=== PATIENT | female | born 1960 | race Caucasian/White ===

== ENCOUNTER 2021-06-23 18:32 | Inpatient (IN) | payer OTHER, MEDICAID, SELFPAY ==
--- NOTE | 2021-06-23 18:33 | CTR_ITS ---
PROCEDURE INFORMATION: Exam: CT Head Without Contrast Exam date and time: 06/23/2021 6:33 PM Age: 61 years old Clinical indication: Altered mental status/memory loss; Additional info: AMS TECHNIQUE: Imaging protocol: Computed tomography of the head without contrast. Radiation optimization: All CT scans at this facility use at least one of these dose optimization techniques: automated exposure control; mA and/or kV adjustment per patient size (includes targeted exams where dose is matched to clinical indication); or iterative reconstruction. COMPARISON: No relevant prior studies available. RADIATION DOSE METRICS: Total DLP (mGy-cm): 823.68 FINDINGS: Brain: There is volume loss and periventricular low density compatible with chronic small vessel disease changes. There is no acute hemorrhage, edema or mass effect. There are small bifrontal benign hygromas. Cerebral ventricles: No ventriculomegaly. Paranasal sinuses: Visualized sinuses are unremarkable. No fluid levels. Mastoid air cells: Visualized mastoid air cells are well aerated. Bones/joints: Unremarkable. No acute fracture. Soft tissues: Unremarkable. CT/CT head wo con* [id number] IMPRESSION: No acute intracranial abnormality. Radiation Dose CTDIVOL = (mGy): DLP = 823.68 (mGy-cm)
--- NOTE | 2021-06-23 18:33 | ECG_ITS ---
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[id number] Requested By: Oscar Bolanos Order Number: [id number] Reading MD: NIKKI COURTNEY Measurements Intervals [place] Rate: 93 P: 67 [place]: 191 QRS: 97 QRSD: 129 T: -38 QT: 410 QTc: 511 Interpretive Statements SINUS RHYTHM WITH SINUS ARRHYTHMIA BORDERLINE RIGHT AXIS DEVIATION [QRS AXIS > 90] Compared to ECG 06/23/2021 21:59:17 Intraventricular conduction delay no longer present Electronically Signed On 06-23-2021 23:55:44 CDT by NIKKI COURTNEY [id number]
--- NOTE | 2021-06-23 18:34 | XRR_ITS ---
PROCEDURE INFORMATION: Exam: XR Chest Exam date and time: 06/23/2021 6:34 PM Age: 61 years old Clinical indication: Other: [facility] TECHNIQUE: Imaging protocol: XR of the chest. Views: 1 view. COMPARISON: No relevant prior studies available. FINDINGS: Lungs: Unremarkable. No consolidation. Pulmonary vascularity is within normal limits. Scattered calcified pulmonary granulomas are noted. Pleural spaces: Unremarkable. No pleural effusion. No pneumothorax. Heart/Mediastinum: Borderline cardiomegaly. Bones/joints: No acute abnormality. XR/XR chest 1V portable [id number] IMPRESSION: No acute findings. Radiation Dose CTDIVOL = (mGy): DLP = (mGy-cm)
[2021-06-23 18:39] VITALS: BP 105/88; PULSE 99; RESP 28; TEMP 36.8; O2SAT 96; BMI 29.0
--- NOTE | 2021-06-23 18:44 | CTR_ITS ---
PROCEDURE INFORMATION: Exam: CT Abdomen And Pelvis With Contrast Exam date and time: 06/23/2021 6:44 PM Age: 61 years old Clinical indication: Other: [facility]; Additional info: Eval abd pain TECHNIQUE: Imaging protocol: Computed tomography of the abdomen and pelvis with contrast. Sagittal and coronal reformatted images were created and reviewed. Radiation optimization: All CT scans at this facility use at least one of these dose optimization techniques: automated exposure control; mA and/or kV adjustment per patient size (includes targeted exams where dose is matched to clinical indication); or iterative reconstruction. Contrast material: VISI 320; Contrast volume: 95 ml; Contrast route: INTRAVENOUS (IV); COMPARISON: CR (CHEST, ) 06/23/2021 7:10 PM RADIATION DOSE METRICS: Total DLP (mGy-cm): 1786.72 FINDINGS: Limitations: Motion artifact on multiple images that can limit evaluation. Tubes, catheters and devices: There is a left femoral central line with the tip in the left common iliac vein. Lungs: Ground-glass opacification in the periphery of both visualized lungs, findings are better visualized compared with the chest x-ray done earlier on 06/23/2021. Pleural spaces: No pleural effusion. Heart: Visualized portions of the heart are mildly enlarged. Mild atherosclerotic calcification in the visualized coronary arteries. Liver: Diffuse, mildly decreased attenuation in the liver. Findings are consistent with mild fatty infiltration. Gallbladder and bile ducts: Patient has had a previous cholecystectomy. No biliary ductal dilatation. Pancreas: Mild atrophy of the pancreatic parenchyma. No pancreatic ductal dilatation. Spleen: The spleen is unremarkable. Adrenal glands: Indeterminate focus in the right adrenal gland. Hounsfield units show density greater than expected for an adenoma. This measures 1.1 x 1.5 cm (series 2, image 19). The left adrenal gland is unremarkable. Kidneys and ureters: Multiple areas of focal cortical scarring in the right kidney. Subcentimeter hypodense focus in the left kidney that is too small to characterize, however likely represents a small cyst. The right and left ureters are unremarkable. Stomach and bowel: Increased fecal content in the colon. No acute abnormality in the stomach. No acute abnormality in the small bowel. Appendix: Appendix not definitely visualized. No inflammatory changes in the pericecal region however. Intraperitoneal space: No free intraperitoneal air. No ascites. No loculated fluid collections to suggest an abscess. Vasculature: Moderate atherosclerotic changes in the visualized arteries. No evidence for aortic aneurysm or aortic dissection. Incidental note of separate origins of the common hepatic artery, left gastric artery, and splenic artery from the aorta.Vasculature: Hepatic veins, portal veins, splenic vein, and SMV are patent. Lymph nodes: No lymphadenopathy. Urinary bladder: The bladder is decompressed by a Malhotra catheter. Air in the bladder, likely related to Malhotra catheter placement. Reproductive: Patient has had a previous hysterectomy. Calcifications in both right and left ovaries, possibly due to sequela from prior involuting cysts. Bones/joints: Bones are diffusely osteopenic. Degenerative changes in the spine, sacroiliac joints, and hips. Mild spinal canal stenosis at L2-L3 through L5-S1. Multilevel foraminal stenosis of varying severity in the lumbar spine. Soft tissues: No acute abnormality in the extra-abdominal soft tissues. CT/CT abdomen pelvis w con* [id number] IMPRESSION: 1. Ground-glass opacification in the periphery of both visualized lungs, findings are better visualized compared with the chest x-ray done earlier on 06/23/2021. Findings raise suspicion for pneumonia, including COVID-19 pneumonia. Recommend clinical correlation. Recommend followup chest imaging to insure resolution of these findings. 2. Mild fatty infiltration of the liver. 3. Indeterminate focus in the right adrenal gland. Consider 12 month follow-up adrenal CT. (Reference: Diana) 4. There is a left femoral central line with the tip in the left common iliac vein. 5. Incidental/nonacute findings are listed in the report. COMMENTS: 1. Consistent with the [employer] [place] [employer]'s Incidental Findings Committee white paper (J Am Danielito Radiol 2017): Any incidental adrenal lesion less than or equal to 1 cm is likely benign. No follow-up imaging is recommended for these lesions per consensus recommendations based on imaging criteria. Further lab evaluation could be pursued if warranted based on clinical findings. 2. Consistent with the [employer] [place] [employer]'s Incidental Findings Committee white paper (J Am Danielito Radiol 2018): Any incidental renal lesion less than 1 cm or classified as too small to characterize, or any incidental cystic renal lesion characterized as simple-appearing, is likely benign. No follow-up imaging is recommended for these lesions per consensus recommendations based on imaging criteria. REFERENCES: Diana CASTILLO, et al. Management of Incidental Adrenal Masses: A White Paper of the ACR Incidental Findings Committee. J Am Danielito Radiol. 2017;14(8):1413-6458. Radiation Dose CTDIVOL = (mGy): DLP = 1786.72 (mGy-cm)
[2021-06-23 18:49] LABS: Basophils # 0.2 10^3/uL (0.0-0.1); Basophils % 0.6 %; Hematocrit 43.5 % (37.0-47.0); Hemoglobin 13.3 g/dL (11.5-15.3); Lymphocytes # 2.3 10^3/uL (0.8-4.8); Lymphocytes % 8.2 %; Mean Corpuscular HGB Conc 30.6 g/dL (30.0-36.0); Mean Corpuscular Hemoglobin 28.7 pg (28.0-34.0); Mean Corpuscular Volume 93.8 fl (81-99); Mean Platelet Volume 12.5 fL (7.4-10.4); Monocytes # 2.3 10^3/uL (0.2-0.9); Neutrophils # 23.09 10^3/uL (1.8-7.7); Neutrophils % 81.5 %; Nucleated Red Blood Cells % 0 %; Platelet Count 400 10^3/cmm (130-400); Red Blood Count 4.64 10^6/uL (4.1-5.3); Red Cell Distribution Width 13.2 % (12.1-15.1); White Blood Count 28.4 10^3/uL (4.0-10.0)
[2021-06-23 18:56] LABS: Ketone (Acetest) Serum Positive (Negative)
[2021-06-23 19:06] LABS: Troponin(5th) Baseline 30 ng/L (0-10)
[2021-06-23 19:08] LABS: Alanine Aminotransferase 42 U/L (0-33); Albumin Level 4.4 g/dL (3.5-5.2); Alkaline Phosphatase 191 IU/L (35-105); Anion Gap 43.5 (5-19); Aspartate Amino Transferase 30 U/L (0-32); Blood Urea Nitrogen 27 mg/dL (8-23); Chloride 92 mmol/L (98-107); Globulin 2.3 g/dL (1.3-4.6); Glomerular Filtration Rate 30.7 mL/min (90-130); Lipase 119 U/L (13-60); Osmolality Calculated 312 mOsm/kg (285-295); Potassium 5.5 mmol/L (3.5-5.1); Sodium 133 mmol/L (136-145); Total Bilirubin 0.3 mg/dL (0.15-1.2); Total Protein 6.7 g/dL (6.6-8.7)
[2021-06-23 19:10] LABS: Acetaminophen < 5.0 ug/mL (10-30); Salicylate < 0.3 mg/dL (3-10)
[2021-06-23 19:36] LABS: Carbon Dioxide 3 mmol/L (22-29); Glucose 653 mg/dL (65-115)
[2021-06-23] MEDS: lactated ringers 1,000 ML 999 ML IV ×2 (19:44→21:41)
[2021-06-23 19:47] LABS: Add Urine Microscopic? YES; Bilirubin Urine Neg (Negative); Blood Urine 3+ (Negative); Glucose Urine UA 4+ (Normal); Ketones Urine 3+ (Negative); Leukocyte Esterase Urine Negative (Negative); Nitrate Urine Negative (Negative); Protein Urine Trace (Negative); Urine Appearance Clear (CLEAR); Urine Color Yellow (Yellow); Urobilinogen Urine Norm (Negative); pH Urine 5 (5-7)
[2021-06-23 19:51] LABS: RBC Urine 0-4 /hpf (0-2); Squamous Epithelial Cell Urine 0-4 /hpf (0-5); WBC Urine 0-4 /hpf (0-5)
[2021-06-23 19:52] LABS: Add Urine Culture? No; Amorphous Sediment Urine 1+ /hpf; Bacteria Urine TRACE /hpf
[2021-06-23 20:12] LABS: Lactate (Lactic Acid level) 2.6 mmol/L (0.5-2.2)
[2021-06-23] MEDS: vancomycin 1,000 MG in sodium chloride 0.9% 250 ML 250 MG IV (20:22)
[2021-06-23] MEDS: cefepime 1,000 MG in sodium chloride 0.9% (plus) 50 ML 100 MG IV (20:22)
[2021-06-23 20:32] VITALS: BP 101/47; PULSE 91; RESP 24; O2SAT 98
--- NOTE | 2021-06-23 20:33 | ECG_ITS ---
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[id number] Requested By: Oscar Bolanos Order Number: [id number] Reading MD: NIKKI COURTNEY Measurements Intervals [place] Rate: 93 P: 72 CT: 183 QRS: 99 QRSD: 157 T: -41 QT: 418 QTc: 521 Interpretive Statements SINUS RHYTHM WITH SINUS ARRHYTHMIA BORDERLINE RIGHT AXIS DEVIATION [QRS AXIS > 90] INTRAVENTRICULAR CONDUCTION DELAY [130+ ms QRS DURATION] No previous ECG available for comparison Electronically Signed On 06-24-2021 0:01:50 CDT by NIKKI COURTNEY [email or web address] [id number]
[2021-06-23 20:46] LABS: Troponin 5 2HR 26.77 ng/L (0-10)
[2021-06-23 20:48] LABS: Troponin 5 2HR Delta -3.23 ABS# (0-10)
--- NOTE | 2021-06-23 20:52 | W.ED.GENADLT ---
HPI - General Adult General: Chief complaint: Altered Mental Status Stated complaint: UNRESPONSIVE ON SCENE Time Seen by Provider: 06/23/21 18:33 History of Present Illness: HPI narrative: 61-year-old female history of diabetes complicated multiple DKA presented to the emergency room after she was found obtunded with heavy breathing. History is limited given patient is unresponsive. Patient's son tells me that this all started after he found her down earlier today 2 hours ago. Patient son noticed that patient was last normal yesterday night when she was going home with complaints of belly pain. Patient has been compliant with her insulins. Son does not recall any other triggers for her DKA. When EMS comes,, patient had a glucose greater than 500. Onset: earlier today Duration:ongoing Location:home Severity:moderate Review of Systems Narrative: UNABLE TO OBTAIN DUE TO SEVERITY OF DISEASE Physical Exam Narrative: EXAM NARRATIVE: Head: Atraumatic Eyes: PERRL, conjunctiva without injection ENT: Dry membrane moist, +ketones smell in mouth NECK: Supple, ROM intact LUNGS: LCTAB, no crackles/rhonchi, +kussmal breathing CV: Sinus tachycardia ABDOMEN: Soft, no focal TTP. NO guarding rebound, guarding, rigidity. No CVA tenderness to percussion. Neg Patrick/Neg McBurney's point tenderness, no suprabupic tenderness to palpation. EXTREMITY: Normal ROM SKIN: No rash or erythema NEURO: SOMNOLENT GCS of 10 PSYCH:unable to assess Procedures Central Line Placement Left Femoral: Time Out Performed: Yes Patient Placed on Monitor/Pulse Ox: Yes MD Prep: mask, gown and gloves Central Line Prep: Povidone-Iodine 1% Local Anesthetic: lidocaine 1% Amount of anesthesia used (mL): 5 Ultrasound Used for Placement: Yes Central Line Lumen Inserted: triple Post Procedure: sutured in place, good blood return, all ports aspirated, flushed, capped and sterile dressing applied Post Procedure X-Ray: tip of catheter in good position Patient Tolerated Procedure: well Complications: none Course Vital Signs: Vital signs: Vital Signs Temperature 98.2 F 06/23/21 18:39 Pulse Rate 91 06/23/21 21:46 Respiratory Rate 28 H 06/23/21 21:46 Blood Pressure 94/57 06/23/21 21:46 Pulse Oximetry 98 06/23/21 21:46 MDM - General Adult MDM Narrative: Medical decision making narrative: 61-year-old female with history of DKA presenting to the emergency room with altered mental status, kusmal breathing. Patient was noted to be tachycardic, GCS of 10. Dry on exam. Patient had a glucose greater than 500. Work-up today showed patient is in florid DKA with anion gap of 43, bicarb of 3. pH of 6.8. Unclear what the source of the DKA. K was noted to be 5.5. EKG did not show any hyperkalemic changes. Patient received 3 L of lactated ringer. Patient is now on an insulin drip. CT head did not show any signs of any focal brain bleed or other trauma or injury. CT of pelvis showed no focal findings. Labs improving after insulin drip. Given high shock index and risk of decompensation, decisoin was made ot not intubate. S/p vacnomycin and cefepime. Case was discussed with ICU provider Dr. Silva with plans for ICU admission. Disposition: Admission Lab Data: Labs: Lab Results 06/23/21 06/23/21 06/23/21 18:20 18:20 18:20 WBC 28.4 10^3/uL H 10 ^3/uL (4.0-10.0) RBC 4.64 10^6/uL 10^6 /uL (4.1-5.3) Hgb 13.3 g/dL g/dL (11.5-15.3) Hct 43.5 % % (37.0-47.0) MCV 93.8 fl fl (81-99) MCH 28.7 pg pg (28.0-34.0) MCHC 30.6 g/dL g/dL (30.0-36.0) RDW 13.2 % % (12.1-15.1) Plt Count 400 10^3/cmm 10^3 /cmm (130-400) MPV 12.5 fL H fL (7.4-10.4) Neut % (Auto) 81.5 % % Lymph % (Auto) 8.2 % % [place] % (Auto) 8.0 % % Eos % (Auto) 0.0 % % Baso % (Auto) 0.6 % % Neut # (Auto) 23.09 10^3/uL H 1 0^3/uL (1.8-7.7) Lymph # (Auto) 2.3 10^3/uL 10^3/ uL (0.8-4.8) [place] # (Auto) 2.3 10^3/uL H 10^ 3/uL (0.2-0.9) Eos # (Auto) 0.0 10^3/uL 10^3/ uL (0.0-0.8) Baso # (Auto) 0.2 10^3/uL H 10^ 3/uL (0.0-0.1) Nucleated RBC % (a uto) 0 % % Nucleated RBCs # 0.0 /100WBC /100W BC Specimen Type Sample Site ABG pH ABG pCO2 ABG pO2 ABG HCO3 ABG O2 Saturation ABG Base Excess Bo Test VBG pH VBG pCO2 VBG pO2 VBG HCO3 VBG Base Excess VBG Hematocrit A-a O2 Gradient Hematocrit Hgb O2 Saturation Carboxyhemoglobin Methemoglobin Total Hemoglobin Ionized Calcium O2 Delivery Device FiO2 Systems Spec ID Blood Gas Notified Time Sodium 133 mmol/L L mmol /L (136-145) Potassium 5.5 mmol/L H mmol /L (3.5-5.1) Chloride 92 mmol/L L mmol/ L (98-107) Carbon Dioxide 3 mmol/L L* mmol/ L (22-29) Anion Gap 43.5 H (5-19) BUN 27 mg/dL H mg/dL (8-23) Creatinine 1.7 mg/dL H mg/dL (0.5-0.9) GFR Calculation 30.7 mL/min L mL/ min (90-130) Glucose 653 mg/dL H* mg/d L (65-115) POC Glucose Calculated Osmolal ity 312 mOsm/kg H mOs m/kg (285-295) Lactate Calcium 9.0 mg/dL mg/dL (8.5-10.5) Total Bilirubin 0.3 mg/dL mg/dL (0.15-1.2) AST 30 U/L U/L (0-32) ALT 42 U/L H U/L (0-33) Alkaline Phosphata se 191 IU/L H IU/L (35-105) Troponin T Baselin e Troponin T 120 Min [place] Troponin T Total Protein 6.7 g/dL g/dL (6.6-8.7) Albumin 4.4 g/dL g/dL (3.5-5.2) Globulin 2.3 g/dL g/dL (1.3-4.6) Lipase 119 U/L H U/L (13-60) Urine Color Urine Appearance Urine pH Ur Specific Gravit y Urine Protein Urine Glucose (UA) Urine Ketones Urine Blood Urine Nitrate Urine Bilirubin Urine Urobilinogen Ur Leukocyte Marielena ase Urine RBC Urine WBC Ur Squamous Epith Cells Amorphous Sediment Urine Bacteria Salicylates < 0.3 mg/dL L mg/ dL (3-10) Acetaminophen < 5.0 ug/mL L ug/ mL (10-30) Serum Ketones Positive H (Negative) SARS-CoV-2 Ag (Rap id) 06/23/21 06/23/21 06/23/21 18:20 18:46 19:29 WBC RBC Hgb Hct MCV MCH MCHC RDW Plt Count MPV Neut % (Auto) Lymph % (Auto) [place] % (Auto) Eos % (Auto) Baso % (Auto) Neut # (Auto) Lymph # (Auto) [place] # (Auto) Eos # (Auto) Baso # (Auto) Nucleated RBC % (a uto) Nucleated RBCs # Specimen Type Sample Site ABG pH ABG pCO2 ABG pO2 ABG HCO3 ABG O2 Saturation ABG Base Excess Bo Test VBG pH VBG pCO2 VBG pO2 VBG HCO3 VBG Base Excess VBG Hematocrit A-a O2 Gradient Hematocrit Hgb O2 Saturation Carboxyhemoglobin Methemoglobin Total Hemoglobin Ionized Calcium O2 Delivery Device FiO2 Systems Spec ID Blood Gas Notified Time Sodium Potassium Chloride Carbon Dioxide Anion Gap BUN Creatinine GFR Calculation Glucose POC Glucose Calculated Osmolal ity Lactate 2.6 mmol/L H mmol /L (0.5-2.2) Calcium Total Bilirubin AST ALT Alkaline Phosphata se Troponin T Baselin e 30 ng/L H ng/L (0-10) Troponin T 120 Min [place] Troponin T Total Protein Albumin Globulin Lipase Urine Color Yellow (Yellow) Urine Appearance Clear (CLEAR) Urine pH 5 (5-7) Ur Specific Gravit y 1.020 (1.005-1.030) Urine Protein Trace (Negative) Urine Glucose (UA) 4+ H (Normal) Urine Ketones 3+ H (Negative) Urine Blood 3+ H (Negative) Urine Nitrate Negative (Negative) Urine Bilirubin Neg (Negative) Urine Urobilinogen Norm mg/dL mg/dL (Negative) Ur Leukocyte Marielena ase Negative (Negative) Urine RBC 0-4 /hpf H /hpf (0-2) Urine WBC 0-4 /hpf H /hpf (0-5) Ur Squamous Epith Cells 0-4 /hpf H /hpf (0-5) Amorphous Sediment 1+ /hpf /hpf Urine Bacteria Trace /hpf /hpf (NONE) Salicylates Acetaminophen Serum Ketones SARS-CoV-2 Ag (Rap id) 06/23/21 06/23/21 06/23/21 20:17 20:20 20:27 WBC RBC Hgb Hct MCV MCH MCHC RDW Plt Count MPV Neut % (Auto) Lymph % (Auto) [place] % (Auto) Eos % (Auto) Baso % (Auto) Neut # (Auto) Lymph # (Auto) [place] # (Auto) Eos # (Auto) Baso # (Auto) Nucleated RBC % (a uto) Nucleated RBCs # Specimen Type Sample Site ABG pH ABG pCO2 ABG pO2 ABG HCO3 ABG O2 Saturation ABG Base Excess Bo Test VBG pH VBG pCO2 VBG pO2 VBG HCO3 VBG Base Excess VBG Hematocrit A-a O2 Gradient Hematocrit Hgb O2 Saturation Carboxyhemoglobin Methemoglobin Total Hemoglobin Ionized Calcium O2 Delivery Device FiO2 Systems Spec ID Blood Gas Notified Time Sodium Potassium Chloride Carbon Dioxide Anion Gap BUN Creatinine GFR Calculation Glucose POC Glucose 572 mg/dL H* mg/d L (70-110) Calculated Osmolal ity Lactate Calcium Total Bilirubin AST ALT Alkaline Phosphata se Troponin T Baselin e Troponin T 120 Min [place] 26.77 ng/L H ng/L (0-10) Delta Troponin T -3.23 ABS# L ABS# (0-10) Total Protein Albumin Globulin Lipase Urine Color Urine Appearance Urine pH Ur Specific Gravit y Urine Protein Urine Glucose (UA) Urine Ketones Urine Blood Urine Nitrate Urine Bilirubin Urine Urobilinogen Ur Leukocyte Marielena ase Urine RBC Urine WBC Ur Squamous Epith Cells Amorphous Sediment Urine Bacteria Salicylates Acetaminophen Serum Ketones SARS-CoV-2 Ag (Rap id) Negative (Negative) 06/23/21 06/23/21 06/23/21 21:08 21:10 21:54 WBC RBC Hgb Hct MCV MCH MCHC RDW Plt Count MPV Neut % (Auto) Lymph % (Auto) [place] % (Auto) Eos % (Auto) Baso % (Auto) Neut # (Auto) Lymph # (Auto) [place] # (Auto) Eos # (Auto) Baso # (Auto) Nucleated RBC % (a uto) Nucleated RBCs # Specimen Type Venous Sample Site Radial, left ABG pH 6.84 L* (7.35-7.45) ABG pCO2 20.0 mmHg L mmHg (35-45) ABG pO2 40.0 mmHg L mmHg (80.0-100.0) ABG HCO3 3.4 mmol/L L mmol /L (22-26) ABG O2 Saturation 70.5 ABG Base Excess -29.5 mmol/L L mm ol/L (-2.0-2.0) Bo Test Pos VBG pH 6.84 L* (7.32-7.42) VBG pCO2 20.0 mmHg L mmHg (41-51) VBG pO2 40.0 mmHg mmHg (25-40) VBG HCO3 3.4 mmol/L L mmol /L (24-28) VBG Base Excess -29.5 mmol/L L mm ol/L (-3.0-3.0) VBG Hematocrit 38.0 % % (37-47) A-a O2 Gradient 11.1 mmHg H mmHg (5-10) Hematocrit 38.0 % % (37-47) Hgb O2 Saturation 69.4 % L % (95-100) Carboxyhemoglobin 0.9 %THgb %THgb (0.4-20.1) Methemoglobin 0.6 % % (0.4-1.5) Total Hemoglobin 12.4 g/dL g/dL (12-16) Ionized Calcium 1.3 mmol/L mmol/L (1.1-1.4) O2 Delivery Device Room air FiO2 21.0 % % Systems Spec ID glc Blood Gas Notified Time Sodium 131 mmol/L L mmol /L 136.0 mmol/L mmol /L (136-145) (131-143) Potassium 4.6 mmol/L mmol/L 4.7 mmol/L mmol/L (3.5-5.1) (3.5-5.0) Chloride 95 mmol/L L mmol/ L (98-107) Carbon Dioxide 4 mmol/L L* mmol/ L (22-29) Anion Gap 36.6 H (5-19) BUN 26 mg/dL H mg/dL (8-23) Creatinine 1.5 mg/dL H mg/dL (0.5-0.9) GFR Calculation 35.4 mL/min L mL/ min (90-130) Glucose 569 mg/dL H* mg/d L 595.0 mg/dL H mg/ dL (65-115) (70-115) POC Glucose 595 mg/dL H* mg/d L (70-110) Calculated Osmolal ity 303 mOsm/kg H mOs m/kg (285-295) Lactate Calcium 7.6 mg/dL L mg/dL (8.5-10.5) Total Bilirubin AST ALT Alkaline Phosphata se Troponin T Baselin e Troponin T 120 Min [place] Troponin T Total Protein Albumin Globulin Lipase Urine Color Urine Appearance Urine pH Ur Specific Gravit y Urine Protein Urine Glucose (UA) Urine Ketones Urine Blood Urine Nitrate Urine Bilirubin Urine Urobilinogen Ur Leukocyte Marielena ase Urine RBC Urine WBC Ur Squamous Epith Cells Amorphous Sediment Urine Bacteria Salicylates Acetaminophen Serum Ketones SARS-CoV-2 Ag (Rap id) 06/23/21 06/23/21 22:09 22:19 WBC RBC Hgb Hct MCV MCH MCHC RDW Plt Count MPV Neut % (Auto) Lymph % (Auto) [place] % (Auto) Eos % (Auto) Baso % (Auto) Neut # (Auto) Lymph # (Auto) [place] # (Auto) Eos # (Auto) Baso # (Auto) Nucleated RBC % (a uto) Nucleated RBCs # Specimen Type Venous Sample Site Not specified ABG pH ABG pCO2 ABG pO2 ABG HCO3 ABG O2 Saturation ABG Base Excess Bo Test N/a VBG pH 6.84 L* (7.32-7.42) VBG pCO2 11.0 mmHg L* mmHg (41-51) VBG pO2 125.0 mmHg H mmHg (25-40) VBG HCO3 1.8 mmol/L L mmol /L (24-28) VBG Base Excess -30.9 mmol/L L mm ol/L (-3.0-3.0) VBG Hematocrit 40.2 % % (37-47) A-a O2 Gradient Hematocrit Hgb O2 Saturation Carboxyhemoglobin Methemoglobin Total Hemoglobin Ionized Calcium O2 Delivery Device Not Reportable FiO2 Systems Spec ID glc Blood Gas Notified Time 2240 Sodium Potassium Chloride Carbon Dioxide Anion Gap BUN Creatinine GFR Calculation Glucose POC Glucose 576 mg/dL H* mg/d L (70-110) Calculated Osmolal ity Lactate Calcium Total Bilirubin AST ALT Alkaline Phosphata se Troponin T Baselin e Troponin T 120 Min [place] Troponin T Total Protein Albumin Globulin Lipase Urine Color Urine Appearance Urine pH Ur Specific Gravit y Urine Protein Urine Glucose (UA) Urine Ketones Urine Blood Urine Nitrate Urine Bilirubin Urine Urobilinogen Ur Leukocyte Marielena ase Urine RBC Urine WBC Ur Squamous Epith Cells Amorphous Sediment Urine Bacteria Salicylates Acetaminophen Serum Ketones SARS-CoV-2 Ag (Rap id) Imaging Data^: Other Imaging: Radiologist's impression: [facility] [place] [id number] Scan ReportSigned Patient: Donny Beck #: [id number]: 1960cct#:[id number]/Sex: 61 / FADM Date: 06/23/21Loc: ERRoom/Bed:Attending Dr: Ordering Provider/Ordering MD: Oscar Bolanos MD Date of Service: 06/23/21 Procedure(s): CT abdomen pelvis w con* [id number] Accession Number(s): [id number] Report Number: [id number] PROCEDURE INFORMATION: Exam: CT Abdomen And Pelvis With Contrast Exam date and time: 06/23/2021 6:44 PM Age: 61 years old Clinical indication: Other: Hhs; Additional info: Eval abd pain TECHNIQUE: Imaging protocol: Computed tomography of the abdomen and pelvis with contrast. Sagittal and coronal reformatted images were created and reviewed. Radiation optimization: All CT scans at this facility use at least one of these dose optimization techniques: automated exposure control; mA and/or kV adjustment per patient size (includes targeted exams where dose is matched to clinical indication); or iterative reconstruction. Contrast material: VISI 320; Contrast volume: 95 ml; Contrast route: INTRAVENOUS (IV); COMPARISON: CR (CHEST, ) 06/23/2021 7:10 PM RADIATION DOSE METRICS: Total DLP (mGy-cm): 1786.72 FINDINGS: Limitations: Motion artifact on multiple images that can limit evaluation. Tubes, catheters and devices: There is a left femoral central line with the tip in the left common iliac vein. Lungs: Ground-glass opacification in the periphery of both visualized lungs, findings are better visualized compared with the chest x-ray done earlier on 06/23/2021. Pleural spaces: No pleural effusion. Heart: Visualized portions of the heart are mildly enlarged. Mild atherosclerotic calcification in the visualized coronary arteries. Liver: Diffuse, mildly decreased attenuation in the liver. Findings are consistent with mild fatty infiltration. Gallbladder and bile ducts: Patient has had a previous cholecystectomy. No biliary ductal dilatation. Pancreas: Mild atrophy of the pancreatic parenchyma. No pancreatic ductal dilatation. Spleen: The spleen is unremarkable. Adrenal glands: Indeterminate focus in the right adrenal gland. Hounsfield units show density greater than expected for an adenoma. This measures 1.1 x 1.5 cm (series 2, image 19). The left adrenal gland is unremarkable. Kidneys and ureters: Multiple areas of focal cortical scarring in the right kidney. Subcentimeter hypodense focus in the left kidney that is too small to characterize, however likely represents a small cyst. The right and left ureters are unremarkable. Stomach and bowel: Increased fecal content in the colon. No acute abnormality in the stomach. No acute abnormality in the small bowel. Appendix: Appendix not definitely visualized. No inflammatory changes in the pericecal region however. Intraperitoneal space: No free intraperitoneal air. No ascites. No loculated fluid collections to suggest an abscess. Vasculature: Moderate atherosclerotic changes in the visualized arteries. No evidence for aortic aneurysm or aortic dissection. Incidental note of separate origins of the common hepatic artery, left gastric artery, and splenic artery from the aorta.Vasculature: Hepatic veins, portal veins, splenic vein, and SMV are patent. Lymph nodes: No lymphadenopathy. Urinary bladder: The bladder is decompressed by a Malhotra catheter. Air in the bladder, likely related to Malhotra catheter placement. Reproductive: Patient has had a previous hysterectomy. Calcifications in both right and left ovaries, possibly due to sequela from prior involuting cysts. Bones/joints: Bones are diffusely osteopenic. Degenerative changes in the spine, sacroiliac joints, and hips. Mild spinal canal stenosis at L2-L3 through L5-S1. Multilevel foraminal stenosis of varying severity in the lumbar spine. Soft tissues: No acute abnormality in the extra-abdominal soft tissues. CT/CT abdomen pelvis w con* [id number] IMPRESSION: 1. Ground-glass opacification in the periphery of both visualized lungs, findings are better visualized compared with the chest x-ray done earlier on 06/23/2021. Findings raise suspicion for pneumonia, including COVID-19 pneumonia. Recommend clinical correlation. Recommend followup chest imaging to insure resolution of these findings. 2. Mild fatty infiltration of the liver. 3. Indeterminate focus in the right adrenal gland. Consider 12 month follow-up adrenal CT. (Reference: Diana) 4. There is a left femoral central line with the tip in the left common iliac vein. 5. Incidental/nonacute findings are listed in the report. COMMENTS: 1. Consistent with the [employer]'s Incidental Findings Committee white paper (J Am Danielito Radiol 2017): Any incidental adrenal lesion less than or equal to 1 cm is likely benign. No follow-up imaging is recommended for these lesions per consensus recommendations based on imaging criteria. Further lab evaluation could be pursued if warranted based on clinical findings. 2. Consistent with the [employer]'s Incidental Findings Committee white paper (J Am Danielito Radiol 2018): Any incidental renal lesion less than 1 cm or classified as too small to characterize, or any incidental cystic renal lesion characterized as simple-appearing, is likely benign. No follow-up imaging is recommended for these lesions per consensus recommendations based on imaging criteria. REFERENCES: Diana CASTILLO, et al. Management of Incidental Adrenal Masses: A White Paper of the ACR Incidental Findings Committee. J Am Danielito Radiol. 2017;14(8):2044-5480. Radiation Dose CTDIVOL = (mGy): DLP = 1786.72 (mGy-cm) Dictated By:Chio Vaughan MDSigned By:Chio Vaughan MDSigned Date/Time:06/23/21 2146DD/ [address] [address]ZTqu ReportSigned Patient: Donny Beck #: [id number]: 1960cct#:[id number]/Sex: 61 / FADM Date: 06/23/21Loc: ERRoom/Bed:Attending Dr: Ordering Provider/Ordering MD: Oscar Bolanos MD Date of Service: 06/23/21 Procedure(s): XR chest 1V portable [id number] Accession Number(s): [id number] Report Number: [id number] PROCEDURE INFORMATION: Exam: XR Chest Exam date and time: 06/23/2021 6:34 PM Age: 61 years old Clinical indication: Other: Hhs TECHNIQUE: Imaging protocol: XR of the chest. Views: 1 view. COMPARISON: No relevant prior studies available. FINDINGS: Lungs: Unremarkable. No consolidation. Pulmonary vascularity is within normal limits. Scattered calcified pulmonary granulomas are noted. Pleural spaces: Unremarkable. No pleural effusion. No pneumothorax. Heart/Mediastinum: Borderline cardiomegaly. Bones/joints: No acute abnormality. XR/XR chest 1V portable [id number] IMPRESSION: No acute findings. Radiation Dose CTDIVOL = (mGy): DLP = (mGy-cm) Dictated By:Quinn Adamesigned By:Young Adames Date/Time:06/23/212DD/ [address] [id number] Scan ReportSigned Patient: Donny Beck #: [id number]: 1960cct#:[id number]/Sex: 61 / FADM Date: 06/23/21Loc: ERRoom/Bed:Attending Dr: Ordering Provider/Ordering MD: Oscar Bolanos MD Date of Service: 06/23/21 Procedure(s): CT head wo con* [id number] Accession Number(s): [id number] Report Number: [id number] PROCEDURE INFORMATION: Exam: CT Head Without Contrast Exam date and time: 06/23/2021 6:33 PM Age: 61 years old Clinical indication: Altered mental status/memory loss; Additional info: AMS TECHNIQUE: Imaging protocol: Computed tomography of the head without contrast. Radiation optimization: All CT scans at this facility use at least one of these dose optimization techniques: automated exposure control; mA and/or kV adjustment per patient size (includes targeted exams where dose is matched to clinical indication); or iterative reconstruction. COMPARISON: No relevant prior studies available. RADIATION DOSE METRICS: Total DLP (mGy-cm): 823.68 FINDINGS: Brain: There is volume loss and periventricular low density compatible with chronic small vessel disease changes. There is no acute hemorrhage, edema or mass effect. There are small bifrontal benign hygromas. Cerebral ventricles: No ventriculomegaly. Paranasal sinuses: Visualized sinuses are unremarkable. No fluid levels. Mastoid air cells: Visualized mastoid air cells are well aerated. Bones/joints: Unremarkable. No acute fracture. Soft tissues: Unremarkable. CT/CT head wo con* [id number] IMPRESSION: No acute intracranial abnormality. Radiation Dose CTDIVOL = (mGy): DLP = 823.68 (mGy-cm) Dictated By:Quinn Adamesigned By:Quinn Adamesigned Date/Time:06/23/21/ [address] [address]BQ Scan ReportSigned with Addenda Patient: Donny Beck #: [id number]: [id number]#:[id number]/Sex: 61 / FADM Date: 06/23/21Loc: ERRoom/Bed:Attending Dr: Ordering Provider/Ordering MD: Oscar Bolanos MD Date of Service: 06/23/21 Procedure(s): CT abdomen pelvis w con* [id number] Accession Number(s): [id number] Report Number: [id number]/CT abdomen pelvis w con* [id number] Urgent results were discussed with OSCAR Eller on 06/23/2021 at 10:28 PM CDT. Radiation Dose CTDIVOL = (mGy): DLP = 1786.72 (mGy-cm) Addendum Dictated By: Chio Vaughan MDAddendum Signed By: Chio Vaughan MDSigned Date/Time:06/23/219Addendum Cosigned By: PROCEDURE INFORMATION: Exam: CT Abdomen And Pelvis With Contrast Exam date and time: 06/23/2021 6:44 PM Age: 61 years old Clinical indication: Other: Hhs; Additional info: Eval abd pain TECHNIQUE: Imaging protocol: Computed tomography of the abdomen and pelvis with contrast. Sagittal and coronal reformatted images were created and reviewed. Radiation optimization: All CT scans at this facility use at least one of these dose optimization techniques: automated exposure control; mA and/or kV adjustment per patient size (includes targeted exams where dose is matched to clinical indication); or iterative reconstruction. Contrast material: VISI 320; Contrast volume: 95 ml; Contrast route: INTRAVENOUS (IV); COMPARISON: CR (CHEST, ) 06/23/2021 7:10 PM RADIATION DOSE METRICS: Total DLP (mGy-cm): 1786.72 FINDINGS: Limitations: Motion artifact on multiple images that can limit evaluation. Tubes, catheters and devices: There is a left femoral central line with the tip in the left common iliac vein. Lungs: Ground-glass opacification in the periphery of both visualized lungs, findings are better visualized compared with the chest x-ray done earlier on 06/23/2021. Pleural spaces: No pleural effusion. Heart: Visualized portions of the heart are mildly enlarged. Mild atherosclerotic calcification in the visualized coronary arteries. Liver: Diffuse, mildly decreased attenuation in the liver. Findings are consistent with mild fatty infiltration. Gallbladder and bile ducts: Patient has had a previous cholecystectomy. No biliary ductal dilatation. Pancreas: Mild atrophy of the pancreatic parenchyma. No pancreatic ductal dilatation. Spleen: The spleen is unremarkable. Adrenal glands: Indeterminate focus in the right adrenal gland. Hounsfield units show density greater than expected for an adenoma. This measures 1.1 x 1.5 cm (series 2, image 19). The left adrenal gland is unremarkable. Kidneys and ureters: Multiple areas of focal cortical scarring in the right kidney. Subcentimeter hypodense focus in the left kidney that is too small to characterize, however likely represents a small cyst. The right and left ureters are unremarkable. Stomach and bowel: Increased fecal content in the colon. No acute abnormality in the stomach. No acute abnormality in the small bowel. Appendix: Appendix not definitely visualized. No inflammatory changes in the pericecal region however. Intraperitoneal space: No free intraperitoneal air. No ascites. No loculated fluid collections to suggest an abscess. Vasculature: Moderate atherosclerotic changes in the visualized arteries. No evidence for aortic aneurysm or aortic dissection. Incidental note of separate origins of the common hepatic artery, left gastric artery, and splenic artery from the aorta.Vasculature: Hepatic veins, portal veins, splenic vein, and SMV are patent. Lymph nodes: No lymphadenopathy. Urinary bladder: The bladder is decompressed by a Malhotra catheter. Air in the bladder, likely related to Malhotra catheter placement. Reproductive: Patient has had a previous hysterectomy. Calcifications in both right and left ovaries, possibly due to sequela from prior involuting cysts. Bones/joints: Bones are diffusely osteopenic. Degenerative changes in the spine, sacroiliac joints, and hips. Mild spinal canal stenosis at L2-L3 through L5-S1. Multilevel foraminal stenosis of varying severity in the lumbar spine. Soft tissues: No acute abnormality in the extra-abdominal soft tissues. CT/CT abdomen pelvis w con* [id number] IMPRESSION: 1. Ground-glass opacification in the periphery of both visualized lungs, findings are better visualized compared with the chest x-ray done earlier on 06/23/2021. Findings raise suspicion for pneumonia, including COVID-19 pneumonia. Recommend clinical correlation. Recommend followup chest imaging to insure resolution of these findings. 2. Mild fatty infiltration of the liver. 3. Indeterminate focus in the right adrenal gland. Consider 12 month follow-up adrenal CT. (Reference: Diana) 4. There is a left femoral central line with the tip in the left common iliac vein. 5. Incidental/nonacute findings are listed in the report. COMMENTS: 1. Consistent with the [employer]'s Incidental Findings Committee white paper (J Am Danielito Radiol 2017): Any incidental adrenal lesion less than or equal to 1 cm is likely benign. No follow-up imaging is recommended for these lesions per consensus recommendations based on imaging criteria. Further lab evaluation could be pursued if warranted based on clinical findings. 2. Consistent with the [employer]'s Incidental Findings Committee white paper (J Am Danielito Radiol 2018): Any incidental renal lesion less than 1 cm or classified as too small to characterize, or any incidental cystic renal lesion characterized as simple-appearing, is likely benign. No follow-up imaging is recommended for these lesions per consensus recommendations based on imaging criteria. REFERENCES: Diana CASTILLO, et al. Management of Incidental Adrenal Masses: A White Paper of the ACR Incidental Findings Committee. J Am Danielito Radiol. 2017;14(8):8492-0869. Radiation Dose CTDIVOL = (mGy): DLP = 1786.72 (mGy-cm) Dictated By:Chio Vaughan MDSigned By:Chio Vaughan MDSigned Date/Time:06/23/212145DD/ 43 Critical Care Time Critical Care Time: Critical Care Time: Yes Total Critical Care Time: 37 Attestation: Given the high probability of imminent or life threatening deterioration of the patient?s condition without intervention, the patient was immediately assessed by myself and the nurse, and cardiac monitoring initiated. The patient was also placed on oxygen and continuous pulse oximetry initiated. During the course of the patient?s stay, I spent a considerable amount of time at the bedside performing serial re-evaluations of the patient?s hemodynamic and clinical status because of the recognized potential threat to life or limb in this condition. Clinical management of this patient involved high complexity decision making to assess, manipulate, and support vital organ system failure. I then had a chance to review all of the available laboratory and radiographic studies obtained today, and I also reviewed old records available to me at the time. Sequential vital signs were obtained. Critical care time noted below was time spent engaged in work directly related to the individual patient?s care, not including time performing procedures; however it does include time spent at the immediate bedside or elsewhere on the floor or unit. TOTAL CRITICAL CARE TIME ELAPSED: 37 minutes. BODY SYSTEM AT HIGHEST RISK: Hematological Discharge Plan Discharge Patient Disposition: Admitted As Inpatient Clinical Impression: DKA (diabetic ketoacidosis), Altered mental status Condition: Stable Coding Level of Care Code ED Data Management Consultant for Bakari Lafleur
[2021-06-23 21:11] LABS: SARS Covid-2 Antigen Negative (Negative)
[2021-06-23 21:17] LABS: Alveolar-Arterial Oxygen Gradi 11.1 mmHg (5-10); Base Excess ABG -29.5 mmol/L (-2.0-2.0); Base Excess VBG -29.5 mmol/L (-3.0-3.0); Blood Gas Allen Test Pos; Blood Gas Operator Identificat glc; Blood Gas Sample Site Radial, left; Carboxyhemoglobin 0.9 %THgb (0.4-20.1); HCO3 ABG 3.4 mmol/L (22-26); HCO3 VBG 3.4 mmol/L (24-28); HGB O2 Sat 69.4 % (95-100); Ionized Calcium Level - ABG 1.3 mmol/L (1.1-1.4); Methemoglobin 0.6 % (0.4-1.5); Oxygen Device ROOM AIR; Oxygen Saturation ABG 70.5; Potassium Level - ABG 4.7 mmol/L (3.5-5.0); Total Hemoglobin 12.4 g/dL (12-16)
[2021-06-23 21:18] LABS: Blood Gas Sample Type Venous
[2021-06-23 21:19] LABS: ABG PH Result 6.84 (7.35-7.45); pH VBG 6.84 (7.32-7.42)
[2021-06-23 21:37] LABS: Anion Gap 36.6 (5-19); Blood Urea Nitrogen 26 mg/dL (8-23); Calcium 7.6 mg/dL (8.5-10.5); Chloride 95 mmol/L (98-107); Glomerular Filtration Rate 35.4 mL/min (90-130); Osmolality Calculated 303 mOsm/kg (285-295); Potassium 4.6 mmol/L (3.5-5.1); Sodium 131 mmol/L (136-145)
[2021-06-23] MEDS: insulin regular-human 250 UNIT in sodium chloride 0.9% 250 ML 8.1 UNIT IV (21:39)
[2021-06-23 21:40] LABS: Carbon Dioxide 4 mmol/L (22-29); Glucose 569 mg/dL (65-115)
[2021-06-23 21:46] VITALS: BP 94/57; PULSE 91; RESP 28; O2SAT 98
[2021-06-23 21:52] LABS: Glucose Point of Care 572 mg/dL (70-110)
[2021-06-23 21:58] LABS: Glucose Point of Care 595 mg/dL (70-110)
[2021-06-23 22:22] LABS: Glucose Point of Care 576 mg/dL (70-110)
[2021-06-23 22:29] LABS: Base Excess VBG -30.9 mmol/L (-3.0-3.0); Blood Gas Operator Identificat glc; Blood Gas Sample Site Not specified; Blood Gas Sample Type Venous; HCO3 VBG 1.8 mmol/L (24-28); Venous Blood Gas Hematocrit 40.2 % (37-47)
[2021-06-23 22:30] LABS: Blood Gas CCRB Time 2240; pH VBG 6.84 (7.32-7.42)
--- NOTE | 2021-06-23 22:39 | PC.NURSE ---
Pt. family is at bed side. Dr. Bolanos informed , so that he can update the family.
--- NOTE | 2021-06-23 22:50 | PC.NURSE ---
Pt. family at bed side speaking with doctor Luis Miguel.
--- NOTE | 2021-06-23 23:16 | P.HP_ITS ---
Providers/Chief Complaint Admitting Physician: Dhruv Silva Chief Complaint: UNRESPONSIVE ON SCENE History of Present Illness Licha Beck is a 61 year old female with past medical history of type 2 diabetes, previous episodes of DKA who was brought by her son to emergency room due to altered mental status. According to the son the patient was okay last night only complaining of some abdominal discomfort, nausea. She had 2 episodes of vomiting and one episode of loose stool. No fever or chills. She did not have any chest pain, shortness of breath, cough, palpitations. Earlier today the patient was found unresponsive. In the emergency room the patient was found to have severe ketoacidosis. pH 6.8. Blood sugar level is in the 600 range. According to the son the patient had previous admissions for DKA. The patient received 3 boluses of normal saline. Due to elevated white blood cell count she received antibiotics as well. Chest x-ray was clear but CT of the abdomen and pelvis also revealed bilateral infiltrates. Covid testing was negative. Patient is vaccinated Review of Systems General: Reports: ROS unobtainable due to mental status Medications/Allergies Home Medications Medication Instructions Recorded Confirmed Last Taken Type Unable to Assess 06/23/21 06/23/21 Unknown History Allergies Allergy/AdvReac Type Severity Reaction Status Date / Time Unable to Assess Allergy Unverified 06/23/21 19:10 Vitals/I&O/Wt Last Vital Signs Temp 98.2 F 06/23/21 18:39 Pulse 91 06/23/21 21:46 Resp 28 H 06/23/21 21:46 BP 94/57 06/23/21 21:46 Pulse Ox 98 06/23/21 21:46 Weight last 48 hrs Weight 81.647 kg Physical Exam Narrative: EXAM NARRATIVE: The patient is unresponsive. In moderate distress. Restless. Moaning. Skin is warm and dry. Dry mucous membranes Eyes PERRL. No scleral icterus. Neck is supple. No JVD Lungs are clear. Tachypnea is present. No wheezes or crackles Heart S1, S2, regular tachycardia Abdomen soft, nontender, bowel sounds are weak Extremities bilateral trace edema. No cyanosis no calf tenderness bilaterally She moves all her extremities. No facial asymmetry. Data : 06/23/21 18:20 06/23/21 21:08 Other Labs: Laboratory Results WBC 28.4 10^3/uL (4.0-10.0) H 06/23/21 18:20 RBC 4.64 10^6/uL (4.1-5.3) 06/23/21 18:20 Hgb 13.3 g/dL (11.5-15.3) 06/23/21 18:20 Hct 43.5 % (37.0-47.0) 06/23/21 18:20 MCV 93.8 fl (81-99) 06/23/21 18:20 MCH 28.7 pg (28.0-34.0) 06/23/21 18:20 MCHC 30.6 g/dL (30.0-36.0) 06/23/21 18:20 RDW 13.2 % (12.1-15.1) 06/23/21 18:20 Plt Count 400 10^3/cmm (130-400) 06/23/21 18:20 MPV 12.5 fL (7.4-10.4) H 06/23/21 18:20 Neut % (Auto) 81.5 % 06/23/21 18:20 Lymph % (Auto) 8.2 % 06/23/21 18:20 Loving % (Auto) 8.0 % 06/23/21 18:20 Eos % (Auto) 0.0 % 06/23/21 18:20 Baso % (Auto) 0.6 % 06/23/21 18:20 Neut # (Auto) 23.09 10^3/uL (1.8-7.7) H 06/23/21 18:20 Lymph # (Auto) 2.3 10^3/uL (0.8-4.8) 06/23/21 18:20 Loving # (Auto) 2.3 10^3/uL (0.2-0.9) H 06/23/21 18:20 Eos # (Auto) 0.0 10^3/uL (0.0-0.8) 06/23/21 18:20 Baso # (Auto) 0.2 10^3/uL (0.0-0.1) H 06/23/21 18:20 Nucleated RBC % (auto) 0 % 06/23/21 18:20 Nucleated RBCs # 0.0 /100WBC 06/23/21 18:20 Specimen Type Venous 06/23/21 22:09 Sample Site Not specified 06/23/21 22:09 ABG pH 6.84 (7.35-7.45) L* 06/23/21 21:10 ABG pCO2 20.0 mmHg (35-45) L 06/23/21 21:10 ABG pO2 40.0 mmHg (80.0-100.0) L 06/23/21 21:10 ABG HCO3 3.4 mmol/L (22-26) L 06/23/21 21:10 ABG O2 Saturation 70.5 06/23/21 21:10 ABG Base Excess -29.5 mmol/L (-2.0-2.0) L 06/23/21 21:10 Bo Test N/a 06/23/21 22:09 VBG pH 6.84 (7.32-7.42) L* 06/23/21 22:09 VBG pCO2 11.0 mmHg (41-51) L* 06/23/21 22:09 VBG pO2 125.0 mmHg (25-40) H 06/23/21 22:09 VBG HCO3 1.8 mmol/L (24-28) L 06/23/21 22:09 VBG Base Excess -30.9 mmol/L (-3.0-3.0) L 06/23/21 22:09 VBG Hematocrit 40.2 % (37-47) 06/23/21 22:09 A-a O2 Gradient 11.1 mmHg (5-10) H 06/23/21 21:10 Hematocrit 38.0 % (37-47) 06/23/21 21:10 Hgb O2 Saturation 69.4 % (95-100) L 06/23/21 21:10 Carboxyhemoglobin 0.9 %THgb (0.4-20.1) 06/23/21 21:10 Methemoglobin 0.6 % (0.4-1.5) 06/23/21 21:10 Total Hemoglobin 12.4 g/dL (12-16) 06/23/21 21:10 Sodium 136.0 mmol/L (131-143) 06/23/21 21:10 Potassium 4.7 mmol/L (3.5-5.0) 06/23/21 21:10 Glucose 595.0 mg/dL (70-115) H 06/23/21 21:10 Ionized Calcium 1.3 mmol/L (1.1-1.4) 06/23/21 21:10 O2 Delivery Device Not Reportable 06/23/21 22:09 FiO2 21.0 % 06/23/21 21:10 Recycling Operator ID [email or web address] 06/23/21 22:09 Blood Gas Notified Time 2240 06/23/21 22:09 Sodium 131 mmol/L (136-145) L 06/23/21 21:08 Potassium 4.6 mmol/L (3.5-5.1) 06/23/21 21:08 Chloride 95 mmol/L (98-107) L 06/23/21 21:08 Carbon Dioxide 4 mmol/L (22-29) L* 06/23/21 21:08 Anion Gap 36.6 (5-19) H 06/23/21 21:08 BUN 26 mg/dL (8-23) H 06/23/21 21:08 Creatinine 1.5 mg/dL (0.5-0.9) H 06/23/21 21:08 GFR Calculation 35.4 mL/min (90-130) L 06/23/21 21:08 Glucose 569 mg/dL (65-115) H* 06/23/21 21:08 POC Glucose 576 mg/dL (70-110) H* 06/23/21 22:19 Calculated Osmolality 303 mOsm/kg (285-295) H 06/23/21 21:08 Lactate 2.6 mmol/L (0.5-2.2) H 06/23/21 19:29 Calcium 7.6 mg/dL (8.5-10.5) L 06/23/21 21:08 Total Bilirubin 0.3 mg/dL (0.15-1.2) 06/23/21 18:20 AST 30 U/L (0-32) 06/23/21 18:20 ALT 42 U/L (0-33) H 06/23/21 18:20 Alkaline Phosphatase 191 IU/L (35-105) H 06/23/21 18:20 Troponin T Baseline 30 ng/L (0-10) H 06/23/21 18:20 Troponin T 120 Minute 26.77 ng/L (0-10) H 06/23/21 20:20 Delta Troponin T -3.23 ABS# (0-10) L 06/23/21 20:20 Total Protein 6.7 g/dL (6.6-8.7) 06/23/21 18:20 Albumin 4.4 g/dL (3.5-5.2) 06/23/21 18:20 Globulin 2.3 g/dL (1.3-4.6) 06/23/21 18:20 Lipase 119 U/L (13-60) H 06/23/21 18:20 Urine Color Yellow (Yellow) 06/23/21 18:46 Urine Appearance Clear (CLEAR) 06/23/21 18:46 Urine pH 5 (5-7) 06/23/21 18:46 Ur Specific [place] 1.020 (1.005-1.030) 06/23/21 18:46 Urine Protein Trace (Negative) 06/23/21 18:46 Urine Glucose (UA) 4+ (Normal) H 06/23/21 18:46 Urine Ketones 3+ (Negative) H 06/23/21 18:46 Urine Blood 3+ (Negative) H 06/23/21 18:46 Urine Nitrate Negative (Negative) 06/23/21 18:46 Urine Bilirubin Neg (Negative) 06/23/21 18:46 Urine Urobilinogen Norm mg/dL (Negative) 06/23/21 18:46 Ur Leukocyte Esterase Negative (Negative) 06/23/21 18:46 Urine RBC 0-4 /hpf (0-2) H 06/23/21 18:46 Urine WBC 0-4 /hpf (0-5) H 06/23/21 18:46 Ur Squamous Epith Cells 0-4 /hpf (0-5) H 06/23/21 18:46 Amorphous Sediment 1+ /hpf 06/23/21 18:46 Urine Bacteria Trace /hpf (NONE) 06/23/21 18:46 Salicylates < 0.3 mg/dL (3-10) L 06/23/21 18:20 Acetaminophen < 5.0 ug/mL (10-30) L 06/23/21 18:20 Serum Ketones Positive (Negative) H 06/23/21 18:20 SARS-CoV-2 Ag (Rapid) Negative (Negative) 06/23/21 20:[address] 06/23/21 18:33 IMPRESSION: No acute intracranial abnormality. Radiation Dose CTDIVOL = (mGy): DLP = 823.68 (mGy-cm) Chest X-Ray 06/23/21 18:34 IMPRESSION: No acute findings. Radiation Dose CTDIVOL = (mGy): DLP = (mGy-cm) Abdomen/Pelvis CT 06/23/21 18:44 IMPRESSION: 1. Ground-glass opacification in the periphery of both visualized lungs, findings are better visualized compared with the chest x-ray done earlier on 06/23/2021. Findings raise suspicion for pneumonia, including COVID-19 pneumonia. Recommend clinical correlation. Recommend followup chest imaging to insure resolution of these findings. 2. Mild fatty infiltration of the liver. 3. Indeterminate focus in the right adrenal gland. Consider 12 month follow-up adrenal CT. (Reference: Diana) 4. There is a left femoral central line with the tip in the left common iliac vein. 5. Incidental/nonacute findings are listed in the report. COMMENTS: 1. Consistent with the [employer]'s Incidental Findings Committee white paper (J Am Danielito Radiol 2017): Any incidental adrenal lesion less than or equal to 1 cm is likely benign. No follow-up imaging is recommended for these lesions per consensus recommendations based on imaging criteria. Further lab evaluation could be pursued if warranted based on clinical findings. 2. Consistent with the [employer]'s Incidental Findings Committee white paper (J Am Danielito Radiol 2018): Any incidental renal lesion less than 1 cm or classified as too small to characterize, or any incidental cystic renal lesion characterized as simple-appearing, is likely benign. No follow-up imaging is recommended for these lesions per consensus recommendations based on imaging criteria. REFERENCES: Diana CASTILLO, et al. Management of Incidental Adrenal Masses: A White Paper of the ACR Incidental Findings Committee. J Am Danielito Radiol. 2017;14(8):8999-5008. Radiation Dose CTDIVOL = (mGy): DLP = 1786.72 (mGy-cm) ADDENDUM: 06/23/212228 Urgent results were discussed with ADRIENNE Eller on 06/23/2021 at 10:28 PM CDT. Radiation Dose CTDIVOL = (mGy): DLP = 1786.72 (mGy-cm) Micro: Microbiology 06/23/21 19:29 Blood Culture - Preliminary Blood SPECIMEN COLLECTED 06/23/21 19:29 Blood Culture - Preliminary Blood SPECIMEN COLLECTED A&P Assessment and plan (1) Acute metabolic encephalopathy: Status: Acute (2) DKA (diabetic ketoacidosis): Status: Acute (3) Pneumonia: Status: Acute (4) Sepsis: Status: Acute (5) Acute kidney injury: Status: Acute (6) Hyperkalemia: Status: Acute (7) Acute respiratory failure: Status: Acute (8) Abnormal LFTs: Status: Acute Additional A&P Information 61 year old female with past medical history of type 2 diabetes, previous episodes of DKA who was brought by her son to emergency room due to altered mental status. Reported abdominal discomfort, nausea, vomiting and one episode of loose stool. In the emergency room the patient was found to have severe ketoacidosis. pH 6.8. Blood sugar level is in the 600 range. Chest x-ray was clear but CT of the abdomen and pelvis also revealed bilateral infiltrates. Covid testing was negative. Patient is vaccinated. Acute metabolic encephalopathy secondary to severe DKA with associated suspected pneumonia, sepsis, acute kidney injury, acute respiratory failure. The patient is going to ICU. Had a long discussion with the patient's son who is representing her wishes. He also spoke with the rest of his family on the phone. They want her to be limited code. No intubation. However okay to treat her in ICU. Cardiac resuscitation is okay. We will continue aggressive management with IV fluids, IV insulin. We will continue monitoring her renal function, electrolytes. Will adjust fluids accordingly. She will be on BiPAP. We will recheck her labs in the morning. She will also received vancomycin, Zosyn and azithromycin for suspected pneumonia. We will check her CRP and procalcitonin level. We will recheck her CBC in the morning. Will de-escalate antibiotics if additional testing does not confirm pneumonia DVT prophylaxis. Heparin. GI prophylaxis. Famotidine. Limited code The plan of care was discussed with the patient's son. He verbalized understanding and agreement. Answered to his questions the best of my knowledge. He verbalized satisfaction with the conversation. Critical care time 65 minutes Attestations Medical Necessity Statement*: The patient is being admitted in critical condition to ICU. I expect that she will spend more than 2 midnights in the hospital. Coding Level of Care Code Acute Operator Command Support Systems for Chg Fwd Diagnoses Acute metabolic encephalopathy G93.41 DKA (diabetic ketoacidosis) E11.10 Pneumonia J18.9 Sepsis A41.9 Acute kidney injury N17.9 Hyperkalemia E87.5 Acute respiratory failure J96.00 Abnormal LFTs R94.5
[2021-06-23 23:28] LABS: Glucose Point of Care 509 mg/dL (70-110)
[2021-06-24] VITALS (55 sets, daily range): BP systolic 82–128; BP diastolic 46–81; PULSE 87–120; RESP 18–43; TEMP 35.7–37.6; O2SAT 86–96
[2021-06-24] MEDS: insulin regular-human 250 UNIT in sodium chloride 0.9% 250 ML 12.4 UNIT IV
[2021-06-24] MEDS: famotidine 20 mg/2 mL INJ IVP ×2 (00:32→12:49)
--- NOTE | 2021-06-24 00:32 | PC.PHAR ---
Pharmacokinetic dosing service Date: 06/24/21 Time: 29 Objective: Patient: NASREEN MARIE Floor: ICU-1 Age: 61 yo Serum creatinine: 1.5 mg/dL Height: 66.0 Inches Weight (kg): 81.647 Diagnosis: Relevant medical/social history: Cultures and sensitivities: Other labs: Assessment: IBW (kg): 59.30 Dosing wt(kg): 81.647 Estimated Creatinine clearance (ml/min): 37.3 CRCL method: Cockcroft and Gault using ibw(default). Drug selected: Vancomycin Loading dose (mg): 0 Vd (liters): 73.5 (factor used: 0.9 L/kg) Pernell (hr-1): 0.035 Half life (hrs): 19.80 Recommended dose: 1250 mg Interval: 24 hrs Infusion time (hrs): 1.5 Predicted peak (mcg/mL): 29.2 Predicted trough (mcg/mL): 13.29 Total body weight is being used for vancomycin dosing. Renal function is stable [ ] /unstable [ ] Recommendations: Give Vancomycin 1250 mg q 24 hrs with an expected Cpeak of 29.2 mcg/ml and an expected Ctrough of 13.29 mcg/ml Renal dosing of other antibiotics (review renal dosing of other medications and list guidelines here): Thank you for the consult, will continue to follow. Signature: Pau Preston [facility]
[2021-06-24] MEDS: heparin 5,000 unit/mL INJ 1 mL 5000 UNIT SUBCUT ×3 (00:33→17:16)
[2021-06-24] MEDS: azithromycin 500 MG in sodium chloride 0.9% 250 ML 250 MG IV (00:33)
--- NOTE | 2021-06-24 00:33 | ECG_ITS ---
[facility] Test Date: 2021-06-24 Pat Name: Licha Beck Department: Room: [facility] Gender: Female Endodontic Assistant: : [id number] Requested By: Oscar Bolanos Order Number: [id number] Frank MD: Esau Randall M.D. Measurements Intervals Perry Rate: 97 P: 68 DE: 171 QRS: 102 QRSD: 178 T: -53 QT: 411 QTc: 522 Interpretive Statements SINUS RHYTHM WITH OCCASIONAL VENTRICULAR PREMATURE COMPLEXES RIGHT AXIS DEVIATION [QRS AXIS > 100] INTRAVENTRICULAR CONDUCTION DELAY [130+ ms QRS DURATION] Compared to ECG 06/23/2021 22:16:41 Ventricular premature complex(es) now present Intraventricular conduction delay now present Sinus arrhythmia no longer present Electronically Signed On 06-25-2021 22:00:40 PARTS IDENTIFIER by Esau Randall M.D. [id number]
[2021-06-24 01:16] LABS: Glucose Point of Care 418 mg/dL (70-110)
[2021-06-24 01:16] LABS: Glucose Point of Care 473 mg/dL (70-110)
[2021-06-24] MEDS: lactated ringers 1,000 ML 250 ML IV (01:50)
[2021-06-24] MEDS: piperacillin-tazobactam 3.375 GM in sodium chloride 0.9% (plus) 50 ML IV ×3 (01:53→17:15)
[2021-06-24 02:09] LABS: Troponin 5 6HR 38.88 ng/L (0-10); Troponin 5 6HR Delta 8.88 ng/L (0-12)
[2021-06-24 02:10] LABS: Albumin Level 3.4 g/dL (3.5-5.2); Blood Urea Nitrogen 26 mg/dL (8-23); Calcium 8.2 mg/dL (8.5-10.5); Chloride 101 mmol/L (98-107); Glomerular Filtration Rate 38.4 mL/min (90-130); Glucose 397 mg/dL (65-115); Osmolality Calculated 301 mOsm/kg (285-295); Phosphorus 3.6 mg/dL (2.5-4.5); Sodium 135 mmol/L (136-145)
[2021-06-24 02:14] LABS: Glucose Point of Care 400 mg/dL (70-110)
[2021-06-24 02:15] LABS: Anion Gap 33.6 (5-19); Carbon Dioxide 4 mmol/L (22-29); Potassium 3.6 mmol/L (3.5-5.1)
[2021-06-24 02:15] LABS: Alveolar-Arterial Oxygen Gradi 8.6 mmHg (5-10); Blood Gas Sample Site Brachial, right; Blood Gas Sample Type Arterial; Carboxyhemoglobin 0.8 %THgb (0.4-20.1); HCO3 ABG 3.2 mmol/L (22-26); HGB O2 Sat 89.9 % (95-100); Ionized Calcium Level - ABG 1.4 mmol/L (1.1-1.4); Methemoglobin 0.6 % (0.4-1.5); Oxygen Device ROOM AIR; Oxygen Saturation ABG 91.2; PO2 ABG 63.6 mmHg (80.0-100.0); Potassium Level - ABG 3.1 mmol/L (3.5-5.0); Total Hemoglobin 12.4 g/dL (12-16)
[2021-06-24 02:17] LABS: ABG PCO2 15.6 mmHg (35-45); ABG PH Result 6.92 (7.35-7.45)
[2021-06-24] MEDS: sodium chlor 0.9% + KCl 40 mEq 40 MEQ/1,000 ML BAG 250 MEQ IV (03:12)
[2021-06-24 03:40] LABS: Lipase 94 U/L (13-60); Magnesium 2.3 mg/dL (1.7-2.3); NT Pro B Type Natriuretic Pept 1385 pg/mL (0-125)
[2021-06-24 04:30] LABS: Arterial Blood Gas Hematocrit 37.7 % (37-47); Base Excess ABG -24.5 mmol/L (-2.0-2.0); Blood Gas Sample Site Brachial, right; Blood Gas Sample Type Arterial; HCO3 ABG 4.4 mmol/L (22-26); Oxygen Device ROOM AIR; PO2 ABG 71.3 mmHg (80.0-100.0)
[2021-06-24 04:32] LABS: ABG PCO2 16.7 mmHg (35-45); ABG PH Result 7.03 (7.35-7.45)
[2021-06-24 05:18] LABS: Glucose Point of Care 350 mg/dL (70-110)
[2021-06-24 05:19] LABS: Glucose Point of Care 270 mg/dL (70-110)
[2021-06-24] MEDS: LORazepam 2 mg/mL INJ 1 mL 1 MG IVP (05:22)
[2021-06-24 05:29] LABS: Basophils # 0.1 10^3/uL (0.0-0.1); Basophils % 0.4 %; Eosinophils % 0.1 %; Hemoglobin 11.4 g/dL (11.5-15.3); Lymphocytes # 2.9 10^3/uL (0.8-4.8); Lymphocytes % 11.5 %; Mean Corpuscular HGB Conc 31.7 g/dL (30.0-36.0); Mean Corpuscular Hemoglobin 28.9 pg (28.0-34.0); Mean Corpuscular Volume 91.1 fl (81-99); Mean Platelet Volume 11.8 fL (7.4-10.4); Monocytes # 0.8 10^3/uL (0.2-0.9); Neutrophils # 20.55 10^3/uL (1.8-7.7); Neutrophils % 80.1 %; Nucleated Red Blood Cells % 0.1 %; Platelet Count 250 10^3/cmm (130-400); Red Blood Count 3.95 10^6/uL (4.1-5.3); Red Cell Distribution Width 13.1 % (12.1-15.1); White Blood Count 25.6 10^3/uL (4.0-10.0)
--- NOTE | 2021-06-24 06:00 | XRR_ITS ---
PROCEDURE INFORMATION: Exam: XR Chest Exam date and time: 06/24/2021 6:00 AM Age: 61 years old Clinical indication: Condition or disease; Lung condition and disease; Pneumonia; Additional info: Pna TECHNIQUE: Imaging protocol: XR of the chest. Views: 1 view. COMPARISON: CR (CHEST, ) 06/23/2021 7:10 PM FINDINGS: Lungs: There are new diffuse bilateral pulmonary infiltrates consistent with pneumonia. Pleural spaces: Unremarkable. No pleural effusion. No pneumothorax. Heart/Mediastinum: Unremarkable. No cardiomegaly. Bones/joints: Unremarkable. XR/XR chest 1V portable [id number] IMPRESSION: New diffuse bilateral pulmonary infiltrates consistent with pneumonia. Radiation Dose CTDIVOL = (mGy): DLP = (mGy-cm)
[2021-06-24 06:05] LABS: Procalcitonin 1.66 ng/mL (0-0.5)
[2021-06-24 06:11] LABS: Glucose Point of Care 386 mg/dL (70-110)
[2021-06-24 06:19] LABS: Alanine Aminotransferase 28 U/L (0-33); Albumin Level 2.9 g/dL (3.5-5.2); Alkaline Phosphatase 129 IU/L (35-105); Anion Gap 29.4 (5-19); Aspartate Amino Transferase 32 U/L (0-32); Blood Urea Nitrogen 25 mg/dL (8-23); C Reactive Protein 21.5 mg/L (0.0-4.9); Calcium 7.9 mg/dL (8.5-10.5); Chloride 108 mmol/L (98-107); Globulin 1.9 g/dL (1.3-4.6); Glomerular Filtration Rate 35.4 mL/min (90-130); Glucose 301 mg/dL (65-115); Osmolality Calculated 304 mOsm/kg (285-295); Phosphorus 1.8 mg/dL (2.5-4.5); Potassium 3.4 mmol/L (3.5-5.1); Sodium 139 mmol/L (136-145); Total Bilirubin 0.2 mg/dL (0.15-1.2); Total Protein 4.8 g/dL (6.6-8.7)
[2021-06-24 06:20] LABS: Glucose Point of Care 274 mg/dL (70-110)
[2021-06-24 06:23] LABS: Carbon Dioxide 5 mmol/L (22-29)
--- NOTE | 2021-06-24 06:55 | PC.NURSE ---
Shift Note Frequent safety and comfort rounds continue. Pt very restless and pulling at lines. Orders and nursing care completed as indicated. Patient monitored for response to intervention and treatment. Education provided includes patient safety. Patient and/needs reinforcement.
[2021-06-24 07:13] LABS: Glucose Point of Care 198 mg/dL (70-110)
--- NOTE | 2021-06-24 07:13 | PC.NURSE ---
Pt had low Bicarb. Notified Dr. Silva but told will not replace at this time.
--- NOTE | 2021-06-24 07:40 | PC.NURSE ---
Pt is kicking both legs, one on one sitter unable to control her. Pt has a femoral line in left leg, several attempts in contacting Hospitalist were made with no luck. She was put in 4 point restraints until it can be addressed.
--- NOTE | 2021-06-24 07:46 | PC.NURSE ---
Dr. Mcnamara notified that pt was in 4 point restraints. New order for Ativan and electrolyte replacement.
[2021-06-24] MEDS: potassium chloride premix 100 ML 50 MEQ IV (08:40)
[2021-06-24] MEDS: LORazepam 2 mg/mL INJ 1 mL IVP ×4 (08:40→21:39)
[2021-06-24] MEDS: sodium bicarbonate 8.4% 1 mEq/mL 50mL Syr 25 MEQ IVP (08:40)
[2021-06-24 08:46] LABS: Albumin Level 3.1 g/dL (3.5-5.2); Blood Urea Nitrogen 27 mg/dL (8-23); Calcium 8.3 mg/dL (8.5-10.5); Carbon Dioxide 10 mmol/L (22-29); Chloride 112 mmol/L (98-107); Glomerular Filtration Rate 38.4 mL/min (90-130); Glucose 166 mg/dL (65-115); Sodium 140 mmol/L (136-145)
[2021-06-24 08:56] LABS: Glucose Point of Care 187 mg/dL (70-110)
[2021-06-24 08:59] LABS: Anion Gap 21.4 (5-19); Phosphorus 0.7 mg/dL (2.5-4.5); Potassium 3.4 mmol/L (3.5-5.1)
[2021-06-24] MEDS: dextrose 5%-ns 0.45% + KCl 40 1,000 ML 75 MEQ IV ×2 (09:55→21:39)
[2021-06-24 11:13] LABS: Glucose Point of Care 344 mg/dL (70-110)
[2021-06-24 11:13] LABS: Glucose Point of Care 140 mg/dL (70-110)
[2021-06-24 12:28] LABS: Albumin Level 3.1 g/dL (3.5-5.2); Anion Gap 14.4 (5-19); Blood Urea Nitrogen 26 mg/dL (8-23); Calcium 8.3 mg/dL (8.5-10.5); Carbon Dioxide 17 mmol/L (22-29); Chloride 117 mmol/L (98-107); Glomerular Filtration Rate 35.4 mL/min (90-130); Glucose 88 mg/dL (65-115); Potassium 3.4 mmol/L (3.5-5.1); Sodium 145 mmol/L (136-145)
[2021-06-24 12:31] LABS: Phosphorus 0.4 mg/dL (2.5-4.5)
[2021-06-24 12:35] LABS: Glucose Point of Care 143 mg/dL (70-110)
[2021-06-24 15:20] LABS: Glucose Point of Care 73 mg/dL (70-110)
--- NOTE | 2021-06-24 17:01 | PM.PN ---
Subjective Subjective: Interval history: Patient was seen and examined this morning, continues to be altered, her other vitals and labs have been reviewed. Medications: Reviewed: Yes Vitals/I&O/Wt Last Vital Signs Temp 99.1 F 06/24/21 15:00 Pulse 108 H 06/24/21 15:00 Resp 43 H 06/24/21 15:00 BP 123/59 06/24/21 15:00 Pulse Ox 93 06/24/21 15:00 06/24/21 06/24/21 06/24/21 06:59 14:59 22:59 Intake Total 419.435 / 2035.785 19.3 / 19.3 155 / 174.3 Output Total 550 / 550 Balance -130.565 / 1485.785 19.3 / 19.3 155 / 174.3 Weight last 48 hrs Weight 87.997 kg Weight 81.647 kg Physical Exam Narrative: EXAM NARRATIVE: Patient is currently not responding appropriately HENMT: COMMON NORMALS: normocephalic and atraumatic HEAD & SCALP: normocephalic and atraumatic Resp: COMMON NORMALS: clear to auscultation bilaterally AUSCULTATION: clear to auscultation bilaterally Cardio: COMMON NORMALS: regular rate, regular rhythm, S1 normal heart sound present, S2 normal heart sound present, No gallops present (Cardio), No murmurs present (Cardio), No rub (Cardio) and Peripheral pulses 2+ throughout RATE: regular rate RHYTHM: regular rhythm HEART SOUNDS: S1 normal heart sound present and S2 normal heart sound present PERIPHERAL PULSES: Peripheral pulses 2+ throughout GI: COMMON NORMALS: Normal to inspection, nondistended, normoactive bowel sounds present, Soft to palpation and non-tender AUSCULTATION: Yes normoactive bowel sounds PALPATION: Yes Soft to palpation RECTAL EXAM: deferred Extremity: COMMON NORMALS: no clubbing, cyanosis or edema and no pedal edema Urinary Catheter Management^: Malhotra: Cath Placed During This Visit: yes Reason for Continuing Indwelling Catheter: Accurate Measurement of Urinary Output in Critically Ill Patients Urinary Catheter Date of Insertion: 06/24/21 Data : 06/24/21 03:48 06/24/21 12:05 Micro: Microbiology 06/23/21 19:29 Blood Culture - Preliminary Blood SPECIMEN COLLECTED 06/23/21 19:29 Blood Culture - Preliminary Blood SPECIMEN COLLECTED A&P Assessment and plan (1) Acute metabolic encephalopathy: Acute metabolic encephalopathy multifactorial ( DKA, sepsis, pneumonia, acute kidney, electrolyte imbalance): CT head without contrast: No acute intracranial pathology X-ray chest: Bilateral pulmonary infiltrates Blood culture: Sputum culture: Lactic acid:2.6 Procalcitonin:1.66 MRSA PCR: Rapid COVID Antigen :Negative Urine Legionella antigen: Bacterial antigen panel: Monitor x-ray chest: Continue Vanco and Zosyn for now. Status: Acute (2) DKA (diabetic ketoacidosis): Currently anion gap is closed, since the patient's still not eating and drinking, and continues to be altered. Insulin drip has been continued, with D5 half NS. Once the patient is ready to eat and drink we will switch her to basal bolus insulin, with appropriate overlap. Status: Acute (3) Pneumonia: Status: Acute (4) Sepsis: Status: Acute (5) Acute kidney injury: GLADYS on CKD stage III: Likely prerenal GLADYS Continue to monitor BMp Urine electrolytes Intake output charting Avoid nephrotoxic Status: Acute (6) Hyperkalemia: Resolved Status: Acute (7) Acute respiratory failure: Status: Acute (8) Abnormal LFTs: Status: Acute (9) Hypophosphatasia: K-Phos IV replacement done Monitor serum phosphorus. Status: Acute Additional A&P Information 61 year old female with past medical history of type 2 diabetes, previous episodes of DKA who was brought by her son to emergency room due to altered mental status. Reported abdominal discomfort, nausea, vomiting and one episode of loose stool. In the emergency room the patient was found to have severe ketoacidosis. pH 6.8. Blood sugar level is in the 600 range. Chest x-ray was clear but CT of the abdomen and pelvis also revealed bilateral infiltrates. Covid testing was negative. Patient is vaccinated. Acute metabolic encephalopathy secondary to severe DKA with associated suspected pneumonia, sepsis, acute kidney injury, acute respiratory failure. The patient is going to ICU. Had a long discussion with the patient's son who is representing her wishes. He also spoke with the rest of his family on the phone. They want her to be limited code. No intubation. However okay to treat her in ICU. Cardiac resuscitation is okay. We will continue aggressive management with IV fluids, IV insulin. We will continue monitoring her renal function, electrolytes. Will adjust fluids accordingly. She will be on BiPAP. We will recheck her labs in the morning. She will also received vancomycin, Zosyn and azithromycin for suspected pneumonia. We will check her CRP and procalcitonin level. We will recheck her CBC in the morning. Will de-escalate antibiotics if additional testing does not confirm pneumonia DVT prophylaxis. Heparin. GI prophylaxis. Famotidine. Limited code The plan of care was discussed with the patient's son. He verbalized understanding and agreement. Answered to his questions the best of my knowledge. He verbalized satisfaction with the conversation. Critical care time 65 minutes Attestations Medical Necessity Statement*: Patient needs to be in hospital for management of acute encephalopathy. 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
[2021-06-24 17:26] LABS: Glucose Point of Care 137 mg/dL (70-110)
[2021-06-24] MEDS: insulin regular-human 250 UNIT in sodium chloride 0.9% 250 ML IV (17:34)
[2021-06-24] MEDS: potassium chloride premix 100 ML 25 MEQ IV (17:34)
[2021-06-24 18:20] LABS: Glucose Point of Care 152 mg/dL (70-110)
[2021-06-24 18:28] LABS: Glucose Point of Care 102 mg/dL (70-110)
[2021-06-24] MEDS: vancomycin 1,250 MG/250 ML PIGGYBACK 250 MG IV (20:36)
--- NOTE | 2021-06-24 20:40 | NUR.SHIFT ---
Beginning of Shift Shift report from CHELY Lucia. Pt agitated and making incomprehensible sounds. Left wrist and LLE restrained in soft restraints. Pt attempting to maneuver left leg in unsafe position in relation to Left femoral CVL and sal[place] catheter. Assessment complete. IV medications infusing as ordered. Nurse at bedside to monitor.
--- NOTE | 2021-06-24 20:50 | PC.NURSE ---
reassessment 4 point restraints remain in place. skin C/D/I. ROM allowed and restraints secured as ordered.
[2021-06-24 21:05] LABS: Glucose Point of Care 143 mg/dL (70-110)
[2021-06-24 21:05] LABS: Glucose Point of Care 134 mg/dL (70-110)
[2021-06-24 21:05] LABS: Glucose Point of Care 132 mg/dL (70-110)
[2021-06-24 22:19] LABS: Glucose Point of Care 184 mg/dL (70-110)
--- NOTE | 2021-06-24 22:51 | PC.NURSE ---
reassessment Reassessment complete. NO acute changes noted. Restraints released for ROM and reapplied-- skin C/D/I without injury.
[2021-06-24 23:20] LABS: Glucose Point of Care 148 mg/dL (70-110)
[2021-06-25] VITALS (51 sets, daily range): BP systolic 87–154; BP diastolic 53–101; PULSE 86–140; RESP 20–50; TEMP 37.1–37.7; O2SAT 90–97
[2021-06-25] MEDS: heparin 5,000 unit/mL INJ 1 mL 5000 UNIT SUBCUT ×3 (00:03→17:53)
[2021-06-25 00:06] LABS: Glucose Point of Care 140 mg/dL (70-110)
--- NOTE | 2021-06-25 00:32 | PC.NURSE ---
Reassessment. Pt remains altered-- but no acute changes noted. NO s/s of distress. Dr. Silva at bedside to assess patient-- no new orders. 4 point restraints removed for skin assessment and ROM-- repositioned and replaced per protocol. nurse remains at bedside for monitoring.
[2021-06-25] MEDS: famotidine 20 mg/2 mL INJ IVP ×2 (00:52→11:48)
[2021-06-25] MEDS: piperacillin-tazobactam 3.375 GM in sodium chloride 0.9% (plus) 50 ML IV ×3 (01:15→17:53)
[2021-06-25] MEDS: LORazepam 2 mg/mL INJ 1 mL IVP ×5 (01:39→22:11)
[2021-06-25 02:00] LABS: Glucose Point of Care 140 mg/dL (70-110)
[2021-06-25 02:00] LABS: Glucose Point of Care 146 mg/dL (70-110)
--- NOTE | 2021-06-25 02:57 | PC.NURSE ---
Reassessment AM labs collected-- blood and urine samples delivered to analyst microbiology lab. 4 point restraints released for ROM and replaced per protocol. Skin C/D/I-- no s/s of injury noted. pt remains lethargic-- but vital signs and BG stable. NO acute changes this shift.
[2021-06-25 03:04] LABS: Glucose Point of Care 130 mg/dL (70-110)
[2021-06-25 03:30] LABS: ABG PCO2 24.6 mmHg (35-45); ABG PH Result 7.36 (7.35-7.45); Alveolar-Arterial Oxygen Gradi 5.7 mmHg (5-10); Arterial Blood Gas Hematocrit 34.5 % (37-47); Base Excess ABG -10.2 mmol/L (-2.0-2.0); Blood Gas Allen Test Pos; Blood Gas LPM 2.5 %; Blood Gas Sample Site Radial, right; Blood Gas Sample Type Arterial; Carboxyhemoglobin 0.8 %THgb (0.4-20.1); HCO3 ABG 13.7 mmol/L (22-26); HGB O2 Sat 95.2 % (95-100); Ionized Calcium Level - ABG 1.3 mmol/L (1.1-1.4); Oxygen Device NC; PO2 ABG 74.8 mmHg (80.0-100.0); Total Hemoglobin 11.3 g/dL (12-16)
[2021-06-25 03:40] LABS: Basophils % 0.2 %; Hematocrit 29.6 % (37.0-47.0); Hemoglobin 10.5 g/dL (11.5-15.3); Lymphocytes # 0.7 10^3/uL (0.8-4.8); Lymphocytes % 5.1 %; Mean Corpuscular HGB Conc 35.5 g/dL (30.0-36.0); Mean Corpuscular Hemoglobin 29.4 pg (28.0-34.0); Mean Corpuscular Volume 82.9 fl (81-99); Mean Platelet Volume 11.9 fL (7.4-10.4); Monocytes # 0.7 10^3/uL (0.2-0.9); Monocytes % 5.2 %; Neutrophils # 10.94 10^3/uL (1.8-7.7); Neutrophils % 84.8 %; Nucleated Red Blood Cells % 0 %; Platelet Count 152 10^3/cmm (130-400); Red Blood Count 3.57 10^6/uL (4.1-5.3); Red Cell Distribution Width 13.6 % (12.1-15.1); White Blood Count 12.9 10^3/uL (4.0-10.0)
[2021-06-25 04:11] LABS: Glucose Point of Care 145 mg/dL (70-110)
[2021-06-25 04:13] LABS: Alanine Aminotransferase 29 U/L (0-33); Albumin Level 2.7 g/dL (3.5-5.2); Alkaline Phosphatase 168 IU/L (35-105); Anion Gap 12.2 (5-19); Aspartate Amino Transferase 59 U/L (0-32); Blood Urea Nitrogen 26 mg/dL (8-23); Carbon Dioxide 15 mmol/L (22-29); Chloride 126 mmol/L (98-107); Globulin 2.1 g/dL (1.3-4.6); Glomerular Filtration Rate 35.4 mL/min (90-130); Glucose 141 mg/dL (65-115); Osmolality Calculated 315 mOsm/kg (285-295); Potassium 4.2 mmol/L (3.5-5.1); Sodium 149 mmol/L (136-145); Total Bilirubin 0.2 mg/dL (0.15-1.2); Total Protein 4.8 g/dL (6.6-8.7)
[2021-06-25 04:52] LABS: Phosphorus 0.8 mg/dL (2.5-4.5)
[2021-06-25 05:13] LABS: Glucose Point of Care 167 mg/dL (70-110)
[2021-06-25] MEDS: dextrose 5%-sod chloride 0.45% 1,000 ML 125 ML IV (05:50)
[2021-06-25 05:57] LABS: Glucose Point of Care 180 mg/dL (70-110)
--- NOTE | 2021-06-25 06:11 | PC.NURSE ---
NOTIFIED Notified Dr. Silva of critical phos level. Reviewed current and previous labs. Order for repeat serial labs (renal panel, cmp and mag), change continuous fluid to D5 1/2NS at 125, give potassium phosphate 30 mmol over 6 hours. Orders placed. continuous IVF changed and potassium phosphate infusing.s
[2021-06-25 06:16] LABS: Alanine Aminotransferase 32 U/L (0-33); Albumin Level 2.7 g/dL (3.5-5.2); Alkaline Phosphatase 102 IU/L (35-105); Anion Gap 13.1 (5-19); Aspartate Amino Transferase 67 U/L (0-32); Blood Urea Nitrogen 24 mg/dL (8-23); Calcium 7.9 mg/dL (8.5-10.5); Carbon Dioxide 15 mmol/L (22-29); Chloride 125 mmol/L (98-107); Globulin 2.1 g/dL (1.3-4.6); Glomerular Filtration Rate 38.4 mL/min (90-130); Glucose 169 mg/dL (65-115); Magnesium 1.9 mg/dL (1.7-2.3); Osmolality Calculated 316 mOsm/kg (285-295); Potassium 4.1 mmol/L (3.5-5.1); Sodium 149 mmol/L (136-145); Total Bilirubin 0.2 mg/dL (0.15-1.2); Total Protein 4.8 g/dL (6.6-8.7)
[2021-06-25 06:52] LABS: Glucose Point of Care 191 mg/dL (70-110)
[2021-06-25 08:04] LABS: Glucose Point of Care 200 mg/dL (70-110)
--- NOTE | 2021-06-25 08:41 | PC.NURSE ---
BEGINNING SHIFT NOTE Pt AAOX0. Pt is restless and unable to answer questions asked. Pt has [address] Restraints taken off 1 at a time. ROM exercises performed and restraints placed back on pt. Bedrails up x3. 1:1 sitter at bedside. Oral care provided.
[2021-06-25] MEDS: insulin glargine 100 units/1 mL 20 UNIT SUBCUT (09:36)
[2021-06-25] MEDS: FUROsemide 10 mg/mL SDV 2mL 20 MG IVP (09:36)
[2021-06-25] MEDS: sodium chloride 0.9% 500 ML 999 ML IV (09:37)
[2021-06-25 09:49] LABS: Glucose Point of Care 218 mg/dL (70-110)
[2021-06-25 11:38] LABS: Glucose Point of Care 301 mg/dL (70-110)
[2021-06-25] MEDS: insulin lispro 100 unit/1 mL SUBCUT ×3 (11:48→20:35)
[2021-06-25 11:58] LABS: Alanine Aminotransferase 39 U/L (0-33); Albumin Level 2.8 g/dL (3.5-5.2); Alkaline Phosphatase 112 IU/L (35-105); Anion Gap 17.3 (5-19); Aspartate Amino Transferase 78 U/L (0-32); Blood Urea Nitrogen 22 mg/dL (8-23); Calcium 7.8 mg/dL (8.5-10.5); Carbon Dioxide 12 mmol/L (22-29); Chloride 125 mmol/L (98-107); Globulin 2.1 g/dL (1.3-4.6); Glomerular Filtration Rate 35.4 mL/min (90-130); Glucose 269 mg/dL (65-115); Magnesium 1.9 mg/dL (1.7-2.3); Osmolality Calculated 323 mOsm/kg (285-295); Phosphorus 2.9 mg/dL (2.5-4.5); Potassium 4.3 mmol/L (3.5-5.1); Sodium 150 mmol/L (136-145); Total Bilirubin 0.2 mg/dL (0.15-1.2); Total Protein 4.9 g/dL (6.6-8.7)
[2021-06-25 12:20] LABS: Glucose Point of Care 280 mg/dL (70-110)
--- NOTE | 2021-06-25 15:03 | XRR_ITS ---
PROCEDURE INFORMATION: Exam: XR Chest Exam date and time: 06/25/2021 3:03 PM Age: 61 years old Clinical indication: Shortness of breath; Additional info: Pna TECHNIQUE: Imaging protocol: XR of the chest. Views: 1 view. Total images: 1 COMPARISON: 1. CR (CHEST, ) 06/24/2021 5:28 AM 2. CR (CHEST, ) 06/23/2021 7:10:[address] abdomen pelvis w con* [id number] 06/23/2021 8:51:47 PM FINDINGS: Lungs: No appreciable significant interval change in the bilateral patches of ground-glass interstitial lung disease of active interstitial pneumonitis since last evaluation of 06/24/2021 at 5:32 a.m. Pleural spaces: No pleural effusion. No pneumothorax. Heart/Mediastinum: Cardiac structures and configuration stable with arteriosclerosis. Bones/joints: Previous cervical fusion. XR/XR chest 1V portable [id number] IMPRESSION: No significant overall change cardiopulmonary status. Radiation Dose CTDIVOL = (mGy): DLP = (mGy-cm)
[2021-06-25] MEDS: dextrose 5% 1,000 ML 100 ML IV (15:26)
--- NOTE | 2021-06-25 16:03 | PM.PN ---
Subjective Subjective: Interval history: Patient was seen and examined this morning, continues to be altered, continue to be agitated.Worsening xray chest. Medications: Reviewed: Yes Vitals/I&O/Wt Last Vital Signs Temp 98.7 F 06/25/21 10:00 Pulse 109 H 06/25/21 14:30 Resp 27 H 06/25/21 14:30 BP 91/55 06/25/21 14:30 Pulse Ox 96 06/25/21 14:30 06/25/21 06/25/21 06/25/21 06:59 14:59 22:59 Intake Total 59.912 / 59.912 Output Total 2300 / 2300 Balance -2240.088 / -2240.088 Weight last 48 hrs Weight 69.853 kg Weight 87.997 kg Weight 81.647 kg Physical Exam Narrative: EXAM NARRATIVE: Patient is currently not responding appropriately, continue to be encephalopathic HENMT: COMMON NORMALS: normocephalic and atraumatic HEAD & SCALP: normocephalic and atraumatic Resp: COMMON NORMALS: clear to auscultation bilaterally AUSCULTATION: clear to auscultation bilaterally Cardio: COMMON NORMALS: regular rate, regular rhythm, S1 normal heart sound present, S2 normal heart sound present, No gallops present (Cardio), No murmurs present (Cardio), No rub (Cardio) and Peripheral pulses 2+ throughout RATE: regular rate RHYTHM: regular rhythm HEART SOUNDS: S1 normal heart sound present and S2 normal heart sound present PERIPHERAL PULSES: Peripheral pulses 2+ throughout GI: COMMON NORMALS: Normal to inspection, nondistended, normoactive bowel sounds present, Soft to palpation and non-tender AUSCULTATION: Yes normoactive bowel sounds PALPATION: Yes Soft to palpation RECTAL EXAM: deferred Extremity: COMMON NORMALS: no clubbing, cyanosis or edema and no pedal edema Urinary Catheter Management^: Malhotra: Cath Placed During This Visit: yes Reason for Continuing Indwelling Catheter: Accurate Measurement of Urinary Output in Critically Ill Patients Urinary Catheter Date of Insertion: 06/24/21 Data : 06/25/21 02:36 06/25/21 11:28 Micro: Microbiology 06/25/21 02:36 Legionella Urinary Antigen - Final Urine Catheterized 06/25/21 02:36 Bacterial Antigens - Final Urine,Voided 06/25/21 03:30 MRSA Culture - Final Nose 06/23/21 19:29 Blood Culture - Preliminary Blood NEGATIVE TO DATE 06/23/21 19:29 Blood Culture - Preliminary Blood NEGATIVE TO DATE A&P Assessment and plan (1) Acute metabolic encephalopathy: Acute metabolic encephalopathy multifactorial ( DKA, sepsis, pneumonia, acute kidney, electrolyte imbalance) : CT head without contrast: No acute intracranial pathology X-ray chest: Bilateral pulmonary infiltrates Blood culture:NTD Sputum culture: Lactic acid:2.6 Procalcitonin:1.66 MRSA PCR: Neggative Rapid COVID Antigen :Negative Rapid COVID PCR Is :Pending Urine Legionella antigen:Negative Bacterial antigen panel:Negative CRP:21 Monitor x-ray chest: Continue Vanco and Zosyn, levofloxacin for now. D5 water @100 cc/hr Monitor FSG Q4Hrs Status: Acute (2) Pneumonia: Status: Acute (3) Hypernatremia: Status: Acute (4) DKA (diabetic ketoacidosis): Currently anion gap is closed, since the patient's still not eating and drinking, and continues to be altered. Insulin drip has been continued, with D5 half NS. Once the patient is ready to eat and drink we will switch her to basal bolus insulin, with appropriate overlap. Status: Acute (5) Sepsis: Status: Acute (6) Acute kidney injury: GLADYS on CKD stage III: Likely prerenal GLADYS Continue to monitor BMp Urine electrolytes Intake output charting Avoid nephrotoxic Status: Acute (7) Hyperkalemia: Resolved Status: Acute (8) Acute respiratory failure: Status: Acute (9) Abnormal LFTs: Status: Acute (10) Hypophosphatasia: K-Phos IV replacement done Monitor serum phosphorus. Status: Acute Additional A&P Information 61 year old female with past medical history of type 2 diabetes, previous episodes of DKA who was brought by her son to emergency room due to altered mental status. Reported abdominal discomfort, nausea, vomiting and one episode of loose stool. In the emergency room the patient was found to have severe ketoacidosis. pH 6.8. Blood sugar level is in the 600 range. Chest x-ray was clear but CT of the abdomen and pelvis also revealed bilateral infiltrates. Covid testing was negative. Patient is vaccinated. Acute metabolic encephalopathy secondary to severe DKA with associated suspected pneumonia, sepsis, acute kidney injury, acute respiratory failure. The patient is going to ICU. Had a long discussion with the patient's son who is representing her wishes. He also spoke with the rest of his family on the phone. They want her to be limited code. No intubation. However okay to treat her in ICU. Cardiac resuscitation is okay. We will continue aggressive management with IV fluids, IV insulin. We will continue monitoring her renal function, electrolytes. Will adjust fluids accordingly. She will be on BiPAP. We will recheck her labs in the morning. She will also received vancomycin, Zosyn and azithromycin for suspected pneumonia. We will check her CRP and procalcitonin level. We will recheck her CBC in the morning. Will de-escalate antibiotics if additional testing does not confirm pneumonia DVT prophylaxis. Heparin. GI prophylaxis. Famotidine. Limited code The plan of care was discussed with the patient's son. He verbalized understanding and agreement. Answered to his questions the best of my knowledge. He verbalized satisfaction with the conversation. Critical care time 65 minutes Attestations Medical Necessity Statement*: Patient needs to be in the hospital for management of above defined problems. Time Spent in Patient Care: The high probability of a clinically significant, sudden or life threatening deterioration of the patient's [] system(s) required my full and direct attention, intervention and personal management. The critical care time is as shown. 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
[2021-06-25 17:27] LABS: Glucose Point of Care 283 mg/dL (70-110)
[2021-06-25] MEDS: sodium bicarbonate 8.4% 1 mEq/mL 50mL Syr 25 MEQ IVP (17:53)
[2021-06-25] MEDS: lidocaine 1% 5 ML in potassium chloride premix 100 ML 50 ML IV (17:54)
[2021-06-25] MEDS: levofloxacin-dextrose 5 % 750 MG/150 ML PREMIX 100 MG IV (17:54)
[2021-06-25 18:08] LABS: Influenza A by IFA Negative (Negative); Influenza B by IFA Negative (Negative)
--- NOTE | 2021-06-25 18:53 | PC.NURSE ---
Pt remained in 4 point restraint throughout shift. restraints taken off multiple times and passive ROM completed. Pt is still unable to respond or answer to any questions. left pt with sitter at bedside. KARY Jordan.
[2021-06-25 19:06] LABS: Alanine Aminotransferase 42 U/L (0-33); Albumin Level 2.6 g/dL (3.5-5.2); Alkaline Phosphatase 108 IU/L (35-105); Anion Gap 16.8 (5-19); Aspartate Amino Transferase 84 U/L (0-32); Blood Urea Nitrogen 21 mg/dL (8-23); Calcium 7.7 mg/dL (8.5-10.5); Carbon Dioxide 14 mmol/L (22-29); Chloride 121 mmol/L (98-107); Globulin 2.3 g/dL (1.3-4.6); Glomerular Filtration Rate 35.4 mL/min (90-130); Glucose 293 mg/dL (65-115); Magnesium 1.9 mg/dL (1.7-2.3); Osmolality Calculated 320 mOsm/kg (285-295); Phosphorus 2.3 mg/dL (2.5-4.5); Potassium 3.8 mmol/L (3.5-5.1); Sodium 148 mmol/L (136-145); Total Bilirubin 0.2 mg/dL (0.15-1.2); Total Protein 4.9 g/dL (6.6-8.7)
[2021-06-25 19:07] LABS: Vancomycin Trough 14.8 ug/mL (10-15)
[2021-06-25 19:33] LABS: Glucose Point of Care 280 mg/dL (70-110)
[2021-06-25] MEDS: vancomycin 1,250 MG/250 ML PIGGYBACK 250 MG IV (19:42)
--- NOTE | 2021-06-25 20:17 | PC.NURSE ---
NURSING NOTE: Pt's heart rate consistently in the 130's-Resp in the 30's 40's. Placed call to Dr. Silva at this time and received orders for ABG's STAT. Martín RT notified of this order at this time.
[2021-06-25 20:34] LABS: ABG PCO2 28.7 mmHg (35-45); ABG PH Result 7.36 (7.35-7.45); Alveolar-Arterial Oxygen Gradi 7.8 mmHg (5-10); Arterial Blood Gas Hematocrit 35.8 % (37-47); Base Excess ABG -7.8 mmol/L (-2.0-2.0); Blood Gas Allen Test Pos; Blood Gas LPM 2.5 %; Blood Gas Sample Site Radial, right; Blood Gas Sample Type Arterial; Carboxyhemoglobin 0.9 %THgb (0.4-20.1); HCO3 ABG 16.3 mmol/L (22-26); HGB O2 Sat 90.7 % (95-100); Ionized Calcium Level - ABG 1.2 mmol/L (1.1-1.4); Methemoglobin 0.3 % (0.4-1.5); Oxygen Device NC; Oxygen Saturation ABG 91.8; Potassium Level - ABG 3.7 mmol/L (3.5-5.0); Total Hemoglobin 11.7 g/dL (12-16)
[2021-06-25] MEDS: insulin glargine 100 units/1 mL 30 UNIT SUBCUT (20:35)
[2021-06-25] MEDS: acetaminophen 650 mg Supp PR (22:11)
--- NOTE | 2021-06-25 23:13 | PC.NURSE ---
Nursing Note: Starting at around 2029 this evening; pt's heart rate sustaining in the 130's to 140's with resp in the 30's to 40's. Notified Dr. Silva. Received orders for Bipap and stat ABG's. ABG's obtained and pt placed on bipap. Ativan given at 2210 for anxiety and air hunger. At approximately 2200, pt's temp 101.[address] Silva and received orders for blood cultures stat and tylenol 650mg suppository At 2320, pt's heart rate still in 130's with resp of 30. Notified Dr. Silva and received orders for Renal panel and Mag level stat. Currently waiting for results of lab. All vs and assessments as charted, will continue to monitor.
[2021-06-26] VITALS (49 sets, daily range): BP systolic 90–154; BP diastolic 56–117; PULSE 74–133; RESP 25–59; TEMP 37.4–38.4; O2SAT 87–100; BMI 24.8
[2021-06-26] LABS: Albumin Level 3.1 g/dL (3.5-5.2); Blood Urea Nitrogen 20 mg/dL (8-23); Calcium 7.9 mg/dL (8.5-10.5); Carbon Dioxide 18 mmol/L (22-29); Chloride 123 mmol/L (98-107); Glomerular Filtration Rate 32.9 mL/min (90-130); Glucose 190 mg/dL (65-115); Magnesium 1.8 mg/dL (1.7-2.3); Phosphorus 2.3 mg/dL (2.5-4.5); Sodium 152 mmol/L (136-145)
[2021-06-26] MEDS: famotidine 20 mg/2 mL INJ IVP ×2 (01:04→11:39)
[2021-06-26] MEDS: heparin 5,000 unit/mL INJ 1 mL 5000 UNIT SUBCUT ×3 (01:04→16:23)
[2021-06-26] MEDS: piperacillin-tazobactam 3.375 GM in sodium chloride 0.9% (plus) 50 ML IV ×2 (03:01→09:13)
[2021-06-26] MEDS: dextrose 5% 1,000 ML 100 ML IV ×2 (03:02→16:24)
[2021-06-26 05:03] LABS: Urine Random Sodium 69 mmol/L
[2021-06-26 05:19] LABS: Basophils % 0.3 %; Eosinophils # 0.1 10^3/uL (0.0-0.8); Eosinophils % 0.9 %; Hematocrit 33.8 % (37.0-47.0); Hemoglobin 11.2 g/dL (11.5-15.3); Lymphocytes # 0.7 10^3/uL (0.8-4.8); Lymphocytes % 5.9 %; Mean Corpuscular HGB Conc 33.1 g/dL (30.0-36.0); Mean Corpuscular Hemoglobin 28.8 pg (28.0-34.0); Mean Corpuscular Volume 86.9 fl (81-99); Mean Platelet Volume 12.2 fL (7.4-10.4); Monocytes # 0.5 10^3/uL (0.2-0.9); Neutrophils % 87.3 %; Nucleated Red Blood Cells % 0 %; Platelet Count 135 10^3/cmm (130-400); Red Blood Count 3.89 10^6/uL (4.1-5.3); Red Cell Distribution Width 15.2 % (12.1-15.1); White Blood Count 12.2 10^3/uL (4.0-10.0)
--- NOTE | 2021-06-26 05:46 | PC.NURSE ---
Nurse Note: Pt's code status changed to Full Code per Dr. Silva and is to be revisited on dayshift with family today per Dr. Silva. 02 on @ 6L per NC. 02 sats = 100% at present. R = 26-30 bpm. Pt remains restless and moving legs constantly in bed. restraints bilaterally on upper and lower extremities. All vs and assessments as charted. Will continue to monitor.
--- NOTE | 2021-06-26 06:25 | XRR_ITS ---
PROCEDURE INFORMATION: Exam: XR Chest Exam date and time: 06/26/2021 6:25 AM Age: 61 years old Clinical indication: Condition or disease; Lung condition and disease; Pneumonia; Additional info: Pna TECHNIQUE: Imaging protocol: XR of the chest. Views: 1 view. COMPARISON: CR (CHEST, ) 06/25/2021 3:47 PM FINDINGS: Lungs: Interval decrease in the patchy airspace opacities in the lower right lung, but slight worsening of the patchy airspace disease in the right upper lung. Interval slight increase in the patchy airspace disease in the lateral left mid lung; no definite change elsewhere in the left lung. Pleural spaces: No interval large pneumothorax or pleural effusion on this supine image. Heart/Mediastinum: Stable cardiomegaly. Vasculature: Continued aortic elongation. Bones/joints: No obvious change in the bones. Prior cervical fusion again evident. Intraperitoneal space: Surgical clips in the right upper abdomen. XR/XR chest 1V portable [id number] IMPRESSION: Slight changes in the patchy airspace disease in the lungs detailed above. No significant change elsewhere. Radiation Dose CTDIVOL = (mGy): DLP = (mGy-cm)
[2021-06-26 06:35] LABS: Alanine Aminotransferase 52 U/L (0-33); Albumin Level 2.8 g/dL (3.5-5.2); Alkaline Phosphatase 116 IU/L (35-105); Anion Gap 12.8 (5-19); Aspartate Amino Transferase 109 U/L (0-32); Blood Urea Nitrogen 19 mg/dL (8-23); Calcium 7.8 mg/dL (8.5-10.5); Carbon Dioxide 18 mmol/L (22-29); Chloride 123 mmol/L (98-107); Globulin 2.4 g/dL (1.3-4.6); Glomerular Filtration Rate 38.4 mL/min (90-130); Glucose 217 mg/dL (65-115); NT Pro B Type Natriuretic Pept 3194 pg/mL (0-125); Osmolality Calculated 319 mOsm/kg (285-295); Phosphorus 2.3 mg/dL (2.5-4.5); Potassium 3.8 mmol/L (3.5-5.1); Sodium 150 mmol/L (136-145); Total Bilirubin 0.3 mg/dL (0.15-1.2); Total Protein 5.2 g/dL (6.6-8.7)
[2021-06-26 06:36] LABS: Creatinine Clr Calc Pharmacy 42.8516
[2021-06-26 08:36] LABS: Glucose Point of Care 259 mg/dL (70-110)
--- NOTE | 2021-06-26 08:41 | XRR_ITS ---
PROCEDURE INFORMATION: Exam: XR Chest Exam date and time: 06/26/2021 8:41 AM Age: 61 years old Clinical indication: Device placement; Ng tube; Additional info: Ng placement TECHNIQUE: Imaging protocol: XR of the chest. Views: 1 view. COMPARISON: CR (CHEST, ) 06/26/2021 5:07 AM FINDINGS: Tubes, catheters and devices: Feeding tube is in satisfactory position. Lungs: Persistent bilateral airspace opacities. No large pleural effusion or pneumothorax. Pleural spaces: See Lungs finding. Heart/Mediastinum: Stable cardiomediastinal silhouette. Bones/joints: Cervical spine fusion hardware noted. Degenerative changes of the spine seen. No acute osseous injury identified. XR/XR chest 1V portable [id number] IMPRESSION: Persistent bilateral airspace opacities. Radiation Dose CTDIVOL = (mGy): DLP = (mGy-cm)
--- NOTE | 2021-06-26 09:00 | PC.NURSE ---
This morning patient was still in four point restrains. All restrains were removed frequently and ROM was performed. Patient did not respond to painful stilmuli and was moving legs, arms and shaking head back and forth.
[2021-06-26] MEDS: sodium bicarbonate 8.4% 1 mEq/mL 50mL Syr 25 MEQ IVP (09:11)
[2021-06-26] MEDS: FUROsemide 10 mg/mL SDV 2mL 20 MG IVP ×3 (09:11→18:40)
[2021-06-26] MEDS: lidocaine 1% 5 ML in potassium chloride premix 100 ML 25 ML IV ×3 (09:12→22:34)
[2021-06-26] MEDS: insulin lispro 100 unit/1 mL SUBCUT ×3 (09:13→22:34)
--- NOTE | 2021-06-26 09:43 | PC.CHAP ---
Pastoral Care Encounter/Spiritual Assessment Type of Contact [] Declined hazardous materials handler visit [] Patient/Family/Request visit [] Outpatient visit [] Follow-up visit [] Physician referral [] Code/Alert [x] Routine visit [] Staff referral [] Actively dying [] Patient sleeping [] Family support [] [] Out of room [] Palliative care [] [] Receiving care in room [] Pre-surgical visit [] Trauma [] Long length of stay [x] ICU visit [x] Other: sitter Relational/Emotional Strength [] Patient feels connected with others/family/visitors/staff [] Distress [] Loneliness/isolation [] Abandonment Spirituality of Patient [] Person of E[place] [] Attends Adventism of their [place] [] Believes in Prayer [] Reads Bible or Religion materials [] There are Spiritual issues to be addressed Dinner Cook Interventions [x] Prayer [] Active listening [] Non-anxious presence [] Spiritual/emotional support [] Crisis/trauma care [] Spiritual counseling [] Bereavement support [] Provided bereavement packet [] Provided Bible/devotional materials [] Provided toy/stuffed animal, coloring book to patient or family member [] Provided Communion [] Anointing/Wolverine [] Salvation [x] Completed spiritual assessment [] Other: Impact on Illness or Injury [] Angry [] Fearful [] Anxious [] Often cries [] Exhaustion [] Unable to work [] Unable to attend church [] Unable to walk/stand [] Unable to read [] Unable to drive [] Unable to eat/drink [] Unable to sleep [] Unable to be with family [] Patient intubated [] Other: Summary Time spent with patient
[2021-06-26 11:38] LABS: Glucose Point of Care 182 mg/dL (70-110)
--- NOTE | 2021-06-26 12:00 | PC.NURSE ---
NG tube was placed this shift per orders. During this time patient was very agitated and was attempting to kick legs. Respirations were 30's-40's and oxygen levels were in the 80's. Frothy sputum was noted around the patients mouth. Notified of events.
--- NOTE | 2021-06-26 12:51 | P.PN_ITS ---
Subjective Subjective: Interval history: Patient was seen and examined this morning, continues to be altered. Noted T-max:100.1, supplemental oxygen requirement has gone up to 6 L. AM x-ray chest: Persistent bilateral infiltrates. Robust urine output with Lasix. Medications: Reviewed: Yes Vitals/I&O/Wt Last Vital Signs Temp 100.1 F H 06/26/21 07:30 Pulse 88 06/26/21 12:00 Resp 31 H 06/26/21 12:00 BP 95/71 06/26/21 12:00 Pulse Ox 92 06/26/21 12:00 06/25/21 06/26/21 06/26/21 22:59 06:59 14:59 Intake Total 2848.65 / 2908.562 1000 / 3908.562 350 / 350 Output Total 1750 / 4050 850 / 4900 800 / 800 Balance 1098.65 / -1141.438 150 / -991.438 -450 / -450 Weight last 48 hrs Weight 69.853 kg Weight 69.853 kg Physical Exam Narrative: EXAM NARRATIVE: Patient is currently not responding appropriately, continue to be encephalopathic HENMT: COMMON NORMALS: normocephalic and atraumatic HEAD & SCALP: normocephalic and atraumatic Resp: COMMON NORMALS: clear to auscultation bilaterally AUSCULTATION: clear to auscultation bilaterally Cardio: COMMON NORMALS: regular rate, regular rhythm, S1 normal heart sound present, S2 normal heart sound present, No gallops present (Cardio), No murmurs present (Cardio), No rub (Cardio) and Peripheral pulses 2+ throughout RATE: regular rate RHYTHM: regular rhythm HEART SOUNDS: S1 normal heart sound present and S2 normal heart sound present PERIPHERAL PULSES: Peripheral pulses 2+ throughout GI: COMMON NORMALS: Normal to inspection, nondistended, normoactive bowel sounds present, Soft to palpation and non-tender AUSCULTATION: Yes normoactive bowel sounds PALPATION: Yes Soft to palpation RECTAL EXAM: deferred Extremity: COMMON NORMALS: no clubbing, cyanosis or edema and no pedal edema Urinary Catheter Management^: Malhotra: Cath Placed During This Visit: yes Reason for Continuing Indwelling Catheter: Accurate Measurement of Urinary Output in Critically Ill Patients Urinary Catheter Date of Insertion: 06/24/21 Data : 06/26/21 04:00 06/26/21 04:00 Micro: Microbiology 06/24/21 18:46 Urine Culture - Preliminary Urine Catheterized 06/25/21 22:12 Blood Culture - Preliminary Blood SPECIMEN COLLECTED 06/25/21 22:08 Blood Culture - Preliminary Blood SPECIMEN COLLECTED 06/25/21 02:36 Legionella Urinary Antigen - Final Urine Catheterized 06/25/21 02:36 Bacterial Antigens - Final Urine,Voided 06/25/21 03:30 MRSA Culture - Final Nose A&P Assessment and plan (1) Acute metabolic encephalopathy: Acute metabolic encephalopathy multifactorial ( DKA, sepsis, pneumonia, acute kidney, electrolyte imbalance) : CT head without contrast: No acute intracranial pathology X-ray chest: Bilateral pulmonary infiltrates 2D echo: Blood culture:NTD Sputum culture: Lactic acid:2.6 Procalcitonin:1.66 MRSA PCR: Negative Rapid COVID Antigen :Negative Rapid COVID PCR Is :Pending Urine Legionella antigen:Negative Bacterial antigen panel:Negative CRP:21 Monitor x-ray chest: Continue Vanco and Zosyn, levofloxacin for now. D5 water @50 cc/hr Free water flushes through NG tube 500 cc every 6 hours. Monitor FSG Q4Hrs Status: Acute (2) Pneumonia: Status: Acute (3) Hypernatremia: Free water deficit calculated ( 1.1LS ) Status: Acute (4) DKA (diabetic ketoacidosis): Initially on insulin drip: Anion gap is closed: Currently on Lantus and sliding scale insulin. NG-tube is in place. We will start the patient on Glucerna feeding. Continue to monitor fingerstick glucose Status: Acute (5) Sepsis: Status: Acute (6) Acute kidney injury: GLADYS on CKD stage III: Likely prerenal GLADYS Continue to monitor BMp Urine electrolytes Intake output charting Avoid nephrotoxic Status: Acute (7) Hyperkalemia: Resolved Status: Acute (8) Acute respiratory failure: Acute respiratory failure secondary to pneumonia Status: Acute (9) Abnormal LFTs: Ultrasound abdomen: Hepatitis panel Status: Acute (10) Hypophosphatasia: K-Phos IV replacement done. Currently serum phosphorus is normal. Continue to monitor serum phosphorus. Status: Acute Additional A&P Information 61 year old female with past medical history of type 2 diabetes, previous episodes of DKA who was brought by her son to emergency room due to altered mental status. Reported abdominal discomfort, nausea, vomiting and one episode of loose stool. In the emergency room the patient was found to have severe ketoacidosis. pH 6.8. Blood sugar level is in the 600 range. Chest x-ray was clear but CT of the abdomen and pelvis also revealed bilateral infiltrates. Covid testing was negative. Patient is vaccinated. Acute metabolic encephalopathy secondary to severe DKA with associated suspected pneumonia, sepsis, acute kidney injury, acute respiratory failure. The patient is going to ICU. Had a long discussion with the patient's son who is representing her wishes. He also spoke with the rest of his family on the phone. They want her to be limited code. No intubation. However okay to treat her in ICU. Cardiac resuscitation is okay. We will continue aggressive management with IV fluids, IV insulin. We will continue monitoring her renal function, electrolytes. Will adjust fluids accordingly. She will be on BiPAP. We will recheck her labs in the morning. She will also received vancomycin, Zosyn and azithromycin for suspected pneumonia. We will check her CRP and procalcitonin level. We will recheck her CBC in the morning. Will de-escalate antibiotics if additional testing does not confirm pneumonia DVT prophylaxis. Heparin. GI prophylaxis. Famotidine. Limited code The plan of care was discussed with the patient's son. He verbalized understanding and agreement. Answered to his questions the best of my knowledge. He verbalized satisfaction with the conversation. Critical care time 65 minutes Attestations Medical Necessity Statement*: Patient needs to be in hospital for management of acute encephalopathy Critical Care Time: The high probability of a clinically significant, sudden or life threatening deterioration of the patient's [] system(s) required my full and direct attention, intervention and personal management. The critical care time is as shown. 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
[2021-06-26 13:36] LABS: Coronavirus Test Green County Not Detected
[2021-06-26] MEDS: LORazepam 2 mg/mL INJ 1 mL IVP (16:23)
--- NOTE | 2021-06-26 16:25 | USCV_ITS ---
Licha Beck Age: 61 Gender: F : 1960 Exam Date: 06/26/2021 13:21 Ordering Phys: Victorino Mcnamara MD Technologist: Exam Location: [facility] [place] Indication: Congestive heart failure BP: 99 / 67 HR: 127 Rhythm: Sinus Technical Quality: Technically difficult study MEASUREMENTS (Male / Female) Normal Values 2D ECHO LVOT Diameter 2.0 cm LV Ejection Fraction MOD 2C 47.9 % LV Ejection Fraction 2C AL 47.3 % LA Diameter 3.2 cm LA Width 4.0 cm LA Height 3.8 cm RA Width 4.2 cm RA Height 3.6 cm Aorta at Sinotubular Diameter 2.5 cm DOPPLER AV Peak Velocity 135.0 cm/s LVOT Peak Velocity 90.0 cm/s AV Area Cont Eq vti 2.4 cm squared AV Area Cont Eq pk 2.1 cm squared MV Area PHT 5.0 cm squared Mitral E to A Ratio 2.5 MV E' Velocity 55.0 cm/s Mitral E to MV E' Ratio 6.9 Mitral E to LV E' Lateral Ratio 6.8 Mitral E to LV E' Septal Ratio 7.1 TR Peak Velocity 105.0 cm/s TR Peak Gradient 4.4 mmHg FINDINGS Left Ventricle Normal left ventricular cavity size. Mildly decreased left ventricular systolic function. Left ventricular ejection fraction is estimated at 40-45 % (this may be overestimated due to tachycardia). Probably global hypokinesis with abnormal septal motion consistent with conduction abnormality. Right Ventricle Right ventricle not well visualized. Right Atrium Right atrium not well visualized. Left Atrium Left atrium not well visualized. Probably normal left atrial size. Mitral Valve Mildly thickened mitral valve. No mitral valve stenosis. Trace mitral valve regurgitation. Aortic Valve Aortic valve not well visualized. No aortic valve stenosis. Tricuspid Valve Tricuspid valve not well visualized. Pulmonic Valve Pulmonic valve not well visualized. Pericardium No pericardial effusion. Aorta Aorta not well visualized. CONCLUSIONS 1. This is a technically very difficult study. 2. Normal left ventricular cavity size. Mildly decreased left ventricular systolic function. Left ventricular ejection fraction is estimated at 40-45 % (this may be overestimated due to tachycardia). Probably global hypokinesis with abnormal septal motion consistent with conduction abnormality. 3. Repeat study with echo contrast is recommended once patient's heart rate is better controlled. Rhonda Marie MD (Electronically Signed) Final Date: 27 June 2021 10:00 S
--- NOTE | 2021-06-26 16:44 | PC.NURSE ---
[employer] of [employer], Vinny Busch was contacted regarding patient and he stated he did not want to be the patients power of [employer] anymore. This information was verified by Martin Mcgrath RN
[2021-06-26 17:39] LABS: Glucose Point of Care 137 mg/dL (70-110)
[2021-06-26] MEDS: acetaminophen 650 mg Supp PR (17:42)
[2021-06-26] MEDS: meropenem 2,000 MG in sodium chloride 0.9% (100 ml) 100 ML 200 MG IV (17:43)
[2021-06-26 17:46] LABS: Alanine Aminotransferase 67 U/L (0-33); Albumin Level 2.9 g/dL (3.5-5.2); Alkaline Phosphatase 138 IU/L (35-105); Anion Gap 15.1 (5-19); Aspartate Amino Transferase 125 U/L (0-32); Blood Urea Nitrogen 20 mg/dL (8-23); Calcium 8.4 mg/dL (8.5-10.5); Carbon Dioxide 21 mmol/L (22-29); Chloride 116 mmol/L (98-107); Globulin 2.8 g/dL (1.3-4.6); Glomerular Filtration Rate 35.4 mL/min (90-130); Glucose 144 mg/dL (65-115); Osmolality Calculated 313 mOsm/kg (285-295); Potassium 3.1 mmol/L (3.5-5.1); Sodium 149 mmol/L (136-145); Total Bilirubin 0.5 mg/dL (0.15-1.2); Total Protein 5.7 g/dL (6.6-8.7)
[2021-06-26 21:57] LABS: Glucose Point of Care 182 mg/dL (70-110)
[2021-06-26] MEDS: insulin glargine 100 units/1 mL 30 UNIT SUBCUT (22:35)
[2021-06-26] MEDS: vancomycin 1,250 MG/250 ML PIGGYBACK 250 MG IV (22:35)
[2021-06-27] VITALS (50 sets, daily range): BP systolic 62–139; BP diastolic 43–99; PULSE 69–136; RESP 14–42; TEMP 37.1–37.8; O2SAT 83–100; BMI 22.8
[2021-06-27] MEDS: heparin 5,000 unit/mL INJ 1 mL 5000 UNIT SUBCUT ×3 (03:14→16:32)
[2021-06-27] MEDS: famotidine 20 mg/2 mL INJ IVP ×3 (03:15→23:29)
[2021-06-27 03:45] LABS: Basophils % 0.2 %; Eosinophils # 0.3 10^3/uL (0.0-0.8); Eosinophils % 2.3 %; Hemoglobin 10.6 g/dL (11.5-15.3); Lymphocytes # 1.2 10^3/uL (0.8-4.8); Lymphocytes % 8.9 %; Mean Corpuscular HGB Conc 34.2 g/dL (30.0-36.0); Mean Corpuscular Volume 84.7 fl (81-99); Mean Platelet Volume 11.8 fL (7.4-10.4); Monocytes # 0.4 10^3/uL (0.2-0.9); Monocytes % 3.3 %; Neutrophils # 11.18 10^3/uL (1.8-7.7); Neutrophils % 84.8 %; Nucleated Red Blood Cells % 0 %; Platelet Count 116 10^3/cmm (130-400); Red Blood Count 3.66 10^6/uL (4.1-5.3); Red Cell Distribution Width 14.8 % (12.1-15.1); White Blood Count 13.2 10^3/uL (4.0-10.0)
[2021-06-27 04:04] LABS: Alanine Aminotransferase 59 U/L (0-33); Albumin Level 3.5 g/dL (3.5-5.2); Alkaline Phosphatase 128 IU/L (35-105); Anion Gap 16.2 (5-19); Aspartate Amino Transferase 135 U/L (0-32); Blood Urea Nitrogen 18 mg/dL (8-23); Calcium 8.3 mg/dL (8.5-10.5); Carbon Dioxide 21 mmol/L (22-29); Chloride 110 mmol/L (98-107); Globulin 2.3 g/dL (1.3-4.6); Glomerular Filtration Rate 50.7 mL/min (90-130); Glucose 109 mg/dL (65-115); Osmolality Calculated 300 mOsm/kg (285-295); Potassium 3.2 mmol/L (3.5-5.1); Sodium 144 mmol/L (136-145); Total Bilirubin 0.6 mg/dL (0.15-1.2); Total Protein 5.8 g/dL (6.6-8.7)
[2021-06-27 04:28] LABS: Hepatitis B Surface Antigen Non-Reactive (Nonreactive); Hepatitis C Virus Antibody Non-Reactive (Nonreactive)
[2021-06-27] MEDS: meropenem 2,000 MG in sodium chloride 0.9% (100 ml) 100 ML 200 MG IV ×2 (06:00→17:20)
--- NOTE | 2021-06-27 06:00 | XRR_ITS ---
PROCEDURE INFORMATION: Exam: XR Chest Exam date and time: 06/27/2021 6:00 AM Age: 61 years old Clinical indication: Condition or disease; Other: Bilat infiltrates; Patient HX: Bilat pulmonary infiltrates; Additional info: Pna TECHNIQUE: Imaging protocol: XR of the chest. Views: 1 view. COMPARISON: CR XR chest 1V portable [id number] 06/26/2021 8:46 AM FINDINGS: Tubes, catheters and devices: Feeding tube is in satisfactory position. Lungs: Persistent bilateral airspace opacities. No large pleural effusion or pneumothorax. Pleural spaces: See Lungs finding. Heart/Mediastinum: Stable cardiomediastinal silhouette. Bones/joints: Cervical spine fusion hardware noted. No acute osseous injury identified. XR/XR chest 1V portable [id number] IMPRESSION: Persistent bilateral airspace opacities. Radiation Dose CTDIVOL = (mGy): DLP = (mGy-cm)
--- NOTE | 2021-06-27 06:21 | PC.NURSE ---
Shift Note Frequent safety and comfort rounds continue. Orders and/or nursing care completed as indicated. Patient monitored for response to intervention and treatment(s). Education provided includes medication and need for NG tube. Patient needs further reinforcement teaching. Patient remains on 6LNC, noted to be restless, and is unresponsive to verbal/painful stimuli. D5W is infusing in left femoral central line at 50 mls/hr. No wounds or skin issues noted at this time. Malhotra catheter drained 1700 mls of pale yellow urine all evening. 500 ml water flushes were administered by NG tube Q4 hrs per Dr. Mcnamara orders, total intake by NG tube overnight was 1500 mls. Will continue to monitor.
[2021-06-27 08:24] LABS: Glucose Point of Care 120 mg/dL (70-110)
[2021-06-27] MEDS: FUROsemide 10 mg/mL SDV 4mL 40 MG IVP (08:25)
[2021-06-27] MEDS: lidocaine 1% 5 ML in potassium chloride premix 100 ML 25 ML IV (08:26)
--- NOTE | 2021-06-27 10:27 | P.PN_ITS ---
Subjective Subjective: Interval history: Patient was seen and examined this morning, continues to be altered. Continue to have low grade temperature spike.Noted T max: 100.1. Serum creatinine is improved, good urine output with Lasix. Medications: Reviewed: Yes Vitals/I&O/Wt Last Vital Signs Temp 99.9 F H 06/27/21 04:00 Pulse 80 06/27/21 10:00 Resp 28 H 06/27/21 10:00 BP 109/78 06/27/21 10:00 Pulse Ox 99 06/27/21 10:00 06/26/21 06/27/21 06/27/21 22:59 06:59 14:59 Intake Total 1712.5 / 3112.5 1855 / 4967.5 Output Total 1000 / 3600 1700 / 5300 Balance 712.5 / -487.5 155 / -332.5 Weight last 48 hrs Weight 64.127 kg Weight 69.853 kg Physical Exam Narrative: EXAM NARRATIVE: Patient is currently not responding appropriately, continue to be encephalopathic HENMT: COMMON NORMALS: normocephalic and atraumatic HEAD & SCALP: normocephalic and atraumatic Resp: COMMON NORMALS: clear to auscultation bilaterally AUSCULTATION: clear to auscultation bilaterally Cardio: COMMON NORMALS: regular rate, regular rhythm, S1 normal heart sound pr esent, S2 normal heart sound present, No gallops present (Cardio), No murmurs present (Cardio), No rub (Cardio) and Peripheral pulses 2+ throughout RATE: regular rate RHYTHM: regular rhythm HEART SOUNDS: S1 normal heart sound present and S2 normal heart sound present PERIPHERAL PULSES: Peripheral pulses 2+ throughout GI: COMMON NORMALS: Normal to inspection, nondistended, normoactive bowel sounds present, Soft to palpation and non-tender AUSCULTATION: Yes normoactive bowel sounds PALPATION: Yes Soft to palpation RECTAL EXAM: deferred Extremity: COMMON NORMALS: no clubbing, cyanosis or edema and no pedal edema Urinary Catheter Management^: Malhotra: Cath Placed During This Visit: yes Reason for Continuing Indwelling Catheter: Accurate Measurement of Urinary Output in Critically Ill Patients Urinary Catheter Date of Insertion: 06/24/21 Data : 06/27/21 03:20 06/27/21 03:20 Micro: Microbiology 06/24/21 18:46 Urine Culture - Final Urine Catheterized 06/25/21 22:12 Blood Culture - Preliminary Blood NEGATIVE TO DATE 06/25/21 22:08 Blood Culture - Preliminary Blood NEGATIVE TO DATE A&P Assessment and plan (1) Acute metabolic encephalopathy: Acute metabolic encephalopathy multifactorial ( DKA, sepsis, pneumonia, acute kidney, electrolyte imbalance) : Cannot rule out underlying meningoencephalitis CT head without contrast: No acute intracranial pathology X-ray chest: Bilateral pulmonary infiltrates 2D echo: Normal LV cavity size, moderately decreased LV systolic function, with LVEF 40-45%, no gross valvular abnormality. Blood culture:NTD Sputum culture: Lactic acid:2.6 Procalcitonin:1.66 MRSA PCR: Negative Rapid COVID Antigen :Negative Rapid COVID PCR Is : Negative Influenza a and B- negative Urine Legionella antigen:Negative Bacterial antigen panel:Negative Respiratory viral panel: CRP:21 Monitor x-ray chest: Continue Vanco, meropenem, acyclovir, levofloxacin for now. Zosyn was discontinued On Prcedex for agitation Initially on D5 water Free water flushes through NG tube Status: Acute (2) Pneumonia: Status: Acute (3) Hypernatremia: Resolved. Free water deficit was calculated D5 water, D5 half NS, free water flushes through NG tube were used as needed. Continue to monitor BMP. Status: Acute (4) DKA (diabetic ketoacidosis): Initially on insulin drip: Anion gap is closed: Currently on Lantus and sliding scale insulin. NG-tube is in place. We will start the patient on Glucerna feeding. Continue to monitor fingerstick glucose Status: Acute (5) Heart failure: Decompensated HFrEF : Lasix 40 mg IV daily I/O Charting Mg>2, k>4 Status: Acute (6) Sepsis: Status: Acute (7) Acute kidney injury: GLADYS on CKD stage III: Continue to monitor BMp Urine electrolytes Intake output charting Avoid nephrotoxic Status: Acute (8) Hyperkalemia: Resolved Status: Acute (9) Acute respiratory failure: Acute respiratory failure secondary to pneumonia Status: Acute (10) Abnormal LFTs: Ultrasound abdomen:Prior cholecystectomy.Normal common bile duct. Hepatitis panel: Negative Likely secondary to congestive hepatopathy Status: Acute (11) Hypophosphatasia: K-Phos IV replacement done. Currently serum phosphorus is normal. Continue to monitor serum phosphorus. Status: Acute Additional A&P Information H/O BPD : Will start on home medications ( Seroquel as well as Bupropion ) Lumbar puncture was attempted had today had to be aborted because of difficult spinal anatomy and difficulty with positioning. 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
[2021-06-27 12:09] LABS: Glucose Point of Care 130 mg/dL (70-110)
[2021-06-27] MEDS: haloperidol inj 5 mg/mL INJ 1 mL IVP (12:27)
[2021-06-27 14:57] LABS: Osmolality Urine 527 mOsm/kg (50-1200)
--- NOTE | 2021-06-27 15:13 | PC.NURSE ---
Attempted lumbar puncture was done at bedside. Patient tolerated well.
[2021-06-27] MEDS: levofloxacin-dextrose 5 % 750 MG/150 ML PREMIX 100 MG IV (15:20)
[2021-06-27] MEDS: acyclovir 500 MG in sodium chloride 0.9% (plus) 100 ML 110 MG IV ×2 (16:31→23:29)
[2021-06-27 17:13] LABS: Glucose Point of Care 226 mg/dL (70-110)
[2021-06-27] MEDS: FUROsemide 10 mg/mL SDV 2mL 20 MG IVP (17:20)
[2021-06-27] MEDS: insulin lispro 100 unit/1 mL SUBCUT (17:21)
[2021-06-27 17:23] LABS: Anion Gap 17.6 (5-19); Blood Urea Nitrogen 19 mg/dL (8-23); Calcium 8.4 mg/dL (8.5-10.5); Carbon Dioxide 22 mmol/L (22-29); Chloride 106 mmol/L (98-107); Glomerular Filtration Rate 56.6 mL/min (90-130); Glucose 201 mg/dL (65-115); Osmolality Calculated 302 mOsm/kg (285-295); Potassium 3.6 mmol/L (3.5-5.1); Sodium 142 mmol/L (136-145)
[2021-06-27] MEDS: haloperidol inj 5 mg/mL INJ 1 mL 2.5 MG IVP (17:48)
[2021-06-27] MEDS: LORazepam 2 mg/mL INJ 1 mL IVP ×2 (17:51→18:35)
--- NOTE | 2021-06-27 18:15 | US_ITS ---
WS: [id number] RIGHT UPPER QUADRANT ULTRASOUND HISTORY: TRANSAMINITIS COMPARISON: None available. Liver: 15.0 cm in length. Normal size liver. No bile duct dilatation or mass. Gallbladder: Prior cholecystectomy. CBD: 0.5 cm Pancreas: Incompletely visualized. Right kidney: 7.8 cm in length. Mild atrophy and cortical thinning. No hydronephrosis or mass identif ied. Aorta and IVC: Normal size IVC. Mild atherosclerosis aorta. No ascites. US/US abdomen limited [id number] IMPRESSION: 1. Prior cholecystectomy. 2. Normal liver. 3. Normal common bile duct.
--- NOTE | 2021-06-27 19:00 | PC.NURSE ---
Patient was becoming very agitated in room. PRN orders were entered and given per orders. Son in room at this time. Respirations continue to be in the low 30's.
[2021-06-27] MEDS: dexmedetomidine 400 MCG in sodium chloride 0.9% (100 ml) 100 ML IV (19:14)
[2021-06-27 20:01] LABS: Glucose Point of Care 125 mg/dL (70-110)
[2021-06-27] MEDS: insulin glargine 100 units/1 mL 20 UNIT SUBCUT (20:04)
[2021-06-27] MEDS: quetiapine 100 mg Tablet 200 MG PO (20:04)
[2021-06-27] MEDS: vancomycin 1,250 MG/250 ML PIGGYBACK 250 MG IV (20:04)
[2021-06-27] MEDS: sodium chloride 0.9% 500 ML IV (21:43)
[2021-06-28] VITALS (49 sets, daily range): BP systolic 80–128; BP diastolic 46–86; PULSE 50–128; RESP 10–25; TEMP 35.8–37.2; O2SAT 87–100
[2021-06-28] MEDS: heparin 5,000 unit/mL INJ 1 mL 5000 UNIT SUBCUT ×3 (01:39→16:43)
[2021-06-28] MEDS: sodium chlor 0.9% + KCl 20 mEq 20 MEQ/1,000 ML BAG 100 MEQ IV (01:39)
[2021-06-28] MEDS: haloperidol inj 5 mg/mL INJ 1 mL IVP ×2 (02:57→08:24)
[2021-06-28] MEDS: LORazepam 2 mg/mL INJ 1 mL IVP ×3 (03:56→16:43)
[2021-06-28 04:02] LABS: Basophils % 0.3 %; Eosinophils # 0.4 10^3/uL (0.0-0.8); Eosinophils % 4.5 %; Hematocrit 33.4 % (37.0-47.0); Lymphocytes # 1.3 10^3/uL (0.8-4.8); Lymphocytes % 12.9 %; Mean Corpuscular HGB Conc 32.9 g/dL (30.0-36.0); Mean Corpuscular Hemoglobin 28.5 pg (28.0-34.0); Mean Corpuscular Volume 86.5 fl (81-99); Mean Platelet Volume 11.1 fL (7.4-10.4); Monocytes # 0.6 10^3/uL (0.2-0.9); Monocytes % 6.5 %; Neutrophils # 7.25 10^3/uL (1.8-7.7); Neutrophils % 74.1 %; Nucleated Red Blood Cells % 0 %; Platelet Count 141 10^3/cmm (130-400); Red Blood Count 3.86 10^6/uL (4.1-5.3); Red Cell Distribution Width 14.8 % (12.1-15.1); White Blood Count 9.8 10^3/uL (4.0-10.0)
[2021-06-28 04:36] LABS: Alanine Aminotransferase 76 U/L (0-33); Albumin Level 3.1 g/dL (3.5-5.2); Alkaline Phosphatase 149 IU/L (35-105); Anion Gap 15.6 (5-19); Aspartate Amino Transferase 139 U/L (0-32); Blood Urea Nitrogen 23 mg/dL (8-23); Calcium 7.9 mg/dL (8.5-10.5); Carbon Dioxide 22 mmol/L (22-29); Chloride 113 mmol/L (98-107); Globulin 2.5 g/dL (1.3-4.6); Glomerular Filtration Rate 41.8 mL/min (90-130); Glucose 166 mg/dL (65-115); Magnesium 1.7 mg/dL (1.7-2.3); Osmolality Calculated 311 mOsm/kg (285-295); Phosphorus 2.6 mg/dL (2.5-4.5); Potassium 3.6 mmol/L (3.5-5.1); Sodium 147 mmol/L (136-145); Total Bilirubin 0.4 mg/dL (0.15-1.2); Total Protein 5.6 g/dL (6.6-8.7)
[2021-06-28] MEDS: meropenem 2,000 MG in sodium chloride 0.9% (100 ml) 100 ML 200 MG IV ×2 (04:49→17:01)
[2021-06-28] MEDS: acyclovir 500 MG in sodium chloride 0.9% (plus) 100 ML 110 MG IV ×3 (06:30→23:24)
[2021-06-28 07:24] LABS: Glucose Point of Care 132 mg/dL (70-110)
[2021-06-28] MEDS: levothyroxine 112 mcg Tablet PO (08:12)
[2021-06-28] MEDS: dexmedetomidine 400 MCG in sodium chloride 0.9% (100 ml) 100 ML 8.34 MCG IV (08:26)
--- NOTE | 2021-06-28 08:40 | PC.NURSE ---
0700 Report received. Assessment completed as charted. Pt lying in bed, sitter at bedside. Remains restless and thrashing in bed at times. Bilateral wrist restraints in place, removed per protocol, skin intact, placed back on pt. VSS, BP low at times. Levo infusing at 2mcg, precedex at 0.5. Malhotra cath in place. Repositioned per staff PRN. Oral care performed. Will monitor.
--- NOTE | 2021-06-28 08:45 | PC.NURSE ---
0830 Haldol 5mg IVP given d/t increased agitation. Precedex increased to 0.7mcg.
--- NOTE | 2021-06-28 09:34 | PC.NURSE ---
episodes of bradycardia noted, precedex reduced.
--- NOTE | 2021-06-28 09:52 | ECG_ITS ---
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 Measurements Intervals [place] Rate: 62 P: 49 KS: 144 QRS: 109 QRSD: 142 T: 101 QT: 492 QTc: 503 Interpretive Statements SINUS RHYTHM WITH FREQUENT SUPRAVENTRICULAR PREMATURE COMPLEXES RIGHT AXIS DEVIATION [QRS AXIS > 100] RIGHT BUNDLE BRANCH BLOCK [120+ ms QRS DURATION, UPRIGHT V1, 40+ ms S IN I/aVL/V4/V5/V6] QT prolongation, corrected QTC of 503 ms -consider electrolyte abnormality, ischemia, drug effect, etc. compared to ECG 06/24/2021 00:42:15 Right bundle-branch block now present Ventricular premature complex(es) no longer present Intraventricular conduction delay no longer present Electronically Signed On 06-28-2021 20:41:36 ERISA ATTORNEY by Teresa Amin M.D. [email or web address]
--- NOTE | 2021-06-28 10:25 | PC.CHAP ---
Pastoral Care Encounter/Spiritual Assessment Type of Contact [] Declined dispensing optician apprentice visit [] Patient/Family/Request visit [] Outpatient visit [] Follow-up visit [] Physician referral [] Code/Alert [x] Routine visit [] Staff referral [] Actively dying [] Patient sleeping [x] Family support [] [] Out of room [] Palliative care [] [] Receiving care in room [] Pre-surgical visit [] Trauma [] Long length of stay [x] ICU visit [] Other: Relational/Emotional Strength [] Patient feels connected with others/family/visitors/staff [] Distress [] Loneliness/isolation [] Abandonment Spirituality of Patient [] Person of [place] [] Attends Pentecostalism of their [place] [] Believes in Prayer [] Reads Bible or Latter Day materials [] There are Spiritual issues to be addressed 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 Interventions [x] Prayer [] Active listening [] Non-anxious presence [] Spiritual/emotional support [] Crisis/trauma care [] Spiritual counseling [] Bereavement support [] Provided bereavement packet [] Provided Bible/devotional materials [] Provided toy/stuffed animal, coloring book to patient or family member [] Provided Communion [] Anointing/[place] [] Salvation [x] Completed spiritual assessment [] Other: Impact on Illness or Injury [] Angry [] Fearful [] Anxious [] Often cries [] Exhaustion [] Unable to work [] Unable to attend adventist [] Unable to walk/stand [] Unable to read [] Unable to drive [] Unable to eat/drink [] Unable to sleep [] Unable to be with family [] Patient intubated [] Other: Summary patient still not coherent.. daughter present.. patient appeared to be more restful today Time spent with patient 10 min
[2021-06-28] MEDS: lidocaine 1% 5 ML in potassium chloride premix 100 ML 50 ML IV (10:44)
[2021-06-28 11:25] LABS: Glucose Point of Care 109 mg/dL (70-110)
[2021-06-28] MEDS: famotidine 20 mg/2 mL INJ IVP (12:41)
[2021-06-28] MEDS: haloperidol inj 5 mg/mL INJ 1 mL 2 MG IM ×3 (13:52→23:44)
--- NOTE | 2021-06-28 13:59 | PC.NURSE ---
Took pt to radiology for fluoro guided LP, pt thrashed around the table and medication was given. Pt CVL cap came undone and was quickly replaced after blood was noted on the sheets. Medication ineffective. Dr. Greer at bedside. Decision made to attempt tomorrow under anesthesia. Pt transported back to ICU, MD aware and MRI cancelled.
--- NOTE | 2021-06-28 15:44 | PC.NURSE ---
1345 Precedex paused per MD order d/t bradycardia. 1545 Precedex restarted d/t increased agitation. Pt throwing legs out of bed and thrashing around bed.
[2021-06-28 16:44] LABS: Glucose Point of Care 120 mg/dL (70-110)
--- NOTE | 2021-06-28 16:51 | PM.PN ---
Subjective Subjective: Interval history: Patient was seen and examined this morning, continues to be altered. Patient was hypotensive last night, for which she had to be given a liter of NS, she was also kept on Levophed. Medications: Reviewed: Yes Vitals/I&O/Wt Last Vital Signs Temp 97.6 F 06/28/21 12:00 Pulse 96 06/28/21 16:00 Resp 17 06/28/21 16:00 BP 115/58 06/28/21 16:00 Pulse Ox 96 06/28/21 16:00 06/28/21 06/28/21 06/28/21 06:59 14:59 22:59 Intake Total 334.31 / 2398.143 1696.093 / 1696.093 415.421 / 2111.514 Output Total 400 / 2750 575 / 575 Balance -65.69 / -132.209 2369.093 / 1696.093 -159.579 / 1536.514 Weight last 48 hrs Weight 65.941 kg Weight 64.127 kg Physical Exam Narrative: EXAM NARRATIVE: Patient is currently not responding appropriately, continue to be encephalopathic HENMT: COMMON NORMALS: normocephalic and atraumatic HEAD & SCALP: normocephalic and atraumatic Resp: COMMON NORMALS: clear to auscultation bilaterally AUSCULTATION: clear to auscultation bilaterally Cardio: COMMON NORMALS: regular rate, regular rhythm, S1 normal heart sound present, S2 normal heart sound present, No gallops present (Cardio), No murmurs present (Cardio), No rub (Cardio) and Peripheral pulses 2+ throughout RATE: regular rate RHYTHM: regular rhythm HEART SOUNDS: S1 normal heart sound present and S2 normal heart sound present PERIPHERAL PULSES: Peripheral pulses 2+ throughout GI: COMMON NORMALS: Normal to inspection, nondistended, normoactive bowel sounds present, Soft to palpation and non-tender AUSCULTATION: Yes normoactive bowel sounds PALPATION: Yes Soft to palpation RECTAL EXAM: deferred Extremity: COMMON NORMALS: no clubbing, cyanosis or edema and no pedal edema Urinary Catheter Management^: Malhotra: Cath Placed During This Visit: yes Reason for Continuing Indwelling Catheter: Accurate Measurement of Urinary Output in Critically Ill Patients Urinary Catheter Date of Insertion: 06/24/21 Data : 06/28/21 03:49 06/28/21 03:49 A&P Assessment and plan (1) Acute metabolic encephalopathy: Acute metabolic encephalopathy multifactorial ( DKA, sepsis, pneumonia, acute kidney, electrolyte imbalance) : Cannot rule out underlying meningoencephalitis, patient also has history of bipolar. CT head without contrast: No acute intracranial pathology X-ray chest: Bilateral pulmonary infiltrates 2D echo: Normal LV cavity size, moderately decreased LV systolic function, with LVEF 40-45%, no gross valvular abnormality. Blood culture:NTD Sputum culture: Lactic acid:2.6 Procalcitonin:1.66 MRSA PCR: Negative Rapid COVID Antigen :Negative Rapid COVID PCR Is : Negative Influenza a and B- negative Urine Legionella antigen:Negative Bacterial antigen panel:Negative Respiratory viral panel: CRP:21 Monitor x-ray chest: Continue Vanco, meropenem, acyclovir, has been on levofloxacin and zosyn . On Prcedex for agitation Initially on D5 water Free water flushes through NG tube Status: Acute (2) Pneumonia: Status: Acute (3) Hypernatremia: Resolved. Free water deficit was calculated D5 water, D5 half NS, free water flushes through NG tube were used as needed. Continue to monitor BMP. Status: Acute (4) DKA (diabetic ketoacidosis): Initially on insulin drip: Anion gap is closed: Currently on Lantus and sliding scale insulin. NG-tube is in place. We will start the patient on Glucerna feeding. Continue to monitor fingerstick glucose Status: Acute (5) Heart failure: Decompensated HFrEF : Lasix 40 mg IV daily I/O Charting Mg>2, k>4 Status: Acute (6) Sepsis: Status: Acute (7) Acute kidney injury: GLADYS on CKD stage III: Continue to monitor BMp Urine electrolytes Intake output charting Avoid nephrotoxic Status: Acute (8) Hyperkalemia: Resolved Status: Acute (9) Acute respiratory failure: Acute respiratory failure secondary to pneumonia Status: Acute (10) Abnormal LFTs: Ultrasound abdomen:Prior cholecystectomy.Normal common bile duct. Hepatitis panel: Negative Likely secondary to congestive hepatopathy Status: Acute (11) Hypophosphatasia: K-Phos IV replacement done. Currently serum phosphorus is normal. Continue to monitor serum phosphorus. Status: Acute Additional A&P Information H/O BPD : Will start on home medications ( Seroquel as well as Bupropion ).Psychiatry has been consulted. Lumbar puncture was attempted had today had to be aborted because of difficult spinal anatomy and difficulty with positioning. Lumbar puncture was again attempted today by radiologist, but it was not as the patient could not lie still, and was thrashing around. Haldol and Ativan could not hold her. Procedure was aborted. The only possibility to do the procedure is under anesthesia help. MRI brain without contrast was also canceled. Attestations Medical Necessity Statement*: Patient needs to be in hospital for management of above defined problems. Coding Level of Care Code Acute Crnp for [facility] Fwd Diagnoses Acute metabolic encephalopathy G93.41 Pneumonia J18.9 Hypernatremia E87.0 DKA (diabetic ketoacidosis) E11.10 Heart failure I50.9 Sepsis A41.9 Acute kidney injury N17.9 Hyperkalemia E87.5 Acute respiratory failure J96.00 Abnormal LFTs R94.5 Hypophosphatasia E83.39
--- NOTE | 2021-06-28 17:32 | PC.NURSE ---
Lorazepam and haldol only temporarily effective. Effects of haldol IM only effective for approximately 10 minutes. will monitor. Attempted to place PIV in LAC, pt pulled away as a flash was obtained. Pressure applied to stop bleeding area cleaned. MD notified. Shift Note Frequent safety and comfort rounds continue. Orders and/or nursing care completed as indicated. Patient monitored for response to intervention and treatment(s). Education provided includes treatment plan, medications and future tests. Daughter at bedside needs velia Will continue to monitor.
[2021-06-28 18:06] LABS: Anion Gap 13.5 (5-19); Blood Urea Nitrogen 19 mg/dL (8-23); Calcium 7.6 mg/dL (8.5-10.5); Carbon Dioxide 20 mmol/L (22-29); Chloride 115 mmol/L (98-107); Glomerular Filtration Rate 73.2 mL/min (90-130); Glucose 115 mg/dL (65-115); Osmolality Calculated 303 mOsm/kg (285-295); Potassium 3.5 mmol/L (3.5-5.1); Sodium 145 mmol/L (136-145)
--- NOTE | 2021-06-28 19:04 | P.NPUCON_ITS ---
Providers/Reason for Consult Consulting Physican/Specialty*: Boby Root MD. Psychiatry. Reason for Consult*: Evaluation for current mental status and or causes. Attending Physician: Victorino Mcnamara MD Psych Consult HPI History of Present Illness Licha Beck is a 61 year old female who presented to the emergency department with altered mental status and was transferred to the ICU for definitive treatment of those issues. A psychiatric consult was requested to determine if there might be any psychiatric explanations for her current status. She was incapable as a historian as she is still somewhat obtunded and not communicative. However her stepdaughter was in the room and provided some helpful information. So she had spoken to her mother recently the last week or 2 and also had seen her in January. At the time there were no issues or any change in her mental status. She did recently go through a break-up with her significant other moved out with him into a place with her biological son. Stepdaughter denied any history of significant addiction. She was not a drinker and rarely have a drink when family went out and other people were drinking. She has no known history of regular benzodiazepine use and/or any benzodiazepine abuse or dependence. She did report not feeling well in the days up to this hospitalization but there was no real clarity as to what not feeling well actually meant. She does report this occasional groaning that she does with something that she would kind of do when she was cognitively well enough and attributed to neck pain. She has had a history of depression and possibly diagnosis of bipolar disorder at some point in her life, but no significant history of hospitalizations or periods where she was dysfunctional as a parent, as a partner or otherwise. She had multiple relationships including the one with her stepdaughters biological father. But that ended many years ago. She was a [id number] mother as far as she knows. She reports that she came from a very large family that she still has 6 or 7 siblings still alive. Meds Current Medications: Current Medications Generic Name Dose Route Start Last Admin Trade Name Freq PRN Reason Stop Dose Admin Acetaminophen 650 mg 06/25/21 21:31 06/26/21 17:42 Acetaminophen 65 0 Mg Supp TX 650 mg Q6H PRN Administration FEVER Famotidine 20 mg 06/24/21 00:30 06/28/21 12:41 Famotidine 20 Mg /2 Ml Inj IVP 20 mg Q12H STEFFANIE Administration Haloperidol Lactat e 2 mg 06/28/21 10:13 06/28/21 23:44 Haloperidol Inj 5 Mg/Ml Inj 1 Ml IM 2 mg Q6H PRN Administration AGITATION Heparin Sodium (Po rcine) 5,000 unit 06/24/21 01:00 06/28/21 16:43 Heparin 5,000 Un it/Ml Inj 1 Ml SUBCUT 5,000 unit Q8H STEFFANIE Administration Vancomycin/PEG/NAD A/Lysine/Water 1,250 mg in 250 m ls @ 250 mls/hr 06/24/21 20:00 06/28/21 21:38 Vancocin IV Infused Q24H STEFFANIE Infusion Meropenem 2,000 mg / Sodium 100 mls @ 200 mls /hr 06/26/21 17:00 06/28/21 17:35 Chloride IV Infused Q12H STEFFANIE Infusion Acyclovir 500 mg/ Sodium 110 mls @ 110 mls /hr 06/27/21 15:30 06/29/21 00:24 Chloride IV Infused Q8H STEFFANIE Infusion Dexmedetomidine HC l 400 mcg/ 104 mls @ 0 mls/h r 06/27/21 17:45 06/28/21 21:05 Sodium Chloride IV 0.7 mcg/kg/hr .Q0M STEFFANIE 11.67 mls/hr Administration Protocol Per Protocol Norepinephrine Bit artrate 4 mg 254 mls @ 0 mls/h r 06/27/21 23:00 06/28/21 12:56 / Dextrose IV 0 mcg/min .Q0M STEFFANIE 0 mls/hr Titration Protocol Per Protocol Insulin Glargine 20 unit 06/27/21 21:00 06/28/21 20:13 Insulin Glargine 100 Units/1 Ml SUBCUT 20 unit BEDTIME STEFFANIE Administration Insulin Human Lisp ro 0 unit 06/27/21 08:00 06/28/21 20:11 Insulin Lispro 1 00 Unit/1 Ml SUBCUT Not Given WM&BEDTIME STEFFANIE Protocol Levothyroxine Sodi um 112 mcg 06/28/21 09:00 06/28/21 08:12 Levothyroxine 11 2 Mcg Tablet PO 112 mcg DAILY STEFFANIE Administration Lorazepam 2 mg 06/28/21 12:32 06/28/21 16:43 Lorazepam 2 Mg/M l Inj 1 Ml IVP 2 mg Q12H PRN Administration ANXIETY Quetiapine Fumarat e 200 mg 06/27/21 21:00 06/28/21 20:13 Quetiapine 100 M g Tablet PO 200 mg BEDTIME STEFFANIE Administration Mental Status Exam MSE Comments: This is a well-nourished well-developed white female looking older than her stated age with a dependence on and unable to keep down on secondary to significant psychomotor agitation writhing around moving her legs over the edge of the way groaning with poor grooming and absent eye contact. Uncooperative with exam and mild distress. Speech was absent. Mood not described. Thought process unable to observe thought content: Unable to observe. She was not arousable. Vitals/I&O/Wt Last Vital Signs Temp 97.6 F 06/28/21 12:00 Pulse 51 L 06/28/21 18:30 Resp 13 06/28/21 18:30 BP 91/56 06/28/21 18:30 Pulse Ox 97 06/28/21 18:30 06/28/21 14:59 Intake Total 1696.093 / 1696.093 Output Total Balance 1696.093 / 1696.093 Weight last 48 hrs Weight 65.941 kg Weight 64.127 kg Physical Exam Urinary Catheter Management^: Malhotra: Cath Placed During This Visit: yes Reason for Continuing Indwelling Catheter: Accurate Measurement of Urinary Output in Critically Ill Patients Urinary Catheter Date of Insertion: 06/24/21 Data NPU Micro: Micro: Microbiology 06/23/21 19:29 Blood Culture - Fi nal Blood NO GROWTH AFTER 5 DAYS 06/23/21 19:29 Blood Culture - Fi nal Blood NO GROWTH AFTER 5 DAYS Microbiology 06/23/21 19:29 Blood Blood Culture - Final NO GROWTH AFTER 5 DAYS 06/23/21 19:29 Blood Blood Culture - Final NO GROWTH AFTER 5 DAYS A&P Assessment and plan (1) Heart failure: Status: Acute (2) Hypernatremia: Status: Acute (3) Hypophosphatasia: Status: Acute (4) Abnormal LFTs: Status: Acute (5) Acute respiratory failure: Status: Acute (6) Hyperkalemia: Status: Acute (7) Acute kidney injury: Status: Acute (8) Sepsis: Status: Acute (9) Pneumonia: Status: Acute (10) Acute metabolic encephalopathy: Status: Acute (11) DKA (diabetic ketoacidosis): Status: Acute (12) Altered mental status: Status: Acute Additional A&P Information This is a 61-year-old white female with a reported history of depression and possible bipolar disorder with recent stable mental status who presents with altered mental status unable to communicate at this point but with stepdaughter at the bedside give some history. 1. Continue current medication. 2. No clear sign of psychiatric indication to this presentation. No suggestion of illicits or prescription drug use, abuse or withdrawal that might lead to this presentation. 3. Clearly agree that LP and MRI would be critical and determining if were missing anything in this presentation. 4. We should consider Ativan 1 to 2 mg as needed IM to help with her agitation. 5. Haldol 5 mg IM if necessary as needed IM for agitation. 6. We will continue to follow. Attestations NPU Medical Necessity Statement*: N/A. Please see primary team note for medical necessity. Coding Level of Care Code Acute R[employer] Custodian for [facility] Diagnoses Heart failure I50.9 Hypernatremia E87.0 Hypophosphatasia E83.39 Abnormal LFTs R94.5 Acute respiratory failure J96.00 Hyperkalemia E87.5 Acute kidney injury N17.9 Sepsis A41.9 Pneumonia J18.9 Acute metabolic encephalopathy G93.41 DKA (diabetic ketoacidosis) E11.10 Altered mental status R41.82
[2021-06-28 20:11] LABS: Glucose Point of Care 92 mg/dL (70-110)
[2021-06-28] MEDS: insulin glargine 100 units/1 mL 20 UNIT SUBCUT (20:13)
[2021-06-28] MEDS: quetiapine 100 mg Tablet 200 MG PO (20:13)
[2021-06-28] MEDS: vancomycin 1,250 MG/250 ML PIGGYBACK 200 MG IV (20:13)
[2021-06-28 20:59] LABS: Vancomycin Trough 18.3 ug/mL (10-15)
[2021-06-28] MEDS: dexmedetomidine 400 MCG in sodium chloride 0.9% (100 ml) 100 ML 11.67 MCG IV (21:05)
[2021-06-29] VITALS (54 sets, daily range): BP systolic 70–142; BP diastolic 45–79; PULSE 48–90; RESP 9–23; TEMP 35.7–36.8; O2SAT 89–100
[2021-06-29] MEDS: famotidine 20 mg/2 mL INJ IVP ×2 (01:05→12:09)
[2021-06-29] MEDS: heparin 5,000 unit/mL INJ 1 mL 5000 UNIT SUBCUT ×2 (01:05→08:03)
[2021-06-29 03:34] LABS: Basophils % 0.2 %; Eosinophils # 0.5 10^3/uL (0.0-0.8); Eosinophils % 7.5 %; Hemoglobin 10.4 g/dL (11.5-15.3); Lymphocytes # 1.1 10^3/uL (0.8-4.8); Lymphocytes % 17.6 %; Mean Corpuscular HGB Conc 32.5 g/dL (30.0-36.0); Mean Corpuscular Hemoglobin 28.7 pg (28.0-34.0); Mean Corpuscular Volume 88.4 fl (81-99); Mean Platelet Volume 11.6 fL (7.4-10.4); Monocytes # 0.6 10^3/uL (0.2-0.9); Monocytes % 8.9 %; Neutrophils % 61.1 %; Nucleated Red Blood Cells % 0 %; Platelet Count 135 10^3/cmm (130-400); Red Blood Count 3.62 10^6/uL (4.1-5.3); Red Cell Distribution Width 14.7 % (12.1-15.1); White Blood Count 6.4 10^3/uL (4.0-10.0)
[2021-06-29 03:52] LABS: Alanine Aminotransferase 86 U/L (0-33); Alkaline Phosphatase 144 IU/L (35-105); Anion Gap 14.9 (5-19); Aspartate Amino Transferase 168 U/L (0-32); Blood Urea Nitrogen 18 mg/dL (8-23); Calcium 8.3 mg/dL (8.5-10.5); Carbon Dioxide 21 mmol/L (22-29); Chloride 114 mmol/L (98-107); Globulin 2.3 g/dL (1.3-4.6); Glomerular Filtration Rate 73.2 mL/min (90-130); Glucose 109 mg/dL (65-115); Osmolality Calculated 304 mOsm/kg (285-295); Potassium 3.9 mmol/L (3.5-5.1); Sodium 146 mmol/L (136-145); Total Bilirubin 0.3 mg/dL (0.15-1.2); Total Protein 5.3 g/dL (6.6-8.7)
[2021-06-29] MEDS: dexmedetomidine 400 MCG in sodium chloride 0.9% (100 ml) 100 ML 11.67 MCG IV ×3 (04:27→15:22)
[2021-06-29] MEDS: meropenem 2,000 MG in sodium chloride 0.9% (100 ml) 100 ML 200 MG IV ×2 (04:56→18:08)
[2021-06-29] MEDS: LORazepam 2 mg/mL INJ 1 mL IVP ×2 (05:03→16:04)
[2021-06-29] MEDS: insulin lispro 100 unit/1 mL SUBCUT ×2 (08:03→21:49)
[2021-06-29] MEDS: levothyroxine 112 mcg Tablet PO (08:04)
[2021-06-29] MEDS: acyclovir 500 MG in sodium chloride 0.9% (100 ml) 100 ML 110 MG IV (08:10)
[2021-06-29 08:13] LABS: Glucose Point of Care 150 mg/dL (70-110)
[2021-06-29] MEDS: dextrose 5% 1,000 ML 30 ML IV (09:10)
--- NOTE | 2021-06-29 10:08 | PC.CHAP ---
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 still unable to respond... sitter Relational/Emotional Strength [] Patient feels connected with others/family/visitors/staff [] Distress [] Loneliness/isolation [] Abandonment Spirituality of Patient [] Person of [place] [] Attends Latter Day of their [place] [] Believes in Prayer [] Reads Bible or Evangelical materials [] There are Spiritual issues to be addressed Ware Carrier Interventions [x] Prayer [] Active listening [] Non-anxious presence [] Spiritual/emotional support [] Crisis/trauma care [] Spiritual counseling [] Bereavement support [] Provided bereavement packet [] Provided Bible/devotional materials [] Provided toy/stuffed animal, coloring book to patient or family member [] Provided Communion [] Anointing/Keller [] Salvation [x] Completed spiritual assessment [] Other: Impact on Illness or Injury [] Angry [] Fearful [] Anxious [] Often cries [] Exhaustion [] Unable to work [] Unable to attend nondenominational [] Unable to walk/stand [] Unable to read [] Unable to drive [] Unable to eat/drink [] Unable to sleep [] Unable to be with family [] Patient intubated [] Other: Summary Time spent with patient
[2021-06-29 12:06] LABS: Glucose Point of Care 116 mg/dL (70-110)
--- NOTE | 2021-06-29 13:20 | P.PN_ITS ---
Subjective Subjective: Interval history: Patient was seen and examined this morning, continues to be altered. Medications: Reviewed: Yes Vitals/I&O/Wt Last Vital Signs Temp 98.2 F 06/29/21 10:00 Pulse 76 06/29/21 12:00 Resp 16 06/29/21 12:00 BP 87/56 06/29/21 12:00 Pulse Ox 97 06/29/21 12:00 06/28/21 06/29/21 06/29/21 22:59 06:59 14:59 Intake Total 817.828 / 2513.921 495.969 / 3009.890 582.208 / 582.208 Output Total 575 / 575 600 / 1175 Balance 242.828 / 1938.921 -104.031 / 1834.890 582.208 / 582.208 Weight last 48 hrs Weight 65.771 kg Weight 65.941 kg Physical Exam Narrative: EXAM NARRATIVE: Patient is currently not responding appropriately, continue to be encephalopathic HENMT: COMMON NORMALS: normocephalic and atraumatic HEAD & SCALP: normocephalic and atraumatic Resp: COMMON NORMALS: clear to auscultation bilaterally AUSCULTATION: clear to auscultation bilaterally Cardio: COMMON NORMALS: regular rate, regular rhythm, S1 normal heart sound present, S2 normal heart sound present, No gallops present (Cardio), No murmurs present (Cardio), No rub (Cardio) and Peripheral pulses 2+ throughout RATE: regular rate RHYTHM: regular rhythm HEART SOUNDS: S1 normal heart sound present and S2 normal heart sound present PERIPHERAL PULSES: Peripheral pulses 2+ throughout GI: COMMON NORMALS: Normal to inspection, nondistended, normoactive bowel sounds present, Soft to palpation and non-tender AUSCULTATION: Yes normoac tive bowel sounds PALPATION: Yes Soft to palpation RECTAL EXAM: deferred Extremity: COMMON NORMALS: no clubbing, cyanosis or edema and no pedal edema Urinary Catheter Management^: Malhotra: Cath Placed During This Visit: yes Reason for Continuing Indwelling Catheter: Accurate Measurement of Urinary Output in Critically Ill Patients Urinary Catheter Date of Insertion: 06/24/21 Data : 06/29/21 03:18 06/29/21 03:18 Micro: Microbiology 06/23/21 19:29 Blood Culture - Final Blood NO GROWTH AFTER 5 DAYS 06/23/21 19:29 Blood Culture - Final Blood NO GROWTH AFTER 5 DAYS A&P Assessment and plan (1) Acute metabolic encephalopathy: Acute metabolic encephalopathy multifactorial ( DKA, sepsis, pneumonia, acute kidney, electrolyte imbalance) : Cannot rule out underlying meningoencephalitis, patient also has history of bipolar. CT head without contrast: No acute intracranial pathology Repeat CT head without contrast: No acute intracranial pathology MRI brain without contrast: X-ray chest: Bilateral pulmonary infiltrates 2D echo: Normal LV cavity size, moderately decreased LV systolic function, with LVEF 40-45%, no gross valvular abnormality. Blood culture:NTD Sputum culture: Lactic acid:2.6 Procalcitonin:1.66 MRSA PCR: Negative Rapid COVID Antigen :Negative Rapid COVID PCR Is : Negative Influenza a and B- negative Urine Legionella antigen:Negative Bacterial antigen panel:Negative Respiratory viral panel: Negative CRP:21 Monitor x-ray chest: Continue Vanco, meropenem, acyclovir, has been on levofloxacin and zosyn . On Prcedex for agitation Initially on D5 water Free water flushes through NG tube Status: Acute (2) Pneumonia: Status: Acute (3) Hypernatremia: Resolved. Free water deficit was calculated D5 water, D5 half NS, free water flushes through NG tube were used as needed. Continue to monitor BMP. Status: Acute (4) DKA (diabetic ketoacidosis): Initially on insulin drip: Anion gap is closed: Currently on Lantus and sliding scale insulin. NG-tube is in place. We will start the patient on Glucerna feeding. Continue to monitor fingerstick glucose Status: Acute (5) Heart failure: Decompensated HFrEF : Lasix 40 mg IV daily I/O Charting Mg>2, k>4 Status: Acute (6) Sepsis: Status: Acute (7) Acute kidney injury: GLADYS on CKD stage III: Likely secondary to cardiorenal syndrome/ATN Continue to monitor BMP Urine electrolytes Intake output charting Avoid nephrotoxic Status: Acute (8) Hyperkalemia: Resolved Status: Acute (9) Acute respiratory failure: Acute respiratory failure secondary to pneumonia Status: Acute (10) Abnormal LFTs: Ultrasound abdomen:Prior cholecystectomy.Normal common bile duct. Hepatitis panel: Negative Likely secondary to congestive hepatopathy Status: Acute (11) Hypophosphatasia: K-Phos IV replacement done. Currently serum phosphorus is normal. Continue to monitor serum phosphorus. Status: Acute Additional A&P Information H/O BPD : Will start on home medications ( Seroquel as well as Bupropion ).Psychiatry has been consulted. Lumbar puncture was attempted had today had to be aborted because of difficult spinal anatomy and difficulty with positioning. Lumbar puncture was again attempted today by radiologist, but it was not as the patient could not lie still, and was thrashing around. Haldol and Ativan could not hold her. Procedure was aborted. The only possibility to do the procedure is under anesthesia help. MRI brain without contrast was also canceled. Attestations Medical Necessity Statement*: Patient needs to be in hospital for management of well-defined problems. Coding Level of Care Code Acute Supervisor Policy Change Clerks for [facility] Fwd Diagnoses Acute metabolic encephalopathy G93.41 Pneumonia J18.9 Hypernatremia E87.0 DKA (diabetic ketoacidosis) E11.10 Heart failure I50.9 Sepsis A41.9 Acute kidney injury N17.9 Hyperkalemia E87.5 Acute respiratory failure J96.00 Abnormal LFTs R94.5 Hypophosphatasia E83.39
--- NOTE | 2021-06-29 14:45 | W.PM.NPUPNS ---
Subjective NPU Subjective: Interval history: Patient presents today nonverbal now with her son in the room and stepdaughter they are in the ICU as well. No new information provided. Continue to lack any signs of any ingestion or intentional ingestion. She is having Ativan and Haldol in an attempt to help her remain calm for her test. Mental Status Exam MSE Comments: This is a well-nourished well-developed white female looking older than her stated age with a depends on appearing calm and without significant psychomotor agitatio, absent eye contact. Uncooperative with exam in no acute distress. Speech was absent. Mood not described. Thought process unable to observe thought content: Unable to observe. She was not arousable. Vitals/I&O/Wt Last Vital Signs Temp 98.2 F 06/29/21 10:00 Pulse 84 06/29/21 14:30 Resp 19 H 06/29/21 14:00 BP 118/66 06/29/21 14:30 Pulse Ox 98 06/29/21 14:30 06/29/21 06/29/21 06/30/21 14:59 22:59 06:59 Intake Total 582.208 / 180.572 9011.658 / 1694.866 597.848 / 2292.714 Output Total 1175 / 1175 1125 / 2300 Balance 582.208 / 582.208 -62.342 / 519.866 -527.152 / -7.286 Weight last 48 hrs Weight 65.771 kg Weight 65.941 kg Physical Exam Urinary Catheter Management^: Malhotra: Cath Placed During This Visit: yes Reason for Continuing Indwelling Catheter: Accurate Measurement of Urinary Output in Critically Ill Patients Urinary Catheter Date of Insertion: 06/24/21 Data NPU : 06/30/21 02:45 06/30/21 02:45 A&P Additional A&P Information (1) Heart failure: (2) Hypernatremia: (3) Hypophosphatasia: (4) Abnormal LFTs: (5) Acute respiratory failure: (6) Hyperkalemia: (7) Acute kidney injury: (8) Sepsis: (9) Pneumonia: (10) Acute metabolic encephalopathy: (11) DKA (diabetic ketoacidosis): (12) Altered mental status: Additional A&P Information This is a 61-year-old white female with a reported history of depression and possible bipolar disorder with recent stable mental status who presents with altered mental status unable to communicate at this point but with stepdaughter at the bedside give some history. 1. Continue current medication. 2. No clear sign of psychiatric indication to this presentation. No suggestion of illicits or prescription drug use, abuse or withdrawal that might lead to this presentation. 3. Clearly agree that LP and MRI would be critical and determining if were missing anything in this presentation. 4. We should consider Ativan 1 to 2 mg as needed IM to help with her agitation. 5. Haldol 5 mg IM if necessary as needed IM for agitation. 6. We will continue to follow. 7. We will get an EKG and monitor for QT prolongation given the medications. Attestations NPU Medical Necessity Statement*: N/A. Please see primary team note for medical necessity. Coding Level of Care Code Acute Supervisory Civil Engineer for Bakari Lafleur
--- NOTE | 2021-06-29 15:55 | CTR_ITS ---
PROCEDURE INFORMATION: Exam: CT Head Without Contrast Exam date and time: 06/29/2021 3:55 PM Age: 61 years old Clinical indication: Altered mental status/memory loss; Additional info: AMS TECHNIQUE: Imaging protocol: Computed tomography of the head without contrast. Radiation optimization: All CT scans at this facility use at least one of these dose optimization techniques: automated exposure control; mA and/or kV adjustment per patient size (includes targeted exams where dose is matched to clinical indication); or iterative reconstruction. COMPARISON: CT head wo con* [id number] 06/23/2021 8:47 PM RADIATION DOSE METRICS: Total DLP (mGy-cm): 2234.52 FINDINGS: Limitations: Motion artifact on exam limits fine detailed evaluation of the brain parenchyma, especially at the base of the skull. Brain: No hemorrhage. Mild diffuse cerebral atrophy. No significant white matter disease. No mass effect. Cerebral ventricles: No ventriculomegaly. Paranasal sinuses: Visualized sinuses are unremarkable. No fluid levels. Mastoid air cells: Visualized mastoid air cells are well aerated. Bones/joints: Unremarkable. No acute fracture. Soft tissues: Unremarkable. CT/CT head wo con* [id number] IMPRESSION: 1. Motion limited exam. No evident acute intracranial abnormality. 2. Mild diffuse cerebral atrophy. Radiation Dose CTDIVOL = (mGy): DLP = 2234.52 (mGy-cm)
[2021-06-29] MEDS: haloperidol inj 5 mg/mL INJ 1 mL 2 MG IM (16:03)
[2021-06-29] MEDS: acyclovir 500 MG in sodium chloride 0.9% (plus) 100 ML 110 MG IV (16:59)
[2021-06-29] MEDS: OLANZapine 10 mg VIAL IM ×2 (17:00→17:29)
[2021-06-29] MEDS: cyclobenzaprine 10 mg Tablet PO (17:00)
[2021-06-29 17:23] LABS: Adenovirus Not Detected (Not Detected); Human Metapneumovirus Not Detected (Not Detected); Human Parainflu Virus 1 Not Detected (Not Detected); Human Parainflu Virus 2 Not Detected (Not Detected); Human Parainflu Virus 3 Not Detected (Not Detected); Human Rsv A Not Detected (Not Detected); Influenza A Not Detected (Not Detected); Influenza B Not Detected (Not Detected); Rhinovirus/Enterovirus Not Detected (Not Detected)
[2021-06-29] MEDS: water for injection-sterile 10 ML (17:23)
--- NOTE | 2021-06-29 17:50 | ECG_ITS ---
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 Measurements Intervals [place] Rate: 61 P: 59 [place]: 154 QRS: 103 QRSD: 157 T: 83 QT: 537 QTc: 544 Interpretive Statements SINUS RHYTHM WITH OCCASIONAL SUPRAVENTRICULAR PREMATURE COMPLEXES RIGHT AXIS DEVIATION [QRS AXIS > 100] RIGHT BUNDLE BRANCH BLOCK [120+ ms QRS DURATION, UPRIGHT V1, 40+ ms S IN I/aVL/V4/V5/V6] Compared to ECG 06/28/2021 10:02:14 Possible ischemia no longer present Electronically Signed On 06-29-2021 22:47:45 CONE MACHINE OPERATOR by Teresa Amin M.D. [email or web address] [email or web address]/store/[id number]
[2021-06-29 18:33] LABS: Glucose Point of Care 133 mg/dL (70-110)
--- NOTE | 2021-06-29 18:54 | PC.NURSE ---
Shift Note Frequent safety and comfort rounds continue. Orders and nursing care completed as indicated. Pt stayed in 2 point restraints most of day to prevent removal of femoral central line. Daughter at bedside most of the day, noted to be active in care. Dr. Mcnamara placed order for CT of head due to AMS and placed order to given the PRN medications, see mar. Linens changed this shift. Dr. Mcnamara changed order to 4 point restraints due to increased risk of removing central line, see documentation worklist. Patient monitored for response to intervention and treatment. Pt scheduled for MRI in am, family notified and consent form signed. Education provided includes new medication zyprexa. Family at bedside, verbalized understanding. Will continue to monitor.
--- NOTE | 2021-06-29 19:45 | ECG_ITS ---
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 Measurements Intervals [place] Rate: 59 P: 145 [place]: 157 QRS: 151 QRSD: 152 T: 145 QT: 570 QTc: 566 Interpretive Statements SINUS BRADYCARDIA WITH FREQUENT SUPRAVENTRICULAR PREMATURE COMPLEXES INTRAVENTRICULAR CONDUCTION DELAY [130+ ms QRS DURATION] PROLONGED QT INTERVAL CRITICAL TEST RESULT Compared to ECG 06/29/2021 17:57:07 Intraventricular conduction delay now present Prolonged QT interval now present Sinus rhythm no longer present Right-axis deviation no longer present Right bundle-branch block no longer present Electronically Signed On 06-29-2021 23:00:38 WIND FARM SUPPORT SPECIALIST by Teresa Amin M.D. [email or web address].Survature/store/OM/[id number]
[2021-06-29] MEDS: vancomycin 1,250 MG/250 ML PIGGYBACK 250 MG IV (20:18)
[2021-06-29] MEDS: dexmedetomidine 400 MCG in sodium chloride 0.9% (100 ml) 100 ML 15.01 MCG IV (21:47)
[2021-06-29] MEDS: quetiapine 100 mg Tablet 200 MG PO (21:48)
[2021-06-29] MEDS: insulin glargine 100 units/1 mL 10 UNIT SUBCUT (21:49)
[2021-06-29 21:55] LABS: Glucose Point of Care 144 mg/dL (70-110)
--- NOTE | 2021-06-29 23:00 | PC.NURSE ---
Hand off report conducted at the bedside. 4 point soft restraints applied to bilateral wrists and bilateral ankles, due to AMS, impulsivity, and grabbing and pulling at lines. Soft ankle restraints applied due to patient safety concerns and limitations in pharmacologic management due to pt's inability to maintain adequate BP due to ativan administration, and inability to administer haloperidol due to prolonged QT interval. Precedex gtt ongoing, with RASS +1, but limited ability to increase dose due to decreased HR with higher titrations. Family at bedside during shift report, updated on pt status, plans for MRI in the morning, and medication regimen, including - infusions and PRN meds for agitation.
--- NOTE | 2021-06-29 23:55 | PM.MISC ---
Miscellaneous Note Note: EUNICE YOUNGBLOOD was called last night around 2354. The patient suddenly developed ventricular fibrillation. Blood pressure 0, pulseless. CPR was initiated immediately. The patient received 1 defibrillation charge after which ventricular fibrillation converted to asystole. Consequently the patient received 2 doses of epinephrine during CPR. The patient was intubated by ER physician Dr. Rodriguez. ROSC was achieved after 5 to 6 minutes of CPR. The patient was hypotensive. Received bolus of normal saline and was started on norepinephrine drip. Follow-up labs revealed hypokalemia. She received consequently 20+20 M EQ's of KCl. Post CPR evaluation revealed reactive symmetric pupils. Couple of hours after CPR she started waking up. We initiated sedation with Precedex. Blood pressure is improving. Going down on norepinephrine dose. The family was updated by the nursing staff.
--- NOTE | 2021-06-29 23:59 | XRR_ITS ---
PROCEDURE INFORMATION: Exam: XR Chest Exam date and time: 06/29/2021 11:59 PM Age: 61 years old Clinical indication: Device placement; Other: Og placement, and ett placement; Additional info: Intubation/og tube. Post code blue TECHNIQUE: Imaging protocol: XR of the chest. Views: 1 view. COMPARISON: CR (CHEST, ) 06/27/2021 5:27 AM FINDINGS: Tubes, catheters and devices: An orogastric tube is placed with its tip in the proximal stomach. The proximal side port is at the gastroesophageal junction. The endotracheal tube tip is 3.6 cm from the arleen. A weighted feeding tube is present with its tip in the proximal stomach. EKG leads overlie the chest. A transcutaneous pacemaker lead overlies the epigastrium. Lungs: There appears to be some improvement in the bilateral interstitial opacities compared with 06/27/2021. Some increased interstitial markings remain present bilaterally but most notably within the left mid and lower hemithorax. Pleural spaces: Unremarkable. No pleural effusion. No pneumothorax. Heart/Mediastinum: Unremarkable. No cardiomegaly. Bones/joints: Unremarkable. XR/XR chest 1V portable [id number] IMPRESSION: 1. New orogastric tube tip in proximal stomach with the proximal side port at the gastroesophageal junction. 2. Endotracheal tube tip 3.6 cm from the arleen. 3. There are increased interstitial markings seen in the hemithoraces bilaterally, most notably within the left mid and lower hemithorax. However, these appear improved compared with 06/27/2021. Radiation Dose CTDIVOL = (mGy): DLP = (mGy-cm)
[2021-06-30] VITALS (66 sets, daily range): BP systolic 68–174; BP diastolic 50–108; PULSE 73–159; RESP 14–16; TEMP 36.5–37.8; O2SAT 91–100; BMI 23.7
--- NOTE | 2021-06-30 00:08 | W.ED.AMS ---
HPI - Altered Mental Status General: Chief Complaint: Altered Mental Status Stated Complaint: UNRESPONSIVE ON SCENE Time Seen by Provider: 06/23/21 18:33 Physical Exam Urinary Catheter Management^: Malhotra: Cath Placed During This Visit: yes Reason for Continuing Indwelling Catheter: Accurate Measurement of Urinary Output in Critically Ill Patients Urinary Catheter Date of Insertion: 06/24/21 Procedures Intubation sedative: Etomidate Mg Given: 20 paralytic: Rocuronium Mg Given: 50 Laryngoscope: All ET Tube Size: 8 ET Tube Uncuffed: Yes Tube Secured Depth (cm): 22 Tube Secured Location: teeth Tube Placement Confirmation: visualized tube passing through cords, equal breath sounds bilaterally, no breath sounds over epigastrium and confirmation by capnometry Patient Tolerated Procedure: well Intubation Complications: none Course Vital Signs: Vital signs: Vital Signs Temperature 97.8 F 06/29/21 21:26 Pulse Rate 59 L 06/29/21 22:00 Respiratory Rate 16 06/29/21 21:26 Blood Pressure 106/64 06/29/21 21:26 Pulse Oximetry 95 06/29/21 21:26 MDM - Altered Mental Status MDM Narrative: Medical decision making narrative: Responded to CODE BLUE in process. On arrival patient was being actively coded she was in V. fib defibrillated and pulses returned. Patient was then intubated by me. I did RSI her with rocuronium and etomidate Dr. Kwok was at the bed care turned over to him after the intubation. Lab Data: Labs: Lab Results 06/23/21 06/23/21 06/23/21 18:20 18:20 18:20 WBC 28.4 10^3/uL H 10 ^3/uL (4.0-10.0) RBC 4.64 10^6/uL 10^6 /uL (4.1-5.3) Hgb 13.3 g/dL g/dL (11.5-15.3) Hct 43.5 % % (37.0-47.0) MCV 93.8 fl fl (81-99) MCH 28.7 pg pg (28.0-34.0) MCHC 30.6 g/dL g/dL (30.0-36.0) RDW 13.2 % % (12.1-15.1) Plt Count 400 10^3/cmm 10^3 /cmm (130-400) MPV 12.5 fL H fL (7.4-10.4) Neut % (Auto) 81.5 % % Lymph % (Auto) 8.2 % % Norman % (Auto) 8.0 % % Eos % (Auto) 0.0 % % Baso % (Auto) 0.6 % % Neut # (Auto) 23.09 10^3/uL H 1 0^3/uL (1.8-7.7) Lymph # (Auto) 2.3 10^3/uL 10^3/ uL (0.8-4.8) Norman # (Auto) 2.3 10^3/uL H 10^ 3/uL (0.2-0.9) Eos # (Auto) 0.0 10^3/uL 10^3/ uL (0.0-0.8) Baso # (Auto) 0.2 10^3/uL H 10^ 3/uL (0.0-0.1) Nucleated RBC % (a uto) 0 % % Nucleated RBCs # 0.0 /100WBC /100W BC Specimen Type Sample Site ABG pH ABG pCO2 ABG pO2 ABG HCO3 ABG O2 Saturation ABG Base Excess Bo Test VBG pH VBG pCO2 VBG pO2 VBG HCO3 VBG Base Excess VBG Hematocrit A-a O2 Gradient Hematocrit Hgb O2 Saturation Carboxyhemoglobin Methemoglobin Total Hemoglobin Ionized Calcium O2 Delivery Device FiO2 Market Asset Protection Manager ID Sodium 133 mmol/L L mmol /L (136-145) Potassium 5.5 mmol/L H mmol /L (3.5-5.1) Chloride 92 mmol/L L mmol/ L (98-107) Carbon Dioxide 3 mmol/L L* mmol/ L (22-29) Anion Gap 43.5 H (5-19) BUN 27 mg/dL H mg/dL (8-23) Creatinine 1.7 mg/dL H mg/dL (0.5-0.9) GFR Calculation 30.7 mL/min L mL/ min (90-130) Glucose 653 mg/dL H* mg/d L (65-115) POC Glucose Calculated Osmolal ity 312 mOsm/kg H mOs m/kg (285-295) Lactate Calcium 9.0 mg/dL mg/dL (8.5-10.5) Total Bilirubin 0.3 mg/dL mg/dL (0.15-1.2) AST 30 U/L U/L (0-32) ALT 42 U/L H U/L (0-33) Alkaline Phosphata se 191 IU/L H IU/L (35-105) Troponin T Baselin e Troponin T 120 Min [place] Delta Troponin T Total Protein 6.7 g/dL g/dL (6.6-8.7) Albumin 4.4 g/dL g/dL (3.5-5.2) Globulin 2.3 g/dL g/dL (1.3-4.6) Lipase 119 U/L H U/L (13-60) Urine Color Urine Appearance Urine pH Ur Specific Gravit y Urine Protein Urine Glucose (UA) Urine Ketones Urine Blood Urine Nitrate Urine Bilirubin Urine Urobilinogen Ur Leukocyte Marielena ase Urine RBC Urine WBC Ur Squamous Epith Cells Amorphous Sediment Urine Bacteria Salicylates < 0.3 mg/dL L mg/ dL (3-10) Acetaminophen < 5.0 ug/mL L ug/ mL (10-30) Serum Ketones Positive H (Negative) SARS-CoV-2 Ag (Rap id) 06/23/21 06/23/21 06/23/21 18:20 18:46 19:29 WBC RBC Hgb Hct MCV MCH MCHC RDW Plt Count MPV Neut % (Auto) Lymph % (Auto) Norman % (Auto) Eos % (Auto) Baso % (Auto) Neut # (Auto) Lymph # (Auto) Norman # (Auto) Eos # (Auto) Baso # (Auto) Nucleated RBC % (a uto) Nucleated RBCs # Specimen Type Sample Site ABG pH ABG pCO2 ABG pO2 ABG HCO3 ABG O2 Saturation ABG Base Excess Bo Test VBG pH VBG pCO2 VBG pO2 VBG HCO3 VBG Base Excess VBG Hematocrit A-a O2 Gradient Hematocrit Hgb O2 Saturation Carboxyhemoglobin Methemoglobin Total Hemoglobin Ionized Calcium O2 Delivery Device FiO2 Market Asset Protection Manager ID Sodium Potassium Chloride Carbon Dioxide Anion Gap BUN Creatinine GFR Calculation Glucose POC Glucose Calculated Osmolal ity Lactate 2.6 mmol/L H mmol /L (0.5-2.2) Calcium Total Bilirubin AST ALT Alkaline Phosphata se Troponin T Baselin e 30 ng/L H ng/L (0-10) Troponin T 120 Min [place] Delta Troponin T Total Protein Albumin Globulin Lipase Urine Color Yellow (Yellow) Urine Appearance Clear (CLEAR) Urine pH 5 (5-7) Ur Specific Gravit y 1.020 (1.005-1.030) Urine Protein Trace (Negative) Urine Glucose (UA) 4+ H (Normal) Urine Ketones 3+ H (Negative) Urine Blood 3+ H (Negative) Urine Nitrate Negative (Negative) Urine Bilirubin Neg (Negative) Urine Urobilinogen Norm mg/dL mg/dL (Negative) Ur Leukocyte Marielena ase Negative (Negative) Urine RBC 0-4 /hpf H /hpf (0-2) Urine WBC 0-4 /hpf H /hpf (0-5) Ur Squamous Epith Cells 0-4 /hpf H /hpf (0-5) Amorphous Sediment 1+ /hpf /hpf Urine Bacteria Trace /hpf /hpf (NONE) Salicylates Acetaminophen Serum Ketones SARS-CoV-2 Ag (Rap id) 06/23/21 06/23/21 06/23/21 20:17 20:20 20:27 WBC RBC Hgb Hct MCV MCH MCHC RDW Plt Count MPV Neut % (Auto) Lymph % (Auto) Norman % (Auto) Eos % (Auto) Baso % (Auto) Neut # (Auto) Lymph # (Auto) Norman # (Auto) Eos # (Auto) Baso # (Auto) Nucleated RBC % (a uto) Nucleated RBCs # Specimen Type Sample Site ABG pH ABG pCO2 ABG pO2 ABG HCO3 ABG O2 Saturation ABG Base Excess Bo Test VBG pH VBG pCO2 VBG pO2 VBG HCO3 VBG Base Excess VBG Hematocrit A-a O2 Gradient Hematocrit Hgb O2 Saturation Carboxyhemoglobin Methemoglobin Total Hemoglobin Ionized Calcium O2 Delivery Device FiO2 Market Asset Protection Manager ID Sodium Potassium Chloride Carbon Dioxide Anion Gap BUN Creatinine GFR Calculation Glucose POC Glucose 572 mg/dL H* mg/d L (70-110) Calculated Osmolal ity Lactate Calcium Total Bilirubin AST ALT Alkaline Phosphata se Troponin T Baselin e Troponin T 120 Min [place] 26.77 ng/L H ng/L (0-10) Delta Troponin T -3.23 ABS# L ABS# (0-10) Total Protein Albumin Globulin Lipase Urine Color Urine Appearance Urine pH Ur Specific Gravit y Urine Protein Urine Glucose (UA) Urine Ketones Urine Blood Urine Nitrate Urine Bilirubin Urine Urobilinogen Ur Leukocyte Marielena ase Urine RBC Urine WBC Ur Squamous Epith Cells Amorphous Sediment Urine Bacteria Salicylates Acetaminophen Serum Ketones SARS-CoV-2 Ag (Rap id) Negative (Negative) 06/23/21 06/23/21 06/23/21 21:08 21:10 21:54 WBC RBC Hgb Hct MCV MCH MCHC RDW Plt Count MPV Neut % (Auto) Lymph % (Auto) Norman % (Auto) Eos % (Auto) Baso % (Auto) Neut # (Auto) Lymph # (Auto) Norman # (Auto) Eos # (Auto) Baso # (Auto) Nucleated RBC % (a uto) Nucleated RBCs # Specimen Type Venous Sample Site Radial, left ABG pH 6.84 L* (7.35-7.45) ABG pCO2 20.0 mmHg L mmHg (35-45) ABG pO2 40.0 mmHg L mmHg (80.0-100.0) ABG HCO3 3.4 mmol/L L mmol /L (22-26) ABG O2 Saturation 70.5 ABG Base Excess -29.5 mmol/L L mm ol/L (-2.0-2.0) Bo Test Pos VBG pH 6.84 L* (7.32-7.42) VBG pCO2 20.0 mmHg L mmHg (41-51) VBG pO2 40.0 mmHg mmHg (25-40) VBG HCO3 3.4 mmol/L L mmol /L (24-28) VBG Base Excess -29.5 mmol/L L mm ol/L (-3.0-3.0) VBG Hematocrit 38.0 % % (37-47) A-a O2 Gradient 11.1 mmHg H mmHg (5-10) Hematocrit 38.0 % % (37-47) Hgb O2 Saturation 69.4 % L % (95-100) Carboxyhemoglobin 0.9 %THgb %THgb (0.4-20.1) Methemoglobin 0.6 % % (0.4-1.5) Total Hemoglobin 12.4 g/dL g/dL (12-16) Ionized Calcium 1.3 mmol/L mmol/L (1.1-1.4) O2 Delivery Device Room air FiO2 21.0 % % Market Asset Protection Manager ID glc Sodium 131 mmol/L L mmol /L 136.0 mmol/L mmol /L (136-145) (131-143) Potassium 4.6 mmol/L mmol/L 4.7 mmol/L mmol/L (3.5-5.1) (3.5-5.0) Chloride 95 mmol/L L mmol/ L (98-107) Carbon Dioxide 4 mmol/L L* mmol/ L (22-29) Anion Gap 36.6 H (5-19) BUN 26 mg/dL H mg/dL (8-23) Creatinine 1.5 mg/dL H mg/dL (0.5-0.9) GFR Calculation 35.4 mL/min L mL/ min (90-130) Glucose 569 mg/dL H* mg/d L 595.0 mg/dL H mg/ dL (65-115) (70-115) POC Glucose 595 mg/dL H* mg/d L (70-110) Calculated Osmolal ity 303 mOsm/kg H mOs m/kg (285-295) Lactate Calcium 7.6 mg/dL L mg/dL (8.5-10.5) Total Bilirubin AST ALT Alkaline Phosphata se Troponin T Baselin e Troponin T 120 Min [place] Delta Troponin T Total Protein Albumin Globulin Lipase Urine Color Urine Appearance Urine pH Ur Specific Gravit y Urine Protein Urine Glucose (UA) Urine Ketones Urine Blood Urine Nitrate Urine Bilirubin Urine Urobilinogen Ur Leukocyte Marielena ase Urine RBC Urine WBC Ur Squamous Epith Cells Amorphous Sediment Urine Bacteria Salicylates Acetaminophen Serum Ketones SARS-CoV-2 Ag (Rap id) Discharge Plan Discharge Patient Disposition: Admitted As Inpatient Admit Provider: Dhruv Silva Clinical Impression: DKA (diabetic ketoacidosis), Altered mental status Condition: Stable Coding Level of Care Code ED Assessment Director for Bakari Lafleur
[2021-06-30 00:16] LABS: Basophils # 0.1 10^3/uL (0.0-0.1); Basophils % 0.5 %; Eosinophils # 0.4 10^3/uL (0.0-0.8); Eosinophils % 3.6 %; Hematocrit 34.6 % (37.0-47.0); Hemoglobin 11.1 g/dL (11.5-15.3); Lymphocytes # 6.7 10^3/uL (0.8-4.8); Lymphocytes % 54.5 %; Mean Corpuscular HGB Conc 32.1 g/dL (30.0-36.0); Mean Corpuscular Volume 90.3 fl (81-99); Mean Platelet Volume 11.4 fL (7.4-10.4); Monocytes % 8.3 %; Neutrophils # 3.39 10^3/uL (1.8-7.7); Neutrophils % 27.7 %; Nucleated Red Blood Cells % 0.2 %; Platelet Count 165 10^3/cmm (130-400); Red Blood Count 3.83 10^6/uL (4.1-5.3); Red Cell Distribution Width 14.7 % (12.1-15.1); White Blood Count 12.2 10^3/uL (4.0-10.0)
[2021-06-30 00:26] LABS: Glucose Point of Care 200 mg/dL (70-110)
[2021-06-30 00:27] LABS: Alanine Aminotransferase 67 U/L (0-33); Albumin Level 2.6 g/dL (3.5-5.2); Alkaline Phosphatase 150 IU/L (35-105); Anion Gap 16.3 (5-19); Aspartate Amino Transferase 101 U/L (0-32); Blood Urea Nitrogen 17 mg/dL (8-23); Calcium 8.3 mg/dL (8.5-10.5); Carbon Dioxide 19 mmol/L (22-29); Chloride 109 mmol/L (98-107); Creatinine Clr Calc Pharmacy 73.0627; Globulin 2.3 g/dL (1.3-4.6); Glomerular Filtration Rate 73.2 mL/min (90-130); Glucose 169 mg/dL (65-115); Magnesium 2.3 mg/dL (1.7-2.3); Osmolality Calculated 297 mOsm/kg (285-295); Potassium 3.3 mmol/L (3.5-5.1); Sodium 141 mmol/L (136-145); Total Bilirubin 0.3 mg/dL (0.15-1.2); Total Protein 4.9 g/dL (6.6-8.7)
--- NOTE | 2021-06-30 00:28 | ECG_ITS ---
[facility] Test Date: 2021-06-30 Pat Name: Licha Beck Department: Room: 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 Measurements Intervals [place] Rate: 105 P: 57 VT: 108 QRS: 114 QRSD: 148 T: 77 QT: 418 QTc: 554 Interpretive Statements SINUS TACHYCARDIA WITH SHORT VT INTERVAL RIGHT BUNDLE BRANCH BLOCK [120+ ms QRS DURATION, UPRIGHT V1, 40+ ms S IN I/aVL/V4/V5/V6] LEFT POSTERIOR FASCICULAR BLOCK [QRS AXIS > 109, INFERIOR Q] Compared to ECG 06/29/2021 20:08:45 Short VT interval now present Right bundle-branch block now present Left posterior fascicular block now present Sinus bradycardia no longer present Intraventricular conduction delay no longer present Prolonged QT interval no longer present Electronically Signed On 06-30-2021 19:47:49 AUTOMOBILE MECHANIC RADIATOR by Esau Randall M.D. [email or web address].[employer]/store/Ov/[id number]
[2021-06-30 00:55] LABS: Slide Review Slide Review Perform
[2021-06-30] MEDS: rocuronium 10 mg/mL INJ 5mL 50 MG IVP (00:58)
[2021-06-30] MEDS: sodium chloride 0.9% 500 ML 999 ML IV ×2 (00:58→03:28)
--- NOTE | 2021-06-30 01:27 | PC.NURSE ---
Approximately 23:30, BP and HR were decreased, 80/44 and 57 respectively. A downward trend that had been ongoing since 16:01 earlier in the day. At that time, this nurse, began to decrease ongoing precedex gtt from 0.8 to 0.5 to 0.3 and then put on hold approximately 23:40. Levophed gtt was turned off approximately 07:30 this morning, and still available in the room, from previous shift, but had not yet been restarted; though, this nurse, was monitoring closely in considering restarting levophed gtt. Approximately 23:47 telemetry monitoring showed what appeared to be polymorphic vtach. This nurse, Kang RN, and Bladimir RN proceeded to the room to assess pt. Carotid check was not clearly palpable and then patient's eyes rolled back, when we called the code blue and started compressions. RT came to assist in the room with BVM rescue breaths between cycles of compressions at a 30:2 rate. See code sheet for documentation of code blue event and interventions administered. After ROSC was achieved, pt was intubated in the room using etomidate and rocuronium, due to inadequate breathing/ventilation. Levophed was restarted at 15 mcg/min per MD's verbal orders, along with a 500 cc bolus of NS due to low BP. MD verbalized restarting precedex titration gtt if pt starts to arouse, and to start fentanyl titration gtt if pt is more alert and demonstrating signs of discomfort/pain. Daughter, Jada, was notified via phone of the events that happened. At 02:02, pt remains tachcardic and levophed gtt at 15 mcg/min.
[2021-06-30 01:43] LABS: ABG PCO2 36.8 mmHg (35-45); ABG PH Result 7.27 (7.35-7.45); Arterial Blood Gas Hematocrit 38.5 % (37-47); Base Excess ABG -9.5 mmol/L (-2.0-2.0); Blood Gas Sample Site Brachial, right; Blood Gas Sample Type Arterial; HCO3 ABG 16.7 mmol/L (22-26); Oxygen Device VENT
[2021-06-30 01:57] LABS: Phosphorus 2.4 mg/dL (2.5-4.5)
--- NOTE | 2021-06-30 02:57 | PC.NURSE ---
Patient waking up, disconnected ET tube from vent, called Dr. Silva who approved t.o. for Fentanyl drip
[2021-06-30 03:01] LABS: Basophils # 0.1 10^3/uL (0.0-0.1); Basophils % 0.5 %; Eosinophils # 0.2 10^3/uL (0.0-0.8); Eosinophils % 1.7 %; Hematocrit 35.4 % (37.0-47.0); Hemoglobin 11.3 g/dL (11.5-15.3); Lymphocytes # 1.1 10^3/uL (0.8-4.8); Lymphocytes % 10.6 %; Mean Corpuscular HGB Conc 31.9 g/dL (30.0-36.0); Mean Corpuscular Hemoglobin 28.5 pg (28.0-34.0); Mean Corpuscular Volume 89.4 fl (81-99); Mean Platelet Volume 11.5 fL (7.4-10.4); Monocytes # 1.2 10^3/uL (0.2-0.9); Monocytes % 12.2 %; Neutrophils # 6.85 10^3/uL (1.8-7.7); Neutrophils % 68.4 %; Nucleated Red Blood Cells % 0 %; Platelet Count 205 10^3/cmm (130-400); Red Blood Count 3.96 10^6/uL (4.1-5.3); Red Cell Distribution Width 14.4 % (12.1-15.1)
[2021-06-30] MEDS: acyclovir 500 MG in sodium chloride 0.9% (plus) 100 ML 110 MG IV ×4 (03:16→23:20)
[2021-06-30 03:26] LABS: Alanine Aminotransferase 74 U/L (0-33); Albumin Level 2.9 g/dL (3.5-5.2); Alkaline Phosphatase 161 IU/L (35-105); Anion Gap 24.2 (5-19); Aspartate Amino Transferase 101 U/L (0-32); Blood Urea Nitrogen 17 mg/dL (8-23); Carbon Dioxide 15 mmol/L (22-29); Chloride 107 mmol/L (98-107); Globulin 2.3 g/dL (1.3-4.6); Glomerular Filtration Rate 56.6 mL/min (90-130); Glucose 246 mg/dL (65-115); Magnesium 1.9 mg/dL (1.7-2.3); Osmolality Calculated 306 mOsm/kg (285-295); Phosphorus 3.2 mg/dL (2.5-4.5); Potassium 3.2 mmol/L (3.5-5.1); Sodium 143 mmol/L (136-145); Total Bilirubin 0.4 mg/dL (0.15-1.2); Total Protein 5.2 g/dL (6.6-8.7)
[2021-06-30] MEDS: potassium chloride premix 100 ML 50 MEQ IV ×2 (03:35→05:35)
[2021-06-30] MEDS: famotidine 20 mg/2 mL INJ IVP ×2 (03:35→12:02)
[2021-06-30] MEDS: D5-NS 0.45% + KCL 20 mEq 20 MEQ/1,000 ML BAG 100 MEQ IV (03:36)
[2021-06-30] MEDS: norepinephrine 8 MG in dextrose 5 % 500 ML 38.1 MG IV ×2 (05:24→06:56)
[2021-06-30] MEDS: meropenem 2,000 MG in sodium chloride 0.9% (100 ml) 100 ML 200 MG IV ×2 (05:38→17:43)
--- NOTE | 2021-06-30 06:08 | PC.NURSE ---
Pt continues to remain hemodyamically stable on levophed (10), fentanyl gtt (150), and precedex gtt (1.0). Pt remains agitated - opening eyes, turning head left and right, and constantly moving around in bed - just as before the code blue earlier this shift. Restraints remain intact. Potassium replacement per protocol due to hypokalemia.
[2021-06-30 07:28] LABS: Glucose Point of Care 252 mg/dL (70-110)
[2021-06-30] MEDS: cyclobenzaprine 10 mg Tablet PO (08:22)
[2021-06-30] MEDS: levothyroxine 112 mcg Tablet PO (08:22)
[2021-06-30] MEDS: duloxetine 30 mg Capsule PO (08:22)
[2021-06-30] MEDS: dexmedetomidine 400 MCG in sodium chloride 0.9% (100 ml) 100 ML 16.67 MCG IV ×2 (08:23→18:53)
[2021-06-30] MEDS: insulin lispro 100 unit/1 mL SUBCUT ×4 (08:47→21:02)
--- NOTE | 2021-06-30 10:03 | FL_ITS ---
WS: [id number] LUMBAR PUNCTURE CLINICAL INFORMATION: altered mental status COMPARISON: None. TECHNIQUE: Informed consent: The procedure and its potential risk and complications were discussed with the [place] ent. Verbal and written consent was obtained. Timeout: A timeout was performed to confirm correct patient, procedure, and site. Patient was prepped and draped in the usual sterile fashion. Lidocaine 1% was used for local anesthes ia. Utilizing fluoroscopic guidance, a 3.5 inch 22-gauge spinal needle was advanced into the subarach noid space at right L4-5 via right oblique sublaminar approach. Free flow of clear CSF was obtained. 8 cc of clear CSF was collected and sent the lab for further analysis. FLUOROSCOPIC TIME: 0.5 minutes. FL/FL guided lumbarpunc dx* [id number] IMPRESSION: Fluoroscopically guided lumbar puncture. No immediate complications
[2021-06-30] MEDS: acetaminophen 650 mg Supp PR (10:27)
[2021-06-30 11:15] LABS: Potassium 3.8 mmol/L (3.5-5.1)
[2021-06-30 11:38] LABS: Glucose Point of Care 232 mg/dL (70-110)
[2021-06-30] MEDS: lidocaine 1% 5 ML in potassium chloride premix 100 ML 25 ML IV (11:48)
--- NOTE | 2021-06-30 12:46 | PC.NURSE ---
0700 Report received, assessment completed. Pt on sedation, fentanyl and precedex, and also on levophed. VSS at this time. Pt still restless whenever stirred. MD ordered LP this AM, sedation to remain on until after procedure. MD orders to turn off sedation after procedure to assess mentation. No other issues noted. Will monitor.
--- NOTE | 2021-06-30 13:50 | P.PN_ITS ---
Subjective Subjective: Interval history: Patient was seen and examined this morning, last night EUNICE YOUNGBLOOD was called: As the patient went into . [facility], she was successfully resuscitated and placed on mechanical ventilation. Patient was examined multiple times during the day, she continues to be extremely hyperactive moving all her extremities, and still altered when off sedation. LP was done today. Tube Feeding has been started , with free water flushes. Currently she is requiring minimum ventilator support. Medications: Reviewed: Yes Vitals/I&O/Wt Last Vital Signs Temp 99.5 F 06/30/21 12:00 Pulse 87 06/30/21 12:00 Resp 14 06/30/21 11:39 BP 111/62 06/30/21 12:00 Pulse Ox 98 06/30/21 12:00 06/29/21 06/30/21 06/30/21 22:59 06:59 14:59 Intake Total 1112.658 / 6709.464 8782.101 / 4298.967 1139.563 / 1139.563 Output Total 1175 / 1175 1125 / 2300 Balance -62.342 / 280.400 4389.101 / 6405.435 4155.563 / 1139.563 Weight last 48 hrs Weight 66.633 kg Weight 65.771 kg Physical Exam Narrative: EXAM NARRATIVE: Patient is currently not responding appropriately, continue to be encephalopathic HENMT: COMMON NORMALS: normocephalic and atraumatic HEAD & SCALP: normocephalic and atraumatic Resp: COMMON NORMALS: clear to auscultation bilaterally AUSCULTATION: clear to auscultation bilaterally Cardio: COMMON NORMALS: regular rate, regular rhythm, S1 normal heart sound present, S2 normal heart sound present, No gallops present (Cardio), No murmurs present (Cardio), No rub (Cardio) and Peripheral pulses 2+ throughout RATE: regular rate RHYTHM: regular rhythm HEART SOUNDS: S1 normal heart sound present and S2 normal heart sound present PERIPHERAL PULSES: Peripheral pulses 2+ throughout GI: COMMON NORMALS: Normal to inspection, nondistended, normoactive bowel sounds present, Soft to palpation and non-tender AUSCULTATION: Yes normoactive bowel sounds PALPATION: Yes Soft to palpation RECTAL EXAM: deferred Extremity: COMMON NORMALS: no clubbing, cyanosis or edema and no pedal edema Urinary Catheter Management^: Malhotra: Cath Placed During This Visit: yes Reason for Continuing Indwelling Catheter: Accurate Measurement of Urinary Output in Critically Ill Patients Urinary Catheter Date of Insertion: 06/24/21 Data : 06/30/21 02:45 06/30/21 10:52 A&P Assessment and plan (1) Acute metabolic encephalopathy: Acute metabolic encephalopathy multifactorial ( DKA, sepsis, pneumonia, acute kidney, electrolyte imbalance) : Cannot rule out underlying meningoencephalitis, patient also has history of bipolar. CT head without contrast: No acute intracranial pathology Repeat CT head without contrast: No acute intracranial pathology MRI brain without contrast: X-ray chest: Bilateral pulmonary infiltrates 2D echo: Normal LV cavity size, moderately decreased LV systolic function, with LVEF 40-45%, no gross valvular abnormality. Blood culture:NTD Sputum culture: Lactic acid:2.6 Procalcitonin:1.66 MRSA PCR: Negative Rapid COVID Antigen :Negative Rapid COVID PCR Is : Negative Influenza a and B- negative Urine Legionella antigen:Negative Bacterial antigen panel:Negative Respiratory viral panel: Negative CRP:21 Follow CSF: Analysis results: Monitor x-ray chest: Continue Vanco, meropenem, acyclovir, has been on levofloxacin and zosyn . On Prcedex for agitation Initially on D5 water Free water flushes through NG tube Status: Acute (2) Pneumonia: Status: Acute (3) Hypernatremia: Resolved. Free water deficit was calculated D5 water, D5 half NS, free water flushes through NG tube were used as needed. Continue to monitor BMP. Status: Acute (4) DKA (diabetic ketoacidosis): Initially on insulin drip: Anion gap is closed: Currently on Lantus and sliding scale insulin. NG-tube is in place. We will start the patient on Glucerna feeding. Continue to monitor fingerstick glucose Status: Acute (5) Heart failure: Decompensated HFrEF : Lasix 40 mg IV daily I/O Charting Mg>2, k>4 Status: Acute (6) Sepsis: Status: Acute (7) Acute kidney injury: GLADYS on CKD stage III: Likely secondary to cardiorenal syndrome/ATN Continue to monitor BMP Urine electrolytes Intake output charting Avoid nephrotoxic Status: Acute (8) Hyperkalemia: Resolved Status: Acute (9) Acute respiratory failure: Acute respiratory failure secondary to pneumonia Status: Acute (10) Abnormal LFTs: Ultrasound abdomen:Prior cholecystectomy.Normal common bile duct. Hepatitis panel: Negative Likely secondary to congestive hepatopathy Status: Acute (11) Hypophosphatasia: K-Phos IV replacement done. Currently serum phosphorus is normal. Continue to monitor serum phosphorus. Status: Acute (12) Cardiac arrest with successful resuscitation: Status: Acute (13) QT prolongation: Status: Acute Additional A&P Information S/p cardiac arrest: Patient last night went into V. fib arrest, likely secondary to QTc prolongation likely secondary to medication side effects, as well as hypokalemia. and was successfully resuscitated during the code code run for 5 to 6 minutes 2 doses of epi as well as 1 shock was delivered. S/p intubation and placement on mechanical ventilation.Patient was started on Levophed. After receiving bolus 1 L normal saline. H/O BPD : Will start on home medications ( Seroquel as well as Bupropion ).Psychiatry has been consulted. Lumbar puncture was attempted had today had to be aborted because of difficult spinal anatomy and difficulty with positioning. Repeat lumbar puncture was again attempted today by radiologist, and was successfully performed. MRI brain without contrast was also canceled. Attestations Medical Necessity Statement*: Patient is still in hospital for management of above defined problems Coding Level of Care Code Acute Retail Solar Advisor for [facility] Fwd Exam Detailed Diagnoses Acute metabolic encephalopathy G93.41 Pneumonia J18.9 Hypernatremia E87.0 DKA (diabetic ketoacidosis) E11.10 Heart failure I50.9 Sepsis A41.9 Acute kidney injury N17.9 Hyperkalemia E87.5 Acute respiratory failure J96.00 Abnormal LFTs R94.5 Hypophosphatasia E83.39 Cardiac arrest with successful resuscitation I46.9 QT prolongation R94.31
--- NOTE | 2021-06-30 14:03 | PC.NURSE ---
Pt to radiology for LP accompanied by RN, student nurses and RT. Tolerated well.
[2021-06-30 14:37] LABS: Mononuclear WBC CSF % 0 % (50-90); Polynuclear Cells ,CSF # 0.001 10^3/uL (0-10); Polynuclear WBC CSF % 100 % (0-10); Red Blood Cell CSF 0 10^3/uL (0-0); White Blood Cell CSF 1 /uL (0-5)
[2021-06-30 15:05] LABS: Glucose CSF 130 mg/dL (40-70); Total Protein CSF 25 mg/dL (15-45)
--- NOTE | 2021-06-30 15:36 | PC.NURSE ---
Pt off sedation at this time per MD order. During oral care pt opened eyes and thrashed arms and legs around. She did not follow any commands or have any purposeful movement. Will monitor
--- NOTE | 2021-06-30 16:36 | PC.NURSE ---
Pt sedation restarted per MD order. Fentanyl at 125 and precedex at 1. Levophed infusing at 5. VSS. Pt thrashing around bed before sedation restarted, pt wiggled herself down in bed and was almost able to reach the ETT despite being restrained. MD aware and orders given.Will continue to monitor.
--- NOTE | 2021-06-30 16:40 | P.NPUPN_ITS ---
Subjective NPU Subjective: Interval history: Patient unarousable and lying peacefully in bed. Mental Status Exam MSE Comments: This is a well-nourished well-developed white female looking older than her stated age with a depends on appearing calm and without significant psychomotor agitation, absent eye contact. Uncooperative with exam in no acute distress. Speech was absent. Mood not described. Thought process unable to observe thought content: Unable to observe. She was not arousable. Vitals/I&O/Wt Last Vital Signs Temp 99 F 07/01/21 00:00 Pulse 77 07/01/21 02:00 Resp 14 07/01/21 02:57 BP 117/66 07/01/21 02:00 Pulse Ox 96 07/01/21 02:57 06/30/21 14:59 Intake Total 1411.274 / 1411.274 Output Total Balance 1411.274 / 1411.274 Weight last 48 hrs Weight 66.633 kg Weight 65.771 kg Physical Exam Urinary Catheter Management^: Malhotra: Cath Placed During This Visit: yes Reason for Continuing Indwelling Catheter: Accurate Measurement of Urinary Output in Critically Ill Patients Urinary Catheter Date of Insertion: 06/24/21 Data NPU : 07/01/21 02:55 07/01/21 02:55 Micro: Microbiology 06/25/21 22:12 Blood Culture - Final Blood NO GROWTH AFTER 5 DAYS 06/25/21 22:08 Blood Culture - Final Blood NO GROWTH AFTER 5 DAYS 06/30/21 13:38 Cryptococcal Antigen - Final Cerebrospinal Fluid 06/30/21 13:38 Gram Stain - Final Cerebrospinal Fluid Microbiology 06/25/21 22:12 Blood Blood Culture - Final NO GROWTH AFTER 5 DAYS 06/25/21 22:08 Blood Blood Culture - Final NO GROWTH AFTER 5 DAYS 06/30/21 13:38 Cerebrospinal Fluid Cryptococcal Antigen - Final 06/30/21 13:38 Cerebrospinal Fluid Gram Stain - Final A&P Additional A&P Information (1) Heart failure: (2) Hypernatremia: (3) Hypophosphatasia: (4) Abnormal LFTs: (5) Acute respiratory failure: (6) Hyperkalemia: (7) Acute kidney injury: (8) Sepsis: (9) Pneumonia: (10) Acute metabolic encephalopathy: (11) DKA (diabetic ketoacidosis): (12) Altered mental status: Additional A&P Information This is a 61-year-old white female with a reported history of depression and possible bipolar disorder with recent stable mental status who presents with altered mental status unable to communicate at this point but with stepdaughter at the bedside give some history. 1. Continue current medication. 2. No clear sign of psychiatric indication to this presentation. No suggestion of illicits or prescription drug use, abuse or withdrawal that might lead to this presentation. 3. We should consider Ativan 1 to 2 mg as needed IM to help with her agitation. 4. Haldol 5 mg IM if necessary as needed IM for agitation. 5. We will continue to follow. Attestations NPU Medical Necessity Statement*: N/A. Please see primary team note for medical necessity. Coding Level of Care Code Acute Wrapper Stripper for Bakari Lafleur
[2021-06-30 17:19] LABS: Appearance CSF CLEAR (CLEAR); Color CSF COLORLESS (COLORLESS)
[2021-06-30 17:55] LABS: Glucose Point of Care 168 mg/dL (70-110)
[2021-06-30] MEDS: quetiapine 100 mg Tablet 200 MG PO (20:17)
[2021-06-30] MEDS: vancomycin 1,250 MG/250 ML PIGGYBACK 250 MG IV (20:17)
[2021-06-30] MEDS: insulin glargine 100 units/1 mL 10 UNIT SUBCUT (21:03)
[2021-06-30 22:34] LABS: Glucose Point of Care 169 mg/dL (70-110)
[2021-06-30] MEDS: norepinephrine 8 MG in dextrose 5 % 500 ML 11.43 MG IV (23:33)
[2021-07-01] VITALS (63 sets, daily range): BP systolic 77–164; BP diastolic 46–77; PULSE 52–78; RESP 14; TEMP 36.6–37.2; O2SAT 85–99
[2021-07-01] MEDS: famotidine 20 mg/2 mL INJ IVP ×2 (01:10→11:19)
[2021-07-01] MEDS: dexmedetomidine 400 MCG in sodium chloride 0.9% (100 ml) 100 ML 16.67 MCG IV ×3 (02:19→15:45)
[2021-07-01 03:47] LABS: Basophils % 0.3 %; Eosinophils # 0.3 10^3/uL (0.0-0.8); Eosinophils % 4.6 %; Hematocrit 27.8 % (37.0-47.0); Hemoglobin 8.9 g/dL (11.5-15.3); Lymphocytes # 1.5 10^3/uL (0.8-4.8); Lymphocytes % 26.2 %; Mean Corpuscular Hemoglobin 28.8 pg (28.0-34.0); Mean Platelet Volume 10.9 fL (7.4-10.4); Monocytes # 0.6 10^3/uL (0.2-0.9); Monocytes % 10.4 %; Neutrophils # 3.23 10^3/uL (1.8-7.7); Neutrophils % 55.3 %; Nucleated Red Blood Cells % 0.3 %; Platelet Count 152 10^3/cmm (130-400); Red Blood Count 3.09 10^6/uL (4.1-5.3); Red Cell Distribution Width 14.9 % (12.1-15.1); White Blood Count 5.9 10^3/uL (4.0-10.0)
[2021-07-01 04:05] LABS: Anion Gap 14.8 (5-19); Blood Urea Nitrogen 11 mg/dL (8-23); Calcium 7.9 mg/dL (8.5-10.5); Carbon Dioxide 20 mmol/L (22-29); Chloride 110 mmol/L (98-107); Glomerular Filtration Rate 85.4 mL/min (90-130); Glucose 132 mg/dL (65-115); Magnesium 1.9 mg/dL (1.7-2.3); Osmolality Calculated 293 mOsm/kg (285-295); Potassium 3.8 mmol/L (3.5-5.1); Sodium 141 mmol/L (136-145)
[2021-07-01 05:17] LABS: ABG PCO2 30.3 mmHg (35-45); ABG PH Result 7.45 (7.35-7.45); Arterial Blood Gas Hematocrit 28.9 % (37-47); Base Excess ABG -2.3 mmol/L (-2.0-2.0); Blood Gas Sample Site Brachial, right; Blood Gas Sample Type Arterial; HCO3 ABG 21.1 mmol/L (22-26); Oxygen Device VENT; PO2 ABG 72.7 mmHg (80.0-100.0)
[2021-07-01] MEDS: meropenem 2,000 MG in sodium chloride 0.9% (100 ml) 100 ML 200 MG IV ×2 (05:58→17:04)
[2021-07-01] MEDS: acyclovir 500 MG in sodium chloride 0.9% (plus) 100 ML 110 MG IV ×3 (06:32→23:20)
[2021-07-01 07:36] LABS: Glucose Point of Care 159 mg/dL (70-110)
[2021-07-01] MEDS: levothyroxine 112 mcg Tablet PO (07:37)
[2021-07-01] MEDS: insulin lispro 100 unit/1 mL SUBCUT ×4 (07:37→20:11)
[2021-07-01] MEDS: FUROsemide 10 mg/mL SDV 2mL 20 MG IVP (08:52)
[2021-07-01] MEDS: lidocaine 1% 5 ML in potassium chloride premix 100 ML 25 ML IV (08:53)
[2021-07-01 11:52] LABS: Glucose Point of Care 149 mg/dL (70-110)
--- NOTE | 2021-07-01 16:40 | P.NPUPN_ITS ---
Subjective NPU Subjective: Interval history: Patient was nonresponsive at evaluation today. She did respond to a squeeze of her left upper arm with her eyes opening and then seeming to respond to the intubation with a gag response a couple times. Eyes were open and she was seeming to explore the room but then returned back to eyes closed not engaged. Her stepdaughter was in the room and did inquire about whether psychosocial factors i.e. stress could lead to a presentation like this. Mental Status Exam MSE Comments: This is a well-nourished well-developed white female looking older than her stated age with a depends on appearing calm and without significant psychomotor agitation, absent eye contact except for briefly.. Uncooperative with exam in no acute distress. Speech was absent. Mood not described. Thought process unable to observe thought content: Unable to observe. She was not arousable. Vitals/I&O/Wt Last Vital Signs Temp 98.6 F 07/01/21 15:57 Pulse 58 L 07/01/21 16:00 Resp 14 07/01/21 13:56 BP 81/48 07/01/21 16:00 Pulse Ox 84 L 07/01/21 16:00 07/01/21 14:59 Intake Total 419 / 419 Output Total 1500 / 1500 Balance -1081 / -1081 Weight last 48 hrs Weight 72.03 kg Weight 74.134 kg Physical Exam Urinary Catheter Management^: Malhotra: Cath Placed During This Visit: yes Reason for Continuing Indwelling Catheter: Accurate Measurement of Urinary Output in Critically Ill Patients Urinary Catheter Date of Insertion: 06/24/21 Data NPU : 07/02/21 03:30 07/02/21 03:30 Micro: Microbiology 06/30/21 03:55 Sputum Culture - Preliminary Sputum - Endotracheal Tube Aspirate Yeast 06/30/21 13:38 Gram Stain - Final Cerebrospinal Fluid CSF Culture - Preliminary Microbiology 06/30/21 03:55 Sputum - Endotracheal Tube Aspirate Sputum Culture - Preliminary Yeast 06/30/21 13:38 Cerebrospinal Fluid Gram Stain - Final 06/30/21 13:38 Cerebrospinal Fluid CSF Culture - Preliminary A&P Additional A&P Information (1) Heart failure: (2) Hypernatremia: (3) Hypophosphatasia: (4) Abnormal LFTs: (5) Acute respiratory failure: (6) Hyperkalemia: (7) Acute kidney injury: (8) Sepsis: (9) Pneumonia: (10) Acute metabolic encephalopathy: (11) DKA (diabetic ketoacidosis): (12) Altered mental status: Additional A&P Information This is a 61-year-old white female with a reported history of depression and possible bipolar disorder with recent stable mental status who presents with altered mental status unable to communicate at this point but with stepdaughter at the bedside give some history. 1. Continue current medication. 2. No clear sign of psychiatric indication to this presentation. No suggestion of illicits or prescription drug use, abuse or withdrawal that might lead to this presentation. 3. We should consider Ativan 1 to 2 mg as needed IM to help with her agitation. 4. Haldol 5 mg IM if necessary as needed IM for agitation. 5. Neurology consult warranted. No way to rule out occult neurologic processes. Likely need EEG. 5. We will continue to follow. Attestations NPU Medical Necessity Statement*: N/A. Please see primary team note for medical necessity. Coding Level of Care Code Acute Waiter/Waitress Tavern for Bakari Lafleur
--- NOTE | 2021-07-01 16:50 | PM.PN ---
Subjective Subjective: Interval history: Patient was seen and examined this morning, continues to be altered, intermittently she opens her eyes, and when off restraint she aggressively moves, her hands and feet. No meaningful recovery to now. Medications: Reviewed: Yes Vitals/I&O/Wt Last Vital Signs Temp 98.6 F 07/01/21 15:57 Pulse 58 L 07/01/21 16:00 Resp 14 07/01/21 16:06 BP 81/48 07/01/21 16:00 Pulse Ox 93 07/01/21 16:06 07/01/21 07/01/21 07/01/21 06:59 14:59 22:59 Intake Total 1529.954 / 3659.091 419 / 419 104 / 523 Output Total 775 / 1975 1500 / 1500 Balance 754.954 / 1684.091 -1081 / -1081 104 / -977 Weight last 48 hrs Weight 74.134 kg Weight 66.633 kg Physical Exam Narrative: EXAM NARRATIVE: Patient is currently not responding appropriately, continue to be encephalopathic HENMT: COMMON NORMALS: normocephalic and atraumatic HEAD & SCALP: normocephalic and atraumatic Resp: COMMON NORMALS: clear to auscultation bilaterally AUSCULTATION: clear to auscultation bilaterally Cardio: COMMON NORMALS: regular rate, regular rhythm, S1 normal heart sound present, S2 normal heart sound present, No gallops present (Cardio), No murmurs present (Cardio), No rub (Cardio) and Peripheral pulses 2+ throughout RATE: regular rate RHYTHM: regular rhythm HEART SOUNDS: S1 normal heart sound present and S2 normal heart sound present PERIPHERAL PULSES: Peripheral pulses 2+ throughout GI: COMMON NORMALS: Normal to inspection, nondistended, normoactive bowel sounds present, Soft to palpation and non-tender AUSCULTATION: Yes normoactive bowel sounds PALPATION: Yes Soft to palpation RECTAL EXAM: deferred Extremity: COMMON NORMALS: no clubbing, cyanosis or edema and no pedal edema Urinary Catheter Management^: Malhotra: Cath Placed During This Visit: yes Reason for Continuing Indwelling Catheter: Accurate Measurement of Urinary Output in Critically Ill Patients Urinary Catheter Date of Insertion: 06/24/21 Data : 07/01/21 02:55 07/01/21 02:55 Micro: Microbiology 06/30/21 03:55 Sputum Culture - Preliminary Sputum - Endotracheal Tube Aspirate Yeast 06/30/21 13:38 Gram Stain - Final Cerebrospinal Fluid CSF Culture - Preliminary 06/25/21 22:12 Blood Culture - Final Blood NO GROWTH AFTER 5 DAYS 06/25/21 22:08 Blood Culture - Final Blood NO GROWTH AFTER 5 DAYS 06/30/21 13:38 Cryptococcal Antigen - Final Cerebrospinal Fluid A&P Assessment and plan (1) Acute metabolic encephalopathy: Acute metabolic encephalopathy multifactorial ( DKA, sepsis, pneumonia, acute kidney, electrolyte imbalance) : Cannot rule out underlying meningoencephalitis, patient also has history of bipolar. CT head without contrast: No acute intracranial pathology Repeat CT head without contrast: No acute intracranial pathology MRI brain without contrast: X-ray chest: Bilateral pulmonary infiltrates 2D echo: Normal LV cavity size, moderately decreased LV systolic function, with LVEF 40-45%, no gross valvular abnormality. Blood culture:NTD Sputum culture: Lactic acid:2.6 Procalcitonin:1.66 Ammonia:Normal MRSA PCR: Negative Rapid COVID Antigen :Negative Rapid COVID PCR Is : Negative Influenza a and B- negative Urine Legionella antigen:Negative Bacterial antigen panel:Negative Respiratory viral panel: Negative CRP:21 Follow CSF: Analysis results: CSF WBC: 1 , CSF total protein:25, CSF glucose:130 Monitor x-ray chest: Continue Vanco, meropenem, acyclovir, has been on levofloxacin and zosyn . On Prcedex for agitation Initially on D5 water Free water flushes through NG tube Status: Acute (2) Pneumonia: Status: Acute (3) Hypernatremia: Resolved. Free water deficit was calculated D5 water, D5 half NS, free water flushes through NG tube were used as needed. Continue to monitor BMP. Status: Acute (4) DKA (diabetic ketoacidosis): Initially on insulin drip: Anion gap is closed: Currently on Lantus and sliding scale insulin. NG-tube is in place. We will start the patient on Glucerna feeding. Continue to monitor fingerstick glucose Status: Acute (5) Heart failure: Decompensated HFrEF : Lasix 40 mg IV daily I/O Charting Mg>2, k>4 Status: Acute (6) Sepsis: Status: Acute (7) Acute kidney injury: GLADYS on CKD stage III: Likely secondary to cardiorenal syndrome/ATN Continue to monitor BMP Urine electrolytes Intake output charting Avoid nephrotoxic Status: Acute (8) Hyperkalemia: Resolved Status: Acute (9) Acute respiratory failure: Acute respiratory failure secondary to pneumonia Status: Acute (10) Abnormal LFTs: Ultrasound abdomen:Prior cholecystectomy.Normal common bile duct. Hepatitis panel: Negative Likely secondary to congestive hepatopathy Status: Acute (11) Hypophosphatasia: K-Phos IV replacement done. Currently serum phosphorus is normal. Continue to monitor serum phosphorus. Status: Acute (12) Cardiac arrest with successful resuscitation: Status: Acute (13) QT prolongation: Status: Acute Additional A&P Information S/p cardiac arrest: Patient last night went into V. fib arrest, likely secondary to QTc prolongation likely secondary to medication side effects, as well as hypokalemia. and was successfully resuscitated during the code code run for 5 to 6 minutes 2 doses of epi as well as 1 shock was delivered. S/p intubation and placement on mechanical ventilation.Patient was started on Levophed. After receiving bolus 1 L normal saline. H/O BPD : Will start on home medications ( Seroquel as well as Bupropion ).Psychiatry has been consulted. Lumbar puncture was attempted had today had to be aborted because of difficult spinal anatomy and difficulty with positioning. Repeat lumbar puncture was again attempted today by radiologist, and was successfully performed. MRI brain without contrast was also canceled. Attestations Medical Necessity Statement*: Patient is to be in hospital for management of encephalopathy. Coding Level of Care Code Acute Ethylene Oxide Panelboard Operator for [facility] Fwd Exam Detailed Diagnoses Acute metabolic encephalopathy G93.41 Pneumonia J18.9 Hypernatremia E87.0 DKA (diabetic ketoacidosis) E11.10 Heart failure I50.9 Sepsis A41.9 Acute kidney injury N17.9 Hyperkalemia E87.5 Acute respiratory failure J96.00 Abnormal LFTs R94.5 Hypophosphatasia E83.39 Cardiac arrest with successful resuscitation I46.9 QT prolongation R94.31
[2021-07-01 17:19] LABS: Glucose Point of Care 152 mg/dL (70-110)
--- NOTE | 2021-07-01 18:29 | PC.NURSE ---
Shift Note Frequent safety and comfort rounds continue. Orders and nursing care completed as indicated. Patient received lasix and potassium replacement this am. See labs and I&Os. Pt still remains on levophed, see mar and VS. Pt opened eyes a few times during the day but would not follow any directions. Step-daughter and son at bedside for most of the day. Oral care attempted multiple time with some success, but most times patient would bit tube and move head around even on account of increasing sedation, physician aware. Patient monitored for response to intervention and treatments. Education provided includes medications, oral care, and position changes, family verbalized understanding. Will continue to monitor.
[2021-07-01 18:43] LABS: Ammonia 11 umol/L (11-51)
[2021-07-01] MEDS: duloxetine 30 mg Capsule PO (19:11)
--- NOTE | 2021-07-01 19:11 | PC.NURSE ---
Dr. Mcnamara contacted this nurse and order to give cymbalta via NG tube. Have contacted pharmacy earlier and instructed not to give via NG tube.
[2021-07-01] MEDS: vancomycin 1,250 MG/250 ML PIGGYBACK 250 MG IV (20:10)
[2021-07-01] MEDS: quetiapine 100 mg Tablet 200 MG PO (20:11)
[2021-07-01] MEDS: insulin glargine 100 units/1 mL 10 UNIT SUBCUT (20:11)
[2021-07-02] VITALS (108 sets, daily range): BP systolic 73–139; BP diastolic 43–74; PULSE 58–88; RESP 14; TEMP 36.5–37.2; O2SAT 84–100
[2021-07-02] MEDS: famotidine 20 mg/2 mL INJ IVP ×3 (00:12→23:49)
[2021-07-02 00:47] LABS: Glucose Point of Care 148 mg/dL (70-110)
[2021-07-02] MEDS: dexmedetomidine 400 MCG in sodium chloride 0.9% (100 ml) 100 ML 6.67 MCG IV (01:02)
[2021-07-02] MEDS: norepinephrine 8 MG in dextrose 5 % 500 ML 15.24 MG IV (01:03)
[2021-07-02 03:41] LABS: Basophils % 0.5 %; Eosinophils # 0.2 10^3/uL (0.0-0.8); Eosinophils % 2.2 %; Hematocrit 29.8 % (37.0-47.0); Hemoglobin 9.6 g/dL (11.5-15.3); Lymphocytes # 1.5 10^3/uL (0.8-4.8); Lymphocytes % 17.1 %; Mean Corpuscular HGB Conc 32.2 g/dL (30.0-36.0); Mean Corpuscular Hemoglobin 29.1 pg (28.0-34.0); Mean Corpuscular Volume 90.3 fl (81-99); Mean Platelet Volume 11.1 fL (7.4-10.4); Monocytes # 0.6 10^3/uL (0.2-0.9); Monocytes % 6.9 %; Neutrophils # 6.11 10^3/uL (1.8-7.7); Neutrophils % 70.3 %; Nucleated Red Blood Cells % 0.2 %; Platelet Count 186 10^3/cmm (130-400); Red Cell Distribution Width 14.8 % (12.1-15.1); White Blood Count 8.7 10^3/uL (4.0-10.0)
[2021-07-02 04:08] LABS: Ammonia 10 umol/L (11-51)
[2021-07-02 04:09] LABS: Alanine Aminotransferase 55 U/L (0-33); Albumin Level 2.5 g/dL (3.5-5.2); Alkaline Phosphatase 199 IU/L (35-105); Anion Gap 17.5 (5-19); Aspartate Amino Transferase 106 U/L (0-32); Blood Urea Nitrogen 9 mg/dL (8-23); Calcium 7.9 mg/dL (8.5-10.5); Carbon Dioxide 20 mmol/L (22-29); Chloride 103 mmol/L (98-107); Globulin 2.3 g/dL (1.3-4.6); Glomerular Filtration Rate 85.4 mL/min (90-130); Glucose 132 mg/dL (65-115); Osmolality Calculated 285 mOsm/kg (285-295); Potassium 3.5 mmol/L (3.5-5.1); Sodium 137 mmol/L (136-145); Total Bilirubin 0.3 mg/dL (0.15-1.2); Total Protein 4.8 g/dL (6.6-8.7)
--- NOTE | 2021-07-02 04:51 | PC.NURSE ---
Tube feed residuals 320mL at 04:00 check, notified Dr. Silva and order given to hold feedings and reassess at next residual check.
[2021-07-02] MEDS: meropenem 2,000 MG in sodium chloride 0.9% (100 ml) 100 ML 200 MG IV ×2 (05:23→17:35)
--- NOTE | 2021-07-02 07:14 | PC.NURSE ---
Attempted oral care this am, unable to complete due to patient constant moving of head when awakened.
[2021-07-02 07:34] LABS: Glucose Point of Care 144 mg/dL (70-110)
[2021-07-02] MEDS: insulin lispro 100 unit/1 mL SUBCUT ×2 (07:40→17:34)
[2021-07-02] MEDS: levothyroxine 112 mcg Tablet PO (07:40)
[2021-07-02] MEDS: duloxetine 30 mg Capsule PO (07:40)
[2021-07-02] MEDS: acyclovir 500 MG in sodium chloride 0.9% (plus) 100 ML 110 MG IV ×3 (08:16→23:52)
[2021-07-02] MEDS: dexmedetomidine 400 MCG in sodium chloride 0.9% (100 ml) 100 ML 8.34 MCG IV (16:16)
--- NOTE | 2021-07-02 16:32 | P.TS_ITS ---
Transfer Summary Providers Date of Admission: 06/23/21 22:00 Date of Discharge: 07/02/21 Attending Provider at Admission: Dhruv Silva Attending Provider at Transfer: Victorino Mcnamara MD Anticipated Date of Transfer: Anticipated date of transfer: 07/02/21 Receiving Facility & Provider: Receiving Provider: [] Receiving facility: [] Diagnoses at Discharge Discharge Diagnosis (1) Acute metabolic encephalopathy: Status: Acute (2) Pneumonia: Status: Acute (3) Hypernatremia: Status: Resolved (4) DKA (diabetic ketoacidosis): Status: Resolved (5) Heart failure: Status: Acute (6) Sepsis: Status: Acute (7) Acute kidney injury: Status: Resolved (8) Hyperkalemia: Status: Resolved (9) Acute respiratory failure: Status: Resolved (10) Abnormal LFTs: Status: Acute (11) Hypophosphatasia: Status: Resolved (12) Cardiac arrest with successful resuscitation: Status: Acute (13) QT prolongation: Status: Acute Reason for Visit Reason for Visit: UNRESPONSIVE ON SCENE 73738 R41.82 Hospital Course Hospital Course 61 year old female with past medical history of type 2 diabetes, previous episodes of DKA who was brought by her son to emergency room due to altered mental status.According to the son the patient was okay the night before admission, She was complaining of, nausea abdominal discomfort, and had 2 episodes of nonb loody vomiting, on admission she denied any chest pain shortness of breath cough palpitation. Further work-up in the ER revealed DKA, and severe metabolic acidosis with pH of 6.8. Patient was being managed for acute metabolic encephalopathy secondary to DKA,pna,sepsis,jalil,hyperkalemia, transaminitis, Hypophosphatasia,decompensated heart failure with reduced ejection fraction.Patient was managed as per DKA protocol, once her anion gap was closed she was switched to basal bolus insulin, she was kept on broad-spectrum antibiotics since admission for sepsis secondary to pneumonia (currently on Vanco, meropenem, acyclovir, has been on levofloxacin and zosyn ), CT head without contrast: No acute intracranial pathology. Repeat CT head without contrast: No acute intracranial pathology. MRI brain without contrast: Could not be done. Serial x-ray chest have shown Bilateral pulmonary infiltrates. 2D echo: Normal LV cavity size, moderately decreased LV systolic function, with LVEF 40-45%, no gross valvular abnormality. Blood culture:NTD Sputum culture:yeast, Lactic acid:2.6 Procalcitonin:1.66 Ammonia:Normal MRSA PCR: Negative, Rapid COVID Antigen :Negative , Rapid COVID PCR Is : Negative , Influenza a and B- negative Urine Legionella antigen:Negative , Bacterial antigen panel:Negative , Respiratory viral panel: Negative CRP:21, CSF: Analysis results: CSF WBC: 1 , CSF total protein:25, CSF glucose:130. CSF cryptococcal antigen negative. US abdomen limited:Prior cholecystectomy.Normal liver.Normal common bile duct. Hospital course was also complicated by the development of brief V. fib arrest, likely secondary to QTc prolongation likely secondary to medication side effects, as well as hypokalemia. and was successfully resuscitated during the code code run for 5 to 6 minutes 2 doses of epi as well as 1 shock was delivered. S/p intubation and placement on mechanical ventilation.Currently requiring minimum of Levophed. Currently requiring minimal ventilator support. 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 Transaminitis was possibly secondary to: Decompensated heart failure and shock liver, currently it is improving: Last AST 106 ALT 55 alk phos 195, serum ammonia normal, total bilirubin normal. Patient continues to be encephalopathic. Patient has been accepted at [facility] medical ICU: Neurology at [facility] is aware of the patient. Currently she is awaiting bed for transfer. Physical Exam Narrative: EXAM NARRATIVE: Patient is currently intubated and sedated. HENMT: COMMON NORMALS: normocephalic and atraumatic HEAD & SCALP: normocephalic and atraumatic Resp: COMMON NORMALS: clear to auscultation bilaterally AUSCULTATION: clear to auscultation bilaterally Cardio: COMMON NORMALS: regular rate, regular rhythm, S1 normal heart sound present, S2 normal heart sound present, No gallops present (Cardio), No murmurs present (Cardio), No rub (Cardio) and Peripheral pulses 2+ throughout RATE: regular rate RHYTHM: regular rhythm HEART SOUNDS: S1 normal heart sound present and S2 normal heart sound present PERIPHERAL PULSES: Peripheral pulses 2+ throughout GI: COMMON NORMALS: Normal to inspection, nondistended, normoactive bowel sounds present, Soft to palpation and non-tender AUSCULTATION: Yes normoactive bowel sounds PALPATION: Yes Soft to palpation RECTAL EXAM: deferred Extremity: COMMON NORMALS: no clubbing, cyanosis or edema and no pedal edema Urinary Catheter Management^: Malhotra: Cath Placed During This Visit: yes Reason for Continuing Indwelling Catheter: Accurate Measurement of Urinary Output in Critically Ill Patients Urinary Catheter Date of Insertion: 06/24/21 TS Data Data Completed and Pending: Completed Studies During Hospitalization Category Date Time Status CT abdomen pelvis w con* 58710 Urge nt Cat Scan 06/23/21 18:[address] head wo con* 7 0450 Routine Cat Scan 06/29/21 15:[address] head wo con* 7 0450 Urgent Cat Scan 06/23/21 18:33 Completed CXRP [XR chest 1V portable 97793] S tat Exams 06/26/21 08:41 Completed CXRP [XR chest 1V portable 96216] S tat Exams 06/29/21 23:59 Completed Fluoro guided lum bar puncture [FL g uided lumbarpunc d x* Exams 06/30/21 10:03 Completed 24725] Routine XR chest 1V victor m ble 69720 Routine Exams 06/24/21 06:00 Completed XR chest 1V victor m ble 59153 Routine Exams 06/25/21 15:03 Completed XR chest 1V victor m ble 14495 Routine Exams 06/26/21 06:25 Completed XR chest 1V victor m ble 29555 Routine Exams 06/27/21 06:00 Completed XR chest 1V victor m ble 17163 Urgent Exams 06/23/21 18:34 Completed CV. echo complete * [id number] Routine Ultrasound 06/26/21 16:25 Completed US abdomen limite d [id number] Routine Ultrasound 06/27/21 18:15 Completed Pending at discharge Category Date Time Status EEG electroenceph alogram Routine Exams 07/02/21 11:02 Ordered CSF Culture & Gra m Stain Routine Lab 06/30/21 13:38 Results Complete Blood Co unt w/Auto AM LABS Lab 07/03/21 04:00 Ordered Complete Blood Co unt w/Auto AM LABS Lab 07/04/21 04:00 Ordered Comprehensive Met abolic Panel AM LA BS Lab 07/03/21 04:00 Ordered Comprehensive Met abolic Panel AM LA BS Lab 07/04/21 04:00 Ordered Herpes Simplex Vi mike DNA Routine Lab 06/30/21 13:38 Received Lymes Disease Ant ibodies CSF Routin e Lab 06/28/21 11:25 Received Sputum Culture Ro utine Lab 06/30/21 03:55 Results [place] Enceph. Virus IFA CSF Rout ine Lab 06/28/21 11:26 Received VDRL on CSF Routi ne Lab 06/30/21 13:38 Received Vancomycin Trough Timed Lab 07/02/21 19:00 Ordered West Nile Virus A B Panel,CSF Routin e Lab 06/28/21 11:26 Received Labs from last 24 hours 07/02/21 07/02/21 07/02/21 07:31 03:30 03:30 WBC RBC Hgb Hct MCV MCH MCHC RDW Plt Count MPV Neut % (Auto) Lymph % (Auto) [place] % (Auto) Eos % (Auto) Baso % (Auto) Neut # (Auto) Lymph # (Auto) [place] # (Auto) Eos # (Auto) Baso # (Auto) Nucleated RBC % (a uto) Nucleated RBCs # Sodium 137 Potassium 3.5 Chloride 103 Carbon Dioxide 20 L Anion Gap 17.5 BUN 9 Creatinine 0.7 GFR Calculation 85.4 L Glucose 132 H POC Glucose 144 H Calculated Osmolal ity 285 Calcium 7.9 L Total Bilirubin 0.3 AST 106 H ALT 55 H Alkaline Phosphata se 199 H Ammonia 10 L Total Protein 4.8 L Albumin 2.5 L Globulin 2.3 07/02/21 07/01/21 07/01/21 03:30 20:01 17:42 WBC 8.7 RBC 3.30 L Hgb 9.6 L Hct 29.8 L MCV 90.3 MCH 29.1 MCHC 32.2 RDW 14.8 Plt Count 186 MPV 11.1 H Neut % (Auto) 70.3 Lymph % (Auto) 17.1 [place] % (Auto) 6.9 Eos % (Auto) 2.2 Baso % (Auto) 0.5 Neut # (Auto) 6.11 Lymph # (Auto) 1.5 [place] # (Auto) 0.6 Eos # (Auto) 0.2 Baso # (Auto) 0.0 Nucleated RBC % (a uto) 0.2 Nucleated RBCs # 0.0 Sodium Potassium Chloride Carbon Dioxide Anion Gap BUN Creatinine GFR Calculation Glucose POC Glucose 148 H Calculated Osmolal ity Calcium Total Bilirubin AST ALT Alkaline Phosphata se Ammonia 11 Total Protein Albumin Globulin 07/01/21 17:11 WBC RBC Hgb Hct MCV MCH MCHC RDW Plt Count MPV Neut % (Auto) Lymph % (Auto) [place] % (Auto) Eos % (Auto) Baso % (Auto) Neut # (Auto) Lymph # (Auto) [place] # (Auto) Eos # (Auto) Baso # (Auto) Nucleated RBC % (a uto) Nucleated RBCs # Sodium Potassium Chloride Carbon Dioxide Anion Gap BUN Creatinine GFR Calculation Glucose POC Glucose 152 H Calculated Osmolal ity Calcium Total Bilirubin AST ALT Alkaline Phosphata se Ammonia Total Protein Albumin Globulin Vitals: Last Vital Signs Temp 97.8 F 07/02/21 07:00 Pulse 70 07/02/21 16:00 Resp 14 07/02/21 15:50 BP 92/54 07/02/21 16:00 Pulse Ox 97 07/02/21 16:00 TS Medications Medications Home Medications aspirin 81 mg PO DAILY 06/24/21 [History Confirmed 06/25/21] bupropion HCl 300 mg PO QAM 06/24/21 [History Confirmed 06/25/21] duloxetine 30 mg PO DAILY 06/24/21 [History Confirmed 06/25/21] empagliflozin [Jardiance] 10 mg PO QAM 06/24/21 [History Confirmed 06/25/21] levothyroxine 112 mcg PO DAILY 06/24/21 [History Confirmed 06/25/21] metformin 1,000 mg PO BID 06/24/21 [History Confirmed 06/25/21] omega-3 fatty acids [Amazonia 3] 1 cap PO DAILY 06/24/21 [History Confirmed 06/25/21] quetiapine 200 mg PO BEDTIME 06/24/21 [History Confirmed 06/25/21] rosuvastatin 40 mg PO BEDTIME 06/24/21 [History Confirmed 06/25/21] trazodone 100 mg PO BEDTIME 06/24/21 [History Confirmed 06/25/21] Super Keto 2 cap PO DAILY 06/25/21 [History Confirmed 06/25/21] duloxetine 60 mg PO DAILY 06/25/21 [History Confirmed 06/25/21] Active Medications Acetaminophen (Acetaminophen 650 Mg Supp) 650 mg CO Q6H PRN PRN Reason: FEVER Last Admin: 06/30/21 10:27 Dose: 650 mg Documented by: Dextrose (Dextrose 50% Syringe 50 Ml) 25 ml IVP ONCE PRN; Protocol PRN Reason: hypoglycemia protocol Dextrose (Dextrose 50% Syringe 50 Ml) 50 ml IVP PRN PRN; Protocol PRN Reason: hypoglycemia protocol Dextrose (Dextrose 50% Syringe 50 Ml) 25 ml IVP ONCE PRN; Protocol PRN Reason: hypoglycemia protocol Dextrose (Dextrose 50% Syringe 50 Ml) 50 ml IVP PRN PRN; Protocol PRN Reason: hypoglycemia protocol Duloxetine HCl (Duloxetine 30 Mg Capsule) 30 mg PO DAILY [facility] Last Admin: 07/02/21 07:40 Dose: 30 mg Documented by: Famotidine (Famotidine 20 Mg/2 Ml Inj) 20 mg IVP Q12H [facility] Last Admin: 07/02/21 11:30 Dose: 20 mg Documented by: Glucagon (Glucagon 1 Mg/Ml Inj 1 Ml) 1 mg IM ONCE PRN; Protocol PRN Reason: Adult Acute Hypoglycemia Prot. Glucagon (Glucagon 1 Mg/Ml Inj 1 Ml) 1 mg IM ONCE PRN; Protocol PRN Reason: Adult Acute Hypoglycemia Prot. Heparin Sodium (Porcine) (Heparin 5,000 Unit/Ml Inj 1 Ml) 5,000 unit SUBCUT Q8H [facility] Last Admin: 06/29/21 08:03 Dose: 5,000 unit Documented by: Vancomycin/PEG/NADA/Lysine/Water (Vancocin) 1,250 mg in 250 mls @ 250 mls/hr IV Q24H [facility] Last Infusion: 07/01/21 21:20 Dose: Infused Documented by: Dextrose (D5w) 500 mls @ 100 mls/hr IV ONCE PRN; Protocol PRN Reason: Adult Acute Hypoglycemia Prot Meropenem 2,000 mg/ Sodium (Chloride) 100 mls @ 200 mls/hr IV Q12H [facility] Last Infusion: 07/02/21 05:56 Dose: Infused Documented by: Dextrose (D5w) 500 mls @ 100 mls/hr IV ONCE PRN; Protocol PRN Reason: Adult Acute Hypoglycemia Prot Acyclovir 500 mg/ Sodium (Chloride) 110 mls @ 110 mls/hr IV Q8H [facility] Last Infusion: 07/02/21 15:45 Dose: Infused Documented by: Dexmedetomidine HCl 400 mcg/ (Sodium Chloride) 104 mls @ 0 mls/hr IV .Q0M [facility]; Protocol Last Admin: 07/02/21 16:16 Dose: 0.5 mcg/kg/hr, 8.34 mls/hr Documented by: Norepinephrine Bitartrate 4 mg (/ Dextrose) 254 mls @ 0 mls/hr IV .Q0M [facility]IE; Protocol Last Titration: 06/30/21 21:00 Dose: Infused Documented by: Norepinephrine Bitartrate 8 mg (/ Dextrose) 508 mls @ 0 mls/hr IV .Q0M [facility]; Protocol Last Titration: 07/02/21 05:00 Dose: 2 mcg/min, 7.62 mls/hr Documented by: Fentanyl 1,000 mcg/ Sodium (Chloride) 100 mls @ 0 mls/hr IV .Q0M [facility]; Protocol Last Admin: 07/02/21 12:11 Dose: 150 mcg/hr, 15 mls/hr Documented by: Midazolam HCl 100 mg/ Sodium (Chloride) 100 mls @ 0 mls/hr IV .Q0M [facility]IE; Protocol Levetiracetam 500 mg/ Sodium (Chloride) 105 mls @ 420 mls/hr IV Q12H [facility] Insulin Glargine (Insulin Glargine 100 Units/1 Ml) 10 unit SUBCUT BEDTIME [facility] Last Admin: 07/01/21 20:11 Dose: 10 unit Documented by: Insulin Human Lispro (Insulin Lispro 100 Unit/1 Ml) 0 unit SUBCUT WM&BEDTIME [facility]; Protocol Last Admin: 07/02/21 11:24 Dose: Not Given Documented by: Lanolin (Lanolin Oint 7 Gm) 1 applic TOPICAL PRN PRN PRN Reason: DRYNESS Levothyroxine Sodium (Levothyroxine 112 Mcg Tablet) 112 mcg PO DAILY [facility] Last Admin: 07/02/21 07:40 Dose: 112 mcg Documented by: Ondansetron HCl (Ondansetron 2 Mg/Ml Sdv 2 Ml) 4 mg IVP Q6H PRN PRN Reason: NAUSEA AND VOMITING Quetiapine Fumarate (Quetiapine 100 Mg Tablet) 200 mg PO BEDTIME [facility] Last Admin: 07/01/21 20:11 Dose: 200 mg Documented by: Discharge Plan Discharge Patient Disposition: Home Condition: Stable Prescriptions: Continued metformin 1,000 mg Tablet 1,000 mg PO BID RF: 0 Amazonia 3 Capsule 1 cap PO DAILY RF: 0 rosuvastatin 40 mg Tablet 40 mg PO BEDTIME RF: 0 quetiapine 200 mg Tablet 200 mg PO BEDTIME RF: 0 trazodone 100 mg Tablet 100 mg PO BEDTIME RF: 0 bupropion HCl 300 mg Tablet Extended Release 24 Hr 300 mg PO QAM RF: 0 duloxetine 30 mg Capsule,Delayed Release(Dr/Ec) 30 mg PO DAILY RF: 0 Jardiance 10 mg Tablet 10 mg PO QAM RF: 0 aspirin 81 mg Tablet 81 mg PO DAILY RF: 0 levothyroxine 112 mcg Tablet 112 mcg PO DAILY RF: 0 duloxetine 60 mg Capsule,Delayed Release(Dr/Ec) 60 mg PO DAILY RF: 0 Super Keto 2 cap PO DAILY RF: 0 Discharge Orders: Discharge Order (Routine); Ordered 07/02/21 Ordered By: Victorino Mcnamara Discharge Diet: Resume prior tube feeds Patient Instructions: Opioid Safety Transfer Attestations Time Spent in Transfer Care*: greater than 30 min Specific Discharge Activities: Specific discharge activities: educating patient, educating and/or supporting family/caregiver, discussing with pcp/other providers, discussing with case management coordinator/social workers/dc planners, do cumenting/other paperwork and evaluating patient/reviewing data Status at Transfer: Cognitive status at transfer: severely impaired cognition , Overall status at transfer: patient is not back to baseline Quality Metrics Clinical Quality Measures: During this hospital stay, did patient experience: None Coding Level of Care Code Acute Currency Exchange Specialist for g Fwd Exam Detailed Diagnoses Acute metabolic encephalopathy G93.41 Pneumonia J18.9 Hypernatremia E87.0 DKA (diabetic ketoacidosis) E11.10 Heart failure I50.9 Sepsis A41.9 Acute kidney injury N17.9 Hyperkalemia E87.5 Acute respiratory failure J96.00 Abnormal LFTs R94.5 Hypophosphatasia E83.39 Cardiac arrest with successful resuscitation I46.9 QT prolongation R94.31
--- NOTE | 2021-07-02 18:07 | PC.NURSE ---
Shift Note Frequent safety and comfort rounds continue. Orders and nursing care completed as indicated. Patient received IV dose of Keppra this am, order placed by Dr. Mcnamara- see mar. Pt still remains on levophed, versed, fentanyl, and precedex. Pt opened eyes a few times during the day,each awakening pt would constantly move head back and forth and throw legs around. Patient would not follow any directions and did not respond when called by name. Step-daughter and son at bedside today. Oral care attempted multiple time with some success, but most times patient would bit tube and move head around even on account of increasing sedation, physician aware. Bite block paced my Gali, RT making oral care a little easier, but patient continues to move head side to side. Plans to transfer patient to [place] in [place], a medical ICU for further care. Dr. Mcnamara notified this nurse that patient was accepted, but are we are waiting for a bed. Step-Daughter called and notified this nurse that she preferred the patient be sent to [facility] in [place] instead of [place]. Dr. Mcnamara notified. Patient monitored for response to intervention and treatments. Education provided includes medications, oral care, position changes, and transport to [place] family verbalized understanding. Will continue to monitor.
[2021-07-02 19:43] LABS: Vancomycin Trough 18.5 ug/mL (10-15)
[2021-07-02] MEDS: insulin glargine 100 units/1 mL 10 UNIT SUBCUT (19:58)
[2021-07-02] MEDS: quetiapine 100 mg Tablet 200 MG PO (19:59)
[2021-07-02] MEDS: vancomycin 1,250 MG/250 ML PIGGYBACK 250 MG IV (20:15)
[2021-07-02] MEDS: enoxaparin 40 mg/0.4 mL Syringe SUBCUT (21:35)
--- NOTE | 2021-07-02 21:43 | PC.NURSE ---
VTE: Called and spoke with Dr. Mcnamara to clarify hold order for heparin SQ, new order given to start lovenox, see new order.
[2021-07-03] VITALS (106 sets, daily range): BP systolic 74–136; BP diastolic 40–86; PULSE 54–119; RESP 14–22; TEMP 36.4–37; O2SAT 88–995
--- NOTE | 2021-07-03 01:49 | PC.NURSE ---
Addendum entered by Josee Love RN 07/03/21 05:08: Approx 04:30 received a call from Abdirizak with [facility], provided patient update, she verbalized understanding of update and stated they still do not have an open bed but will notify us when one comes available. Original Note: 20:48 [facility] in [facility] contact# [phone], called per Dr. Mcnamara request to check on bed status. Notified they do not have any opens beds at this time. Updated Dr. Mcnamara on bed status.
[2021-07-03] MEDS: lanolin oint 7 gm 1 APPLIC TOPICAL (02:37)
--- NOTE | 2021-07-03 04:14 | PC.NURSE ---
Tube feeding: Dr. Silva notified of high residual: 425ml, accu check 151. Orders given to hold tube feedings and reassess in AM.
[2021-07-03] MEDS: meropenem 2,000 MG in sodium chloride 0.9% (100 ml) 100 ML 200 MG IV ×2 (04:59→17:33)
[2021-07-03] MEDS: dexmedetomidine 400 MCG in sodium chloride 0.9% (100 ml) 100 ML 8.34 MCG IV (05:06)
[2021-07-03 05:18] LABS: Basophils # 0.1 10^3/uL (0.0-0.1); Basophils % 0.6 %; Eosinophils # 0.2 10^3/uL (0.0-0.8); Eosinophils % 1.6 %; Hematocrit 30.9 % (37.0-47.0); Hemoglobin 9.8 g/dL (11.5-15.3); Lymphocytes # 1.2 10^3/uL (0.8-4.8); Lymphocytes % 10.9 %; Mean Corpuscular HGB Conc 31.7 g/dL (30.0-36.0); Mean Corpuscular Hemoglobin 28.5 pg (28.0-34.0); Mean Corpuscular Volume 89.8 fl (81-99); Mean Platelet Volume 11.7 fL (7.4-10.4); Monocytes # 0.6 10^3/uL (0.2-0.9); Monocytes % 5.2 %; Neutrophils # 8.54 10^3/uL (1.8-7.7); Neutrophils % 79.9 %; Nucleated Red Blood Cells % 0 %; Platelet Count 246 10^3/cmm (130-400); Red Blood Count 3.44 10^6/uL (4.1-5.3); Red Cell Distribution Width 14.6 % (12.1-15.1); White Blood Count 10.7 10^3/uL (4.0-10.0)
[2021-07-03 05:49] LABS: Alanine Aminotransferase 42 U/L (0-33); Albumin Level 2.5 g/dL (3.5-5.2); Alkaline Phosphatase 193 IU/L (35-105); Anion Gap 18.4 (5-19); Aspartate Amino Transferase 52 U/L (0-32); Blood Urea Nitrogen 8 mg/dL (8-23); Calcium 7.8 mg/dL (8.5-10.5); Carbon Dioxide 20 mmol/L (22-29); Chloride 101 mmol/L (98-107); Creatinine Clr Calc Pharmacy 65.4966; Globulin 2.8 g/dL (1.3-4.6); Glomerular Filtration Rate 63.9 mL/min (90-130); Glucose 140 mg/dL (65-115); Osmolality Calculated 283 mOsm/kg (285-295); Potassium 3.4 mmol/L (3.5-5.1); Sodium 136 mmol/L (136-145); Total Bilirubin 0.2 mg/dL (0.15-1.2); Total Protein 5.3 g/dL (6.6-8.7)
[2021-07-03] MEDS: levothyroxine 112 mcg Tablet PO (08:07)
[2021-07-03] MEDS: duloxetine 30 mg Capsule PO (08:07)
[2021-07-03] MEDS: insulin lispro 100 unit/1 mL SUBCUT ×3 (08:07→17:31)
[2021-07-03] MEDS: FUROsemide 10 mg/mL SDV 2mL 20 MG IVP (08:07)
[2021-07-03] MEDS: lidocaine 1% 5 ML in potassium chloride premix 100 ML 25 ML IV (08:08)
[2021-07-03] MEDS: acyclovir 500 MG in sodium chloride 0.9% (plus) 100 ML 110 MG IV ×2 (08:27→15:48)
--- NOTE | 2021-07-03 08:40 | USCV_ITS ---
Licha Beck Age: 61 Gender: F : 1960 Exam Date: 07/03/2021 11:49 Ordering Phys: Evan Osuna MD Technologist: Silke Gonzalez Exam Location: [facility] [place] Indication: AMS Risk Factors: Previous Vascular Surgery: Right Brachial BP: / Left Brachial BP: / Right Left Velocity (cm/s) Spectral Plaque Velocity (cm/s) Spectral Plaque Syst/Diast Broadening Syst/Diast Broadening 68.40/ 17.60 Prox CCA 63.20 / 19.70 77.20/ 16.50 Mid CCA 53.80 / 13.70 57.30/ 17.60 Hetro Distal CCA 69.20 / 22.20 Hetro 55.20/ 18.40 Prox ICA 59.80 / 19.10 Hetro 52.90/ 18.40 Mid ICA 87.10 / 29.80 55.90/ 16.90 Distal ICA 94.80 / 30.90 118.00 ECA 90.40 0.72 ICA/CCA 1.37 Antegrade Vertebral Antegrade 39.10/ 12.30 cm/s 43.50/ 11.70 cm/s Tri Subclavian Tri 74.30 135.4 0 CONCLUSIONS Right ICA stenosis <50%. Moderate calcified atheromatous plaque right carotid bulb/ICA. Left ICA stenosis <50%. Moderate calcified atheromatous plaque left carotid bulb/ICA. Normal antegrade Doppler flow noted in the right vertebral artery. Normal antegrade Doppler flow noted in the left vertebral artery. Chris Celestin MD (Electronically Signed) Final Date: 03 July 2021 16:38 S
--- NOTE | 2021-07-03 08:40 | USCV_ITS ---
Licha Beck Age: 61 Gender: F : 1960 Exam Date: 07/03/2021 11:27 Ordering Phys: Evan Osuna MD Technologist: Silke Gonzalez [place] [facility] [place]: AMS BP: 98 / 71 HR: 86 Rhythm: Sinus Technical Quality: Fair MEASUREMENTS (Male / Female) Normal Values 2D ECHO LV Diastolic Diameter PLAX 5.7 cm 4.2 - 5.9 / 3.9 - 5.3 cm LV Systolic Diameter PLAX 3.5 cm IVS Diastolic Thickness 1.1 cm 0.6 - 1.0 / 0.6 - 0.9 cm IVS Systolic Thickness 1.6 cm LVPW Diastolic Thickness 0.7 cm 0.6 - 1.0 / 0.6 - 0.9 cm LVPW Systolic Thickness 1.7 cm LVOT Diameter 2.1 cm LV Ejection Fraction 2D Teich 63.6 % LV Ejection Fraction MOD 2C 66.4 % LV Ejection Fraction 2C AL 67.3 % LA Width 2.8 cm LA Height 4.4 cm RA Width 3.7 cm RA Height 3.8 cm Aorta at Sinotubular Diameter 2.1 cm FINDINGS Left Ventricle Normal LV size with diminished ejection fraction of around 50%. Slightly dyskinetic basal septum and hypokinetic inferolateral wall segments. Right Ventricle Possibly of normal size Right Atrium Possibly of normal size Left Atrium Possibly of normal size Mitral Valve No gross abnormalities noted Aortic Valve Thickened aortic valve Tricuspid Valve The leaflets could not be visualized well Pulmonic Valve The leaflets could not be visualized well Pericardium No pericardial effusion. Aorta Normal ascending aorta dimension. CONCLUSIONS Normal LV size with diminished ejection fraction of around 50% Wall motion normalities as mentioned above Thickened aortic valve There is no pericardial effusion. There are no intracardiac masses. Technically difficult study because of the poor ultrasonic window. Compared to the study from 06/26/2021, there is some improvement in the LV ejection fraction. Patient apparently was tachycardic with a heart rate in the 1 20-160 range on 06/26/2021. This could affected the ejection fraction estimation Dr Teresa Amin MD [facility] (Electronically Signed) Final Date: 03 July 2021 21:14 S
--- NOTE | 2021-07-03 09:21 | CT_ITS ---
WS: [id number] CT HEAD TECHNIQUE: Noncontrast CT of the head obtained from the skullbase to the vertex. CLINICAL INFORMATION: ams COMPARISON: June 29, 2021 DLP: 909.[address] scans at [facility] use at least one of these dose optimization techniques: automated e xposure control; mA and/or kV adjustment per patient size (includes targeted exams where dose is matc hed to clinical indication); or iterative reconstruction. FINDINGS: No evidence of intracranial hemorrhage or mass effect. Ventricular system and basal cisterns are yin nt. Mild small vessel changes with mild parenchymal volume loss. No extra-axial fluid collections. No evidence of mass or mass effect. Normal stanford-white differentiation. Mild mucosal thickening paranasal sinuses. Small amount of fluid in the sphenoid sinuses. Mastoid air cells are well aerated. Fluid within the posterior nasopharynx. Partially visualized endotracheal tu be. CT/CT head wo con* [id number] IMPRESSION: 1. No evidence of intracranial hemorrhage or mass effect. 2. Mild small vessel changes. Mild parenchymal volume loss. 3. No acute intracranial findings.
--- NOTE | 2021-07-03 09:21 | CT_ITS ---
WS: [id number] CTA HEAD AND NECK TECHNIQUE: Contrast enhanced CTA of the head and neck with coronal and sagittal reformatted images an d maximum intensity projection (MIP) images. NASCET criteria utilized. CLINICAL INFORMATION: ams COMPARISON: None. DLP: 2316.[address] scans at [facility] use at least one of these dose optimization techniques: automated e xposure control; mA and/or kV adjustment per patient size (includes targeted exams where dose is matc hed to clinical indication); or iterative reconstruction. FINDINGS: Endotracheal tube tip above the arleen. Enteric tube partially visualized. Dependent atelec tasis in the upper lungs. Normal branching thoracic aorta. RIGHT: Right common carotid artery is patent. No significant right ICA stenosis. ICA is patent to the skull base. LEFT: Left common carotid artery is patent. No significant left ICA stenosis. Left ICA is patent to t he skull base. INTRACRANIAL CTA: Both vertebral arteries are patent. Basilar artery is patent. Normal vascularity to the SUPPLIER QUALITY ENGINEER territory bilaterally. Both ICAs are patent at the skull base. Mild to moderate cavernous carotid calcification both caverno us carotid arteries. No flow-limiting stenosis. Absent right A1 segment. Both M1 segments are patent. Normal vascularity to the MCA territories bilaterally. Normal vascularity to the FERNANDA territories. No proximal flow limiting stenosis. Moderate spondylitic changes cervical spine with prior fusion ACDF C4-5. Bony fusion at C4-C6. CT/CT angio headneck* [id number] IMPRESSION: 1. No significant ICA stenosis bilaterally. 2. No flow-limiting intracranial stenosis. 3. Hypoplastic right A1 segment. 4. Both vertebral arteries are patent. Basilar artery is patent. 5. Prior postoperative changes cervical spine as described above.
--- NOTE | 2021-07-03 09:27 | XR_ITS ---
WS: [id number] Exam: XR KUB portable [id number] Date/Time of Exam: 07/03/2021 9:27 AM Reason For Exam: ileus No bowel obstruction or free air noted. No sign of organ enlargement. Signs of prior cholecystectomy. An opaque catheter is noted in the region of the left pelvis. Moderate amount stool in right colon. An enteric tube is noted in the region of the stomach. XR/XR KUB portable [id number] IMPRESSION: 1. No acute abdominal process identified. Additional findings as above.
--- NOTE | 2021-07-03 09:32 | PC.CHAP ---
Pastoral Care Encounter/Spiritual Assessment Type of Contact [] Declined paint trimmer pipe bowls visit [] Patient/Family/Request visit [] Outpatient visit [] Follow-up visit [] Physician referral [] Code/Alert [x] Routine visit [] Staff referral [] Actively dying [x] Patient sleeping [] Family support [] [] Out of room [] Palliative care [] [] Receiving care in room [] Pre-surgical visit [] Trauma [] Long length of stay [x] ICU visit [x] Other: patient resting sounder.. on vent Relational/Emotional Strength [] Patient feels connected with others/family/visitors/staff [] Distress [] Loneliness/isolation [] Abandonment Spirituality of Patient [] Person of Eneida [] Attends Advent of their Eneida [] Believes in Prayer [] Reads Bible or Uatsdin materials [] There are Spiritual issues to be addressed Can Carrier Interventions [x] Prayer [] Active listening [] Non-anxious presence [] Spiritual/emotional support [] Crisis/trauma care [] Spiritual counseling [] Bereavement support [] Provided bereavement packet [] Provided Bible/devotional materials [] Provided toy/stuffed animal, coloring book to patient or family member [] Provided Communion [] Anointing/[place] [] Salvation [x] Completed spiritual assessment [] Other: Impact on Illness or Injury [] Angry [] Fearful [] Anxious [] Often cries [] Exhaustion [] Unable to work [] Unable to attend catholic [] Unable to walk/stand [] Unable to read [] Unable to drive [] Unable to eat/drink [] Unable to sleep [] Unable to be with family [] Patient intubated [] Other: Summary Time spent with patient
[2021-07-03 09:42] LABS: Thyroid Stimulating Hormone 5.33 uIU/mL (0.27-4.20)
[2021-07-03] MEDS: iohexol 350 mg/mL 100 mL Btl IV (10:51)
[2021-07-03 10:58] LABS: C Reactive Protein 47.8 mg/L (0.0-4.9)
[2021-07-03 11:13] LABS: Folate Level 9.1 ng/mL (4.8-37.3); Procalcitonin 0.17 ng/mL (0-0.5); Vitamin B12 963 pg/mL (232-1245)
[2021-07-03 11:24] LABS: Creatine Phosphokinase 987 U/L (26-192)
[2021-07-03 11:59] LABS: Hepatitis A Antibody IgM Non-Reactive (Nonreactive); Hepatitis B Core IgM Non-Reactive (Nonreactive); Hepatitis B Surface Antigen Non-Reactive (Nonreactive); Hepatitis C Virus Antibody Non-Reactive (Nonreactive)
[2021-07-03 12:27] LABS: Urine Color Yellow (Yellow)
[2021-07-03 12:28] LABS: Bilirubin Urine Neg (Negative); Blood Urine 3+ (Negative); Glucose Urine UA 2+ (Normal); Ketones Urine 1+ (Negative); Nitrate Urine Negative (Negative); Protein Urine Neg (Negative); Specific Gravity, Urine 1.005 (1.005-1.030); Urine Appearance SL Hazy (CLEAR); pH Urine 5 (5-7)
[2021-07-03 12:29] LABS: Add Urine Microscopic? YES; Leukocyte Esterase Urine Negative (Negative); RBC Urine 15-25 /hpf (0-2); Squamous Epithelial Cell Urine 0-4 /hpf (0-5); Urobilinogen Urine Norm (Negative)
[2021-07-03 12:30] LABS: Add Urine Culture? Yes
[2021-07-03] MEDS: famotidine 20 mg/2 mL INJ IVP (12:41)
[2021-07-03] MEDS: lactulose oral liq 20 gm/30 mL UDC PO ×2 (13:23→17:34)
[2021-07-03 15:28] LABS: HIV 1 & 2 Antibody Non-Reactive (Non-Reactiv); HIV 1 & 2 Antigen Non-Reactive (Non-Reactiv)
[2021-07-03 17:17] LABS: St. Louis Enceph.Virus IGG CSF <1:1; St. Louis Enceph.Virus IGM CSF <1:1
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
--- NOTE | 2021-07-03 18:30 | ECG_ITS ---
[facility] Test Date: 2021-07-03 Pat Name: Licha Beck Department: Room: 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 Measurements Intervals Tracy Rate: 91 P: 49 AK: 132 QRS: 109 QRSD: 145 T: 5 QT: 408 QTc: 504 Interpretive Statements SINUS RHYTHM RIGHT AXIS DEVIATION [QRS AXIS > 100] RIGHT BUNDLE BRANCH BLOCK [120+ ms QRS DURATION, UPRIGHT V1, 40+ ms S IN I/aVL/V4/V5/V6] Compared to ECG 06/30/2021 00:15:23 Right-axis deviation now present Sinus tachycardia no longer present Short AK interval no longer present Left posterior fascicular block no longer present Electronically Signed On 07-04-2021 12:55:02 AUDIENCE COORDINATOR by Rhonda Marie M.D. [id number]
[2021-07-03] MEDS: fentaNYL 50 mcg/mL INJ 2mL IVP (18:36)
[2021-07-03] MEDS: OLANZapine 10 mg TABLET PO (18:36)
[2021-07-03] MEDS: propofol 1,000 MG/100 ML INJ 4.03 MG IV (18:36)
[2021-07-03] MEDS: midazolam 1 mg/mL INJ 2 mL 2 MG IVP (18:40)
--- NOTE | 2021-07-03 19:16 | PC.NURSE ---
Shift Note Frequent safety and comfort rounds continue. Orders and nursing care completed as indicated. Pt titarted off all sedation today at 1520 for EEG and possible extubation. Pt opened eyes a few times during the day. Pt became really agitated throwing legs out of bed each and throwing head side to side agressively. Pt tried to grab [place] catheter tubing, ventilator tubing, and central lline tubing. Physician notified, and reported to bedside. PRN orders used, see mar. Dr. Osuna order patient to go back on sedation until tomorrow then will attempt to extubate. Patient would not follow any directions and did not respond when called by name, pupils noted to be pinpoint. Son at bedside all day today, noted to be active in Mother's care. Oral care attempted multiple time with some success, but most times patient shake head back and forth. Plans to transfer patient to [place] in [place], a medical ICU for further care, awaiting for a bed. Pt had total of 3700mls out in urine this shift. Patient monitored for response to intervention and treatments. Education provided includes medications, oral care, position changes, EEG, CTA, and transport to [place] family verbalized understanding. Will continue to monitor.
[2021-07-03] MEDS: norepinephrine 8 MG in dextrose 5 % 500 ML 15.24 MG IV (19:50)
[2021-07-03] MEDS: vancomycin 1,250 MG/250 ML PIGGYBACK 250 MG IV (20:00)
[2021-07-03] MEDS: trazodone 50 mg Tablet PO (20:01)
[2021-07-03] MEDS: enoxaparin 40 mg/0.4 mL Syringe SUBCUT (20:01)
[2021-07-03] MEDS: insulin glargine 100 units/1 mL 10 UNIT SUBCUT (20:02)
--- NOTE | 2021-07-03 20:25 | PM.PN ---
Subjective Subjective: Interval history: Patient was examined multiple times throughout the day, early in the morning she was on sedation, fentanyl and Precedex, minimal agitation, remained afebrile overnight, on minimal Levophed, good urine output, Patient was reexamined early in the afternoon, both brothers were met at bedside, her sedation has been weaned off, she is on minimal fentanyl, she is quite agitated, she has spontaneous movement of upper and lower extremities, she moves her head, she cannot remain still, she has good strength in upper and lower extremities, no neck stiffness, she does follow my light with her eyes to some degree, pupils are constricted, but reactive, she does not withdraw from pain, Babinski is downward going, Patient was reexamined early in the evening, she was off all sedation, continues to have erratic movements, spontaneous movements of upper lower extremities, no seizure-like episodes detected, does not follow commands, her sedation is off, she was put on minimal vent support, and there was concern for apnea, I have advised nurses to resume minimal sedation, plan for weaning of sedation early tomorrow, plan for extubation early tomorrow Medications: Reviewed: Yes Vitals/I&O/Wt Last Vital Signs Temp 98.6 F 07/03/21 00:00 Pulse 110 H 07/03/21 14:00 Resp 18 07/03/21 19:58 BP 103/71 07/03/21 11:45 Pulse Ox 98 07/03/21 19:58 07/03/21 07/03/21 07/03/21 06:59 14:59 22:59 Intake Total 1220.737 / 2896.987 749.340 / 749.340 546.896 / 1296.236 Output Total 350 / 1475 2225 / 2225 1500 / 3725 Balance 870.737 / 1421.987 -1475.660 / -1475.660 -953.104 / -2428.764 Weight last 48 hrs Weight 67.086 kg Weight 72.03 kg Physical Exam Const: GENERAL APPEARANCE: not cooperative ORIENTATION/CONSCIOUSNESS: Yes awake and Yes confused; not oriented to person, not oriented to place and not oriented to time Resp: COMMON NORMALS: normal respiratory effort, No retractions, No use of accessory muscles and clear to auscultation bilaterally AUSCULTATION: clear to auscultation bilaterally Cardio: COMMON NORMALS: regular rate, regular rhythm, S1 normal heart sound present and S2 normal heart sound present RATE: regular rate RHYTHM: regular rhythm HEART SOUNDS: S1 normal heart sound present and S2 normal heart sound present GI: COMMON NORMALS: Normal to inspection, nondistended, normoactive bowel sounds present, Soft to palpation and non-tender PALPATION: Yes Soft to palpation Extremity: COMMON NORMALS: no pedal edema Neuro: SENSORIUM/ORIENTATION: No oriented to person, No oriented to place and No oriented to time Urinary Catheter Management^: Malhotra: Cath Placed During This Visit: yes Reason for Continuing Indwelling Catheter: Accurate Measurement of Urinary Output in Critically Ill Patients Urinary Catheter Date of Insertion: 06/24/21 Data : 07/03/21 03:15 07/03/21 03:15 Micro: Microbiology 06/30/21 13:38 Gram Stain - Final Cerebrospinal Fluid CSF Culture - Final 07/03/21 10:00 Blood Culture - Preliminary Blood SPECIMEN COLLECTED 07/03/21 10:03 Blood Culture - Preliminary Blood SPECIMEN COLLECTED A&P Assessment and plan (1) Acute metabolic encephalopathy: Acute metabolic encephalopathy multifactorial -Metabolic -DKA -Possible anoxic brain injury from cardiac arrest -Repeat CT of the head no evidence of intracranial hemorrhage or mass-effect -CTA head of neck -1. No significant ICA stenosis bilaterally. 2. No flow-limiting intracranial stenosis. 3. Hypoplastic right A1 segment. 4. Both vertebral arteries are patent. Basilar artery is patent. 2D echo: Normal LV cavity size, moderately decreased LV systolic function, with LVEF 40-45%, no gross valvular abnormality. Blood culture:NTD Sputum culture: Yeast Cryptococcal antigen unremarkable Ammonia:Normal MRSA PCR: Negative Rapid COVID Antigen :Negative Rapid COVID PCR Is : Negative Influenza a and B- negative Urine Legionella antigen:Negative Bacterial antigen panel:Negative Respiratory viral panel: Negative CSF no growth analysis results: CSF WBC: 1 , CSF total protein:25, CSF glucose:130 TSH within normal limits Pro-Jeferson within normal limits Vitamin B12 within normal limits Folate within normal limits Thiamine pending Plan: -For now discontinue vancomycin, acyclovir, meropenem -Follow CSF viral studies -Thiamine -Discontinue Keppra -Monitor for fevers, monitor cultures -Neurochecks -Neurology consulted -EEG pending -Discontinue Seroquel -Switch to Zyprexa 10 mg nightly -150 mg of Wellbutrin -30 mg of Cymbalta -50 mg of trazodone -Monitor QTc interval closely, 550 ms -Fentanyl for sedation -Precedex for sedation Acute respiratory failure, concerns for pulmonary edema, pneumonia -Currently on minimal ventilator settings -Daily spontaneous breathing trials, denies peas, minimize FiO2 -Her mentation is complicating extubation -For now minimize sedation, plan on possible extubation tomorrow morning -All cultures so far have been unremarkable -Discontinue antibiotics, has been on broad-spectrum antibiotic therapy for over 7 days QT C prolongation, multifactorial from sedating medications, Seroquel Status: Acute (2) Pneumonia: Status: Acute (3) Hypernatremia: Resolved. Free water deficit was calculated D5 water, D5 half NS, free water flushes through NG tube were used as needed. Continue to monitor BMP. Status: Resolved (4) DKA (diabetic ketoacidosis): Initially on insulin drip: Anion gap is closed: Currently on Lantus and sliding scale insulin. NG-tube is in place. Holding tube feedings Continue to monitor fingerstick glucose Status: Resolved (5) Heart failure: Currently compensated Lasix therapy as needed I/O Charting Mg>2, k>4 Status: Acute (6) Sepsis: Status: Acute (7) Acute kidney injury: Resolved GLADYS on CKD stage III: Likely secondary to cardiorenal syndrome/ATN Continue to monitor BMP Urine electrolytes Intake output charting Avoid nephrotoxic Status: Resolved (8) Hyperkalemia: Resolved Status: Resolved (9) Acute respiratory failure: Acute respiratory failure secondary to pneumonia Status: Resolved (10) Abnormal LFTs: Ultrasound abdomen:Prior cholecystectomy.Normal common bile duct. Hepatitis panel: Negative Likely secondary to congestive hepatopathy Status: Acute (11) Hypophosphatasia: K-Phos IV replacement done. Currently serum phosphorus is normal. Continue to monitor serum phosphorus. Status: Resolved (12) Cardiac arrest with successful resuscitation: Status: Acute (13) QT prolongation: Status: Acute Attestations Medical Necessity Statement*: Patient requires hospitalization for acute encephalopathy, acute respiratory failure Coding Level of Care Code Acute Supervisor [employer] for [facility] Diagnoses Acute metabolic encephalopathy G93.41 Pneumonia J18.9 Hypernatremia E87.0 DKA (diabetic ketoacidosis) E11.10 Heart failure I50.9 Sepsis A41.9 Acute kidney injury N17.9 Hyperkalemia E87.5 Acute respiratory failure J96.00 Abnormal LFTs R94.5 Hypophosphatasia E83.39 Cardiac arrest with successful resuscitation I46.9 QT prolongation R94.31
--- NOTE | 2021-07-03 22:30 | ECG_ITS ---
[facility] Test Date: 2021-07-04 Pat Name: Licha Beck Department: Room: [facility] Gender: Female Loan Processor: : 1960 Requested By: Evan Osuna Order Number: [id number] Frank MD: Teresa Amin M.D. Measurements Intervals [place] Rate: 81 P: 50 [place]: 146 QRS: 110 QRSD: 145 T: -11 QT: 416 QTc: 484 Interpretive Statements SINUS RHYTHM RIGHT BUNDLE BRANCH BLOCK [120+ ms QRS DURATION, UPRIGHT V1, 40+ ms S IN I/aVL/V4/V5/V6] LEFT POSTERIOR FASCICULAR BLOCK [QRS AXIS > 109, INFERIOR Q] Compared to ECG 07/03/2021 20:41:45 Left posterior fascicular block now present Right-axis deviation no longer present Electronically Signed On 07-04-2021 22:01:33 FOOD TECHNOLOGY TEACHER by Teresa Amin M.D. [id number]
[2021-07-04] VITALS (83 sets, daily range): BP systolic 85–138; BP diastolic 55–95; PULSE 78–130; RESP 9–29; TEMP 36.8–38.3; O2SAT 91–100
[2021-07-04] MEDS: famotidine 20 mg/2 mL INJ IVP ×2 (00:26→13:38)
[2021-07-04] MEDS: propofol 1,000 MG/100 ML INJ 14.09 MG IV (00:47)
--- NOTE | 2021-07-04 02:30 | ECG_ITS ---
[facility] Test Date: 2021-07-04 Pat Name: Licha Beck Department: Room: [facility] Gender: Female Technologist Infectious Disease: : 1960 Requested By: Evan Osuna Order Number: [id number] Frank MD: Teresa Amin M.D. Measurements Intervals [place] Rate: 80 P: 59 [place]: 151 QRS: 103 QRSD: 144 T: -19 QT: 430 QTc: 498 Interpretive Statements SINUS RHYTHM Right bundle branch block pattern compared to ECG 07/04/2021 00:01:36 Right bundle-branch block is still present left posterior fascicular block no longer present Electronically Signed On 07-04-2021 22:05:06 REGULATOR ASSEMBLER by Teresa Amin M.D. [email or web address]/store/[id number]
--- NOTE | 2021-07-04 03:06 | PC.NURSE ---
Shift Note Frequent safety and comfort rounds continue. Orders and/or nursing care completed as indicated. Patient monitored for response to intervention and treatment(s). Education provided includes medications with side effects, goals of treatment, fall precautions. Patient unable to comprehend but son at bedside verbalized understanding. At shift change, patient intubated with all sedation off, extremely agitated, moving arms, legs and head, without any meaningful movements, difficult to maintain positioning in bed without risk self extubation. Dr. Osuna gave verbal order for propofol and low dose fentanyl gtt with prn IVP sedation. Fentanyl gtt titraed off with only propofol gtt for sedation. Patient still becomes mildly agitated but manageable. Levophed used for hypotension. GTT's titrated per protocol. Low urine output reported to Dr. Winn with orders to cont to monitor. Lines and tubes patient. Will continue to monitor.
--- NOTE | 2021-07-04 03:31 | PC.NURSE ---
Addendum entered by Josee Love, RN 07/04/21 04:03: 04:00 Silver with [facility] called, this nurse provided update. Silver stated they still do not have an available bed. Original Note: 20:30 Irma from [facility] called, update provided, she stated there is still no available beds. Informed Dr. Osuna of call and the accepting MD at [place] is wanting to speak with him in AM.
[2021-07-04 03:57] LABS: ABG PCO2 31.7 mmHg (35-45); ABG PH Result 7.45 (7.35-7.45); Arterial Blood Gas Hematocrit 34.4 % (37-47); Base Excess ABG -1.5 mmol/L (-2.0-2.0); Blood Gas Allen Test Pos; Blood Gas Operator Identificat JB; Blood Gas Sample Site Radial, right; Blood Gas Sample Type Arterial; HCO3 ABG 21.9 mmol/L (22-26); Oxygen Device VENT; PO2 ABG 92.2 mmHg (80.0-100.0)
[2021-07-04 06:01] LABS: Basophils # 0.1 10^3/uL (0.0-0.1); Basophils % 0.5 %; Eosinophils # 0.2 10^3/uL (0.0-0.8); Eosinophils % 2.5 %; Hematocrit 30.6 % (37.0-47.0); Hemoglobin 9.9 g/dL (11.5-15.3); Lymphocytes # 1.2 10^3/uL (0.8-4.8); Lymphocytes % 12.1 %; Mean Corpuscular HGB Conc 32.4 g/dL (30.0-36.0); Mean Corpuscular Hemoglobin 29.1 pg (28.0-34.0); Mean Platelet Volume 11.3 fL (7.4-10.4); Monocytes # 0.6 10^3/uL (0.2-0.9); Monocytes % 6.3 %; Neutrophils # 7.43 10^3/uL (1.8-7.7); Neutrophils % 77.1 %; Nucleated Red Blood Cells % 0 %; Platelet Count 297 10^3/cmm (130-400); Red Cell Distribution Width 14.6 % (12.1-15.1); White Blood Count 9.6 10^3/uL (4.0-10.0)
[2021-07-04 06:27] LABS: Lactate (Lactic Acid level) 0.9 mmol/L (0.5-2.2)
--- NOTE | 2021-07-04 06:30 | ECG_ITS ---
[facility] Test Date: 2021-07-04 Pat Name: Licha Beck Department: Room: [facility] Gender: Female Ruby Software Developer: : 1960 Requested By: Evan Osuna Order Number: [id number] Frank MD: Teresa Amin M.D. Measurements Intervals [place] Rate: 103 P: 60 DC: 139 QRS: 111 QRSD: 149 T: -17 QT: 407 QTc: 534 Interpretive Statements SINUS TACHYCARDIA RIGHT BUNDLE BRANCH BLOCK [120+ ms QRS DURATION, UPRIGHT V1, 40+ ms S IN I/aVL/V4/V5/V6] LEFT POSTERIOR FASCICULAR BLOCK [QRS AXIS > 109, INFERIOR Q] MODERATE T-WAVE ABNORMALITY, CONSIDER LATERAL ISCHEMIA [-0.1+ mV T-WAVE IN I/aVL/V5/V6] Compared to ECG 07/04/2021 03:02:03 Right bundle-branch block now present Left posterior fascicular block now present T-wave abnormality now present Possible ischemia now present Sinus rhythm no longer present Electronically Signed On 07-04-2021 22:10:37 CAMPUS CHAPLAIN by Teresa Amin M.D. [email or web address]/store/[id number]
[2021-07-04 06:34] LABS: Ammonia 15 umol/L (11-51)
[2021-07-04 06:40] LABS: NT Pro B Type Natriuretic Pept 729 pg/mL (0-125); Procalcitonin 0.09 ng/mL (0-0.5)
[2021-07-04 06:44] LABS: INR 1.02 (0.8-1.2)
[2021-07-04 06:57] LABS: Alanine Aminotransferase 40 U/L (0-33); Albumin Level 2.6 g/dL (3.5-5.2); Alkaline Phosphatase 181 IU/L (35-105); Aspartate Amino Transferase 53 U/L (0-32); Blood Urea Nitrogen 8 mg/dL (8-23); C Reactive Protein 49.8 mg/L (0.0-4.9); Calcium 8.2 mg/dL (8.5-10.5); Carbon Dioxide 17 mmol/L (22-29); Chloride 99 mmol/L (98-107); Globulin 2.8 g/dL (1.3-4.6); Glomerular Filtration Rate 63.9 mL/min (90-130); Glucose 157 mg/dL (65-115); Magnesium 1.8 mg/dL (1.7-2.3); Osmolality Calculated 286 mOsm/kg (285-295); Phosphorus 2.3 mg/dL (2.5-4.5); Sodium 137 mmol/L (136-145); Total Bilirubin 0.4 mg/dL (0.15-1.2); Total Protein 5.4 g/dL (6.6-8.7)
--- NOTE | 2021-07-04 07:00 | XRR_ITS ---
PROCEDURE INFORMATION: Exam: XR Chest Exam date and time: 07/04/2021 7:00 AM Age: 61 years old Clinical indication: Dyspnea; Additional info: SOB TECHNIQUE: Imaging protocol: XR of the chest. Views: 1 view. Total images: 1 COMPARISON: CR XR chest 1V portable [id number] 06/30/2021 12:04 AM FINDINGS: Tubes, catheters and devices: Interval removal of feeding tube. An endotracheal tube is present, terminating above the arleen by 5 cm. Enteric tube is seen with the tip in the body of the stomach. Lungs: Left pulmonary opacity is again noted and has shown interval worsening at the left lung base compared with the prior exam. Benign granulomatous disease of the lung is noted. Pleural spaces: Unremarkable. No pleural effusion. No pneumothorax. Heart/Mediastinum: Heart size is stable when compared to the prior exam. Bones/joints: Osseous structures are unchanged from the prior exam. Intraperitoneal space: Surgical clips are present in the right upper quadrant which are suggestive of prior cholecystectomy. XR/XR chest 1V portable [id number] IMPRESSION: 1. Interval removal of feeding tube. 2. An endotracheal tube is present, terminating above the arleen by 5 cm. 3. Enteric tube is seen with the tip in the body of the stomach. 4. Left pulmonary opacity is again noted and has shown interval worsening at the left lung base compared with the prior exam. Radiation Dose CTDIVOL = (mGy): DLP = (mGy-cm)
[2021-07-04 07:03] LABS: Creatine Phosphokinase 886 U/L (26-192)
[2021-07-04 08:19] LABS: Ferritin 120 ng/mL (15-150)
[2021-07-04] MEDS: lidocaine 1% 5 ML in potassium chloride premix 100 ML 50 ML IV (08:28)
[2021-07-04] MEDS: buPROPion XL (24 HR) 150 mg Tablet PO ×2 (08:28→11:21)
[2021-07-04] MEDS: levothyroxine 112 mcg Tablet PO (08:29)
[2021-07-04] MEDS: magnesium sulfate premix 2 GM/50 ML PIGGYBACK IV (08:29)
[2021-07-04] MEDS: duloxetine 30 mg Capsule PO (08:29)
[2021-07-04] MEDS: insulin lispro 100 unit/1 mL SUBCUT ×3 (09:09→21:39)
[2021-07-04] MEDS: FUROsemide 10 mg/mL SDV 2mL 20 MG IVP (09:10)
[2021-07-04] MEDS: dexmedetomidine 400 MCG in sodium chloride 0.9% (100 ml) 100 ML IV (10:01)
--- NOTE | 2021-07-04 10:30 | ECG_ITS ---
[facility] Test Date: 2021-07-04 Pat Name: Licha Beck Department: Room: [facility] Gender: Female Instructor Industrial Design: : 1960 Requested By: Evan Osuna Order Number: [id number] Frank MD: Teresa Amin M.D. Measurements Intervals [place] Rate: 114 P: 66 [place]: 155 QRS: 120 QRSD: 150 T: -23 QT: 383 QTc: 528 Interpretive Statements SINUS TACHYCARDIA WITH OCCASIONAL VENTRICULAR PREMATURE COMPLEXES RIGHT BUNDLE BRANCH BLOCK [120+ ms QRS DURATION, UPRIGHT V1, 40+ ms S IN I/aVL/V4/V5/V6] LEFT POSTERIOR FASCICULAR BLOCK [QRS AXIS > 109, INFERIOR Q] Compared to ECG 07/04/2021 06:16:20 Ventricular premature complex(es) now present T-wave abnormality no longer present Possible ischemia no longer present Electronically Signed On 07-04-2021 22:12:02 PAPETERIE TABLE ASSEMBLER by Teresa Amin M.D. [email or web address].[employer]/store/[id number]
[2021-07-04] MEDS: OLANZapine 10 mg TABLET PO ×2 (11:22→17:30)
--- NOTE | 2021-07-04 13:26 | XR_ITS ---
WS: [id number] Exam: XR chest 1V portable [id number] Date/Time of Exam: 07/04/2021 1:35 PM Reason For Exam: NG tube placement Comparison with the earlier exam performed on the same day at 0506 hours. An enteric tube has been placed and is looped in the fundus of the stomach in satisfactory location. Mild infiltrate and/or atelectasis in the left base. Right lung is clear. Normal cardiomediastinal si lhouette. ET tube has been removed since the previous study. Monitoring leads superimpose the chest. XR/XR chest 1V portable [id number] IMPRESSION: 1. Enteric tube looped in the fundus of the stomach in satisfactory location. 2. Mild infiltrate and/or atelectasis in the left base.
--- NOTE | 2021-07-04 13:34 | PC.RESP ---
extubated pt extubated and placed on 4lpm nc. tolerated well
[2021-07-04] MEDS: lidocaine 1% 5 ML in potassium chloride premix 100 ML 25 ML IV (13:38)
[2021-07-04] MEDS: LORazepam 2 mg/mL INJ 1 mL 1 MG IM (14:07)
--- NOTE | 2021-07-04 14:30 | ECG_ITS ---
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 Measurements Intervals [place] Rate: 111 P: 62 [place]: 146 QRS: 118 QRSD: 151 T: -5 QT: 396 QTc: 540 Interpretive Statements SINUS TACHYCARDIA RIGHT BUNDLE BRANCH BLOCK [120+ ms QRS DURATION, UPRIGHT V1, 40+ ms S IN I/aVL/V4/V5/V6] LEFT POSTERIOR FASCICULAR BLOCK [QRS AXIS > 109, INFERIOR Q] Compared to ECG 07/04/2021 09:54:38 Ventricular premature complex(es) no longer present Electronically Signed On 07-04-2021 22:14:07 PLANT CONTROLS SPECIALIST by Teresa Amin M.D. [id number]
[2021-07-04] MEDS: acetaminophen 650 mg Supp PR (15:03)
--- NOTE | 2021-07-04 16:29 | XRR_ITS ---
PROCEDURE INFORMATION: Exam: XR Chest Exam date and time: 07/04/2021 4:29 PM Age: 61 years old Clinical indication: Device placement; Ng tube; Additional info: Ng tube verification TECHNIQUE: Imaging protocol: XR of the chest. Views: 1 view. COMPARISON: CR XR chest 1V portable [id number] 07/04/2021 1:41 PM FINDINGS: Tubes, catheters and devices: There is an enteric tube with the tip in the fundus of the stomach. Lungs: There is linear scarring in the left lingula. No focal consolidation. No pulmonary edema. Pleural spaces: No pleural effusion. No pneumothorax. Heart/Mediastinum: Stable mild enlargement of the cardiac silhouette. Mediastinal contours are unremarkable. Vasculature: Stable vascular calcifications in the aorta. Bones/joints: Unremarkable for age. Organs: Surgical clips in the right upper quadrant, consistent with a previous cholecystectomy. Findings are stable. XR/XR chest 1V portable [id number] IMPRESSION: 1. No acute cardiopulmonary process. 2. There is an enteric tube with the tip in the fundus of the stomach. 3. Incidental/nonacute findings are listed in the report. Radiation Dose CTDIVOL = (mGy): DLP = (mGy-cm)
--- NOTE | 2021-07-04 18:30 | ECG_ITS ---
[facility] Test Date: 2021-07-04 Pat Name: Licha Beck Department: Room: [facility] Gender: Female Chief Talent Officer: : 1960 Requested By: Evan Osuna Order Number: [id number] Frank MD: Teresa Amin M.D. Measurements Intervals [place] Rate: 105 P: 57 [place]: 155 QRS: 122 QRSD: 161 T: -12 QT: 413 QTc: 547 Interpretive Statements SINUS TACHYCARDIA RIGHT BUNDLE BRANCH BLOCK [120+ ms QRS DURATION, UPRIGHT V1, 40+ ms S IN I/aVL/V4/V5/V6] LEFT POSTERIOR FASCICULAR BLOCK [QRS AXIS > 109, INFERIOR Q] MODERATE T-WAVE ABNORMALITY, CONSIDER LATERAL ISCHEMIA [-0.1+ mV T-WAVE IN I/aVL/V5/V6] Compared to ECG 07/04/2021 13:56:03 T-wave abnormality now present Possible ischemia now present Electronically Signed On 07-05-2021 22:48:33 RN INVASIVE by Teresa Amin M.D. [id number]
--- NOTE | 2021-07-04 19:18 | PM.PN ---
Subjective Subjective: Interval history: Patient was seen this morning, she was off sedation, did not follow commands, but at one point when I called out her name, she was able to look at me, she might of squeezed my fingers when I asked I had asked her to, but she went back to her nonpurposeful movement of upper and lower extremities After discussing the risks and benefits of extubation with son at bedside, agreed with extubation, patient was extubated how to 2 L, tolerated it well After extubation she didn't follow commands, but maintained her airway, her saturation in the high 90s on 2 L, Patient was taken to MRI, which I supervised, in order to perform MRI, unfortunately patient was a unable to remain still, continue to move her head, difficult to perform exam, images were nondiagnostic She was reexamined in the afternoon, she continues to have nonpurposeful movement of upper and lower extremities, does not follow commands, maintaining her O2 sats in the high 90s on 2 L, normotensive, no significant arrhythmia events, her last QTC is 539 ms Vitals/I&O/Wt Last Vital Signs Temp 98.9 F 07/04/21 17:00 Pulse 105 H 07/04/21 17:45 Resp 13 07/04/21 17:45 BP 98/60 07/04/21 17:45 Pulse Ox 96 07/04/21 17:45 07/04/21 07/04/21 07/04/21 06:59 14:59 22:59 Intake Total 373.709 / 1932.121 5.667 / 5.667 31.083 / 36.750 Output Total 50 / 3775 2800 / 2800 Balance 323.709 / -1842.879 -2794.333 / -2794.333 31.083 / -2763.250 Weight last 48 hrs Weight 63.503 kg Weight 67.086 kg Physical Exam Narrative: EXAM NARRATIVE: This spontaneous, movement of upper and lower extremities, moves head side to side, does not follow commands, pupils are reactive to light, does not withdraw from pain Resp: COMMON NORMALS: normal respiratory effort, No retractions, No use of accessory muscles and clear to auscultation bilaterally AUSCULTATION: clear to auscultation bilaterally Cardio: COMMON NORMALS: regular rate, regular rhythm, S1 normal heart sound present and S2 normal heart sound present RATE: regular rate RHYTHM: regular rhythm HEART SOUNDS: S1 normal heart sound present and S2 normal heart sound present GI: COMMON NORMALS: Normal to inspection, nondistended, normoactive bowel sounds present and Soft to palpation PALPATION: Yes Soft to palpation Urinary Catheter Management^: Malhotra: Cath Placed During This Visit: yes Reason for Continuing Indwelling Catheter: Accurate Measurement of Urinary Output in Critically Ill Patients Urinary Catheter Date of Insertion: 06/24/21 Data : 07/04/21 04:42 07/04/21 04:42 Micro: Microbiology 06/30/21 03:55 Sputum Culture - Final Sputum - Endotracheal Tube Aspirate Nicolle albicans 07/03/21 10:00 Blood Culture - Preliminary Blood NEGATIVE TO DATE 07/03/21 10:03 Blood Culture - Preliminary Blood NEGATIVE TO DATE A&P Assessment and plan (1) Acute metabolic encephalopathy: Acute metabolic encephalopathy multifactorial -Metabolic -DKA -Possible anoxic brain injury from cardiac arrest -Repeat CT of the head no evidence of intracranial hemorrhage or mass-effect -CTA head of neck -1. No significant ICA stenosis bilaterally. 2. No flow-limiting intracranial stenosis. 3. Hypoplastic right A1 segment. 4. Both vertebral arteries are patent. Basilar artery is patent. 2D echo: Normal LV cavity size, moderately decreased LV systolic function, with LVEF 40-45%, no gross valvular abnormality. Blood culture:NTD Sputum culture: Yeast Cryptococcal antigen unremarkable Ammonia:Normal MRSA PCR: Negative Rapid COVID Antigen :Negative Rapid COVID PCR Is : Negative Influenza a and B- negative Urine Legionella antigen:Negative Bacterial antigen panel:Negative Respiratory viral panel: Negative CSF no growth analysis results: CSF WBC: 1 , CSF total protein:25, CSF glucose:130 TSH within normal limits Pro-Jeferson within normal limits Vitamin B12 within normal limits Folate within normal limits Thiamine pending EEG difficult study, no acute findings Plan: -Status post vancomycin, acyclovir, meropenem -Follow CSF viral studies -Thiamine -Status post Keppra -Monitor for fevers, monitor cultures -Neurochecks -Neurology consulted -Switch to Zyprexa 10 mg twice daily - stop Wellbutrin -30 mg of Cymbalta -50 mg of trazodone -Monitor QTc interval closely, 550 ms -Does have wrist restraints, would like to discontinue in the next 24 hours if we can get her agitation under control -Discussed with family about possible transfer to tertiary level center for second opinion versus placement at a long-term care facility, they'll have a family meeting tomorrow, reach decision -Discussed about PEG tube feedings, they'll have a family meeting tomorrow, reach decision Acute respiratory failure, concerns for pulmonary edema, pneumonia -Successfully extubated 07/04/2021 -Monitor closely, currently on 2 L, moved to general medical floors -All cultures so far have been unremarkable -Discontinue antibiotics, has been on broad-spectrum antibiotic therapy for over 7 days QT C prolongation, multifactorial from sedating medications, Seroquel -Monitor QTC as she is on Zyprexa -Avoid benzos, avoid antipsychotic, avoid any medication that would prolong her QT Status: Acute (2) Pneumonia: Status: Acute (3) Hypernatremia: Resolved. Free water deficit was calculated D5 water, D5 half NS, free water flushes through NG tube were used as needed. Continue to monitor BMP. Status: Resolved (4) DKA (diabetic ketoacidosis): Initially on insulin drip: Anion gap is closed: Currently on Lantus and sliding scale insulin. NG-tube is in place. Holding tube feedings Continue to monitor fingerstick glucose Status: Resolved (5) Heart failure: Currently compensated Lasix therapy as needed I/O Charting Mg>2, k>4 Status: Acute (6) Sepsis: Status: Acute (7) Acute kidney injury: Resolved GLADYS on CKD stage III: Likely secondary to cardiorenal syndrome/ATN Continue to monitor BMP Urine electrolytes Intake output charting Avoid nephrotoxic Status: Resolved (8) Hyperkalemia: Resolved Status: Resolved (9) Acute respiratory failure: Acute respiratory failure secondary to pneumonia Status: Resolved (10) Abnormal LFTs: Ultrasound abdomen:Prior cholecystectomy.Normal common bile duct. Hepatitis panel: Negative Likely secondary to congestive hepatopathy Status: Acute (11) Hypophosphatasia: K-Phos IV replacement done. Currently serum phosphorus is normal. Continue to monitor serum phosphorus. Status: Resolved (12) Cardiac arrest with successful resuscitation: Status: Acute (13) QT prolongation: Status: Acute (14) Rhabdomyolysis: Status: Acute Attestations Medical Necessity Statement*: Patient requires hospitalization for acute encephalopathy, acute respiratory failure, QTC prolongation Coding Level of Care Code Acute Correction Officer [place] [facility] Diagnoses Acute metabolic encephalopathy G93.41 Pneumonia J18.9 Hypernatremia E87.0 DKA (diabetic ketoacidosis) E11.10 Heart failure I50.9 Sepsis A41.9 Acute kidney injury N17.9 Hyperkalemia E87.5 Acute respiratory failure J96.00 Abnormal LFTs R94.5 Hypophosphatasia E83.39 Cardiac arrest with successful resuscitation I46.9 QT prolongation R94.31 Rhabdomyolysis M62.82
--- NOTE | 2021-07-04 19:22 | PC.NURSE ---
Nurse wasted 30.267 mL of versed with Zeke Tabor RN as witness.
--- NOTE | 2021-07-04 19:23 | PC.NURSE ---
Late note: at 0800, nurse observed salinas catheter to have large amounts of sediment in the line and only 50 mL of urine output was reported overnight. Nurse flushed salinas with 10mL of sterile saline. Patient then voided 1600mL through salinas catheter.
--- NOTE | 2021-07-04 19:25 | PC.NURSE ---
Late note: patient brought to MRI via [facility] [facility] ambulance at 1400. Nurse and Dr cantu accompanied ambulance staff. MRI performed. Transport was uneventful.
--- NOTE | 2021-07-04 19:26 | PC.NURSE ---
SHift summary: All sedation has been discontinued in the morning. Patient was later extubated without incident at 1330. Taken to MRI shortly after extubation, however, patient was unable to remain still and we were unable to get a clear MRI. Restraints currently on the patient as she has an altered mental status and continually attempts to remove NG tube, salinas catheter, and central line. Patient has pulle dout 1 NG tube already today. Patient is A/Ox0. She is very restless, throws herself side to side in bed, and frequently throws legs straight up into the air. Will occasionally squeeze fingers or look towards the source of the voice on command, but it is unclear if this is purposeful. Total urine output is 2800 for day shift. Serial EKG's have been performed to track QT interval. Most recent one shows a QT of 403, down from 413, and another EKG is due at 2200.
--- NOTE | 2021-07-04 19:32 | PC.NURSE ---
NUrse gave report to Genia MO on the med surge floor. Nurse told med surge staff of the need for one additional EKG to follow up on the QT interval and the continued need for a sitter.
--- NOTE | 2021-07-04 19:35 | PC.NURSE ---
Transfer Note Patient transferred to [facility] 262 from ICU 5 via patient bed. Handoff given by Sam Malave RN ICU to [facility] nurse. Patient oriented to environment and equipment. Covering service notified. Orders reviewed and will continue to monitor. Family, Yair Stevenson (son) at [phone] notified of transfer and room number.
--- NOTE | 2021-07-04 20:05 | PC.NURSE ---
PATIENT PULLED OUT NG TUBE. NEW NG TUBE WAS INSERTED INTO LEFT NARE, PLACEMENT VERIFIED BY PORTABLE XRAY. PATIENT TOLERATED PLACEMENT WELL. SITTER WAS PRESENT AND THIS NURSE REITERATED THE IMPORTANCE OF MAKING SURE PATIENT DID NOT PULL ON TUBES AND LINES.
[2021-07-04 20:12] LABS: Erythrocyte Sedimentation Rate 55 mm/hr (0-15)
--- NOTE | 2021-07-04 20:39 | W.PM.NPUPNS ---
Subjective NPU Subjective: Interval history: Patient presents today still nonverbal but seeming a little more reactive to stimuli since she was extubated. Still no clear eye tracking but she is opening her eyes and at 1 point seem to be clearly fixated on this insurance underwriter but easily could have been a random event. We continue to explore the question of what led her to the hospital and what led to her deterioration while here. Mental Status Exam MSE Comments: This is a well-nourished well-developed white female looking older than her stated age with a depends on and a hospital gown appearing more active with mild psychomotor agitation, absent eye contact except for briefly.. Uncooperative with exam in no acute distress. Speech was absent. Mood not described. Thought process unable to observe thought content: Unable to observe. She was not arousable except occasionally with more active/physical stimulus.. Vitals/I&O/Wt Last Vital Signs Temp 98.2 F 07/04/21 20:00 Pulse 106 H 07/04/21 20:00 Resp 18 07/04/21 20:00 BP 117/69 07/04/21 20:00 Pulse Ox 93 07/04/21 20:00 07/04/21 14:59 Intake Total 160.667 / 160.667 Output Total 2800 / 2800 Balance -2639.333 / -2639.333 Weight last 48 hrs Weight 63.503 kg Weight 67.086 kg Physical Exam Urinary Catheter Management^: Malhotra: Cath Placed During This Visit: yes Reason for Continuing Indwelling Catheter: Accurate Measurement of Urinary Output in Critically Ill Patients Urinary Catheter Date of Insertion: 06/24/21 Data NPU : 07/04/21 04:42 07/04/21 04:42 Micro: Microbiology 06/30/21 03:55 Sputum Culture - Final Sputum - Endotracheal Tube Aspirate Nicolle albicans 07/03/21 10:00 Blood Culture - Preliminary Blood NEGATIVE TO DATE 07/03/21 10:03 Blood Culture - Preliminary Blood NEGATIVE TO DATE Microbiology 06/30/21 03:55 Sputum - Endotracheal Tube Aspirate Sputum Culture - Final Nicolle albicans 07/03/21 10:00 Blood Blood Culture - Preliminary NEGATIVE TO DATE 07/03/21 10:03 Blood Blood Culture - Preliminary NEGATIVE TO DATE A&P Additional A&P Information (1) Heart failure: (2) Hypernatremia: (3) Hypophosphatasia: (4) Abnormal LFTs: (5) Acute respiratory failure: (6) Hyperkalemia: (7) Acute kidney injury: (8) Sepsis: (9) Pneumonia: (10) Acute metabolic encephalopathy: (11) DKA (diabetic ketoacidosis): (12) Altered mental status: Additional A&P Information This is a 61-year-old white female with a reported history of depression and possible bipolar disorder with recent stable mental status who presents with altered mental status unable to communicate at this point but with stepdaughter at the bedside give some history. 1. Continue current medication. 2. No clear sign of psychiatric indication to this presentation. No suggestion of illicits or prescription drug use, abuse or withdrawal that might lead to this presentation. 3. Agree with Librium or other long-acting benzodiazepine to help with agitation to avoid QT prolongation. 4. Agree with change to Zyprexa p.o./IM for agitation. 5. Appreciate neurology input. 5. We will continue to follow. Attestations NPU Medical Necessity Statement*: N/A. Please see primary team note for medical necessity. Coding Level of Care Code Acute Clay Preparation Supervisor for Bakari Lafleur
--- NOTE | 2021-07-04 20:58 | XRR_ITS ---
PROCEDURE INFORMATION: Exam: XR Chest Exam date and time: 07/04/2021 8:58 PM Age: 61 years old Clinical indication: Device placement; Patient HX: Check for ng tube placement. Best film obtained. Patient non-compliant and in soft restraints. ; Additional info: Ng tube placement verification TECHNIQUE: Imaging protocol: XR of the chest. Views: 1 view. Other technique: The patient is rotated to the left. COMPARISON: CR XR chest 1V portable [id number] 07/04/2021 4:37 PM FINDINGS: Tubes, catheters and devices: There is an enteric tube with the tip in the proximal body of the stomach. Lungs: Stable linear scarring in the left lingula. No focal consolidation. No pulmonary edema. Pleural spaces: No pleural effusion. No pneumothorax. Heart/Mediastinum: Stable mild enlargement of the cardiac silhouette. Vasculature: Vascular calcifications in the aorta. Bones/joints: Degenerative changes in the spine. Patient has had a prior cervical spine fusion. Organs: Surgical clips in the right upper quadrant, consistent with a previous cholecystectomy. Findings are stable. XR/XR chest 1V portable [id number] IMPRESSION: 1. No acute cardiopulmonary process. 2. There is an enteric tube with the tip in the proximal body of the stomach. 3. Incidental/nonacute findings are listed in the report. Radiation Dose CTDIVOL = (mGy): DLP = (mGy-cm)
[2021-07-04 21:18] LABS: Glucose Point of Care 161 mg/dL (70-110)
[2021-07-04] MEDS: insulin glargine 100 units/1 mL 10 UNIT SUBCUT (21:39)
[2021-07-04] MEDS: trazodone 50 mg Tablet PO (21:39)
[2021-07-04] MEDS: enoxaparin 40 mg/0.4 mL Syringe SUBCUT (21:39)
--- NOTE | 2021-07-04 22:30 | ECG_ITS ---
[facility] Test Date: 2021-07-04 Pat Name: Licha Beck Department: Room: [facility] Gender: Female Supervisor Spinning: : 1960 Requested By: Evan Osuna Order Number: [id number] Frank MD: Teresa Amin M.D. Measurements Intervals [place] Rate: 107 P: 62 NM: 161 QRS: 116 QRSD: 154 T: -16 QT: 403 QTc: 539 Interpretive Statements SINUS TACHYCARDIA RIGHT BUNDLE BRANCH BLOCK [120+ ms QRS DURATION, UPRIGHT V1, 40+ ms S IN I/aVL/V4/V5/V6] LEFT POSTERIOR FASCICULAR BLOCK [QRS AXIS > 109, INFERIOR Q] MODERATE T-WAVE ABNORMALITY, CONSIDER LATERAL ISCHEMIA [-0.1+ mV T-WAVE IN I/aVL/V5/V6] Compared to ECG 07/04/2021 15:44:39 No significant changes Electronically Signed On 07-05-2021 22:48:42 REHAB THERAPY MANAGER by Teresa Amin M.D. [id number]
[2021-07-05] VITALS (7 sets, daily range): BP systolic 100–124; BP diastolic 66–76; PULSE 83–95; RESP 18; TEMP 36.5–37.1; O2SAT 91–96
[2021-07-05] MEDS: famotidine 20 mg/2 mL INJ IVP (00:04)
--- NOTE | 2021-07-05 02:40 | PC.NURSE ---
TRUDI FROM [facility] CALLED AND ASKED FOR AN UPDATE ON PATIENT. THIS NURSE GAVE HIM UPDATED STATUS AND CURRENT VITAL SIGNS. TRUDI STATED PATIENT NO LONGER QUALIFIED FOR AN ICU BED, HOWEVER HE WAS GOING TO GIVE ALL INFORMATION AND UPDATES TO THE DAYSHIFT TEAM AND THEY WOULD BE CALLING BACK FOR ANOTHER UPDATE ON PATIENT. TRUDI ALSO STATED THAT PATIENTS CASE WILL BE REVIEWED BY THE TEAM FOR A BED ON THE MEDICAL FLOOR. NO BED IS AVAILABLE AT THIS TIME.
--- NOTE | 2021-07-05 04:00 | PC.NURSE ---
HOLGER CAME FROM PATIENTS ROOM WHEN DOING VITALS HOLDING CENTRAL LINE CATHETER AND ALERTED THIS NURSE THAT PATIENT WAS HOLDING IT IN HAND AND THE SITTER STATED THAT SHE HAD COVERED PATIENT UP AND SAT BACK DOWN THEN NOTICED PATIENT HOLDING CATHETER IN HAND WAVING IT AROUND. PATIENT WAS IN SOFT ARM RESTRAINTS, THIS NURSE HAD RELEASED THEM AND REPOSITIONED PATIENT AROUND 0320. THIS NURSE TOLD CHARGE NURSE WHO WENT INTO ROOM AND SPOKE WITH SITTER. NG TUBE ALSO HAD TO BE ADVANCED DUE TO PATIENTS CONSTANT MOVEMENT. PATIENT HAS BEEN NONVERBAL UNTIL NOW. WHILE THIS NURSE REPLACED STAT LOCK ON PATIENTS DEE PATIENT SAID LEAVE ME ALONE AND LET ME LOOSE . PATIENT IS STILL UNABLE TO ANSWER ANY OF THE ORIENTATION QUESTIONS.
[2021-07-05] MEDS: OLANZapine 10 mg TABLET PO (06:01)
[2021-07-05 06:25] LABS: Basophils # 0.1 10^3/uL (0.0-0.1); Basophils % 0.6 %; Eosinophils # 0.2 10^3/uL (0.0-0.8); Eosinophils % 1.8 %; Hematocrit 33.4 % (37.0-47.0); Hemoglobin 10.6 g/dL (11.5-15.3); Lymphocytes # 1.1 10^3/uL (0.8-4.8); Lymphocytes % 9.2 %; Mean Corpuscular HGB Conc 31.7 g/dL (30.0-36.0); Mean Corpuscular Hemoglobin 29.3 pg (28.0-34.0); Mean Corpuscular Volume 92.3 fl (81-99); Mean Platelet Volume 11.3 fL (7.4-10.4); Monocytes # 0.8 10^3/uL (0.2-0.9); Monocytes % 6.3 %; Neutrophils # 10.08 10^3/uL (1.8-7.7); Neutrophils % 81.1 %; Nucleated Red Blood Cells % 0 %; Platelet Count 323 10^3/cmm (130-400); Red Blood Count 3.62 10^6/uL (4.1-5.3); Red Cell Distribution Width 14.6 % (12.1-15.1); White Blood Count 12.4 10^3/uL (4.0-10.0)
[2021-07-05 06:55] LABS: Glucose Point of Care 119 mg/dL (70-110)
[2021-07-05 07:01] LABS: NT Pro B Type Natriuretic Pept 1146 pg/mL (0-125); Procalcitonin 0.12 ng/mL (0-0.5)
[2021-07-05 07:13] LABS: Alanine Aminotransferase 42 U/L (0-33); Albumin Level 3.1 g/dL (3.5-5.2); Alkaline Phosphatase 183 IU/L (35-105); Anion Gap 25.8 (5-19); Aspartate Amino Transferase 56 U/L (0-32); Blood Urea Nitrogen 7 mg/dL (8-23); C Reactive Protein 64.9 mg/L (0.0-4.9); Calcium 8.5 mg/dL (8.5-10.5); Carbon Dioxide 19 mmol/L (22-29); Chloride 101 mmol/L (98-107); Glomerular Filtration Rate 63.9 mL/min (90-130); Glucose 91 mg/dL (65-115); Magnesium 2.2 mg/dL (1.7-2.3); Osmolality Calculated 294 mOsm/kg (285-295); Phosphorus 1.6 mg/dL (2.5-4.5); Sodium 143 mmol/L (136-145); Total Bilirubin 0.4 mg/dL (0.15-1.2); Total Protein 6.1 g/dL (6.6-8.7)
[2021-07-05 07:14] LABS: Creatine Phosphokinase 990 U/L (26-192); Potassium 2.8 mmol/L (3.5-5.1)
[2021-07-05 11:28] LABS: Glucose Point of Care 148 mg/dL (70-110)
[2021-07-05] MEDS: ondansetron 2 mg/ML SDV 2 mL 4 MG IVP (11:46)
[2021-07-05] MEDS: insulin lispro 100 unit/1 mL SUBCUT ×3 (11:54→21:18)
[2021-07-05 12:33] LABS: Glucose Point of Care 136 mg/dL (70-110)
[2021-07-05 12:33] LABS: Glucose Point of Care 151 mg/dL (70-110)
[2021-07-05 12:33] LABS: Glucose Point of Care 157 mg/dL (70-110)
[2021-07-05 12:33] LABS: Glucose Point of Care 156 mg/dL (70-110)
[2021-07-05 12:33] LABS: Glucose Point of Care 117 mg/dL (70-110)
[2021-07-05 12:33] LABS: Glucose Point of Care 175 mg/dL (70-110)
[2021-07-05 12:34] LABS: Glucose Point of Care 169 mg/dL (70-110)
[2021-07-05 12:34] LABS: Glucose Point of Care 170 mg/dL (70-110)
[2021-07-05 12:34] LABS: Glucose Point of Care 167 mg/dL (70-110)
[2021-07-05 12:34] LABS: Glucose Point of Care 208 mg/dL (70-110)
[2021-07-05 12:34] LABS: Glucose Point of Care 136 mg/dL (70-110)
[2021-07-05 12:34] LABS: Glucose Point of Care 159 mg/dL (70-110)
--- NOTE | 2021-07-05 13:13 | XR_ITS ---
WS: [id number] Exam: XR chest 1V portable [id number] Date/Time of Exam: 07/05/2021 1:16 PM Reason For Exam: sob Comparison 06/23/2021. Plaque atelectasis in the left base. The lungs are otherwise clear. No pleural effusions. Normal card iomediastinal silhouette. Bony structures are intact. Monitoring leads superimpose the chest. XR/XR chest 1V portable [id number] IMPRESSION: 1. Left basal plaque atelectasis. No acute process noted.
--- NOTE | 2021-07-05 13:13 | P.PN_ITS ---
Subjective Subjective: Interval history: Patient was seen this morning, daughter at bedside, patient's alert to person, not to place, not to time, she follows commands, she is able to recognize her daughter, she is able to recognize a phone ringing, she is still having nonpurposeful movement of upper and lower extremities, since it seems almost like extraparametal symptoms or symptoms chorea, febrile overnight, no cough, she removed her NG tube overnight Vitals/I&O/Wt Last Vital Signs Temp 97.7 F 07/05/21 11:14 Pulse 89 07/05/21 11:14 Resp 18 07/05/21 11:14 BP 109/66 07/05/21 11:14 Pulse Ox 96 07/05/21 11:14 07/04/21 07/05/21 07/05/21 22:59 06:59 14:59 Intake Total 196.083 / 356.750 Output Total 450 / 450 Balance 196.083 / -2443.250 -450 / -450 Weight last 48 hrs Weight 63.503 kg Weight 63.503 kg Physical Exam Const: COMMON NORMALS: no acute distress ORIENTATION/CONSCIOUSNESS: Yes awake and Yes oriented to person; not oriented to place and not oriented to time OTHER: Purposeless movement of upper lower extremities, and head, seems almost like symptoms chorea or extrapyramidal symptoms Resp: COMMON NORMALS: normal respiratory effort, No retractions, No use of accessory muscles and clear to auscultation bilaterally AUSCULTATION: clear to auscultation bilaterally Cardio: COMMON NORMALS: regular rate, regular rhythm, S1 normal heart sound present and S2 normal heart sound present RATE: regular rate RHYTHM: regular rhythm HEART SOUNDS: S1 normal heart sound present and S2 normal heart sound present GI: COMMON NORMALS: Normal to inspection, nondistended, normoactive bowel sounds present, Soft to palpation and non-tender PALPATION: Yes Soft to palpation Extremity: COMMON NORMALS: no pedal edema Neuro: SENSORIUM/ORIENTATION: Yes oriented to person, No oriented to place and No oriented to time Urinary Catheter Management^: Malhotra: Cath Placed During This Visit: yes, but has since been removed by the nurse Reason for Continuing Indwelling Catheter: Accurate Measurement of Urinary Output in Critically Ill Patients Urinary Catheter Date of Insertion: 06/24/21 Date Urinary Catheter Removed: 07/05/21 Time Urinary Catheter Discontinued: 10:58 Data : 11/17/21 05:27 07/05/21 05:27 Micro: Microbiology 06/30/21 03:55 Sputum Culture - Final Sputum - Endotracheal Tube Aspirate Nicolle albicans 07/03/21 10:00 Blood Culture - Preliminary Blood NEGATIVE TO DATE 07/03/21 10:03 Blood Culture - Preliminary Blood NEGATIVE TO DATE A&P Assessment and plan (1) Acute metabolic encephalopathy: Acute metabolic encephalopathy multifactorial -Improving, alert to person, not to place, not to time, follows commands, recognizes daughter, -Continues to have purposeless movement of upper and lower extremities and neck, seems almost like symptoms chorea or extrapyramidal symptoms -Metabolic -DKA -Possible anoxic brain injury from cardiac arrest -Repeat CT of the head no evidence of intracranial hemorrhage or mass-effect -CTA head of neck -1. No significant ICA stenosis bilaterally. 2. No flow-limiting intracranial stenosis. 3. Hypoplastic right A1 segment. 4. Both vertebral arteries are patent. Basilar artery is patent. 2D echo: Normal LV cavity size, moderately decreased LV systolic function, with LVEF 40-45%, no gross valvular abnormality. Blood culture:NTD Sputum culture: Yeast Cryptococcal antigen unremarkable Ammonia:Normal MRSA PCR: Negative Rapid COVID Antigen :Negative Rapid COVID PCR Is : Negative Influenza a and B- negative Urine Legionella antigen:Negative Bacterial antigen panel:Negative Respiratory viral panel: Negative CSF no growth analysis results: CSF WBC: 1 , CSF total protein:25, CSF glucose:130 TSH within normal limits Pro-Jeferson within normal limits Vitamin B12 within normal limits Folate within normal limits Thiamine pending EEG difficult study, no acute findings Plan: -Status post vancomycin, acyclovir, meropenem -Follow CSF viral studies -Thiamine -Status post Keppra -Monitor for fevers, monitor cultures -Neurochecks -Neurology consulted -Switch to Zyprexa 5 mg twice daily - stopped Wellbutrin -30 mg of Cymbalta -50 mg of trazodone -Monitor QTc interval closely, 550 ms -Discussed with family about possible transfer to tertiary level center for sec ond opinion versus placement at a long-term care facility, they'll have a family meeting tomorrow, reach decision -PT OT, speech therapy eval Acute respiratory failure, concerns for pulmonary edema, pneumonia -Successfully extubated 07/04/2021 -Monitor closely, currently on room air, moved to general medical floors -All cultures so far have been unremarkable -Discontinue antibiotics, has been on broad-spectrum antibiotic therapy for over 7 days QT C prolongation, multifactorial from sedating medications, Seroquel -Monitor QTC as she is on Zyprexa -Avoid benzos, avoid antipsychotic, avoid any medication that would prolong her QT Febrile overnight, repeat blood cultures, urine cultures, inflammatory markers, chest x-ray, EKG Status: Acute (2) Pneumonia: Status: Acute (3) Hypernatremia: Resolved. Free water deficit was calculated D5 water, D5 half NS, free water flushes through NG tube were used as needed. Continue to monitor BMP. Status: Resolved (4) DKA (diabetic ketoacidosis): Initially on insulin drip: Anion gap is closed: Currently on Lantus and sliding scale insulin. NG-tube is in place. Holding tube feedings Continue to monitor fingerstick glucose Status: Resolved (5) Heart failure: Currently compensated Lasix therapy as needed I/O Charting Mg>2, k>4 Status: Acute (6) Sepsis: Status: Acute (7) Acute kidney injury: Resolved GLADYS on CKD stage III: Likely secondary to cardiorenal syndrome/ATN Continue to monitor BMP Urine electrolytes Intake output charting Avoid nephrotoxic Status: Resolved (8) Hyperkalemia: Resolved Status: Resolved (9) Acute respiratory failure: Acute respiratory failure secondary to pneumonia Status: Resolved (10) Abnormal LFTs: Ultrasound abdomen:Prior cholecystectomy.Normal common bile duct. Hepatitis panel: Negative Likely secondary to congestive hepatopathy Status: Acute (11) Hypophosphatasia: K-Phos IV replacement done. Currently serum phosphorus is normal. Continue to monitor serum phosphorus. Status: Resolved (12) Cardiac arrest with successful resuscitation: Status: Acute (13) QT prolongation: Status: Acute (14) Rhabdomyolysis: Status: Acute Attestations Medical Necessity Statement*: Patient requires hospitalization for acute metabolic encephalopathy Coding Level of Care Code Acute Vegetable Sorter for [facility] Diagnoses Acute metabolic encephalopathy G93.41 Pneumonia J18.9 Hypernatremia E87.0 DKA (diabetic ketoacidosis) E11.10 Heart failure I50.9 Sepsis A41.9 Acute kidney injury N17.9 Hyperkalemia E87.5 Acute respiratory failure J96.00 Abnormal LFTs R94.5 Hypophosphatasia E83.39 Cardiac arrest with successful resuscitation I46.9 QT prolongation R94.31 Rhabdomyolysis M62.82
--- NOTE | 2021-07-05 13:19 | ECG_ITS ---
[facility] Test Date: 2021-07-05 Pat Name: Licha Beck Department: Room: 262 Gender: Female Electrophonic Engineer: : 1960 Requested By: Evan Osuna Order Number: [id number] Frank MD: Teresa Amin M.D. Measurements Intervals [place] Rate: 93 P: 61 [place]: 144 QRS: 119 QRSD: 153 T: -9 QT: 433 QTc: 539 Interpretive Statements SINUS RHYTHM RIGHT BUNDLE BRANCH BLOCK [120+ ms QRS DURATION, UPRIGHT V1, 40+ ms S IN I/aVL/V4/V5/V6] LEFT POSTERIOR FASCICULAR BLOCK [QRS AXIS > 109, INFERIOR Q] Compared to ECG 07/04/2021 18:41:02 Sinus tachycardia no longer present T-wave abnormality no longer present Possible ischemia no longer present Electronically Signed On 07-05-2021 22:46:28 CITRUS FRUIT PACKER by Teresa Amin M.D. [id number]
[2021-07-05] MEDS: dextrose 5%-sod chloride 0.9% 1,000 ML 50 ML IV (15:29)
--- NOTE | 2021-07-05 16:02 | PC.OT ---
Occupational therapy evaluation attempted. Patient not appropriate at this time due to severe cognitive deficits and emotional instability. Attempt eval following day.
[2021-07-05 17:02] LABS: Glucose Point of Care 147 mg/dL (70-110)
[2021-07-05] MEDS: OLANZapine 10 mg TABLET 5 MG PO (17:33)
[2021-07-05] MEDS: enoxaparin 40 mg/0.4 mL Syringe SUBCUT (21:17)
[2021-07-05 21:18] LABS: Glucose Point of Care 263 mg/dL (70-110)
[2021-07-05] MEDS: insulin glargine 100 units/1 mL 10 UNIT SUBCUT (21:18)
[2021-07-05] MEDS: trazodone 50 mg Tablet PO (21:19)
[2021-07-06] VITALS (8 sets, daily range): BP systolic 101–152; BP diastolic 62–79; PULSE 93–116; RESP 16–24; TEMP 36.1–37.3; O2SAT 90–99
--- NOTE | 2021-07-06 02:14 | PC.NURSE ---
PSA put bone plant supervisor light, nurse responded to the room, Patient was on knees facing bed. PSA had arms wrapped around patient and stated patient was trying to get out of bed and slid out of bed and psa assisted pt to the floor. Charge Nurse Cora notified, Nurse and Charge nurse assisted pt back to bed. No new skin tears or bruises noted. Pt Vitals BP 119/72, pulse 93, O2 94% RA, Oral Temp 98.8, RR 18. PSA stated to nurse that patient did not hit her head or fall to the floor, PSA stated she assisted pt as she slid to the floor on her knees. PT denied any complaints of pain. Nurse and BUNK ASSEMBLER provided linen change, memo care, and brief change to patient. Pt resting in be with PSA at the bedside.
--- NOTE | 2021-07-06 06:00 | ECG_ITS ---
[facility] Test Date: 2021-07-06 Pat Name: Licha Beck Department: Room: 262 Gender: Female Director Of Group Sales: : 1960 Requested By: Evan Osuna Order Number: [id number] Frank MD: Rhonda Marie M.D. Measurements Intervals [place] Rate: 76 P: 29 [place]: 144 QRS: 107 QRSD: 146 T: 42 QT: 440 QTc: 495 Interpretive Statements SINUS RHYTHM WITH OCCASIONAL SUPRAVENTRICULAR PREMATURE COMPLEXES RIGHT AXIS DEVIATION [QRS AXIS > 100] RIGHT BUNDLE BRANCH BLOCK [120+ ms QRS DURATION, UPRIGHT V1, 40+ ms S IN I/aVL/V4/V5/V6] Compared to ECG 07/05/2021 16:56:08 Right-axis deviation now present Left posterior fascicular block no longer present Electronically Signed On 07-07-2021 16:17:53 PAINTER by Rhonda Marie M.D. [id number]
[2021-07-06] MEDS: OLANZapine 10 mg TABLET 5 MG PO ×2 (06:09→18:50)
[2021-07-06 06:22] LABS: Basophils # 0.1 10^3/uL (0.0-0.1); Basophils % 0.7 %; Eosinophils # 0.3 10^3/uL (0.0-0.8); Eosinophils % 3.5 %; Hematocrit 31.9 % (37.0-47.0); Lymphocytes # 1.1 10^3/uL (0.8-4.8); Lymphocytes % 14.1 %; Mean Corpuscular HGB Conc 31.3 g/dL (30.0-36.0); Mean Corpuscular Hemoglobin 29.6 pg (28.0-34.0); Mean Corpuscular Volume 94.4 fl (81-99); Mean Platelet Volume 10.7 fL (7.4-10.4); Monocytes # 0.6 10^3/uL (0.2-0.9); Monocytes % 6.8 %; Neutrophils # 5.96 10^3/uL (1.8-7.7); Nucleated Red Blood Cells % 0 %; Platelet Count 331 10^3/cmm (130-400); Red Blood Count 3.38 10^6/uL (4.1-5.3); Red Cell Distribution Width 15.5 % (12.1-15.1); White Blood Count 8.1 10^3/uL (4.0-10.0)
[2021-07-06 07:03] LABS: NT Pro B Type Natriuretic Pept 724 pg/mL (0-125); Procalcitonin 0.11 ng/mL (0-0.5)
[2021-07-06 07:14] LABS: Alanine Aminotransferase 38 U/L (0-33); Albumin Level 2.6 g/dL (3.5-5.2); Alkaline Phosphatase 181 IU/L (35-105); Anion Gap 19.4 (5-19); Aspartate Amino Transferase 37 U/L (0-32); Blood Urea Nitrogen 6 mg/dL (8-23); C Reactive Protein 48.1 mg/L (0.0-4.9); Calcium 7.9 mg/dL (8.5-10.5); Carbon Dioxide 21 mmol/L (22-29); Chloride 104 mmol/L (98-107); Globulin 3.1 g/dL (1.3-4.6); Glomerular Filtration Rate 73.2 mL/min (90-130); Glucose 237 mg/dL (65-115); Magnesium 2.1 mg/dL (1.7-2.3); Osmolality Calculated 297 mOsm/kg (285-295); Phosphorus 2.7 mg/dL (2.5-4.5); Potassium 3.4 mmol/L (3.5-5.1); Sodium 141 mmol/L (136-145); Total Bilirubin 0.4 mg/dL (0.15-1.2); Total Protein 5.7 g/dL (6.6-8.7)
[2021-07-06 08:04] LABS: Creatine Phosphokinase 377 U/L (26-192)
[2021-07-06] MEDS: duloxetine 30 mg Capsule PO (08:47)
[2021-07-06] MEDS: levothyroxine 112 mcg Tablet PO (08:47)
[2021-07-06] MEDS: insulin lispro 100 unit/1 mL SUBCUT ×4 (08:48→21:01)
--- NOTE | 2021-07-06 13:03 | P.PN_ITS ---
Subjective Subjective: Interval history: Patient was seen this morning, she is alert to person, to place, not to time, she follows all commands, she wants to know why she was here in the hospital, I discussed her hospitalization, and everything that happened, she is much less emotional today, she has no pain complaints, no nausea, no vomiting, she has less of her fidgeting and purposeless movements this morning Yesterday evening, I had a discussion with patient's 2 sons, and daughter at bedside, patient was also alert and awake, discussed options available including transfer to higher level center for secondary neurology opinion and further evaluation versus transfer to long-term care facilities versus care home, after discussing the risks and benefits of all options, they voiced un derstanding, all questions answered, agreed to proceed with long-term care facility Vitals/I&O/Wt Last Vital Signs Temp 98.4 F 07/06/21 08:00 Pulse 97 07/06/21 08:00 Resp 17 07/06/21 08:00 BP 101/66 07/06/21 08:00 Pulse Ox 90 07/06/21 08:00 07/05/21 07/06/21 07/06/21 22:59 06:59 14:59 Intake Total 480 / 689.0909 240 / 929.0909 240 / 240 Balance 480 / 239.0909 240 / 479.0909 240 / 240 Weight last 48 hrs Weight 70.67 kg Weight 63.503 kg Physical Exam Const: COMMON NORMALS: no acute distress ORIENTATION/CONSCIOUSNESS: Yes awake, Yes oriented to person and Yes oriented to place; not oriented to time Resp: COMMON NORMALS: normal respiratory effort, No retractions, No use of accessory muscles and clear to auscultation bilaterally AUSCULTATION: clear to auscultation bilaterally Cardio: COMMON NORMALS: regular rate, regular rhythm, S1 normal heart sound present and S2 normal heart sound present RATE: regular rate RHYTHM: regular rhythm HEART SOUNDS: S1 normal heart sound present and S2 normal heart sound present GI: COMMON NORMALS: Normal to inspection, nondistended, normoactive bowel sounds present, Soft to palpation and non-tender PALPATION: Yes Soft to palpation Extremity: COMMON NORMALS: no pedal edema Neuro: SENSORIUM/ORIENTATION: Yes oriented to person, Yes oriented to place and No oriented to time Urinary Catheter Management^: Malhotra: Cath Placed During This Visit: yes, but has since been removed by the nurse Reason for Continuing Indwelling Catheter: Accurate Measurement of Urinary Output in Critically Ill Patients Urinary Catheter Date of Insertion: 06/24/21 Date Urinary Catheter Removed: 07/05/21 Time Urinary Catheter Discontinued: 10:58 Data : 07/06/21 06:07 07/06/21 06:07 Micro: Microbiology 07/05/21 14:18 Blood Culture - Preliminary Blood SPECIMEN COLLECTED 07/05/21 14:15 Blood Culture - Preliminary Blood SPECIMEN COLLECTED A&P Assessment and plan (1) Acute metabolic encephalopathy: Acute metabolic encephalopathy multifactorial -Improving, alert to person, to place, not to time, follows commands, recognizes daughter, -Less random purposeless movements -Metabolic -DKA -Possible anoxic brain injury from cardiac arrest -Repeat CT of the head no evidence of intracranial hemorrhage or mass-effect -CTA head of neck -1. No significant ICA stenosis bilaterally. 2. No flow-limiting intracranial stenosis. 3. Hypoplastic right A1 segment. 4. Both vertebral arteries are patent. Basilar artery is patent. 2D echo: Normal LV cavity size, moderately decreased LV systolic function, with LVEF 40-45%, no gross valvular abnormality. Blood culture:NTD Sputum culture: Yeast Cryptococcal antigen unremarkable Ammonia:Normal MRSA PCR: Negative Rapid COVID Antigen :Negative Rapid COVID PCR Is : Negative Influenza a and B- negative Urine Legionella antigen:Negative Bacterial antigen panel:Negative Respiratory viral panel: Negative CSF no growth analysis results: CSF WBC: 1 , CSF total protein:25, CSF glucose:130 TSH within normal limits Pro-Jeferson within normal limits Vitamin B12 within normal limits Folate within normal limits Thiamine pending EEG difficult study, no acute findings Plan: -Currently on Primaxin for possible aspiration pneumonia -Follow CSF viral studies -Thiamine -Status post Keppra -Monitor for fevers, monitor cultures -Neurochecks -Neurology consulted -Switch to Zyprexa 5 mg twice daily - stopped Wellbutrin -30 mg of Cymbalta -50 mg of trazodone -Monitor QTc interval closely, 550 ms -Discussed with family about possible transfer to tertiary level center for second opinion versus placement at a long-term care facility, patient's family wants her to go to a long-term care facility -PT OT, speech therapy eval -Dysphagia diet Acute respiratory failure, concerns for pulmonary edema, pneumonia -Successfully extubated 07/04/2021 -Monitor closely, currently on room air, moved to general medical floors -All cultures so far have been unremarkable QT C prolongation, multifactorial from sedating medications, Seroquel -Monitor QTC as she is on Zyprexa -Avoid benzos, avoid antipsychotic, avoid any medication that would prolong her QT Febrile 48 hours ago, repeat blood cultures, urine cultures, inflammatory ma rkers unremarkable, chest ray unremarkable, UA unremarkable, will cover from her maximum possible aspiration Status: Acute (2) Pneumonia: Status: Acute (3) Hypernatremia: Resolved. Free water deficit was calculated D5 water, D5 half NS, free water flushes through NG tube were used as needed. Continue to monitor BMP. Status: Resolved (4) DKA (diabetic ketoacidosis): Initially on insulin drip: Anion gap is closed: Currently on Lantus and sliding scale insulin. NG-tube is in place. Holding tube feedings Continue to monitor fingerstick glucose Status: Resolved (5) Heart failure: Currently compensated Lasix therapy as needed I/O Charting Mg>2, k>4 Status: Acute (6) Sepsis: Status: Acute (7) Acute kidney injury: Resolved GLADYS on CKD stage III: Likely secondary to cardiorenal syndrome/ATN Continue to monitor BMP Urine electrolytes Intake output charting Avoid nephrotoxic Status: Resolved (8) Hyperkalemia: Resolved Status: Resolved (9) Acute respiratory failure: Acute respiratory failure secondary to pneumonia Status: Resolved (10) Abnormal LFTs: Ultrasound abdomen:Prior cholecystectomy.Normal common bile duct. Hepatitis panel: Negative Likely secondary to congestive hepatopathy Status: Acute (11) Hypophosphatasia: K-Phos IV replacement done. Currently serum phosphorus is normal. Continue to monitor serum phosphorus. Status: Resolved (12) Cardiac arrest with successful resuscitation: Status: Acute (13) QT prolongation: Status: Acute (14) Rhabdomyolysis: Status: Acute Attestations Medical Necessity Statement*: Patient requires hospitalization for acute encephalopathy, multifactorial Coding Level of Care Code Acute Grain Oilseed Or Pasture Farm Manager for [facility] Diagnoses Acute metabolic encephalopathy G93.41 Pneumonia J18.9 Hypernatremia E87.0 DKA (diabetic ketoacidosis) E11.10 Heart failure I50.9 Sepsis A41.9 Acute kidney injury N17.9 Hyperkalemia E87.5 Acute respiratory failure J96.00 Abnormal LFTs R94.5 Hypophosphatasia E83.39 Cardiac arrest with successful resuscitation I46.9 QT prolongation R94.31 Rhabdomyolysis M62.82
[2021-07-06] MEDS: potassium chloride ER 20 mEq Tablet 40 MEQ PO (13:04)
[2021-07-06] MEDS: cyanocobalamin 1,000 mcg Tablet 1000 MCG PO (13:05)
[2021-07-06] MEDS: folic acid 1 mg Tablet PO (13:05)
[2021-07-06 13:16] LABS: Glucose Point of Care 313 mg/dL (70-110)
[2021-07-06 13:28] LABS: Lyme Disease AB (IGG),IBL NO BANDS DETECTED; Lyme Disease AB (IGM), IBL NO BANDS DETECTED
[2021-07-06] MEDS: insulin glargine 100 units/1 mL 8 UNIT SUBCUT ×2 (13:30→21:01)
[2021-07-06 18:21] LABS: Glucose Point of Care 327 mg/dL (70-110)
[2021-07-06] MEDS: enoxaparin 40 mg/0.4 mL Syringe SUBCUT (20:47)
[2021-07-06] MEDS: trazodone 50 mg Tablet PO (20:47)
[2021-07-06 21:04] LABS: Glucose Point of Care 374 mg/dL (70-110)
[2021-07-06 22:08] LABS: West Nile Virus AB (IGG) <1.30 index; West Nile Virus AB (IGM) <0.90 index
[2021-07-07] VITALS: BP 117/69; PULSE 88; RESP 16; TEMP 36.8; O2SAT 93
[2021-07-07] MEDS: acetaminophen 650 mg Supp PR (00:10)
[2021-07-07 04:00] VITALS: BP 106/63; PULSE 80; RESP 18; TEMP 36.6; O2SAT 93
[2021-07-07] MEDS: OLANZapine 10 mg TABLET 5 MG PO ×2 (05:20→17:20)
--- NOTE | 2021-07-07 06:00 | ECG_ITS ---
[facility] Test Date: 2021-07-07 Pat Name: Licha Beck Department: Room: 262 Gender: Female Educational Psychology Teacher: : 1960 Requested By: Evan Osuna Order Number: [id number] Frank MD: Rhonda Marie M.D. Measurements Intervals [place] Rate: 75 P: -32 [place]: 119 QRS: 111 QRSD: 153 T: 68 QT: 470 QTc: 527 Interpretive Statements SINUS RHYTHM WITH SHORT HI INTERVAL WITH OCCASIONAL SUPRAVENTRICULAR PREMATURE COMPLEXES INTRAVENTRICULAR CONDUCTION DELAY [130+ ms QRS DURATION] Compared to ECG 07/06/2021 06:00:53 Short HI interval now present Intraventricular conduction delay now present Right-axis deviation no longer present Right bundle-branch block no longer present Electronically Signed On 07-07-2021 16:15:39 MEAT COUNTER CLERK by Rhonda Marie M.D. [id number]
[2021-07-07 06:51] LABS: Glucose Point of Care 175 mg/dL (70-110)
[2021-07-07 06:52] LABS: Basophils # 0.1 10^3/uL (0.0-0.1); Basophils % 1.4 %; Eosinophils # 0.2 10^3/uL (0.0-0.8); Eosinophils % 3.4 %; Hemoglobin 9.8 g/dL (11.5-15.3); Lymphocytes # 1.3 10^3/uL (0.8-4.8); Lymphocytes % 19.5 %; Mean Corpuscular HGB Conc 31.6 g/dL (30.0-36.0); Mean Corpuscular Hemoglobin 29.2 pg (28.0-34.0); Mean Corpuscular Volume 92.3 fl (81-99); Mean Platelet Volume 10.6 fL (7.4-10.4); Monocytes # 0.5 10^3/uL (0.2-0.9); Monocytes % 7.8 %; Neutrophils # 4.41 10^3/uL (1.8-7.7); Neutrophils % 67.1 %; Nucleated Red Blood Cells % 0 %; Platelet Count 352 10^3/cmm (130-400); Red Blood Count 3.36 10^6/uL (4.1-5.3); Red Cell Distribution Width 15.7 % (12.1-15.1); White Blood Count 6.6 10^3/uL (4.0-10.0)
[2021-07-07 07:13] LABS: Alanine Aminotransferase 32 U/L (0-33); Albumin Level 2.9 g/dL (3.5-5.2); Alkaline Phosphatase 163 IU/L (35-105); Aspartate Amino Transferase 30 U/L (0-32); Blood Urea Nitrogen 6 mg/dL (8-23); Calcium 8.4 mg/dL (8.5-10.5); Carbon Dioxide 29 mmol/L (22-29); Chloride 107 mmol/L (98-107); Globulin 2.7 g/dL (1.3-4.6); Glomerular Filtration Rate 73.2 mL/min (90-130); Glucose 162 mg/dL (65-115); Magnesium 2.1 mg/dL (1.7-2.3); Osmolality Calculated 303 mOsm/kg (285-295); Phosphorus 2.3 mg/dL (2.5-4.5); Sodium 146 mmol/L (136-145); Total Bilirubin 0.4 mg/dL (0.15-1.2); Total Protein 5.6 g/dL (6.6-8.7)
[2021-07-07 07:22] VITALS: BP 113/68; PULSE 81; RESP 16; TEMP 36.7; O2SAT 93
--- NOTE | 2021-07-07 08:17 | P.NPUPN_ITS ---
Subjective NPU Subjective: Interval history: She is doing significantly better. She was asleep when I entered the room but woke up and was able to answer questions. She closed her eyes and seemed to be asleep for about 30 seconds but then woke back up. She said that she was ready to go home. She said that she could take care of herself. She said that she could walk. She said that she could feed herself but when breakfast was brought to her she just looked at it and briefly handled the containers but put them back. The nurse said that she had become agitated yesterday when her son left. She thought that he had been killed. She calm down when he returned. She is getting Zyprexa 5 mg twice a day. And that seems to be working well. She does not seem to be overly sedated. Mental Status Exam MSE Comments: This is a well-nourished well-developed white female looking older than her stated age in a hospital gown appearing more active with no psychomotor agitation. Her breakfast tray was brought while I was there. She said that she could feed herself. She looked at the container of apple juice and another container but did not open them. Eye contact was fairly good but somewhat intermittent. She was able to answer most questions. Periodically she would now attend to her environment. Mood was not described. Affect was somewhat pleasant and in no distress. There is no evidence of any delusions or hallucinations. Vitals/I&O/Wt Last Vital Signs Temp 98.1 F 07/07/21 07:22 Pulse 81 07/07/21 07:22 Resp 16 07/07/21 07:22 BP 113/68 07/07/21 07:22 Pulse Ox 93 07/07/21 07:22 07/06/21 07/07/21 07/07/21 22:59 06:59 14:59 Intake Total 1700 / 1940 240 / 2180 Balance 1700 / 1940 240 / 2180 Weight last 48 hrs Weight 64.183 kg Weight 70.67 kg Physical Exam Urinary Catheter Management^: Malhotra: Cath Placed During This Visit: yes, but has since been removed by the nurse Reason for Continuing Indwelling Catheter: Accurate Measurement of Urinary Output in Critically Ill Patients Urinary Catheter Date of Insertion: 06/24/21 Date Urinary Catheter Removed: 07/05/21 Time Urinary Catheter Discontinued: 10:58 Data NPU : 07/07/21 06:22 07/07/21 06:22 Micro: Microbiology 07/05/21 14:18 Blood Culture - Preliminary Blood NEGATIVE TO DATE 07/05/21 14:15 Blood Culture - Preliminary Blood NEGATIVE TO DATE Microbiology 07/05/21 14:18 Blood Blood Culture - Preliminary NEGATIVE TO DATE 07/05/21 14:15 Blood Blood Culture - Preliminary NEGATIVE TO DATE A&P Assessment and plan (1) Heart failure: Status: Acute (2) Hypernatremia: Status: Resolved (3) Hypophosphatasia: Status: Resolved (4) Abnormal LFTs: Status: Acute (5) Acute respiratory failure: Status: Resolved (6) Hyperkalemia: Status: Resolved (7) Acute kidney injury: Status: Resolved (8) Sepsis: Status: Acute (9) Pneumonia: Status: Acute (10) Acute metabolic encephalopathy: Status: Acute (11) DKA (diabetic ketoacidosis): Status: Resolved (12) Altered mental status: Status: Acute Additional A&P Information (1) Heart failure: (2) Hypernatremia: (3) Hypophosphatasia: (4) Abnormal LFTs: (5) Acute respiratory failure: (6) Hyperkalemia: (7) Acute kidney injury: (8) Sepsis: (9) Pneumonia: (10) Acute metabolic encephalopathy: (11) DKA (diabetic ketoacidosis): (12) Altered mental status: Additional A&P Information This is a 61-year-old white female with a reported history of depression and possible bipolar disorder with recent stable mental status who presents with a ltered mental status significantly improved over the last few days. Hopefully improvement will continue. 1. Continue medication as deemed appropriate by hospitalist. 2. No clear sign of psychiatric indication to this presentation. No suggestion of illicits or prescription drug use, abuse or withdrawal that might lead to this presentation. 3. Agree with Zyprexa 5 mg BID for agitation. Attestations NPU Medical Necessity Statement*: Inpatient hospitalization is medically necessary and the clinically appropriate intervention at this time. We will initiate medications and make changes as indicated Coding Level of Care Code Acute Peanut Separator for [facility] Diagnoses Heart failure I50.9 Hypernatremia E87.0 Hypophosphatasia E83.39 Abnormal LFTs R94.5 Acute respiratory failure J96.00 Hyperkalemia E87.5 Acute kidney injury N17.9 Sepsis A41.9 Pneumonia J18.9 Acute metabolic encephalopathy G93.41 DKA (diabetic ketoacidosis) E11.10 Altered mental status R41.82
[2021-07-07] MEDS: amoxicillin-clav 875-125 mg Tablet 1 TAB PO ×2 (09:29→17:18)
[2021-07-07] MEDS: levothyroxine 112 mcg Tablet PO (09:29)
[2021-07-07] MEDS: potassium chloride ER 20 mEq Tablet 40 MEQ PO (09:29)
[2021-07-07] MEDS: folic acid 1 mg Tablet PO (09:30)
[2021-07-07] MEDS: cyanocobalamin 1,000 mcg Tablet 1000 MCG PO (09:30)
[2021-07-07] MEDS: duloxetine 30 mg Capsule PO (09:30)
[2021-07-07] MEDS: phosphorus 250 mg Tablet PO ×2 (09:30→17:19)
[2021-07-07] MEDS: insulin glargine 100 units/1 mL 8 UNIT SUBCUT ×2 (10:04→22:10)
[2021-07-07 10:57] LABS: Glucose Point of Care 332 mg/dL (70-110)
[2021-07-07 11:29] VITALS: BP 98/62; PULSE 74; RESP 14; TEMP 36.8; O2SAT 92
[2021-07-07] MEDS: insulin lispro 100 unit/1 mL SUBCUT ×3 (11:45→22:10)
--- NOTE | 2021-07-07 13:26 | P.PN_ITS ---
Subjective Subjective: Interval history: Yesterday afternoon, patient slid out of bed, no head trauma, did not lose consciousness, but she did hit both knees, this morning, she has no complaints, no fevers, no chills, she is alert to person, not to place, not to time, she is a bit more forgetful than usual. Had a poor appetite overnight, did not have much of her breakfast Vitals/I&O/Wt Last Vital Signs Temp 98.2 F 07/07/21 11:29 Pulse 74 07/07/21 11:29 Resp 14 07/07/21 11:29 BP 98/62 07/07/21 11:29 Pulse Ox 92 07/07/21 11:29 07/06/21 07/07/21 07/07/21 22:59 06:59 14:59 Intake Total 1700 / 1940 240 / 2180 Balance 1700 / 1940 240 / 2180 Weight last 48 hrs Weight 64.183 kg Weight 70.67 kg Physical Exam Const: COMMON NORMALS: no acute distress ORIENTATION/CONSCIOUSNESS: Yes awake and Yes oriented to person; not oriented to place and not oriented to time OTHER: Follows commands, squeezing my fingers, she is able to smile for me Resp: COMMON NORMALS: normal respiratory effort, No retractions, No use of accessory muscles and clear to auscultation bilaterally AUSCULTATION: clear to auscultation bilaterally Cardio: COMMON NORMALS: regular rate, regular rhythm, S1 normal heart sound present and S2 normal heart sound present RATE: regular rate RHYTHM: regular rhythm HEART SOUNDS: S1 normal heart sound present and S2 normal heart sound present GI: COMMON NORMALS: Normal to inspection, nondistended, normoactive bowel sounds present, Soft to palpation and non-tender PALPATION: Yes Soft to palpation Extremity: COMMON NORMALS: capillary refill normal, no clubbing, cyanosis or edema, no calf tenderness and no pedal edema Neuro: SENSORIUM/ORIENTATION: Yes oriented to person, No oriented to place and No oriented to time Urinary Catheter Management^: Malhotra: Cath Placed During This Visit: yes, but has since been removed by the nurse Reason for Continuing Indwelling Catheter: Accurate Measurement of Urinary Output in Critically Ill Patients Urinary Catheter Date of Insertion: 06/24/21 Date Urinary Catheter Removed: 07/05/21 Time Urinary Catheter Discontinued: 10:58 Data : 07/07/21 06:22 07/07/21 06:22 Micro: Microbiology 07/05/21 14:18 Blood Culture - Preliminary Blood NEGATIVE TO DATE 07/05/21 14:15 Blood Culture - Preliminary Blood NEGATIVE TO DATE A&P Assessment and plan (1) Acute metabolic encephalopathy: Acute metabolic encephalopathy multifactorial -Improving, alert to person, to place, not to time, follows commands, recognizes daughter, -Less random purposeless movements -Metabolic -DKA -Possible anoxic brain injury from cardiac arrest -Repeat CT of the head no evidence of intracranial hemorrhage or mass-effect -CTA head of neck -1. No significant ICA stenosis bilaterally. 2. No flow-limiting intracranial stenosis. 3. Hypoplastic right A1 segment. 4. Both vertebral arteries are patent. Basilar artery is patent. 2D echo: Normal LV cavity size, moderately decreased LV systolic function, with LVEF 40-45%, no gross valvular abnormality. Blood culture:NTD Sputum culture: Yeast Cryptococcal antigen unremarkable Ammonia:Normal MRSA PCR: Negative Rapid COVID Antigen :Negative Rapid COVID PCR Is : Negative Influenza a and B- negative Urine Legionella antigen:Negative Bacterial antigen panel:Negative Respiratory viral panel: Negative CSF no growth analysis results: CSF WBC: 1 , CSF total protein:25, CSF glucose:130 TSH within normal limits Pro-Jeferson within normal limits Vitamin B12 within normal limits Folate within normal limits Thiamine pending EEG difficult study, no acute findings Plan: -Switch to p.o. Augmentin -Follow CSF viral studies -Thiamine -Monitor for fevers, monitor cultures -Neurochecks -Switch to Zyprexa 5 mg twice daily - stopped Wellbutrin -30 mg of Cymbalta -50 mg of trazodone -Monitor QTc interval closely, 550 ms -Family would like her to go to a long-term care facility versus select -PT OT, speech therapy eval -Dysphagia diet Acute respiratory failure, concerns for pulmonary edema, pneumonia -Successfully extubated 07/04/2021 -Monitor closely, currently on room air, moved to general medical floors -All cultures so far have been unremarkable QT C prolongation, multifactorial from sedating medications, Seroquel -Monitor QTC as she is on Zyprexa -Avoid benzos, avoid antipsychotic, avoid any medication that would prolong her QT Febrile, remains afebrile repeat blood cultures, urine cultures, inflammatory markers unremarkable, chest ray unremarkable, UA unremarkable, will cover her with Augmentin as above Status: Acute (2) Pneumonia: Status: Acute (3) Hypernatremia: Resolved. Free water deficit was calculated D5 water, D5 half NS, free water flushes through NG tube were used as needed. Continue to monitor BMP. Status: Resolved (4) DKA (diabetic ketoacidosis): Initially on insulin drip: Anion gap is closed: Currently on Lantus and sliding scale insulin. NG-tube is in place. Holding tube feedings Continue to monitor fingerstick glucose Status: Resolved (5) Heart failure: Currently compensated Lasix therapy as needed I/O Charting Mg>2, k>4 Status: Acute (6) Sepsis: Status: Acute (7) Acute kidney injury: Resolved GLADYS on CKD stage III: Likely secondary to cardiorenal syndrome/ATN Continue to monitor BMP Urine electrolytes Intake output charting Avoid nephrotoxic Status: Resolved (8) Hyperkalemia: Resolved Status: Resolved (9) Acute respiratory failure: Acute respiratory failure secondary to pneumonia Status: Resolved (10) Abnormal LFTs: Ultrasound abdomen:Prior cholecystectomy.Normal common bile duct. Hepatitis panel: Negative Likely secondary to congestive hepatopathy Status: Acute (11) Hypophosphatasia: K-Phos IV replacement done. Currently serum phosphorus is normal. Continue to monitor serum phosphorus. Status: Resolved (12) Cardiac arrest with successful resuscitation: Status: Acute (13) QT prolongation: Status: Acute (14) Rhabdomyolysis: Status: Acute Attestations Medical Necessity Statement*: Patient requires hospitalization for acute encephalopathy, deconditioning, protein, malnutrition, hyponatremia Coding Level of Care Code Acute Book Illustrator for [facility] Diagnoses Acute metabolic encephalopathy G93.41 Pneumonia J18.9 Hypernatremia E87.0 DKA (diabetic ketoacidosis) E11.10 Heart failure I50.9 Sepsis A41.9 Acute kidney injury N17.9 Hyperkalemia E87.5 Acute respiratory failure J96.00 Abnormal LFTs R94.5 Hypophosphatasia E83.39 Cardiac arrest with successful resuscitation I46.9 QT prolongation R94.31 Rhabdomyolysis M62.82
[2021-07-07 16:00] VITALS: BP 115/69; PULSE 60; RESP 15; TEMP 37.1; O2SAT 94
[2021-07-07 16:51] LABS: Glucose Point of Care 249 mg/dL (70-110)
[2021-07-07] MEDS: docusate sodium 100 mg Capsule PO (17:18)
[2021-07-07] MEDS: polyethylene glycol 3350 Pkt 17 gm PO (17:20)
[2021-07-07 20:00] VITALS: BP 118/73; PULSE 80; RESP 17; TEMP 37.1; O2SAT 61
[2021-07-07 21:30] LABS: Glucose Point of Care 362 mg/dL (70-110)
[2021-07-07] MEDS: enoxaparin 40 mg/0.4 mL Syringe SUBCUT (22:09)
[2021-07-07] MEDS: trazodone 50 mg Tablet PO (22:10)
[2021-07-08] VITALS (7 sets, daily range): BP systolic 101–119; BP diastolic 64–82; PULSE 77–87; RESP 15–17; TEMP 36.6–37.1; O2SAT 92–98
[2021-07-08] MEDS: OLANZapine 10 mg TABLET 5 MG PO ×2 (05:19→17:35)
--- NOTE | 2021-07-08 06:00 | ECG_ITS ---
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 Measurements Intervals [place] Rate: 80 P: -72 OK: 131 QRS: 106 QRSD: 149 T: 51 QT: 447 QTc: 516 Interpretive Statements JUNCTIONAL RHYTHM WITH OCCASIONAL VENTRICULAR PREMATURE COMPLEXES WITH OCCASIONAL SUPRAVENTRICULAR PREMATURE COMPLEXES Features of right ventricular strain/anterior wall ischemia RIGHT AXIS DEVIATION [QRS AXIS > 100] RIGHT BUNDLE BRANCH BLOCK [120+ ms QRS DURATION, UPRIGHT V1, 40+ ms S IN I/aVL/V4/V5/V6] Compared to ECG 07/07/2021 05:17:23 Junctional rhythm now present Ventricular premature complex(es) now present Right-axis deviation now present Right bundle-branch block now present Sinus rhythm no longer present Short OK interval no longer present Intraventricular conduction delay no longer present Electronically Signed On 07-08-2021 22:14:15 [employer]CH STORE MANAGER by Teresa Amin M.D. [id number]
[2021-07-08 06:41] LABS: Basophils # 0.1 10^3/uL (0.0-0.1); Basophils % 0.9 %; Eosinophils # 0.2 10^3/uL (0.0-0.8); Eosinophils % 3.2 %; Hemoglobin 10.2 g/dL (11.5-15.3); Lymphocytes # 1.2 10^3/uL (0.8-4.8); Lymphocytes % 21.3 %; Mean Corpuscular HGB Conc 30.9 g/dL (30.0-36.0); Mean Corpuscular Hemoglobin 29.1 pg (28.0-34.0); Mean Platelet Volume 10.7 fL (7.4-10.4); Monocytes # 0.5 10^3/uL (0.2-0.9); Neutrophils # 3.43 10^3/uL (1.8-7.7); Neutrophils % 63.7 %; Nucleated Red Blood Cells % 0 %; Platelet Count 344 10^3/cmm (130-400); Red Blood Count 3.51 10^6/uL (4.1-5.3); Red Cell Distribution Width 15.9 % (12.1-15.1); White Blood Count 5.4 10^3/uL (4.0-10.0)
[2021-07-08 06:58] LABS: Glucose Point of Care 136 mg/dL (70-110)
[2021-07-08 07:02] LABS: Alanine Aminotransferase 28 U/L (0-33); Albumin Level 2.9 g/dL (3.5-5.2); Alkaline Phosphatase 173 IU/L (35-105); Anion Gap 15.7 (5-19); Aspartate Amino Transferase 37 U/L (0-32); Blood Urea Nitrogen 6 mg/dL (8-23); Carbon Dioxide 24 mmol/L (22-29); Chloride 102 mmol/L (98-107); Glomerular Filtration Rate 85.4 mL/min (90-130); Glucose 128 mg/dL (65-115); Magnesium 1.9 mg/dL (1.7-2.3); Osmolality Calculated 287 mOsm/kg (285-295); Phosphorus 2.1 mg/dL (2.5-4.5); Sodium 139 mmol/L (136-145); Total Bilirubin 0.5 mg/dL (0.15-1.2); Total Protein 5.9 g/dL (6.6-8.7)
[2021-07-08 07:22] LABS: Potassium 2.7 mmol/L (3.5-5.1)
[2021-07-08] MEDS: duloxetine 30 mg Capsule PO (08:39)
[2021-07-08] MEDS: phosphorus 250 mg Tablet PO ×2 (08:39→17:15)
[2021-07-08] MEDS: levothyroxine 112 mcg Tablet PO (08:39)
[2021-07-08] MEDS: docusate sodium 100 mg Capsule PO ×2 (08:39→17:15)
[2021-07-08] MEDS: cyanocobalamin 1,000 mcg Tablet 1000 MCG PO (08:39)
[2021-07-08] MEDS: folic acid 1 mg Tablet PO (08:39)
[2021-07-08] MEDS: amoxicillin-clav 875-125 mg Tablet 1 TAB PO ×2 (08:39→17:15)
[2021-07-08] MEDS: magnesium sulfate premix 2 GM/50 ML PIGGYBACK IV (09:22)
--- NOTE | 2021-07-08 09:52 | PC.NURSE ---
Dr. Osuna approved the patient's request for no IV access. Patient denied the IV placement the nurse attempted this morning to give medications. Dr will change IV meds to oral.
[2021-07-08 11:04] LABS: Glucose Point of Care 216 mg/dL (70-110)
[2021-07-08] MEDS: insulin glargine 100 units/1 mL 8 UNIT SUBCUT ×2 (11:06→21:14)
[2021-07-08] MEDS: magnesium oxide 400 mg tablet PO ×2 (11:06→17:15)
[2021-07-08] MEDS: insulin lispro 100 unit/1 mL SUBCUT ×3 (13:04→21:15)
--- NOTE | 2021-07-08 16:54 | P.PN_ITS ---
Subjective Subjective: Interval history: This morning patient was seen, she is refusing an IV, I have switched her medications to orals, she tells me that I am keeping her here in the hospital, that I am working with her, to keep her here in the hospital, she tells me that she wants to get out of the hospital, she is alert to person, not to place, not to time, she follows commands, afebrile overnight, she is agreeable to taking oral medications, continues to be weak, requires two- person assistance for ambulation, Vitals/I&O/Wt Last Vital Signs Temp 98.3 F 07/08/21 16:00 Pulse 77 07/08/21 16:00 Resp 15 07/08/21 16:00 BP 119/82 07/08/21 16:00 Pulse Ox 94 07/08/21 16:00 07/08/21 07/08/21 07/08/21 06:59 14:59 22:59 Intake Total 360 / 840 138.333 / 138.333 Output Total 200 / 200 Balance 160 / 640 138.333 / 138.333 Weight last 48 hrs Weight 66.338 kg Weight 64.183 kg Physical Exam Const: COMMON NORMALS: no acute distress ORIENTATION/CONSCIOUSNESS: Yes awake and Yes oriented to person; not oriented to place and not oriented to time Resp: COMMON NORMALS: normal respiratory effort, No retractions, No use of accessory muscles and clear to auscultation bilaterally AUSCULTATION: clear to auscultation bilaterally Cardio: COMMON NORMALS: regular rate, regular rhythm, S1 normal heart sound present and S2 normal heart sound present RATE: regular rate RHYTHM: regular rhythm HEART SOUNDS: S1 normal heart sound present and S2 normal heart sound present GI: COMMON NORMALS: Normal to inspection, nondistended, normoactive bowel niki nds present, Soft to palpation and non-tender PALPATION: Yes Soft to palpation Extremity: COMMON NORMALS: no pedal edema Neuro: SENSORIUM/ORIENTATION: Yes oriented to person, No oriented to place and No oriented to time Urinary Catheter Management^: Malhotra: Cath Placed During This Visit: yes, but has since been removed by the nurse Reason for Continuing Indwelling Catheter: Accurate Measurement of Urinary Output in Critically Ill Patients Urinary Catheter Date of Insertion: 06/24/21 Date Urinary Catheter Removed: 07/05/21 Time Urinary Catheter Discontinued: 10:58 Data : 07/08/21 05:46 07/08/21 05:46 Micro: Microbiology 07/03/21 10:00 Blood Culture - Final Blood NO GROWTH AFTER 5 DAYS 07/03/21 10:03 Blood Culture - Final Blood NO GROWTH AFTER 5 DAYS A&P Assessment and plan (1) Acute metabolic encephalopathy: Acute metabolic encephalopathy multifactorial -Improving, alert to person, to place, not to time, follows commands, recognizes daughter, -No purposeless movements that I could discern today -Metabolic -DKA -Possible anoxic brain injury from cardiac arrest -Repeat CT of the head no evidence of intracranial hemorrhage or mass-effect -CTA head of neck -1. No significant ICA stenosis bilaterally. 2. No flow-limiting intracranial stenosis. 3. Hypoplastic right A1 segment. 4. Both vertebral arteries are patent. Basilar artery is patent. 2D echo: Normal LV cavity size, moderately decreased LV systolic function, with LVEF 40-45%, no gross valvular abnormality. Blood culture:NTD Sputum culture: Yeast Cryptococcal antigen unremarkable Ammonia:Normal MRSA PCR: Negative Rapid COVID Antigen :Negative Rapid COVID PCR Is : Negative Influenza a and B- negative Urine Legionella antigen:Negative Bacterial antigen panel:Negative Respiratory viral panel: Negative CSF no growth analysis results: CSF WBC: 1 , CSF total protein:25, CSF glucose:130 TSH within normal limits Pro-Jeferson within normal limits Vitamin B12 within normal limits Folate within normal limits Thiamine pending EEG difficult study, no acute findings Plan: -On p.o. Augmentin -Follow CSF viral studies -Thiamine -Monitor for fevers, monitor cultures -Neurochecks -Switch to Zyprexa 5 mg twice daily - stopped Wellbutrin -30 mg of Cymbalta -50 mg of trazodone -Monitor QTc interval closely, 550 ms -Family would like her to go to a long-term care facility versus select -PT OT, speech therapy eval -Dysphagia diet Acute respiratory failure, concerns for pulmonary edema, pneumonia -Successfully extubated 07/04/2021 -Monitor closely, currently on room air, moved to general medical floors -All cultures so far have been unremarkable QT C prolongation, multifactorial from sedating medications, Seroquel -Monitor QTC as she is on Zyprexa -Avoid benzos, avoid antipsychotic, avoid any medication that would prolong her QT Febrile, remains afebrile repeat blood cultures, urine cultures, inflammatory markers unremarkable, chest ray unremarkable, UA unremarkable, will cover her with Augmentin as above Status: Acute (2) Pneumonia: Status: Acute (3) Hypernatremia: Resolved. Free water deficit was calculated D5 water, D5 half NS, free water flushes through NG tube were used as needed. Continue to monitor BMP. Status: Resolved (4) DKA (diabetic ketoacidosis): Initially on insulin drip: Anion gap is closed: Currently on Lantus and sliding scale insulin. NG-tube is in place. Holding tube feedings Continue to monitor fingerstick glucose Status: Resolved (5) Heart failure: Currently compensated Lasix therapy as needed I/O Charting Mg>2, k>4 Status: Acute (6) Sepsis: Status: Acute (7) Acute kidney injury: Resolved GLADYS on CKD stage III: Likely secondary to cardiorenal syndrome/ATN Continue to monitor BMP Urine electrolytes Intake output charting Avoid nephrotoxic Status: Resolved (8) Hyperkalemia: Resolved Status: Resolved (9) Acute respiratory failure: Acute respiratory failure secondary to pneumonia Status: Resolved (10) Abnormal LFTs: Ultrasound abdomen:Prior cholecystectomy.Normal common bile duct. Hepatitis panel: Negative Likely secondary to congestive hepatopathy Status: Acute (11) Hypophosphatasia: K-Phos IV replacement done. Currently serum phosphorus is normal. Continue to monitor serum phosphorus. Status: Resolved (12) Cardiac arrest with successful resuscitation: Status: Acute (13) QT prolongation: Status: Acute (14) Rhabdomyolysis: Status: Acute Attestations Medical Necessity Statement*: Patient requires hospitalization for acute encephalopathy, Coding Level of Care Code Acute [employer] Min[employer] Blasting for [facility] Diagnoses Acute metabolic encephalopathy G93.41 Pneumonia J18.9 Hypernatremia E87.0 DKA (diabetic ketoacidosis) E11.10 Heart failure I50.9 Sepsis A41.9 Acute kidney injury N17.9 Hyperkalemia E87.5 Acute respiratory failure J96.00 Abnormal LFTs R94.5 Hypophosphatasia E83.39 Cardiac arrest with successful resuscitation I46.9 QT prolongation R94.31 Rhabdomyolysis M62.82
[2021-07-08 17:14] LABS: Glucose Point of Care 446 mg/dL (70-110)
[2021-07-08 17:14] LABS: Glucose Point of Care 228 mg/dL (70-110)
[2021-07-08] MEDS: potassium chloride ER 20 mEq Tablet 40 MEQ PO (17:15)
[2021-07-08] MEDS: enoxaparin 40 mg/0.4 mL Syringe SUBCUT (20:19)
[2021-07-08] MEDS: trazodone 50 mg Tablet PO (20:20)
[2021-07-08 21:17] LABS: Glucose Point of Care 200 mg/dL (70-110)
[2021-07-09 03:38] VITALS: BP 131/82; PULSE 86; RESP 16; TEMP 36.8; O2SAT 98
--- NOTE | 2021-07-09 05:03 | PC.NURSE ---
SHIFT SUMMARY Has not slept much tonight. Took couple of short naps but then awake. Says she is just wired up tonight Talking about son coming to get her today and is anxious to see her grandchildren. Talks about going to [place] with her son. Is confused to time, place and situation most of the night. Pcc knows she is in the hospital but then makes inappropriate statements. Cooperative and pleasant. Incont urine X1 and rest of the night used BSC. Up with assist of 1.
[2021-07-09] MEDS: OLANZapine 10 mg TABLET 5 MG PO ×2 (05:17→17:42)
[2021-07-09 07:03] LABS: Basophils # 0.1 10^3/uL (0.0-0.1); Basophils % 1.3 %; Eosinophils # 0.1 10^3/uL (0.0-0.8); Hematocrit 33.6 % (37.0-47.0); Hemoglobin 10.5 g/dL (11.5-15.3); Lymphocytes # 1.1 10^3/uL (0.8-4.8); Lymphocytes % 24.5 %; Mean Corpuscular HGB Conc 31.3 g/dL (30.0-36.0); Mean Corpuscular Hemoglobin 29.1 pg (28.0-34.0); Mean Corpuscular Volume 93.1 fl (81-99); Mean Platelet Volume 11.5 fL (7.4-10.4); Monocytes # 0.6 10^3/uL (0.2-0.9); Monocytes % 12.3 %; Nucleated Red Blood Cells % 0 %; Platelet Count 352 10^3/cmm (130-400); Red Blood Count 3.61 10^6/uL (4.1-5.3); White Blood Count 4.7 10^3/uL (4.0-10.0)
[2021-07-09 07:08] LABS: Glucose Point of Care 341 mg/dL (70-110)
[2021-07-09 07:42] LABS: Alanine Aminotransferase 38 U/L (0-33); Albumin Level 3.2 g/dL (3.5-5.2); Alkaline Phosphatase 207 IU/L (35-105); Anion Gap 13.1 (5-19); Aspartate Amino Transferase 87 U/L (0-32); Blood Urea Nitrogen 5 mg/dL (8-23); Calcium 8.1 mg/dL (8.5-10.5); Carbon Dioxide 26 mmol/L (22-29); Chloride 97 mmol/L (98-107); Globulin 3.1 g/dL (1.3-4.6); Glomerular Filtration Rate 85.4 mL/min (90-130); Glucose 216 mg/dL (65-115); Magnesium 2.1 mg/dL (1.7-2.3); Osmolality Calculated 280 mOsm/kg (285-295); Phosphorus 2.3 mg/dL (2.5-4.5); Potassium 3.1 mmol/L (3.5-5.1); Sodium 133 mmol/L (136-145); Total Bilirubin 0.5 mg/dL (0.15-1.2); Total Protein 6.3 g/dL (6.6-8.7)
[2021-07-09 08:00] VITALS: BP 120/72; PULSE 74; RESP 15; TEMP 36.3; O2SAT 96
[2021-07-09] MEDS: potassium chloride ER 20 mEq Tablet 40 MEQ PO ×2 (08:30→17:33)
[2021-07-09] MEDS: amoxicillin-clav 875-125 mg Tablet 1 TAB PO ×2 (08:30→17:19)
[2021-07-09] MEDS: docusate sodium 100 mg Capsule PO ×2 (08:30→17:20)
[2021-07-09] MEDS: cyanocobalamin 1,000 mcg Tablet 1000 MCG PO (08:30)
[2021-07-09] MEDS: levothyroxine 112 mcg Tablet PO (08:30)
[2021-07-09] MEDS: duloxetine 30 mg Capsule PO (08:30)
[2021-07-09] MEDS: phosphorus 250 mg Tablet PO ×2 (08:30→17:17)
[2021-07-09] MEDS: folic acid 1 mg Tablet PO (08:31)
[2021-07-09] MEDS: magnesium oxide 400 mg tablet PO (08:31)
[2021-07-09] MEDS: insulin lispro 100 unit/1 mL SUBCUT ×4 (08:31→20:50)
[2021-07-09] MEDS: insulin glargine 100 units/1 mL 8 UNIT SUBCUT ×2 (10:07→20:51)
[2021-07-09 11:21] LABS: Glucose Point of Care 332 mg/dL (70-110)
[2021-07-09 11:41] VITALS: BP 116/77; PULSE 79; RESP 16; TEMP 36.4; O2SAT 94
[2021-07-09] MEDS: polyethylene glycol 3350 Pkt 17 gm PO (13:16)
--- NOTE | 2021-07-09 15:12 | PM.PN ---
Subjective Subjective: Interval history: Patient was seen this morning, she sitting up in a chair, alert to person, to place, not to time, she ambulated with help by physical therapy, went to the bathroom, she has no pain complaints this morning, she did not go to sleep overnight Vitals/I&O/Wt Last Vital Signs Temp 97.6 F 07/09/21 11:41 Pulse 79 07/09/21 11:41 Resp 16 07/09/21 11:41 BP 116/77 07/09/21 11:41 Pulse Ox 94 07/09/21 11:41 07/09/21 07/09/21 07/09/21 06:59 14:59 22:59 Intake Total 240 / 578.333 720 / 720 Output Total 350 / 550 750 / 750 Balance -110 / 28.333 -30 / -30 Weight last 48 hrs Weight 65.952 kg Weight 66.338 kg Physical Exam Const: COMMON NORMALS: no acute distress ORIENTATION/CONSCIOUSNESS: Yes awake, Yes oriented to person and Yes oriented to place Resp: COMMON NORMALS: normal respiratory effort, No retractions, No use of accessory muscles and clear to auscultation bilaterally AUSCULTATION: clear to auscultation bilaterally Cardio: COMMON NORMALS: regular rate, regular rhythm, S1 normal heart sound present and S2 normal heart sound present RATE: regular rate RHYTHM: regular rhythm HEART SOUNDS: S1 normal heart sound present and S2 normal heart sound present GI: COMMON NORMALS: Normal to inspection, nondistended, normoactive bowel sounds present, Soft to palpation and non-tender PALPATION: Yes Soft to palpation Extremity: COMMON NORMALS: no pedal edema Neuro: SENSORIUM/ORIENTATION: Yes oriented to person and Yes oriented to place Psych: COMMON NORMALS: mental status grossly normal Urinary Catheter Management^: Malhotra: Cath Placed During This Visit: yes, but has since been removed by the nurse Reason for Continuing Indwelling Catheter: Accurate Measurement of Urinary Output in Critically Ill Patients Urinary Catheter Date of Insertion: 06/24/21 Date Urinary Catheter Removed: 07/05/21 Time Urinary Catheter Discontinued: 10:58 Data : 07/09/21 04:57 07/09/21 04:57 Micro: Microbiology 07/03/21 10:00 Blood Culture - Final Blood NO GROWTH AFTER 5 DAYS 07/03/21 10:03 Blood Culture - Final Blood NO GROWTH AFTER 5 DAYS A&P Assessment and plan (1) Acute metabolic encephalopathy: Acute metabolic encephalopathy multifactorial -Improving, alert to person, to place, not to time, follows commands, recognizes daughter, -No purposeless movements that I could discern today -Metabolic -DKA -Possible anoxic brain injury from cardiac arrest -Repeat CT of the head no evidence of intracranial hemorrhage or mass-effect -CTA head of neck -1. No significant ICA stenosis bilaterally. 2. No flow-limiting intracranial stenosis. 3. Hypoplastic right A1 segment. 4. Both vertebral arteries are patent. Basilar artery is patent. 2D echo: Normal LV cavity size, moderately decreased LV systolic function, with LVEF 40-45%, no gross valvular abnormality. Blood culture:NTD Sputum culture: Yeast Cryptococcal antigen unremarkable Ammonia:Normal MRSA PCR: Negative Rapid COVID Antigen :Negative Rapid COVID PCR Is : Negative Influenza a and B- negative Urine Legionella antigen:Negative Bacterial antigen panel:Negative Respiratory viral panel: Negative CSF no growth analysis results: CSF WBC: 1 , CSF total protein:25, CSF glucose:130 TSH within normal limits Pro-Jeferson within normal limits Vitamin B12 within normal limits Folate within normal limits Thiamine pending EEG difficult study, no acute findings Plan: -On p.o. Augmentin -Follow CSF viral studies -Thiamine -Monitor for fevers, monitor cultures -Neurochecks -Switch to Zyprexa 5 mg twice daily - stopped Wellbutrin -30 mg of Cymbalta -50 mg of trazodone -Monitor QTc interval closely, 550 ms -Family would like her to go to a long-term care facility, would recommend assisted, however if she continues to have improvement in her ambulation, she can go home with home health care -PT OT, speech therapy eval -Regular diet t Acute respiratory failure, concerns for pulmonary edema, pneumonia -Successfully extubated 07/04/2021 -Monitor closely, currently on room air, moved to general medical floors -All cultures so far have been unremarkable QT C prolongation, multifactorial from sedating medications, Seroquel -Monitor QTC as she is on Zyprexa -Avoid benzos, avoid antipsychotic, avoid any medication that would prolong her QT Febrile, remains afebrile repeat blood cultures, urine cultures, inflammatory markers unremarkable, chest ray unremarkable, UA unremarkable, will cover her with Augmentin as above Status: Acute (2) Pneumonia: Status: Acute (3) Hypernatremia: Resolved. Free water deficit was calculated D5 water, D5 half NS, free water flushes through NG tube were used as needed. Continue to monitor BMP. Status: Resolved (4) DKA (diabetic ketoacidosis): Initially on insulin drip: Anion gap is closed: Currently on Lantus and sliding scale insulin. NG-tube is in place. Holding tube feedings Continue to monitor fingerstick glucose Status: Resolved (5) Heart failure: Currently compensated Lasix therapy as needed I/O Charting Mg>2, k>4 Status: Acute (6) Sepsis: Status: Acute (7) Acute kidney injury: Resolved GLADYS on CKD stage III: Likely secondary to cardiorenal syndrome/ATN Continue to monitor BMP Urine electrolytes Intake output charting Avoid nephrotoxic Status: Resolved (8) Hyperkalemia: Resolved Status: Resolved (9) Acute respiratory failure: Acute respiratory failure secondary to pneumonia Status: Resolved (10) Abnormal LFTs: Ultrasound abdomen:Prior cholecystectomy.Normal common bile duct. Hepatitis panel: Negative Likely secondary to congestive hepatopathy Status: Acute (11) Hypophosphatasia: K-Phos IV replacement done. Currently serum phosphorus is normal. Continue to monitor serum phosphorus. Status: Resolved (12) Cardiac arrest with successful resuscitation: Status: Acute (13) QT prolongation: Status: Acute (14) Rhabdomyolysis: Status: Acute Attestations Medical Necessity Statement*: Patient requires hospitalization for acute encephalopathy Coding Level of Care Code Acute General Assignment Reporter for [facility] Diagnoses Acute metabolic encephalopathy G93.41 Pneumonia J18.9 Hypernatremia E87.0 DKA (diabetic ketoacidosis) E11.10 Heart failure I50.9 Sepsis A41.9 Acute kidney injury N17.9 Hyperkalemia E87.5 Acute respiratory failure J96.00 Abnormal LFTs R94.5 Hypophosphatasia E83.39 Cardiac arrest with successful resuscitation I46.9 QT prolongation R94.31 Rhabdomyolysis M62.82
[2021-07-09 16:00] VITALS: BP 95/61; PULSE 84; RESP 16; TEMP 36.6; O2SAT 98
[2021-07-09 17:23] LABS: Glucose Point of Care 234 mg/dL (70-110)
[2021-07-09 17:23] LABS: Glucose Point of Care 510 mg/dL (70-110)
[2021-07-09 20:00] VITALS: BP 99/61; PULSE 78; RESP 18; TEMP 36.9; O2SAT 97
[2021-07-09] MEDS: enoxaparin 40 mg/0.4 mL Syringe SUBCUT (20:16)
[2021-07-09] MEDS: trazodone 50 mg Tablet PO (20:16)
[2021-07-09 20:39] LABS: Glucose Point of Care 215 mg/dL (70-110)
--- NOTE | 2021-07-09 21:38 | PC.NURSE ---
pt is refusing to wear telemetry, states she's probably going to leave tomorrow & doesn't need it on. This nurse reminds pt that it has been ordered by her physician so that we can monitor her heart rhythm/rate, pt again states that she doesn't want it on.
[2021-07-09 23:49] VITALS: BP 121/78; PULSE 92; RESP 18; TEMP 36.3; O2SAT 97
[2021-07-10] VITALS (8 sets, daily range): BP systolic 103–138; BP diastolic 71–80; PULSE 82–104; RESP 16–20; TEMP 36.2–36.9; O2SAT 96–100
--- NOTE | 2021-07-10 00:45 | PC.NURSE ---
Pt up in room with [employer] sitting 1:1. pt tripped over shoes & fell to knees to the floor. Pt denies any injuries. Has pants on, refused to let this Nurse look at her knees, states i am just fine . Denies pain. notified.
[2021-07-10] MEDS: acetaminophen 325 mg Tablet 650 MG PO ×2 (02:51→14:04)
[2021-07-10] MEDS: OLANZapine 10 mg TABLET 5 MG PO ×2 (05:25→17:05)
[2021-07-10 06:22] LABS: Glucose Point of Care 291 mg/dL (70-110)
[2021-07-10 06:31] LABS: Basophils # 0.1 10^3/uL (0.0-0.1); Basophils % 1.5 %; Eosinophils # 0.2 10^3/uL (0.0-0.8); Eosinophils % 3.9 %; Hematocrit 33.9 % (37.0-47.0); Hemoglobin 10.6 g/dL (11.5-15.3); Lymphocytes # 1.4 10^3/uL (0.8-4.8); Lymphocytes % 25.6 %; Mean Corpuscular HGB Conc 31.3 g/dL (30.0-36.0); Mean Corpuscular Volume 92.6 fl (81-99); Mean Platelet Volume 11.3 fL (7.4-10.4); Monocytes # 0.7 10^3/uL (0.2-0.9); Monocytes % 12.3 %; Neutrophils # 3.06 10^3/uL (1.8-7.7); Neutrophils % 56.1 %; Nucleated Red Blood Cells % 0 %; Platelet Count 366 10^3/cmm (130-400); Red Blood Count 3.66 10^6/uL (4.1-5.3); Red Cell Distribution Width 16.5 % (12.1-15.1); White Blood Count 5.4 10^3/uL (4.0-10.0)
[2021-07-10 06:33] LABS: Alanine Aminotransferase 46 U/L (0-33); Albumin Level 3.2 g/dL (3.5-5.2); Alkaline Phosphatase 227 IU/L (35-105); Anion Gap 14.9 (5-19); Aspartate Amino Transferase 74 U/L (0-32); Blood Urea Nitrogen 7 mg/dL (8-23); Calcium 8.4 mg/dL (8.5-10.5); Carbon Dioxide 26 mmol/L (22-29); Chloride 100 mmol/L (98-107); Globulin 2.9 g/dL (1.3-4.6); Glomerular Filtration Rate 73.2 mL/min (90-130); Glucose 264 mg/dL (65-115); Magnesium 2.1 mg/dL (1.7-2.3); Osmolality Calculated 291 mOsm/kg (285-295); Phosphorus 3.1 mg/dL (2.5-4.5); Potassium 3.9 mmol/L (3.5-5.1); Sodium 137 mmol/L (136-145); Total Bilirubin 0.3 mg/dL (0.15-1.2); Total Protein 6.1 g/dL (6.6-8.7)
--- NOTE | 2021-07-10 07:01 | PC.NURSE ---
Report received, assessment completed. Pt AAO to self and place, disoriented to time. Reoriented as needed. Pt up in walker in room with this nurse. Walks slightly unsteady. Pt is calm and very pleasant. Denies any needs other than wanting to go home. Will monitor.
[2021-07-10] MEDS: amoxicillin-clav 875-125 mg Tablet 1 TAB PO ×2 (08:30→17:05)
[2021-07-10] MEDS: folic acid 1 mg Tablet PO (08:30)
[2021-07-10] MEDS: insulin lispro 100 unit/1 mL SUBCUT ×4 (08:30→20:53)
[2021-07-10] MEDS: levothyroxine 112 mcg Tablet PO (08:30)
[2021-07-10] MEDS: cyanocobalamin 1,000 mcg Tablet 1000 MCG PO (08:30)
[2021-07-10] MEDS: duloxetine 30 mg Capsule PO (08:30)
[2021-07-10] MEDS: docusate sodium 100 mg Capsule PO ×2 (08:30→17:05)
[2021-07-10] MEDS: phosphorus 250 mg Tablet PO ×2 (08:30→17:05)
[2021-07-10] MEDS: insulin glargine 100 units/1 mL 8 UNIT SUBCUT ×2 (09:07→20:59)
--- NOTE | 2021-07-10 10:27 | PC.NURSE ---
Pt confused and delusional at times. Mostly pleasant but very confused about events before and during hospital stay. Md at bedside speaking with pt and outpatient case manager in earlier.
--- NOTE | 2021-07-10 10:38 | PC.OT ---
OT TREATMENT ATTEMPTED. PATIENT IS SITTING ON BED WITH JEANS AND PINK SWEATSHIRT ON. DECLINES ADLS AT THIS TIME. REPORTS THAT SHE HAS HAD A VERY DIFFICULT LAST FEW WEEKS AND WOULD LIKE TO GO HOME AND TAKE HER SON TO WORK. HER SON IS PRESENT BUT DOES NOT VERBALIZE. PATIENT IS APPEARS AGITATED AND ALMOST TEARFUL STATING THAT SHE WANTS TO GO. IS NOT REDIRECTED TO TASK AT HAND. WILL ATTEMPT TREATMENT AGAIN THIS AFTERNOON.
[2021-07-10 11:34] LABS: Glucose Point of Care 230 mg/dL (70-110)
--- NOTE | 2021-07-10 13:01 | PC.NURSE ---
Pt walked to stretcher with assist x1 for stabilization. Headed to MRI per EMS.
[2021-07-10] MEDS: polyethylene glycol 3350 Pkt 17 gm PO (14:05)
--- NOTE | 2021-07-10 14:09 | PC.NURSE ---
1350 Pt back to room from MRI.
--- NOTE | 2021-07-10 16:08 | MR_ITS ---
WS: [id number] MRI BRAIN WITHOUT CONTRAST HISTORY: ams COMPARISON: None available. TECHNIQUE: Diffusion imaging, multiplanar T1, T2 and FLAIR imaging obtained. Quality of this examination is compromised by motion artifact. No evidence for acute infarct or hemorrhage. Otero-white matter differentiation is normal. There is mild symmetric atrophy. Mild chronic microvascular ischemic disease. Ventricles and extra-axial spaces are normal. No inferior displacement of cerebellar tonsils. The sella turcica and pituitary gland are unremarkabl e. Dural venous sinuses and burns pa[place]ute of [place] demonstrate no abnormality on this unenhanced studies. Paranasal sinuses: Clear. Mastoid air cells: Normal. Calvarium and scalp: Intact. MR/MR head wo con* [id number] IMPRESSION: 1. Quality of this examination is limited by motion artifact. 2. No acute infarct. 3. Mild atrophy with mild chronic microvascular ischemic type changes.
--- NOTE | 2021-07-10 17:07 | PM.PN ---
Subjective Subjective: Interval history: Patient was seen this morning, currently she is alert awake oriented, still has minimal gait imbalance, she is currently doing fine with walker. Denies any acute complaint. wants to go home. MRI brain without contrast was done. Medications: Reviewed: Yes Vitals/I&O/Wt Last Vital Signs Temp 97.7 F 07/10/21 16:00 Pulse 86 07/10/21 16:00 Resp 16 07/10/21 16:00 BP 120/77 07/10/21 16:00 Pulse Ox 99 07/10/21 16:00 07/10/21 07/10/21 07/10/21 06:59 14:59 22:59 Intake Total 120 / 1360 960 / 960 Output Total 200 / 1250 Balance -80 / 110 960 / 960 Weight last 48 hrs Weight 67.614 kg Weight 65.952 kg Physical Exam Const: COMMON NORMALS: patient oriented x3 HENMT: COMMON NORMALS: normocephalic and atraumatic HEAD & SCALP: normocephalic and atraumatic Chest: CHEST: Yes Symmetrical chest wall rise Resp: COMMON NORMALS: clear to auscultation bilaterally EFFORT & INSPECTION: Yes symmetric chest movement AUSCULTATION: clear to auscultation bilaterally Cardio: COMMON NORMALS: regular rate, regular rhythm, S1 normal heart sound present, S2 normal heart sound present, No gallops present (Cardio), No murmurs present (Cardio), No rub (Cardio) and Peripheral pulses 2+ throughout RATE: regular rate RHYTHM: regular rhythm HEART SOUNDS: S1 normal heart sound present and S2 normal heart sound present PERIPHERAL PULSES: Peripheral pulses 2+ throughout GI: COMMON NORMALS: Normal to inspection, nondistended, normoactive bowel sounds present, Soft to palpation, non-tender, No hepatosplenomegaly present and no masses AUSCULTATION: Yes normoactive bowel sounds PALPATION: Yes Soft to palpation and Yes No hepatosplenomegaly present RECTAL EXAM: deferred Extremity: COMMON NORMALS: no clubbing, cyanosis or edema and no pedal edema Neuro: COMMON NORMALS: patient oriented x3 Urinary Catheter Management^: Malhotra: Cath Placed During This Visit: yes, but has since been removed by the nurse Reason for Continuing Indwelling Catheter: Accurate Measurement of Urinary Output in Critically Ill Patients Urinary Catheter Date of Insertion: 06/24/21 Date Urinary Catheter Removed: 07/05/21 Time Urinary Catheter Discontinued: 10:58 Data : 07/10/21 04:43 07/10/21 04:43 Micro: Microbiology 07/05/21 14:15 Blood Culture - Final Blood NO GROWTH AFTER 5 DAYS 07/05/21 14:18 Blood Culture - Final Blood NO GROWTH AFTER 5 DAYS A&P Assessment and plan (1) Acute metabolic encephalopathy: Acute metabolic encephalopathy multifactorial -Improving, alert to person, to place, not to time, follows commands, recognizes daughter, -No purposeless movements that I could discern today -Metabolic -DKA -Possible anoxic brain injury from cardiac arrest -Repeat CT of the head no evidence of intracranial hemorrhage or mass-effect -CTA head of neck -1. No significant ICA stenosis bilaterally. 2. No flow-limiting intracranial stenosis. 3. Hypoplastic right A1 segment. 4. Both vertebral arteries are patent. Basilar artery is patent. 2D echo: Normal LV cavity size, moderately decreased LV systolic function, with LVEF 40-45%, no gross valvular abnormality. Blood culture:NTD Sputum culture: Yeast Cryptococcal antigen unremarkable Ammonia:Normal MRSA PCR: Negative Rapid COVID Antigen :Negative Rapid COVID PCR Is : Negative Influenza a and B- negative Urine Legionella antigen:Negative Bacterial antigen panel:Negative Respiratory viral panel: Negative CSF no growth analysis results: CSF WBC: 1 , CSF total protein:25, CSF glucose:130. CSF Lyme's antibody: Negative, CSF Holley encephalitis negative, CSF West Nile antibody: Negative TSH within normal limits Pro-Jeferson within normal limits Vitamin B12 within normal limits Folate within normal limits Thiamine pending EEG difficult study, no acute findings MRI Brain without contrast:No acute infarct. Mild atrophy with mild chronic microvascular ischemic type changes Plan: -On p.o. Augmentin -Follow CSF viral studies -Thiamine -Monitor for fevers, monitor cultures -Neurochecks -Switch to Zyprexa 5 mg twice daily - stopped Wellbutrin -30 mg of Cymbalta -50 mg of trazodone -Monitor QTc interval closely, 550 ms -Family would like her to go to a long-term care facility, would recommend shelter, however if she continues to have improvement in her ambulation, she can go home with home health care -PT OT, speech therapy eval -Regular diet t Acute respiratory failure, concerns for pulmonary edema, pneumonia -Successfully extubated 07/04/2021 -Monitor closely, currently on room air, moved to general medical floors -All cultures so far have been unremarkable QT C prolongation, multifactorial from sedating medications, Seroquel -Monitor QTC as she is on Zyprexa -Avoid benzos, avoid antipsychotic, avoid any medication that would prolong her QT Febrile, remains afebrile repeat blood cultures, urine cultures, inflammatory markers unremarkable, chest ray unremarkable, UA unremarkable, will cover her with Augmentin as above Status: Acute (2) Pneumonia: Status: Acute (3) Hypernatremia: Resolved. Free water deficit was calculated D5 water, D5 half NS, free water flushes through NG tube were used as needed. Continue to monitor BMP. Status: Resolved (4) DKA (diabetic ketoacidosis): Initially on insulin drip: Anion gap is closed: Currently on Lantus and sliding scale insulin. NG-tube is in place. Holding tube feedings Continue to monitor fingerstick glucose Status: Resolved (5) Heart failure: Currently compensated Lasix therapy as needed I/O Charting Mg>2, k>4 Status: Acute (6) Sepsis: Status: Acute (7) Acute kidney injury: Resolved GLADYS on CKD stage III: Likely secondary to cardiorenal syndrome/ATN Continue to monitor BMP Urine electrolytes Intake output charting Avoid nephrotoxic Status: Resolved (8) Hyperkalemia: Resolved Status: Resolved (9) Acute respiratory failure: Acute respiratory failure secondary to pneumonia Status: Resolved (10) Abnormal LFTs: Ultrasound abdomen:Prior cholecystectomy.Normal common bile duct. Hepatitis panel: Negative Likely secondary to congestive hepatopathy Status: Acute (11) Hypophosphatasia: K-Phos IV replacement done. Currently serum phosphorus is normal. Continue to monitor serum phosphorus. Status: Resolved (12) Cardiac arrest with successful resuscitation: Status: Acute (13) QT prolongation: Status: Acute (14) Rhabdomyolysis: Status: Acute Attestations Medical Necessity Statement*: Patient needs to be in hospital for management of above defined problems, currently awaiting safe placement to shelter. Coding Level of Care Code Acute [place] Hand for [facility] Fwd Exam Detailed Diagnoses Acute metabolic encephalopathy G93.41 Pneumonia J18.9 Hypernatremia E87.0 DKA (diabetic ketoacidosis) E11.10 Heart failure I50.9 Sepsis A41.9 Acute kidney injury N17.9 Hyperkalemia E87.5 Acute respiratory failure J96.00 Abnormal LFTs R94.5 Hypophosphatasia E83.39 Cardiac arrest with successful resuscitation I46.9 QT prolongation R94.31 Rhabdomyolysis M62.82
[2021-07-10 17:14] LABS: Glucose Point of Care 256 mg/dL (70-110)
--- NOTE | 2021-07-10 17:54 | PC.NURSE ---
Shift Note Frequent safety and comfort rounds continue. Orders and/or nursing care completed as indicated. Patient monitored for response to intervention and treatment(s). Education provided includes treatment plan, discharge plan, medications. Pt very forgetful and requires constant reorientation and redirection in order to not get up without assistance and to ambulate safely. VSS. No other issues noted. Will continue to monitor.
[2021-07-10 20:33] LABS: Glucose Point of Care 196 mg/dL (70-110)
[2021-07-10] MEDS: enoxaparin 40 mg/0.4 mL Syringe SUBCUT (20:53)
[2021-07-10] MEDS: trazodone 50 mg Tablet PO (21:32)
--- NOTE | 2021-07-11 07:11 | PC.NURSE ---
Patient became agitated and tried leaving room. 1:1 sitter tried to redirect her and patient became more agitated and tried to hit sitter. Family was called in to try and talk patient into staying here at the hospital. Family does not want patient leaving. After several attempts to try and leave the room the patients son was blocking her so she couldn't leave. After about 30 mins the son gave the patient keys and said fine here and he stepped out of the way. This nurse then stood up in front of patient and asked the family if she could leave because paperwork would need to be started. Daughter in law said no she is not leaving and if she does then I'll call the best second jobs. Patient then turned around and walked back to her bed that was by the window and stated, if I have to stay here then I'll just jump out the window. This nurse told patient that since she made that statement then she would have to be held here for 96 hours since it's an SI. Family understood and was okay with it since they didn't want the patient leaving.
--- NOTE | 2021-07-11 07:45 | PC.NURSE ---
Agitation: Staring around 0300 the patient was dressed and stating that she wanted to leave while pacing the room. Multiple attempts of redirection failed, the patient continued to escalate, security and Director Of Regulatory Affairs called. Patient remained agitated and family was called in to sit with her and see if it would calm her down. Pt continued to express wishes to leave but family says that she did not have a safe place to return to and was worried for her safety. After several hours the patient made SI comments in front of the family and the nurse as well as the patient radiation safety officer. Physician was notified and 96 hour hold was initiated and orders placed to transfer the patient to [facility].
--- NOTE | 2021-07-11 07:49 | PC.OT ---
PATIENT HAS MET ALL GOALS FOR OT. DISCHARGE OT SERVICES WHICH FOCUS ON ADL PERFORMANCE. NEW ORDERS ENTERED FOR [facility] GROUP TREATMENT.
--- NOTE | 2021-07-11 08:12 | PC.PT ---
Patient has achieved all physical therapy goals, and is now discharged from physical therapy no further visits planned at this time; patient transfers and ambulates with walker with standby assistance x200 feet distance plus; she will continue to require standby assistance due to her mentation.
[2021-07-11 09:57] VITALS: BMI 24.0
--- NOTE | 2021-07-11 11:07 | PC.NURSE ---
Admission- Patient arrived at [facility] from [facility]. Reports having a history of Bipolar, depression and diabetes. States recent breakup with boyfriend and loss of housing. Denies SI/HI, states that the comment about jumping out the window was just frustration, no intent to act. Does endorse AVH (always). Tearful during admission but answers questions appropriately, Cooperative and engaged in care.
[2021-07-11 11:53] LABS: Glucose Point of Care 446 mg/dL (70-110)
[2021-07-11] MEDS: cyanocobalamin 1,000 mcg Tablet 1000 MCG PO (12:20)
[2021-07-11] MEDS: insulin lispro 100 unit/1 mL SUBCUT ×3 (12:21→21:00)
[2021-07-11] MEDS: duloxetine 30 mg Capsule PO (12:22)
[2021-07-11] MEDS: docusate sodium 100 mg Capsule PO ×2 (12:22→17:29)
[2021-07-11] MEDS: amoxicillin-clav 875-125 mg Tablet 1 TAB PO ×2 (12:22→17:30)
[2021-07-11] MEDS: thiamine 100 mg Tablet PO (12:23)
[2021-07-11] MEDS: folic acid 1 mg Tablet PO (12:23)
[2021-07-11] MEDS: insulin glargine 100 units/1 mL 8 UNIT SUBCUT (12:24)
[2021-07-11] MEDS: OLANZapine 5 mg ODT PO (12:25)
--- NOTE | 2021-07-11 12:39 | NPU.GN ---
[facility] Group Topic:roup Topic: What are we Thankful For General Mood of Group: Licha did not attend group as she was sleeping .
--- NOTE | 2021-07-11 12:50 | W.PM.NPUH&PS ---
Providers/Chief Complaint Admitting Physician: Dhruv Silva Chief Complaint: UNRESPONSIVE ON SCENE 47175 R41.82 HPI NPU History of Present Illness Licha Beck is a 61 year old female recently admitted to [facility] with the following HPI: History of Present Illness Licha Beck is a 61 year old female with past medical history of type 2 diabetes, previous episodes of DKA who was brought by her son to emergency room due to altered mental status. According to the son the patient was okay last night only complaining of some abdominal discomfort, nausea. She had 2 episodes of vomiting and one episode of loose stool. No fever or chills. She did not have any chest pain, shortness of breath, cough, palpitations. Earlier today the patient was found unresponsive. In the emergency room the patient was found to have severe ketoacidosis. pH 6.8. Blood sugar level is in the 600 range. According to the son the patient had previous admissions for DKA. The patient received 3 boluses of normal saline. Due to elevated white blood cell count she received antibiotics as well. Chest x-ray was clear but CT of the abdomen and pelvis also revealed bilateral infiltrates. Covid testing was negative. Patient is vaccinated. It was felt that she had acute metabolic encephalopathy. She was intubated for several days and unresponsive. She has gradually improved and they were getting close to potentially letting her go home. She has been very depressed and tearful for the last couple of days. She had some suicidal ideation and they transferred her to our unit for definitive treatment. She was found in the day room and we went to her room to talk. She initially said that she was not really depressed. However she was tearful several times during the interview. She said that she was worried today about losing her grandchildren. She has 4 grandchildren that she has not seen in 4 years. Her son is an over the road fuel oil truck driver. Her [id number] and her mother say that she is in untrustworthy grandparent. She does not know why they say that. She says that she is a loser. She had been living with her significant other up until recently when he kicked her out and gave her 3 days to get her things out of there. She has been living in a [facility] on [facility] since then. She does not really know exactly where that is. She says that they have been treating her well there. They are very respectful. She said something about not sleeping well because she did not have her CPAP machine. She said that she must have misplaced it. She has not had it for 7 or 8 years. Maybe she left it at her ex-'s house and it is in his garage. She does not know how to get a hold of him. She has not tried to get another one. She says that she thinks that she sleeps better without it. He said that she is discouraged because she has limited mobility. She has lost mobility in her neck and no longer has good cervical vertebrae. She says that she has lost C1-T7. She denies any recent suicidal ideation. She says that she has been seeing Mere Fung at the [facility] for her medications. She says that she was on Abilify, Cymbalta 90 mg trazodone 100 mg Seroquel 200 mg recently. She thinks that the sleep medications were recently increased because she was not sleeping well. I records show that she is also on Wellbutrin XL 300 mg but does not indicate the Abilify. She agreed to start the Abilify at 5 mg and start the other medications as they are currently prescribed. PAST HISTORY AND SOCIAL HISTORY: As above Meds NPU Home Medications Medication Instructions Recorded Confirmed Last Taken Type Jardiance 10 mg PO QAM 06/24/21 06/25/21 Unknown History aspirin 81 mg PO DAILY 06/24/21 06/25/21 Unknown History bupropion HCl 300 mg PO QAM 06/24/21 06/25/21 Unknown History duloxetine 30 mg PO DAILY 06/24/21 06/25/21 Unknown History levothyroxine 112 mcg PO DAILY 06/24/21 06/25/21 Unknown History metformin 1,000 mg PO BID 06/24/21 06/25/21 06/21/21 08:00 History omega-3 fatty acids 1 cap PO DAILY 06/24/21 06/25/21 Unknown History quetiapine 200 mg PO BEDTIME 06/24/21 06/25/21 Unknown History rosuvastatin 40 mg PO BEDTIME 06/24/21 06/25/21 Unknown History trazodone 100 mg PO BEDTIME 06/24/21 06/25/21 Unknown History Super Keto 2 cap PO DAILY 06/25/21 06/25/21 Unknown History duloxetine 60 mg PO DAILY 06/25/21 06/25/21 Unknown History Allergies Allergy/AdvReac Type Severity Reaction Status Date / Time shellfish derived Allergy ALGY-Hives Verified 07/10/21 10:55 Mental Status Exam MSE Comments: This is a 61-year-old appropriate weight female who appears older than her stated age. She was pleasant and cooperative with the interview. psychomotor activity are mildly decreased. She is a little unsteady on her feet.. Speech is at a regular rate and rhythm, normal volume, good articulation, not pressured. Alert, oriented only to person. She did not know where she was. She knew it was June but thought it was a couple of weeks before . Attention and concentration seem to be reduced. Memory is intact Mood is depressed. Affect is depressed and anxious. Thought process is logical and goal-directed. Thought content: Denies auditory and visual hallucinations. No delusions or paranoia are noted. No current suicidal ideation, and no homicidal ideation. Fund of knowledge is []. Insight and judgment appear to be fair here in the hospital. Impulse control is fair as well. Vitals/I&O/Wt Last Vital Signs Temp 98.4 F 07/10/21 19:43 Pulse 83 07/10/21 19:43 Resp 17 07/10/21 19:43 BP 123/79 07/10/21 19:43 Pulse Ox 100 07/10/21 19:43 07/10/21 07/11/21 07/11/21 22:59 06:59 14:59 Intake Total 680 / 1640 Output Total 350 / 350 Balance 330 / 1290 Weight last 48 hrs Weight 67.585 kg Weight 67.614 kg Physical Exam Urinary Catheter Management^: Malhotra: Cath Placed During This Visit: yes, but has since been removed by the nurse Reason for Continuing Indwelling Catheter: Accurate Measurement of Urinary Output in Critically Ill Patients Urinary Catheter Date of Insertion: 06/24/21 Date Urinary Catheter Removed: 07/05/21 Time Urinary Catheter Discontinued: 10:58 Data NPU : 07/10/21 04:43 07/10/21 04:43 Micro: Microbiology 07/05/21 14:15 Blood Culture - Final Blood NO GROWTH AFTER 5 DAYS 07/05/21 14:18 Blood Culture - Final Blood NO GROWTH AFTER 5 DAYS Microbiology 07/05/21 14:15 Blood Blood Culture - Final NO GROWTH AFTER 5 DAYS 07/05/21 14:18 Blood Blood Culture - Final NO GROWTH AFTER 5 DAYS A&P Additional A&P Information Plan: 1. Continue current medication but add Abilify 5 mg every morning. 2. Continue every 15 minute checks for safety. 3. Encourage individual, group and milieu therapies. 4. Encourage sober living treatment after discharge at the highest level of care to which she is willing to commit. 5. We will monitor for safety for herself in the community prior to discharge. Involuntary Hold Information 96 Hour Hold: 96 Hour Involuntary Admission: Yes 96 Hour Hold Ending Date: 07/18/21 96 Hour Hold Ending Time: 06:48 Attestations NPU Medical Necessity Statement*: Inpatient hospitalization is medically necessary and the clinically appropriate intervention at this time. We will initiate medications and make changes as indicated. She will be in the hospital for over 2 midnights. Likely length of stay 4-6 days Coding Level of Care Code Acute Manager Of Pharmacy for Bakari Lafleur
[2021-07-11 14:00] VITALS: BP 114/73; PULSE 95; RESP 20; TEMP 36.5; O2SAT 98
[2021-07-11] MEDS: ARIPiprazole 10 mg Tablet 5 MG PO (15:07)
[2021-07-11 16:53] LABS: Glucose Point of Care 236 mg/dL (70-110)
[2021-07-11 16:53] LABS: Glucose Point of Care 179 mg/dL (70-110)
[2021-07-11] MEDS: OLANZapine 10 mg TABLET 5 MG PO (17:29)
[2021-07-11] MEDS: metformin 500 mg Tablet 1000 MG PO (17:30)
[2021-07-11 19:18] LABS: Glucose Point of Care 150 mg/dL (70-110)
[2021-07-11] MEDS: atorvastatin 40 mg Tablet 80 MG PO (20:58)
[2021-07-11] MEDS: trazodone 100 mg Tablet PO (20:58)
[2021-07-11] MEDS: trazodone 50 mg Tablet PO (20:59)
[2021-07-11 21:45] VITALS: BP 109/68; PULSE 111; RESP 16; TEMP 36.7; O2SAT 98
[2021-07-12 06:00] VITALS: BP 107/66; PULSE 96; RESP 18; TEMP 36.6; O2SAT 97
[2021-07-12] MEDS: OLANZapine 10 mg TABLET 5 MG PO (06:25)
[2021-07-12] MEDS: buPROPion XL (24 HR) 300 mg Tablet PO (06:25)
[2021-07-12] MEDS: levothyroxine 112 mcg Tablet PO (06:26)
[2021-07-12 07:10] LABS: Glucose Point of Care 309 mg/dL (70-110)
[2021-07-12 07:25] LABS: Basophils # 0.1 10^3/uL (0.0-0.1); Eosinophils # 0.2 10^3/uL (0.0-0.8); Eosinophils % 3.5 %; Hematocrit 33.9 % (37.0-47.0); Hemoglobin 10.6 g/dL (11.5-15.3); Lymphocytes # 1.8 10^3/uL (0.8-4.8); Lymphocytes % 29.5 %; Mean Corpuscular HGB Conc 31.3 g/dL (30.0-36.0); Mean Corpuscular Hemoglobin 29.5 pg (28.0-34.0); Mean Corpuscular Volume 94.4 fl (81-99); Mean Platelet Volume 10.5 fL (7.4-10.4); Monocytes # 0.4 10^3/uL (0.2-0.9); Monocytes % 6.2 %; Neutrophils # 3.53 10^3/uL (1.8-7.7); Neutrophils % 59.3 %; Nucleated Red Blood Cells % 0 %; Platelet Count 338 10^3/cmm (130-400); Red Blood Count 3.59 10^6/uL (4.1-5.3); Red Cell Distribution Width 17.1 % (12.1-15.1)
[2021-07-12 08:03] LABS: Alanine Aminotransferase 30 U/L (0-33); Albumin Level 3.1 g/dL (3.5-5.2); Alkaline Phosphatase 235 IU/L (35-105); Anion Gap 13.8 (5-19); Aspartate Amino Transferase 36 U/L (0-32); Blood Urea Nitrogen 6 mg/dL (8-23); Calcium 8.1 mg/dL (8.5-10.5); Carbon Dioxide 26 mmol/L (22-29); Chloride 100 mmol/L (98-107); Globulin 2.7 g/dL (1.3-4.6); Glomerular Filtration Rate 73.2 mL/min (90-130); Glucose 304 mg/dL (65-115); Magnesium 2.1 mg/dL (1.7-2.3); Osmolality Calculated 291 mOsm/kg (285-295); Phosphorus 3.1 mg/dL (2.5-4.5); Potassium 3.8 mmol/L (3.5-5.1); Sodium 136 mmol/L (136-145); Total Bilirubin 0.3 mg/dL (0.15-1.2); Total Protein 5.8 g/dL (6.6-8.7)
[2021-07-12] MEDS: aspirin 81 mg EC Tablet PO (09:35)
[2021-07-12] MEDS: duloxetine 60 mg Capsule PO (09:35)
[2021-07-12] MEDS: metformin 500 mg Tablet 1000 MG PO ×2 (09:35→17:27)
[2021-07-12] MEDS: cyanocobalamin 1,000 mcg Tablet 1000 MCG PO (09:35)
[2021-07-12] MEDS: duloxetine 30 mg Capsule PO (09:36)
[2021-07-12] MEDS: thiamine 100 mg Tablet PO (09:36)
[2021-07-12] MEDS: docusate sodium 100 mg Capsule PO ×2 (09:36→17:27)
[2021-07-12] MEDS: amoxicillin-clav 875-125 mg Tablet 1 TAB PO ×2 (09:36→17:27)
[2021-07-12] MEDS: ARIPiprazole 10 mg Tablet 5 MG PO (09:36)
[2021-07-12] MEDS: folic acid 1 mg Tablet PO (09:36)
[2021-07-12] MEDS: insulin lispro 100 unit/1 mL SUBCUT ×4 (09:50→21:09)
[2021-07-12 10:15] VITALS: BP 107/66; PULSE 96; RESP 18; TEMP 36.6; O2SAT 97
[2021-07-12 11:25] LABS: Glucose Point of Care 540 mg/dL (70-110)
[2021-07-12 11:34] LABS: Glucose Point of Care 505 mg/dL (70-110)
[2021-07-12] MEDS: insulin glargine 100 units/1 mL 8 UNIT SUBCUT ×2 (11:57→21:49)
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
--- NOTE | 2021-07-12 13:38 | W.PM.NPUPNS ---
Subjective NPU Subjective: Interval history: She was found in bed after lunch. It was a little difficult to arouse her. She said that she is doing better. She said that she is not depressed today. She is happy because her daughter in [place] who has 2 of her grandchildren said that she could come and live with her there. She has also has 2 RCF's that she can contact for a place to stay. She had been living with her son but he does not feel it is best for her to go back there. She was on olanzapine from the intensive care unit. That has been continued but will be discontinued. She used to be 300 pounds in 2003 and has worked hard to lose a lot of weight. She talked about the health consequences of being that big and does not want that. She agreed to increase the Abilify to 10 mg. She is hoping that she will be well enough to go home tomorrow. Mental Status Exam MSE Comments: This is a 61-year-old appropriate weight female who appears older than her stated age. She was pleasant and cooperative with the interview. psychomotor activity are mildly decreased. She is a little unsteady on her feet.. Speech is at a regular rate and rhythm, normal volume, good articulation, not pressured. Alert, oriented X3 today Attention and concentration seem to be normal. Memory is intact Mood is not depressed. Affect is mildly dysphoric. Thought process is logical and goal-directed. Thought content: Denies auditory and visual hallucinations. No delusions or paranoia are noted. No current suicidal ideation, and no homicidal ideation. Fund of knowledge seems to be intact. Insight and judgment appear to be good. Impulse control is good. Cognition: Patient Appearance: Appropriate Level of Consciousness: Awake, Alert and Appropriate Patient Cognition Impaired: Yes Ability to Follow Directions: Good Patient Orientation (long list): Person Comprehension Ability: Understands Concepts Hallucination Type: None Delusion Description: Not Present Thought Process: Appropriate and Confused Affect: Affect Description: Appropriate and Calm Behavior: Patient Behavior: Appropriate and Cooperative Speech Pattern: Appropriate and Clear Vitals/I&O/Wt Last Vital Signs Temp 97.9 F 07/12/21 10:15 Pulse 96 07/12/21 10:15 Resp 18 07/12/21 10:15 BP 107/66 07/12/21 10:15 Pulse Ox 97 07/12/21 10:15 Weight last 48 hrs Weight 67.585 kg Physical Exam Urinary Catheter Management^: Malhotra: Cath Placed During This Visit: yes, but has since been removed by the nurse Reason for Continuing Indwelling Catheter: Accurate Measurement of Urinary Output in Critically Ill Patients Urinary Catheter Date of Insertion: 06/24/21 Date Urinary Catheter Removed: 07/05/21 Time Urinary Catheter Discontinued: 10:58 Data NPU : 07/12/21 07:09 07/12/21 07:09 A&P Assessment and plan (1) Heart failure: Plan: 1. Continue Cymbalta 90 mg every morning, Wellbutrin XL 300 mg every morning, trazodone 100 mg at bedtime and increase Abilify to 10 mg every morning. Discontinue olanzapine.. 2. Continue every 15 minute checks for safety. 3. Encourage individual, group and milieu therapies. 4. Encourage sober living treatment after discharge at the highest level of care to which she is willing to commit. 5. We will monitor for safety for herself in the community prior to discharge. Status: Resolved (2) Hypernatremia: Status: Resolved (3) Hypophosphatasia: Status: Resolved (4) Acute respiratory failure: Status: Resolved (5) Hyperkalemia: Status: Resolved (6) Acute kidney injury: Status: Resolved (7) Sepsis: Status: Resolved (8) Pneumonia: Status: Resolved (9) DKA (diabetic ketoacidosis): Status: Resolved (10) Major depressive disorder, severe: Status: Acute Additional A&P Information Plan: 1. Continue current medication but add Abilify 5 mg every morning. 2. Continue every 15 minute checks for safety. 3. Encourage individual, group and milieu therapies. 4. Encourage sober living treatment after discharge at the highest level of care to which she is willing to commit. 5. We will monitor for safety for herself in the community prior to discharge. Involuntary Hold Information 96 Hour Hold: 96 Hour Involuntary Admission: Yes 96 Hour Hold Ending Date: 07/18/21 96 Hour Hold Ending Time: 06:48 Attestations NPU Medical Necessity Statement*: Inpatient hospitalization is medically necessary and the clinically appropriate intervention at this time. We will initiate medications and make changes as indicated. Coding Level of Care Code Acute Corporate Meeting Planner for Bakari Lafleur Diagnoses Heart failure I50.9 Hypernatremia E87.0 Hypophosphatasia E83.39 Acute respiratory failure J96.00 Hyperkalemia E87.5 Acute kidney injury N17.9 Sepsis A41.9 Pneumonia J18.9 DKA (diabetic ketoacidosis) E11.10 Major depressive disorder, severe F32.2
[2021-07-12 13:58] LABS: Vitamin B1(Thiamin) Plas/Ser 157 nmol/L (8-30)
[2021-07-12 14:00] VITALS: BP 113/76; PULSE 92; RESP 20; TEMP 36.3; O2SAT 99
[2021-07-12] MEDS: polyethylene glycol 3350 Pkt 17 gm PO (14:05)
[2021-07-12 14:18] LABS: Glucose Point of Care 280 mg/dL (70-110)
[2021-07-12 16:47] LABS: Glucose Point of Care 211 mg/dL (70-110)
[2021-07-12] MEDS: trazodone 50 mg Tablet PO (20:43)
[2021-07-12] MEDS: atorvastatin 40 mg Tablet 80 MG PO (20:43)
[2021-07-12] MEDS: trazodone 100 mg Tablet PO (20:43)
[2021-07-12 21:06] VITALS: BP 128/81; PULSE 71; RESP 16; O2SAT 99
[2021-07-12 21:08] LABS: Glucose Point of Care 183 mg/dL (70-110)
[2021-07-13] MEDS: buPROPion XL (24 HR) 300 mg Tablet PO (05:55)
[2021-07-13 06:00] VITALS: RESP 15
[2021-07-13 08:20] LABS: Glucose Point of Care 168 mg/dL (70-110)
[2021-07-13] MEDS: thiamine 100 mg Tablet PO (09:39)
[2021-07-13] MEDS: aspirin 81 mg EC Tablet PO (09:39)
[2021-07-13] MEDS: ARIPiprazole 10 mg Tablet PO (09:39)
[2021-07-13] MEDS: cyanocobalamin 1,000 mcg Tablet 1000 MCG PO (09:39)
[2021-07-13] MEDS: duloxetine 30 mg Capsule PO (09:39)
[2021-07-13] MEDS: docusate sodium 100 mg Capsule PO ×2 (09:39→17:17)
[2021-07-13] MEDS: folic acid 1 mg Tablet PO (09:39)
[2021-07-13] MEDS: metformin 500 mg Tablet 1000 MG PO ×2 (09:39→17:17)
[2021-07-13] MEDS: duloxetine 60 mg Capsule PO (09:40)
[2021-07-13] MEDS: amoxicillin-clav 875-125 mg Tablet 1 TAB PO ×2 (09:40→17:17)
[2021-07-13] MEDS: levothyroxine 112 mcg Tablet PO (09:41)
[2021-07-13] MEDS: insulin lispro 100 unit/1 mL SUBCUT ×3 (09:41→17:16)
--- NOTE | 2021-07-13 10:24 | W.PM.NPUDCS ---
Diagnoses at Discharge Discharge Diagnosis (1) Heart failure: Status: Resolved (2) Hypernatremia: Status: Resolved (3) Hypophosphatasia: Status: Resolved (4) Acute respiratory failure: Status: Resolved (5) Hyperkalemia: Status: Resolved (6) Acute kidney injury: Status: Resolved (7) Sepsis: Status: Resolved (8) Pneumonia: Status: Resolved (9) DKA (diabetic ketoacidosis): Status: Resolved (10) Major depressive disorder, severe: Status: Acute Reason for Visit Reason for Visit: UNRESPONSIVE ON SCENE 17912 R41.82 Brief History: Licha Beck is a 61 year old female recently admitted to [facility] with the following HPI: History of Present Illness Licha Beck is a 61 year old female with past medical history of type 2 diabetes, previous episodes of DKA who was brought by her son to emergency room due to altered mental status. According to the son the patient was okay last night only complaining of some abdominal discomfort, nausea. She had 2 episodes of vomiting and one episode of loose stool. No fever or chills. She did not have any chest pain, shortness of breath, cough, palpitations. Earlier today the patient was found unresponsive. In the emergency room the patient was found to have severe ketoacidosis. pH 6.8. Blood sugar level is in the 600 range. According to the son the patient had previous admissions for DKA. The patient received 3 boluses of normal saline. Due to elevated white blood cell count she received antibiotics as well. Chest x-ray was clear but CT of the abdomen and pelvis also revealed bilateral infiltrates. Covid testing was negative. Patient is vaccinated. It was felt that she had acute metabolic encephalopathy. She was intubated for several days and unresponsive. She has gradually improved and they were getting close to potentially letting her go home. She has been very depressed and tearful for the last couple of days. She had some suicidal ideation and they transferred her to our unit for definitive treatment. She was found in the day room and we went to her room to talk. She initially said that she was not really depressed. However she was tearful several times during the interview. She said that she was worried today about losing her grandchildren. She has 4 grandchildren that she has not seen in 4 years. Her son is an over the road sprinkling truck driver. Her [id number] and her mother say that she is in untrustworthy grandparent. She does not know why they say that. She says that she is a loser. She had been living with her significant other up until recently when he kicked her out and gave her 3 days to get her things out of there. She has been living in a [facility] since then. She does not really know exactly where that is. She says that they have been treating her well there. They are very respectful. She said something about not sleeping well because she did not have her CPAP machine. She said that she must have misplaced it. She has not had it for 7 or 8 years. Maybe she left it at her ex-'s house and it is in his garage. She does not know how to get a hold of him. She has not tried to get another one. She says that she thinks that she sleeps better without it. He said that she is discouraged because she has limited mobility. She has lost mobility in her neck and no longer has good cervical vertebrae. She says that she has lost C1-T7. She denies any recent suicidal ideation. She says that she has been seeing Mere Fung at the [facility] for her medications. She says that she was on Abilify, Cymbalta 90 mg trazodone 100 mg Seroquel 200 mg recently. She thinks that the sleep medications were recently increased because she was not sleeping well. I records show that she is also on Wellbutrin XL 300 mg but does not indicate the Abilify. She agreed to start the Abilify at 5 mg and start the other medications as they are currently prescribed. PAST HISTORY AND SOCIAL HISTORY: As above Hospital Course Hospital Course She slowly acclimated to the individual, group and milieu therapies provided. She was continued on her home medications except Seroquel 200 mg was not given and she was given trazodone 150 mg. Abilify 10 mg was also started. On the first day in our unit she was contacted by her daughter and they agreed that she would come there and live with her and her 2 grandchildren. She was very happy about that. She denied any depression after she found out that news. She tolerated these doses and showed steady improvement during her stay. She was able to contract for safety outside hospital prior to discharge. During the hospitalization, patient had routine laboratory studies which were within normal limits except for few outliers. Additionally there was a general medical evaluation which was also within normal limits and revealed no new acute processes. Discharge Summary: At the time of discharge, lethality was denied. Mood and anxiety were well managed. Patient endorsed a plan to follow-up with the aftercare recommendations of the treatment team. Patient was evaluated and deemed to be absent credible lethality, and had achieved the maximum benefit from an inpatient hospitalization, so was discharged. Involuntary Hold Information 96 Hour Hold: 96 Hour Involuntary Admission: Yes 96 Hour Hold Ending Date: 07/18/21 96 Hour Hold Ending Time: 06:48 Mental Status Exam MSE Comments: This is a 61-year-old appropriate weight female who appears older than her stated age. She was pleasant and cooperative with the interview. psychomotor activity are mildly decreased. Speech is at a regular rate and rhythm, normal volume, good articulation, not pressured. Alert, oriented X3 today Attention and concentration seem to be normal. Memory is intact Mood is good. Affect is euthymic. Thought process is logical and goal-directed. Thought content: Denies auditory and visual hallucinations. No delusions or paranoia are noted. No current suicidal ideation, and no homicidal ideation. Fund of knowledge seems to be intact. Insight and judgment appear to be good. Impulse control is good. Cognition: Patient Appearance: Appropriate Level of Consciousness: Awake, Alert and Appropriate Patient Cognition Impaired: Yes Ability to Follow Directions: Good Patient Orientation (long list): Person Comprehension Ability: Understands Concepts Hallucination Type: None Delusion Description: Not Present Thought Process: Appropriate and Confused Affect: Affect Description: Appropriate and Calm Behavior: Patient Behavior: Appropriate and Cooperative Speech Pattern: Appropriate and Clear Physical Exam Urinary Catheter Management^: Malhotra: Cath Placed During This Visit: yes, but has since been removed by the nurse Reason for Continuing Indwelling Catheter: Accurate Measurement of Urinary Output in Critically Ill Patients Urinary Catheter Date of Insertion: 06/24/21 Date Urinary Catheter Removed: 07/05/21 Time Urinary Catheter Discontinued: 10:58 Discharge Data Data Completed and Pending: Completed Studies During Hospitalization Category Date Time Status CT abdomen pelvis w con* 86565 Urge nt Cat Scan 06/23/21 18:[address] angio headneck * 62120/[id number] Rout ine Cat Scan 07/03/21 09:[address] head wo con* 7 0450 Routine Cat Scan 06/29/21 15:[address] head wo con* 7 0450 Stat Cat Scan 07/03/21 09:[address] head wo con* 7 0450 Urgent Cat Scan 06/23/21 18:33 Completed CXRP [XR chest 1V portable 52327] S tat Exams 06/26/21 08:41 Completed CXRP [XR chest 1V portable 15224] S tat Exams 06/29/21 23:59 Completed Fluoro guided lum bar puncture [FL g uided lumbarpunc d x* Exams 06/30/21 10:03 Completed 11107] Routine XR KUB portable 7 4018 Routine Exams 07/03/21 09:27 Completed XR chest 1V [place] m ble 64556 Routine Exams 06/24/21 06:00 Completed XR chest 1V victor m ble 59537 Routine Exams 06/25/21 15:03 Completed XR chest 1V victor m ble 46383 Routine Exams 06/26/21 06:25 Completed XR chest 1V victor m ble 19338 Routine Exams 06/27/21 06:00 Completed XR chest 1V victor m ble 85203 Routine Exams 07/04/21 07:00 Completed XR chest 1V victor m ble 67801 Routine Exams 07/04/21 13:26 Completed XR chest 1V victor m ble 89699 Routine Exams 07/04/21 16:29 Completed XR chest 1V victor m ble 46980 Routine Exams 07/05/21 13:13 Completed XR chest 1V victor m ble 02126 Stat Exams 07/04/21 20:58 Completed XR chest 1V [place]or m ble 61816 Urgent Exams 06/23/21 18:34 Completed MR head wo con* 7 0551 Routine MRI 07/10/21 16:08 Completed CV carotid duplex BI* [id number] Routine Ultrasound 07/03/21 08:40 Completed CV. echo complete * [id number] Routine Ultrasound 06/26/21 16:25 Completed CV. echo lmt w/w contras [id number] Rout ine Ultrasound 07/03/21 08:40 Completed US abdomen limite d [id number] Routine Ultrasound 06/27/21 18:15 Completed Pending at discharge Category Date Time Status EEG electroenceph alogram Routine Exams 07/02/21 11:02 Ordered EEG electroenceph alogram Routine Exams 07/03/21 13:45 Ordered Herpes Simplex Vi mike DNA Routine Lab 06/30/21 13:38 Received Miscellaneous Joellen t Routine Lab 07/03/21 15:55 Received Urinalysis Routin e Lab 07/05/21 13:13 Uncollected VDRL on CSF Routi ne Lab 06/30/21 13:38 Received Labs from last 24 hours 07/13/21 07/12/21 07/12/21 08:17 20:40 16:43 POC Glucose 168 H 183 H 211 H Vitamin B1 07/12/21 07/12/21 07/12/21 14:03 11:31 11:17 POC Glucose 280 H 505 H* 540 H* Vitamin B1 07/03/21 04:42 POC Glucose Vitamin B1 157 H Vitals: Last Vital Signs Temp 97.4 F L 07/12/21 14:00 Pulse 71 07/12/21 21:06 Resp 15 07/13/21 06:00 BP 128/81 07/12/21 21:06 Pulse Ox 99 07/12/21 21:06 Discharge Plan Discharge Patient Disposition: Home Condition: Stable Prescriptions: New aripiprazole 10 mg Tablet 10 mg PO DAILY 30 Days Qty: 30 RF: 0 Continued metformin 1,000 mg Tablet 1,000 mg PO BID RF: 0 omega-3 fatty acids Capsule 1 cap PO DAILY RF: 0 rosuvastatin 40 mg Tablet 40 mg PO BEDTIME RF: 0 Jardiance 10 mg Tablet 10 mg PO QAM RF: 0 aspirin 81 mg Tablet 81 mg PO DAILY RF: 0 levothyroxine 112 mcg Tablet 112 mcg PO DAILY RF: 0 Super Keto 2 cap PO DAILY RF: 0 trazodone 100 mg Tablet 100 mg PO BEDTIME 30 Days Qty: 30 RF: 1 bupropion HCl 300 mg Tablet Extended Release 24 Hr 300 mg PO QAM 30 Days Qty: 30 RF: 1 duloxetine 30 mg Capsule,Delayed Release(Dr/Ec) 30 mg PO DAILY 30 Days Qty: 30 RF: 1 duloxetine 60 mg Capsule,Delayed Release(Dr/Ec) 60 mg PO DAILY 30 Days Qty: 30 RF: 1 Discontinued quetiapine 200 mg Tablet 200 mg PO BEDTIME RF: 0 Discharge Orders: Discharge Order (Routine); Ordered 07/13/21 Ordered By: Delroy Mensah Discharge Diet: Diabetic Discharge Activity: Resume usual activity Patient Instructions: Heart Failure (GEN), Rhabdomyolysis (GEN), Opioid Safety Discharge Attestations NPU Time Spent in Discharge Care*: greater than 30 min Specific Discharge Activities: Specific discharge activities: educating patient, discussing with catalytic case operator/social workers/dc planners, documenting/other paperwork and evaluating patient/reviewing data Status at Discharge: Cognitive status at discharge: severely impaired cognition, Overall status at discharge: patient is not back to baseline Coding Level of Care Code Acute Chg FW DC note Diagnoses Heart failure I50.9 Hypernatremia E87.0 Hypophosphatasia E83.39 Acute respiratory failure J96.00 Hyperkalemia E87.5 Acute kidney injury N17.9 Sepsis A41.9 Pneumonia J18.9 DKA (diabetic ketoacidosis) E11.10 Major depressive disorder, severe F32.2
[2021-07-13 11:23] LABS: Glucose Point of Care 303 mg/dL (70-110)
[2021-07-13] MEDS: insulin glargine 100 units/1 mL 8 UNIT SUBCUT (12:02)
[2021-07-13] MEDS: polyethylene glycol 3350 Pkt 17 gm PO (13:14)
[2021-07-13 14:00] VITALS: BP 106/70; PULSE 89; RESP 18; TEMP 36.7; O2SAT 100
--- NOTE | 2021-07-13 14:30 | W.PM.NPUPNS ---
Subjective NPU Subjective: Interval history: Her son evidently had no intention of coming today and taking her to [place]. Her daughter is not in [place]. She continues to report that she is not depressed and has not been having any thoughts of wanting to be . Hopefully her thinking will improve. Mental Status Exam MSE Comments: This is a 61-year-old appropriate weight female who appears older than her stated age. She was pleasant and cooperative with the interview. psychomotor activity are mildly decreased. Speech is at a regular rate and rhythm, normal volume, good articulation, not pressured. Alert, oriented X3 today Attention and concentration seem to be normal. Memory is intact Mood is good. Affect is euthymic. Thought process is logical and goal-directed. Thought content: Denies auditory and visual hallucinations. No delusions or paranoia are noted. No current suicidal ideation, and no homicidal ideation. Fund of knowledge seems to be intact. Insight and judgment appear to be good. Impulse control is good. Cognition: Patient Appearance: Appropriate Level of Consciousness: Awake, Alert and Appropriate Patient Cognition Impaired: Yes Ability to Follow Directions: Good Patient Orientation (long list): Person Comprehension Ability: Understands Concepts Hallucination Type: None Delusion Description: Not Present Thought Process: Appropriate and Confused Affect: Affect Description: Appropriate and Calm Behavior: Patient Behavior: Appropriate and Cooperative Speech Pattern: Appropriate and Clear Vitals/I&O/Wt Last Vital Signs Temp 97.9 F 07/14/21 05:35 Pulse 120 H 07/14/21 05:35 Resp 20 H 07/14/21 05:35 BP 78/58 07/14/21 05:35 Pulse Ox 98 07/14/21 05:35 07/13/21 07/14/21 07/14/21 22:59 06:59 14:59 Intake Total 420 / 420 Output Total 450 / 450 Balance -30 / -30 Physical Exam Urinary Catheter Management^: Malhotra: Cath Placed During This Visit: yes, but has since been removed by the nurse Reason for Continuing Indwelling Catheter: Accurate Measurement of Urinary Output in Critically Ill Patients Urinary Catheter Date of Insertion: 06/24/21 Date Urinary Catheter Removed: 07/05/21 Time Urinary Catheter Discontinued: 10:58 Data NPU : 07/12/21 07:09 07/12/21 07:09 A&P Assessment and plan (1) Heart failure: Plan: 1. Continue Cymbalta 90 mg every morning, Wellbutrin XL 300 mg every morning, trazodone 100 mg at bedtime and Abilify to 10 mg every morning. 2. Continue every 15 minute checks for safety. 3. Encourage individual, group and milieu therapies. 4. Encourage sober living treatment after discharge at the highest level of care to which she is willing to commit. 5. We will monitor for safety for herself in the community prior to discharge. Status: Resolved (2) Hypernatremia: Status: Resolved (3) Hypophosphatasia: Status: Resolved (4) Acute respiratory failure: Status: Resolved (5) Hyperkalemia: Status: Resolved (6) Acute kidney injury: Status: Resolved (7) Sepsis: Status: Resolved (8) Pneumonia: Status: Resolved (9) DKA (diabetic ketoacidosis): Status: Resolved (10) Major depressive disorder, severe: Status: Acute Additional A&P Information Plan: 1. Continue current medication but add Abilify 5 mg every morning. 2. Continue every 15 minute checks for safety. 3. Encourage individual, group and milieu therapies. 4. Encourage sober living treatment after discharge at the highest level of care to which she is willing to commit. 5. We will monitor for safety for herself in the community prior to discharge. Involuntary Hold Information 96 Hour Hold: 96 Hour Involuntary Admission: Yes 96 Hour Hold Ending Date: 07/18/21 96 Hour Hold Ending Time: 06:48 Attestations NPU Medical Necessity Statement*: Inpatient hospitalization is medically necessary and the clinically appropriate intervention at this time. We will initiate medications and make changes as indicated. Coding Level of Care Code Acute Vocational Rehabilitation Technician for g Fwd Diagnoses Heart failure I50.9 Hypernatremia E87.0 Hypophosphatasia E83.39 Acute respiratory failure J96.00 Hyperkalemia E87.5 Acute kidney injury N17.9 Sepsis A41.9 Pneumonia J18.9 DKA (diabetic ketoacidosis) E11.10 Major depressive disorder, severe F32.2
--- NOTE | 2021-07-13 15:45 | PC.NURSE ---
Patient's son came for visitation today. Discharge concerns expressed by family. Confirms she does live in a room [facility], with electricity and running water. Son lives on same property approximately 40 feet from Licha. Licha reports that she checks her sugar everyday that she has her monitor and takes her insulin 'when she has it'. Reports she does not have a refrigerator to keep her insulin in, and had not been checking her blood sugars because she has not been able to replace her monitor since she moved to [place] ([address] [place]). She would like to have a monitor that would program to her son's phone to help her keep track of her blood sugar. Discussed RCF facilities with patient and son. Judith stated she did not want to go live with her daughter in [place] because that did not feel like home anymore.
[2021-07-13 16:18] LABS: Glucose Point of Care 192 mg/dL (70-110)
[2021-07-13 19:15] VITALS: BP 93/58; PULSE 95; RESP 18; TEMP 36.6; O2SAT 97
[2021-07-13 19:38] LABS: Glucose Point of Care 89 mg/dL (70-110)
[2021-07-13] MEDS: atorvastatin 40 mg Tablet 80 MG PO (21:31)
[2021-07-13] MEDS: trazodone 100 mg Tablet PO (21:31)
[2021-07-13] MEDS: trazodone 50 mg Tablet PO (21:31)
--- NOTE | 2021-07-13 21:54 | PC.NURSE ---
patient reports she does not want to take her lantus tonight related to her capillary blood glucose level of 89
[2021-07-13 22:13] LABS: Glucose Point of Care 146 mg/dL (70-110)
[2021-07-14] MEDS: buPROPion XL (24 HR) 300 mg Tablet PO (05:26)
[2021-07-14 05:35] VITALS: BP 78/58; PULSE 120; RESP 20; TEMP 36.6; O2SAT 98
[2021-07-14 06:50] LABS: Glucose Point of Care 314 mg/dL (70-110)
--- NOTE | 2021-07-14 08:11 | PC.SOCIAL ---
IMM update Discussed medicare rights with patient. Verbalized understanding. Provided patient with a copy and placed initialed timed dated copy in chart.
[2021-07-14] MEDS: duloxetine 60 mg Capsule PO (08:30)
[2021-07-14] MEDS: folic acid 1 mg Tablet PO (08:30)
[2021-07-14] MEDS: thiamine 100 mg Tablet PO (08:30)
[2021-07-14] MEDS: insulin lispro 100 unit/1 mL SUBCUT ×4 (08:30→21:50)
[2021-07-14] MEDS: levothyroxine 112 mcg Tablet PO (08:30)
[2021-07-14] MEDS: cyanocobalamin 1,000 mcg Tablet 1000 MCG PO (08:30)
[2021-07-14] MEDS: docusate sodium 100 mg Capsule PO ×2 (08:30→17:27)
[2021-07-14] MEDS: amoxicillin-clav 875-125 mg Tablet 1 TAB PO ×2 (08:30→17:27)
[2021-07-14] MEDS: phosphorus 250 mg Tablet PO (08:30)
[2021-07-14] MEDS: ARIPiprazole 10 mg Tablet PO (08:30)
[2021-07-14] MEDS: aspirin 81 mg EC Tablet PO (08:30)
[2021-07-14] MEDS: metformin 500 mg Tablet 1000 MG PO ×2 (08:30→17:27)
[2021-07-14] MEDS: duloxetine 30 mg Capsule PO (08:30)
[2021-07-14 11:38] LABS: Glucose Point of Care 379 mg/dL (70-110)
[2021-07-14] MEDS: insulin glargine 100 units/1 mL 8 UNIT SUBCUT ×2 (12:23→21:50)
[2021-07-14 14:00] VITALS: BP 111/74; PULSE 105; RESP 18; TEMP 36.8; O2SAT 96
[2021-07-14 16:18] LABS: Glucose Point of Care 237 mg/dL (70-110)
[2021-07-14 19:43] LABS: Glucose Point of Care 194 mg/dL (70-110)
[2021-07-14] MEDS: atorvastatin 40 mg Tablet 80 MG PO (20:15)
[2021-07-14] MEDS: trazodone 50 mg Tablet PO ×2 (20:15→23:15)
[2021-07-14] MEDS: trazodone 100 mg Tablet PO (20:15)
[2021-07-14 20:27] VITALS: BP 71/31; PULSE 76; RESP 17; TEMP 36.7; O2SAT 97
[2021-07-14] MEDS: hyDROXYzine 25 mg Capsule 50 MG PO (23:15)
[2021-07-15] MEDS: buPROPion XL (24 HR) 300 mg Tablet PO (05:30)
[2021-07-15 05:59] VITALS: BP 90/57; PULSE 104; RESP 18; TEMP 36.6; O2SAT 98
[2021-07-15 06:37] LABS: Glucose Point of Care 223 mg/dL (70-110)
[2021-07-15] MEDS: amoxicillin-clav 875-125 mg Tablet 1 TAB PO ×2 (09:39→17:50)
[2021-07-15] MEDS: docusate sodium 100 mg Capsule PO ×2 (09:39→17:51)
[2021-07-15] MEDS: ARIPiprazole 10 mg Tablet PO (09:40)
[2021-07-15] MEDS: aspirin 81 mg EC Tablet PO (09:40)
[2021-07-15] MEDS: duloxetine 30 mg Capsule PO (09:40)
[2021-07-15] MEDS: folic acid 1 mg Tablet PO (09:40)
[2021-07-15] MEDS: cyanocobalamin 1,000 mcg Tablet 1000 MCG PO (09:40)
[2021-07-15] MEDS: metformin 500 mg Tablet 1000 MG PO (09:40)
[2021-07-15] MEDS: duloxetine 60 mg Capsule PO (09:40)
[2021-07-15] MEDS: thiamine 100 mg Tablet PO (09:40)
[2021-07-15] MEDS: insulin lispro 100 unit/1 mL SUBCUT ×4 (09:43→22:42)
[2021-07-15] MEDS: insulin glargine 100 units/1 mL 8 UNIT SUBCUT ×2 (09:44→22:15)
--- NOTE | 2021-07-15 11:08 | P.NPUPN_ITS ---
Subjective NPU Subjective: Interval history: She initially said that she was doing very well. She denies any depression or suicidal thoughts. She thought that her son was coming to get her yesterday. She also thinks that he might be coming today. The of a different son says that they had no intention of the son taking her home there. There is reportedly a son in [place] reportedly would let her come there for 2 weeks. She says that her daughter in [place] will be there this weekend. Evidently the family is going to get together and make a decision about where she will go on Saturday. She also has 2 homeless shelters that she is considering. After discussing all that her affect was sad but she still said that she was not depressed. Mental Status Exam MSE Comments: This is a 61-year-old appropriate weight female who appears older than her stated age. She was pleasant and cooperative with the interview. psychomotor activity are mildly decreased. Speech is at a regular rate and rhythm, normal volume, good articulation, not pressured. Alert, oriented only to person and place Attention and concentration seem to be normal. Memory is questionable at times. Mood is good. Affect is euthymic. Thought process is logical and goal-directed. Thought content: Denies auditory and visual hallucinations. No delusions or paranoia are noted. No current suicidal ideation, and no homicidal ideation. Fund of knowledge seems to be intact. Insight and judgment appear to be good. Impulse control is good. Cognition: Patient Appearance: Appropriate Level of Consciousness: Awake, Alert and Appropriate Patient Cognition Impaired: Yes Ability to Follow Directions: Good Patient Orientation (long list): Person Comprehension Ability: Understands Concepts Hallucination Type: None Delusion Description: Not Present Thought Process: Appropriate and Confused Affect: Affect Description: Appropriate and Calm Behavior: Patient Behavior: Appropriate and Cooperative Speech Pattern: Appropriate and Clear Vitals/I&O/Wt Last Vital Signs Temp 97.9 F 07/15/21 05:59 Pulse 104 H 07/15/21 05:59 Resp 18 07/15/21 05:59 BP 90/57 07/15/21 05:59 Pulse Ox 98 07/15/21 05:59 Physical Exam Urinary Catheter Management^: Malhotra: Cath Placed During This Visit: yes, but has since been removed by the nurse Reason for Continuing Indwelling Catheter: Accurate Measurement of Urinary Output in Critically Ill Patients Urinary Catheter Date of Insertion: 06/24/21 Date Urinary Catheter Removed: 07/05/21 Time Urinary Catheter Discontinued: 10:58 Data NPU : 07/12/21 07:09 07/12/21 07:09 A&P Assessment and plan (1) Heart failure: Plan: 1. Continue Cymbalta 90 mg every morning, Wellbutrin XL 300 mg every morning, trazodone 100 mg at bedtime and Abilify to 10 mg every morning. 2. Continue every 15 minute checks for safety. 3. Encourage individual, group and milieu therapies. 4. Encourage sober living treatment after discharge at the highest level of care to which she is willing to commit. 5. We will monitor for safety for herself in the community prior to discharge. Status: Resolved (2) Hypernatremia: Status: Resolved (3) Hypophosphatasia: Status: Resolved (4) Acute respiratory failure: Status: Resolved (5) Hyperkalemia: Status: Resolved (6) Acute kidney injury: Status: Resolved (7) Sepsis: Status: Resolved (8) Pneumonia: Status: Resolved (9) DKA (diabetic ketoacidosis): Status: Resolved (10) Major depressive disorder, severe: Status: Acute Additional A&P Information Plan: 1. Continue current medication but add Abilify 5 mg every morning. 2. Continue every 15 minute checks for safety. 3. Encourage individual, group and milieu therapies. 4. Encourage sober living treatment after discharge at the highest level of care to which she is willing to commit. 5. We will monitor for safety for herself in the community prior to discharge. Involuntary Hold Information 96 Hour Hold: 96 Hour Involuntary Admission: Yes 96 Hour Hold Ending Date: 07/18/21 96 Hour Hold Ending Time: 06:48 Attestations NPU Medical Necessity Statement*: Inpatient hospitalization is medically necessary and the clinically appropriate intervention at this time. We will initiate medications and make changes as indicated. Coding Level of Care Code Acute Chemical Operations And Training for g Fwd Diagnoses Heart failure I50.9 Hypernatremia E87.0 Hypophosphatasia E83.39 Acute respiratory failure J96.00 Hyperkalemia E87.5 Acute kidney injury N17.9 Sepsis A41.9 Pneumonia J18.9 DKA (diabetic ketoacidosis) E11.10 Major depressive disorder, severe F32.2
[2021-07-15 11:37] LABS: Glucose Point of Care 374 mg/dL (70-110)
[2021-07-15] MEDS: phosphorus 250 mg Tablet PO ×2 (12:55→17:50)
[2021-07-15] MEDS: levothyroxine 112 mcg Tablet PO (12:56)
[2021-07-15 14:00] VITALS: BP 140/82; PULSE 86; RESP 18; TEMP 36.6; O2SAT 96
[2021-07-15 16:28] LABS: Glucose Point of Care 233 mg/dL (70-110)
[2021-07-15 19:42] LABS: Glucose Point of Care 251 mg/dL (70-110)
[2021-07-15 19:43] VITALS: BP 97/58; PULSE 96; RESP 15; TEMP 36.7; O2SAT 98
[2021-07-15] MEDS: atorvastatin 40 mg Tablet 80 MG PO (20:44)
[2021-07-15] MEDS: trazodone 100 mg Tablet PO (20:44)
[2021-07-15] MEDS: trazodone 50 mg Tablet PO (20:44)
[2021-07-16] MEDS: buPROPion XL (24 HR) 300 mg Tablet PO (05:48)
[2021-07-16 06:00] VITALS: BP 90/57; PULSE 106; RESP 18; TEMP 36.8; O2SAT 97; BMI 24.0
[2021-07-16 07:08] LABS: Glucose Point of Care 312 mg/dL (70-110)
--- NOTE | 2021-07-16 08:51 | W.PM.NPUPNS ---
Subjective NPU Subjective: Interval history: She says that she is doing well. She denies depression or suicidal thoughts. She was sad that her son did not come pick her up last night. She is still hoping that he or hers [id number] will come and pick her up today. She is not having any side effects from the medications and feels that they are doing well and would like to continue them. Mental Status Exam MSE Comments: This is a 61-year-old appropriate weight female who appears older than her stated age. She was pleasant and cooperative with the interview. psychomotor activity are mildly decreased. Speech is at a regular rate and rhythm, normal volume, good articulation, not pressured. Alert, oriented only to person and place Attention and concentration seem to be normal. Memory is questionable at times. Mood is good. Affect is euthymic. Thought process is logical and goal-directed. Thought content: Denies auditory and visual hallucinations. No delusions or paranoia are noted. No current suicidal ideation, and no homicidal ideation. Fund of knowledge seems to be intact. Insight and judgment appear to be good. Impulse control is good. Cognition: Patient Appearance: Appropriate Level of Consciousness: Awake, Alert and Appropriate Patient Cognition Impaired: Yes Ability to Follow Directions: Good Patient Orientation (long list): Person Comprehension Ability: Understands Concepts Hallucination Type: None Delusion Description: Not Present Thought Process: Appropriate and Confused Affect: Affect Description: Appropriate and Calm Behavior: Patient Behavior: Appropriate Speech Pattern: Appropriate and Clear Vitals/I&O/Wt Last Vital Signs Temp 98.2 F 07/16/21 06:00 Pulse 106 H 07/16/21 06:00 Resp 18 07/16/21 06:00 BP 90/57 07/16/21 06:00 Pulse Ox 97 07/16/21 06:00 Weight last 48 hrs Weight 67.585 kg Physical Exam Urinary Catheter Management^: Malhotra: Cath Placed During This Visit: yes, but has since been removed by the nurse Reason for Continuing Indwelling Catheter: Accurate Measurement of Urinary Output in Critically Ill Patients Urinary Catheter Date of Insertion: 06/24/21 Date Urinary Catheter Removed: 07/05/21 Time Urinary Catheter Discontinued: 10:58 Data NPU : 07/12/21 07:09 07/12/21 07:09 A&P Assessment and plan (1) Heart failure: Plan: 1. Continue Cymbalta 90 mg every morning, Wellbutrin XL 300 mg every morning, trazodone 100 mg at bedtime and Abilify to 10 mg every morning. 2. Continue every 15 minute checks for safety. 3. Encourage individual, group and milieu therapies. 4. Encourage sober living treatment after discharge at the highest level of care to which she is willing to commit. 5. We will monitor for safety for herself in the community prior to discharge. Status: Resolved (2) Hypernatremia: Status: Resolved (3) Hypophosphatasia: Status: Resolved (4) Acute respiratory failure: Status: Resolved (5) Hyperkalemia: Status: Resolved (6) Acute kidney injury: Status: Resolved (7) Sepsis: Status: Resolved (8) Pneumonia: Status: Resolved (9) DKA (diabetic ketoacidosis): Status: Resolved (10) Major depressive disorder, severe: Status: Acute Additional A&P Information Plan: 1. Continue current medication but add Abilify 5 mg every morning. 2. Continue every 15 minute checks for safety. 3. Encourage individual, group and milieu therapies. 4. Encourage sober living treatment after discharge at the highest level of care to which she is willing to commit. 5. We will monitor for safety for herself in the community prior to discharge. Involuntary Hold Information 96 Hour Hold: 96 Hour Involuntary Admission: Yes 96 Hour Hold Ending Date: 07/18/21 96 Hour Hold Ending Time: 06:48 Attestations NPU Medical Necessity Statement*: Inpatient hospitalization is medically necessary and the clinically appropriate intervention at this time. We will initiate medications and make changes as indicated. Coding Level of Care Code Acute Modeling Teacher for [facility] Fwd Diagnoses Heart failure I50.9 Hypernatremia E87.0 Hypophosphatasia E83.39 Acute respiratory failure J96.00 Hyperkalemia E87.5 Acute kidney injury N17.9 Sepsis A41.9 Pneumonia J18.9 DKA (diabetic ketoacidosis) E11.10 Major depressive disorder, severe F32.2
[2021-07-16] MEDS: insulin glargine 100 units/1 mL 8 UNIT SUBCUT ×2 (09:48→21:01)
[2021-07-16] MEDS: insulin lispro 100 unit/1 mL SUBCUT ×4 (09:49→21:10)
[2021-07-16] MEDS: metformin 500 mg Tablet 1000 MG PO ×3 (09:51→17:02)
[2021-07-16] MEDS: folic acid 1 mg Tablet PO (09:52)
[2021-07-16] MEDS: levothyroxine 112 mcg Tablet PO (09:52)
[2021-07-16] MEDS: amoxicillin-clav 875-125 mg Tablet 1 TAB PO ×2 (09:52→17:02)
[2021-07-16] MEDS: thiamine 100 mg Tablet PO (09:52)
[2021-07-16] MEDS: aspirin 81 mg EC Tablet PO (09:52)
[2021-07-16] MEDS: cyanocobalamin 1,000 mcg Tablet 1000 MCG PO (09:52)
[2021-07-16] MEDS: duloxetine 30 mg Capsule PO (09:52)
[2021-07-16] MEDS: phosphorus 250 mg Tablet PO ×2 (09:52→17:02)
[2021-07-16] MEDS: duloxetine 60 mg Capsule PO (09:52)
[2021-07-16] MEDS: ARIPiprazole 10 mg Tablet PO (09:52)
[2021-07-16] MEDS: docusate sodium 100 mg Capsule PO ×2 (09:55→17:02)
[2021-07-16 11:31] LABS: Glucose Point of Care 406 mg/dL (70-110)
--- NOTE | 2021-07-16 13:35 | PC.NUTR ---
Nutrition reassessment: Completing via narrative note due to currently unable to create new reassessment in EMR. IT notified. Medical record reviewed Pertinent meds: Vit B12, Colace, folic acid, lantus, humalog, metformin, K Phos, Vit B1 Labs: poc glucose 233-406 Skin: no breakdown reported Wt: 149 lbs, no changes since last reivew Estimated nutritional needs: 0353-9232 kcal (MSJ X 1.3-1.5), 71-78 g protein (1-1.1 g/kg), 1 ml/kcal fluid Current diet order: Consistent Carb, likes unsweet tea and sandwiches. Breakfast sandwich in AM Appetite: good, 75% average X 9 recorded meals, however 6 meals missing from EMR since last review Feeding ability: independent PES Statement: Altered nutrition-related labs related to DM as evidenced by poc glucose ranging 233-406 over past 24 hrs. Interventions/Recommendations: Consistent Carb diet in place. Recommend low-carb snack options. Monitoring: Diet tolerance, fluid status, lab values. Will follow up in 3-5 days or as needed.
[2021-07-16 14:00] VITALS: BP 97/65; PULSE 88; RESP 18; TEMP 36.2; O2SAT 99
[2021-07-16 15:00] LABS: Glucose Point of Care 242 mg/dL (70-110)
[2021-07-16 16:42] LABS: Glucose Point of Care 358 mg/dL (70-110)
[2021-07-16] MEDS: trazodone 100 mg Tablet PO (21:00)
[2021-07-16] MEDS: trazodone 50 mg Tablet PO (21:01)
[2021-07-16] MEDS: atorvastatin 40 mg Tablet 80 MG PO (21:01)
[2021-07-16 21:11] LABS: Glucose Point of Care 203 mg/dL (70-110)
[2021-07-16 21:38] VITALS: BP 104/61; PULSE 95; RESP 18; TEMP 36.8; O2SAT 99
[2021-07-17] MEDS: buPROPion XL (24 HR) 300 mg Tablet PO (05:54)
[2021-07-17 06:00] VITALS: BP 111/65; PULSE 98; RESP 16; TEMP 36.8; O2SAT 94
[2021-07-17 06:32] LABS: Glucose Point of Care 314 mg/dL (70-110)
[2021-07-17] MEDS: aspirin 81 mg EC Tablet PO (08:52)
[2021-07-17] MEDS: insulin lispro 100 unit/1 mL SUBCUT (08:52)
[2021-07-17] MEDS: thiamine 100 mg Tablet PO (08:52)
[2021-07-17] MEDS: metformin 500 mg Tablet 1000 MG PO (08:52)
[2021-07-17] MEDS: docusate sodium 100 mg Capsule PO (08:52)
[2021-07-17] MEDS: ARIPiprazole 10 mg Tablet PO (08:52)
[2021-07-17] MEDS: duloxetine 30 mg Capsule PO (08:52)
[2021-07-17] MEDS: folic acid 1 mg Tablet PO (08:52)
[2021-07-17] MEDS: cyanocobalamin 1,000 mcg Tablet 1000 MCG PO (08:52)
[2021-07-17] MEDS: duloxetine 60 mg Capsule PO (08:52)
[2021-07-17] MEDS: amoxicillin-clav 875-125 mg Tablet 1 TAB PO (08:52)
[2021-07-17] MEDS: insulin glargine 100 units/1 mL 8 UNIT SUBCUT (09:54)
[2021-07-17 10:28] LABS: Glucose Point of Care 459 mg/dL (70-110)
[2021-07-17 11:13] VITALS: BP 111/65; PULSE 98; RESP 16; TEMP 36.8; O2SAT 94
--- NOTE | 2021-07-17 11:14 | W.PM.NPUPNS ---
Subjective NPU Subjective: Interval history: She says that she is doing well. She denies depression or suicidal thoughts. She was sad that her son did not come pick her up last night as she had hoped. She is still hoping that he or hers [id number] will come and pick her up today. She is not having any side effects from the medications and feels that they are doing well and would like to continue them. Mental Status Exam MSE Comments: This is a 61-year-old appropriate weight female who appears older than her stated age. She was pleasant and cooperative with the interview. psychomotor activity are mildly decreased. Speech is at a regular rate and rhythm, normal volume, good articulation, not pressured. Alert, oriented only to person and place Attention and concentration seem to be normal. Memory is questionable at times. Mood is good. Affect is euthymic. Thought process is logical and goal-directed. Thought content: Denies auditory and visual hallucinations. No delusions or paranoia are noted. No current suicidal ideation, and no homicidal ideation. Fund of knowledge seems to be intact. Insight and judgment appear to be good. Impulse control is good. Cognition: Patient Appearance: Appropriate Level of Consciousness: Awake, Alert and Appropriate Patient Cognition Impaired: Yes Ability to Follow Directions: Good Patient Orientation (long list): Person Comprehension Ability: Understands Concepts Hallucination Type: None Delusion Description: Not Present Thought Process: Appropriate and Confused Affect: Affect Description: Appropriate Behavior: Patient Behavior: Appropriate Speech Pattern: Appropriate Vitals/I&O/Wt Last Vital Signs Temp 98.3 F 07/17/21 06:00 Pulse 98 07/17/21 06:00 Resp 16 07/17/21 06:00 BP 111/65 07/17/21 06:00 Pulse Ox 94 07/17/21 06:00 Weight last 48 hrs Weight 67.585 kg Physical Exam Urinary Catheter Management^: Malhotra: Cath Placed During This Visit: yes, but has since been removed by the nurse Reason for Continuing Indwelling Catheter: Accurate Measurement of Urinary Output in Critically Ill Patients Urinary Catheter Date of Insertion: 06/24/21 Date Urinary Catheter Removed: 07/05/21 Time Urinary Catheter Discontinued: 10:58 Data NPU : 07/12/21 07:09 07/12/21 07:09 A&P Assessment and plan (1) Heart failure: Plan: 1. Continue Cymbalta 90 mg every morning, Wellbutrin XL 300 mg every morning, trazodone 100 mg at bedtime and Abilify to 10 mg every morning. 2. Continue every 15 minute checks for safety. 3. Encourage individual, group and milieu therapies. 4. Encourage sober living treatment after discharge at the highest level of care to which she is willing to commit. 5. We will monitor for safety for herself in the community prior to discharge. Status: Resolved (2) Hypernatremia: Status: Resolved (3) Hypophosphatasia: Status: Resolved (4) Acute respiratory failure: Status: Resolved (5) Hyperkalemia: Status: Resolved (6) Acute kidney injury: Status: Resolved (7) Sepsis: Status: Resolved (8) Pneumonia: Status: Resolved (9) DKA (diabetic ketoacidosis): Status: Resolved (10) Major depressive disorder, severe: Status: Acute Additional A&P Information Plan: 1. Continue current medication but add Abilify 5 mg every morning. 2. Continue every 15 minute checks for safety. 3. Encourage individual, group and milieu therapies. 4. Encourage sober living treatment after discharge at the highest level of care to which she is willing to commit. 5. We will monitor for safety for herself in the community prior to discharge. Involuntary Hold Information 96 Hour Hold: 96 Hour Involuntary Admission: Yes 96 Hour Hold Ending Date: 07/18/21 96 Hour Hold Ending Time: 06:48 Attestations NPU Medical Necessity Statement*: Inpatient hospitalization is medically necessary and the clinically appropriate intervention at this time. We will initiate medications and make changes as indicated. Coding Level of Care Code Acute Lead Web Application Developer for [facility] Fwd Diagnoses Heart failure I50.9 Hypernatremia E87.0 Hypophosphatasia E83.39 Acute respiratory failure J96.00 Hyperkalemia E87.5 Acute kidney injury N17.9 Sepsis A41.9 Pneumonia J18.9 DKA (diabetic ketoacidosis) E11.10 Major depressive disorder, severe F32.2
== END 2021-07-17 11:14 | disposition home or self-care (01) | DRG 870 ==
LOC: ER 22:13 → ICU 22:57 → MEDSURG 07-04 19:22 → NP 07-11 07:33
PROVIDERS: Family Medicine; Admitting Provider Internal Medicine; Emergency Provider Emergency Medicine; Visit Provider Internal Medicine
DX: A41.9 Sepsis, unspecified organism (principal); E11.10 Type 2 diabetes mellitus with ketoacidosis without coma; G93.41 Metabolic encephalopathy; J18.9 Pneumonia, unspecified organism; N17.0 Acute kidney failure with tubular necrosis; J96.00 Acute respiratory failure, unspecified whether with hypoxia or hypercapnia; I50.23 Acute on chronic systolic (congestive) heart failure; I49.01 Ventricular fibrillation; I46.9 Cardiac arrest, cause unspecified; K72.00 Acute and subacute hepatic failure without coma; E46 Unspecified protein-calorie malnutrition; M62.82 Rhabdomyolysis; E87.5 Hyperkalemia; E11.22 Type 2 diabetes mellitus with diabetic chronic kidney disease; N18.30 Chronic kidney disease, stage 3 unspecified; I95.9 Hypotension, unspecified; F31.9 Bipolar disorder, unspecified; Z68.24 Body mass index [BMI] 24.0-24.9, adult; Z79.82 Long term (current) use of aspirin; Z79.84 Long term (current) use of oral hypoglycemic drugs
CPT/HCPCS: 31500; 36415; 36416; 36592; 36600; 51702; 62328; 70450; 70496; 70498; 70551; 71045; 74018; 74177; 76705; 80048; 80051; 80053; 80069; 80074; 80202; 80307; 80500; 81001; 82009; 82140; 82175; 82300; 82330; 82495; 82525; 82550; 82607; 82728; 82746; 82803; 82805; 82945; 82962; 83018; 83605; 83655; 83690; 83735; 83825; 83880; 83885; 83935; 84100; 84132; 84145; 84157; 84255; 84300; 84425; 84443; 84484; 84630; 85025; 85610; 85651; 86140; 86403; 86592; 86617; 86653; 86788; 86789; 86803; 87040; 87070; 87075; 87086; 87106; 87205; 87327; 87340; 87426; 87449; 87530; 87635; 87641; 87804; 87806; 89050; 92507; 92523; 92526; 92610; 93005; 93306; 93880; 93976; 94002; 94003; 94660; 94664; 94799; 96365; 96367; 96372; 97110; 97116; 97150; 97162; 97165; 97167; 97530; 97535; 99291; 99292; A4570; C8924; J0133; J0456; J0692; J0743; J1630; J1644; J1650; J1815 ×2; J1940; J1953; J1956; J2060; J2185; J2250; J2405; J2543; J2704; J3010; J3370; J3411; J3475; J3480; J3490; J7040; J7050; J7799; P9047; Q9967

== ENCOUNTER → 2021-08-02 10:22 | Outpatient (BNVA) | payer OTHER, MEDICAID, SELFPAY | PROVIDERS: Visit Provider Family Medicine | DX: S49.90XA Unspecified injury of shoulder and upper arm, unspecified arm, initial encounter (principal); S42.292A Other displaced fracture of upper end of left humerus, initial encounter for closed fracture; W19.XXXA Unspecified fall, initial encounter | CPT/HCPCS: 73030 ==

== ENCOUNTER → 2021-08-22 08:39 | Outpatient (BNVA) | payer OTHER, MEDICAID, SELFPAY | PROVIDERS: Visit Provider Physician Assistant | DX: S42.202A Unspecified fracture of upper end of left humerus, initial encounter for closed fracture (principal); X58.XXXA Exposure to other specified factors, initial encounter | CPT/HCPCS: 73030; 73080; 73110 ==

== ENCOUNTER 2021-09-01 10:15 | Outpatient (RCR) | payer OTHER, MEDICAID, SELFPAY | END 2021-09-18 23:59 | disposition home or self-care (01) | LOC: SPT 10:15 | PROVIDERS: Referring Provider Physician Assistant; Visit Provider Physician Assistant | DX: S42.202D Unspecified fracture of upper end of left humerus, subsequent encounter for fracture with routine healing (principal); X58.XXXD Exposure to other specified factors, subsequent encounter | CPT/HCPCS: 97110; 97150; 97161; G0283 ==

== ENCOUNTER 2021-09-08 11:29 | Emergency (ER) | payer MEDICARE, MEDICAID, SELFPAY ==
[2021-09-08 12:05] VITALS: BP 153/102; PULSE 74; RESP 18; TEMP 36.3; O2SAT 100; BMI 26.6
[2021-09-08 12:12] VITALS: BP 137/88; PULSE 73; RESP 16; TEMP 36.8; O2SAT 98
--- NOTE | 2021-09-08 12:12 | PC.NURSE ---
REPORT TO CHELY FRENCH
--- NOTE | 2021-09-08 12:20 | ED_ITS ---
HPI - Extremity Injury (Upper) General: Chief Complaint: Extremity Injury, Lower Stated Complaint: left shoulder injury Time Seen by Provider: 09/08/21 12:19 Source: patient Mode of arrival: ambulatory Limitations: no limitations History of Present Illness: HPI narrative: Patient is a 61-year-old female who presents to ED today for evaluation of a left shoulder injury. Patient states she broke her proximal humerus on 08/02. She followed up with orthopedics on 08/22 and was referred to physical therapy for gentle pendulum exercises. Patient states she had just started PT. She states today she was walking on a ramp carrying a load of laundry when she tripped and fell and landed onto her left shoulder and re-injured it. She has no other complaints or injuries today rela varun to her fall. complaint: injury to: left and shoulder Onset (ago): hour(s) Other injuries: none Place: home Relieving factors: immobilization Exacerbating factors: movement of extremity Context: fall Associated symptoms: Reports no associated symptoms; Denies neck pain or weakness in extremities Review of Systems Card: Denies: chest pain Resp: Denies: dyspnea Musc: Reports: extremity pain (L upper arm), joint pain (L shoulder) and limited range of motion; Denies: neck pain, back pain, extremity swelling, joint swelling, joint redness or joint warmth Neuro: Denies: numbness in extremities, weakness in extremities, sensory ch anges, difficulty walking, dizziness or confusion [facility] ED PFSH: Medical History Cardiac arrest with successful resuscitation Female Reproductive History: Date of last menstrual period: 07/11/15 Physical Exam Const: COMMON NORMALS: no acute distress, average body habitus, patient orient ed x3, no limitations, healthy appearing, alert and well nourished GENERAL APPEARANCE: cooperative ORIENTATION/CONSCIOUSNESS: Yes awake, Yes oriented to person, Yes oriented to place and Yes oriented to time HENMT: COMMON NORMALS: normocephalic and atraumatic HEAD & SCALP: normal to inspection, normocephalic and atraumatic Neck/C-Spine: COMMON NORMALS: full ROM CERVICAL SPINE: Yes cervical ROM normal, No pain with cervical ROM and No Cervical spine tenderness Chest: COMMONS NORMALS: normal inspection of the chest and normal palpation of entire chest wall Resp: COMMON NORMALS: normal respiratory effort and clear to auscultation bilaterally AUSCULTATION: clear to auscultation bilaterally Cardio: COMMON NORMALS: regular rate and regular rhythm RATE: regular rate RHYTHM: regular rhythm Back/Pelvis: COMMON NORMALS: thoracic and lumbar spine normal to inspection, no thoracic nor lumbar tenderness and thoraco-lumbar ROM normal Extremity: GENERAL: Yes normal exam except as noted LEFT UPPER EXTREMITY: Yes shoulder joint (TTP proximal to mid humerus) Left shoulder joint: Yes ROM (limited-unknown whether related to acute injury or fx a month ago) and Yes neurovascular exam (normal) Neuro: [place] SCALE: document GCS findings [place] coma scale eye opening: Spontaneous [place] coma scale verbal response: Orientated [place] coma scale motor response: [place] commands [place] coma scale total score: 15 COMMON NORMALS: patient oriented x3, moves all extremities, no focal motor deficits, no sensory deficits noted and gait normal SENSORIUM/ORIENTATION: Yes alert, Yes oriented to person, Yes oriented to place and Yes oriented to time Skin: COMMON NORMALS: no rashes or lesions noted GENERAL SKIN EXAM: no rashes or lesions noted TRAUMA: no lacerations or abrasions Course Vital Signs: Vital signs: Vital Signs Temperature 98.3 F 09/08/21 12:12 Pulse Rate 73 09/08/21 12:12 Respiratory Rate 16 09/08/21 12:12 Blood Pressure 137/88 09/08/21 12:12 Pulse Oximetry 98 09/08/21 12:12 MDM - Extremity Injury (Upper) MDM Narrative: Medical decision making narrative: I don't appreciate any significant changes on her XRs today when compared to previous films. Recommend she follow up with her orthopedic provider at this time. Imaging Data^: XR L shoulder/humerus: Radiologist's impression: [address] [address] XRay Report Signed Patient: Licha Beck Unit #: [id number] : 1960 Age/Sex: 61 / F ADM Date: 09/08/21 Loc: ER Room/Bed: Attending Dr: Ordering Provider/Ordering MD: Sinai Bruno Date of Service: 09/08/21 Procedure(s): XR shoulder LT min 2V* [id number] Accession Number(s): [id number] Report Number: [id number] WS: [email or web address] Exam: XR shoulder LT min 2V* [id number] Date/Time of Exam: 09/08/2021 12:20 PM Reason For Exam: recent fracture; fall/new injury Comparison 08/22/2021. There is an impacted comminuted fracture of the surgical neck and head of the humerus with some posterior rotation of the humeral head. No positional change noted. Callus formation noted indicating healing. No dislocation is noted. Normal soft tissues. XR/XR shoulder LT min 2V* [id number] IMPRESSION: 1. Healing comminuted fracture of the neck and head of the humerus without positional change. Dictated By: Brennan Dickye DO Signed By: Brennan Dickey DO Signed Date/Time: 09/08/21 1248 DD/ 1243 Discharge Plan Discharge Patient Disposition: Home Clinical Impression: Injury of left shoulder Qualifiers: Encounter type: initial encounter Qualified Code(s): S49.92XA - Unspecified injury of left shoulder and upper arm, initial encounter Condition: Stable Prescriptions: No Action hydrocodone-acetaminophen 5-325 mg tablet 1 tab PO Q6H PRN (Reason: pain) 10 Days Qty: 30 RF: 0 metformin 1,000 mg Tablet 1,000 mg PO BID RF: 0 omega-3 fatty acids Capsule 1 cap PO DAILY RF: 0 rosuvastatin 40 mg Tablet 40 mg PO BEDTIME RF: 0 Jardiance 10 mg Tablet 10 mg PO QAM RF: 0 aspirin 81 mg Tablet 81 mg PO DAILY RF: 0 levothyroxine 112 mcg Tablet 112 mcg PO DAILY RF: 0 Super Keto 2 cap PO DAILY RF: 0 trazodone 100 mg Tablet 100 mg PO BEDTIME 30 Days Qty: 30 RF: 1 bupropion HCl 300 mg Tablet Extended Release 24 Hr 300 mg PO QAM 30 Days Qty: 30 RF: 1 duloxetine 30 mg Capsule,Delayed Release(Dr/Ec) 30 mg PO DAILY 30 Days Qty: 30 RF: 1 duloxetine 60 mg Capsule,Delayed Release(Dr/Ec) 60 mg PO DAILY 30 Days Qty: 30 RF: 1 Discharge Orders: Discharge ED (Routine); Ordered 09/08/21 Ordered By: Sinai Bruno Coding Level of Care Code ED [place] [facility] Fwd Exam Comprehensive
--- NOTE | 2021-09-08 12:20 | XR_ITS ---
WS: [email or web address] Exam: XR shoulder LT min 2V* [id number] Date/Time of Exam: 09/08/2021 12:20 PM Reason For Exam: recent fracture; fall/new injury Comparison 08/22/2021. There is an impacted comminuted fracture of the surgical neck and head of the humerus with some poste rior rotation of the humeral head. No positional change noted. Callus formation noted indicating heal ing. No dislocation is noted. Normal soft tissues. XR/XR shoulder LT min 2V* [id number] IMPRESSION: 1. Healing comminuted fracture of the neck and head of the humerus without posi tional change.
--- NOTE | 2021-09-08 12:26 | XR_ITS ---
WS: [email or web address] Exam: [place] [id number] Date/Time of Exam: 09/08/2021 12:26 PM Reason For Exam: fall/injury Again noted is an impacted displaced comminuted fracture of the surgical neck and head of the humerus . Remaining aspects of the humeral shaft are intact. Normal soft tissues. XR/[place] [id number] IMPRESSION: 1. Impacted comminuted displaced fracture of the surgical neck and head of the humerus as previously described. The remaining humerus is intact.
--- NOTE | 2021-09-08 12:40 | PC.NURSE ---
x-ray at bedside at this time.
== END 2021-09-08 13:28 | disposition home or self-care (01) ==
PROVIDERS: Emergency Provider Physician Assistant
DX: S49.92XA Unspecified injury of left shoulder and upper arm, initial encounter (principal); W10.2XXA Fall (on)(from) incline, initial encounter; Y93.E2 Activity, laundry; S42.212D Unspecified displaced fracture of surgical neck of left humerus, subsequent encounter for fracture with routine healing; X58.XXXD Exposure to other specified factors, subsequent encounter; Z86.74 Personal history of sudden cardiac arrest; Z79.891 Long term (current) use of opiate analgesic; Z79.84 Long term (current) use of oral hypoglycemic drugs; Z79.82 Long term (current) use of aspirin
CPT/HCPCS: 73030; 73060; 99282

== ENCOUNTER 2021-09-19 06:00 | Outpatient (RCR) | payer MEDICARE, MEDICAID, SELFPAY | END 2021-10-16 23:59 | disposition home or self-care (01) | LOC: SPT 06:00 | PROVIDERS: Referring Provider Physician Assistant; Visit Provider Physician Assistant | DX: S42.202D Unspecified fracture of upper end of left humerus, subsequent encounter for fracture with routine healing (principal); X58.XXXD Exposure to other specified factors, subsequent encounter | CPT/HCPCS: 73060; 97110; G0283 ==

== ENCOUNTER 2021-10-17 06:00 | Outpatient (RCR) | payer MEDICARE, MEDICAID, SELFPAY | END 2021-11-16 23:59 | disposition home or self-care (01) | LOC: SPT 06:00 | PROVIDERS: Referring Provider Physician Assistant; Visit Provider Physician Assistant | DX: S42.202D Unspecified fracture of upper end of left humerus, subsequent encounter for fracture with routine healing (principal); X58.XXXD Exposure to other specified factors, subsequent encounter | CPT/HCPCS: 97110 ==

== ENCOUNTER 2021-11-02 09:51 | Outpatient (CLI) | payer MEDICARE, MEDICAID, SELFPAY ==
--- NOTE | 2021-11-02 10:03 | XR_ITS ---
WS: [email or web address] XR shoulder LT min 2V* [id number] REASON FOR EXAM: L shoulder pain, deformity FINDINGS: Healing multi part fracture of the surgical neck of the left humerus. Fracture fragments are unchange d in position and alignment compared to 09/07/2021. Additional callus formation since the previous examination. XR/XR shoulder LT min 2V* [id number] IMPRESSION: Healing left humeral fracture as above.
== END 2021-11-02 09:52 | disposition home or self-care (01) ==
PROVIDERS: Visit Provider Physician Assistant
DX: S42.212A Unspecified displaced fracture of surgical neck of left humerus, initial encounter for closed fracture (principal); X58.XXXA Exposure to other specified factors, initial encounter
CPT/HCPCS: 73030

== ENCOUNTER → 2021-11-28 13:34 | Outpatient (BNVA) | payer MEDICARE, MEDICAID, SELFPAY | PROVIDERS: Referring Provider Family Medicine Adult Medicine; Visit Provider Internal Medicine | DX: E13.10 Other specified diabetes mellitus with ketoacidosis without coma (principal); E13.40 Other specified diabetes mellitus with diabetic neuropathy, unspecified; E78.2 Mixed hyperlipidemia; E03.9 Hypothyroidism, unspecified; D64.9 Anemia, unspecified; F17.200 Nicotine dependence, unspecified, uncomplicated; Z79.84 Long term (current) use of oral hypoglycemic drugs; Z79.4 Long term (current) use of insulin | CPT/HCPCS: 99204 ==

== ENCOUNTER 2021-12-21 12:59 | Outpatient (CLI) | payer MEDICARE, MEDICAID, SELFPAY ==
--- NOTE | 2021-12-21 13:10 | XR_ITS ---
WS: [email or web address] SCREENING DEXA SCAN [place] CLINICAL INFORMATION: POST MENOPAUSAL COMPARISON: None. FINDINGS: The L1-L4 bone mineral density measures 1.243 g/cm2. This corresponds to a T score score of 0.5 and Z score of 1.6. Left femoral neck bone mineral density measures 0.765 g/cm2. This corresponds to a T score of -1.9 an d Z score of -1.1. Right femoral neck bone mineral density measures 0.804 g/cm2. This corresponds to a T score -1.6of an d Z score of -0.8. Mean femoral neck bone mineral density measures 0.784 g/cm2. This corresponds to a T score of -1.8 an d Z score of -0.9. XR/XR DEXA axial skeleton* [id number] IMPRESSION: Normal bone mineralization lumbar spine. Osteopenia in the femoral necks. Patient's FRAX calculated 10 year probability for major osteoporotic fracture i s 23.5 % and osteoporotic hip fracture is 8.4%.
== END 2021-12-21 13:00 | disposition home or self-care (01) ==
LOC: RAD 13:01
PROVIDERS: Visit Provider Physician Assistant
DX: Z13.820 Encounter for screening for osteoporosis (principal); Z78.0 Asymptomatic menopausal state; M85.852 Other specified disorders of bone density and structure, left thigh; M85.851 Other specified disorders of bone density and structure, right thigh
CPT/HCPCS: 77080

== ENCOUNTER → 2021-12-27 11:09 | Outpatient (BNVA) | payer MEDICARE, MEDICAID, SELFPAY | PROVIDERS: Visit Provider Internal Medicine Cardiovascular Disease | DX: R94.31 Abnormal electrocardiogram [ECG] [EKG] (principal); F17.210 Nicotine dependence, cigarettes, uncomplicated; E78.2 Mixed hyperlipidemia; E11.9 Type 2 diabetes mellitus without complications; E03.9 Hypothyroidism, unspecified; F32.2 Major depressive disorder, single episode, severe without psychotic features; Z79.4 Long term (current) use of insulin | CPT/HCPCS: 99203; 99204 ==

== ENCOUNTER 2022-03-12 14:50 | Outpatient (CLI) | payer MEDICARE, MEDICAID, SELFPAY ==
--- NOTE | 2022-03-12 15:00 | MM_ITS ---
WS: [email or web address] BILATERAL 3D TOMOSYNTHESIS DIGITAL SCREENING MAMMOGRAPHY WITH CAD CLINICAL INFORMATION: Z12.39 - Encounter for other screening for malignant neop... HISTORY: Screening mammogram. No current complaints. COMPARISON: February 02, 2020 TECHNIQUE: Bilateral CC and MLO views. FINDINGS: Scattered fibroglandular densities bilaterally. No suspicious focal mass, asymmetry, calcifications, or architectural distortion. No evidence of malignancy. MM/[place] [id number] IMPRESSION: BI-RADS: 1-Negative FOLLOW UP: 1 Year Follow-up Recommend return to annual screening mammography.
== END 2022-03-12 14:51 | disposition home or self-care (01) ==
LOC: RAD 14:52
PROVIDERS: Visit Provider Obstetrics & Gynecology
DX: Z12.31 Encounter for screening mammogram for malignant neoplasm of breast (principal)
CPT/HCPCS: 77063; 77067

== ENCOUNTER 2022-03-15 10:24 | Emergency (ER) | payer MEDICARE, MEDICAID, SELFPAY ==
[2022-03-15 10:40] VITALS: BP 87/58; PULSE 93; RESP 16; TEMP 37.3; O2SAT 94; BMI 27.4
--- NOTE | 2022-03-15 10:55 | XR_ITS ---
WS: [email or web address] Exam: XR chest 1V portable [id number] Date/Time of Exam: 03/15/2022 10:55 AM Reason For Exam: dyspnea/cough Comparison 07/05/2021. The lungs are fully expanded and clear. Normal cardiomediastinal silhouette. No pleural effusions. [place] structures are intact. Old fracture deformity of the proximal left humerus. XR/XR chest 1V portable [id number] IMPRESSION: 1. No acute cardiopulmonary finding.
--- NOTE | 2022-03-15 10:59 | PC.NURSE ---
NOTIFIED DR. CARLSON OF BGL 75. VERBAL ORDER TO PROVIDE PT WITH FOOD.
[2022-03-15 11:11] LABS: Glucose Point of Care 75 mg/dL (70-110)
[2022-03-15 11:24] VITALS: O2SAT 98
[2022-03-15] MEDS: sodium chloride 0.9% 500 ML 999 ML IV (11:27)
[2022-03-15 11:29] VITALS: O2SAT 97
--- NOTE | 2022-03-15 11:58 | W.ED.COVID ---
HPI - COVID General: Chief Complaint: COVID symptoms Stated Complaint: Covid Positive Time Seen by Provider: 03/15/22 10:55 Triage information: Has fever, cough or shortness of breath. Exposure to COVID + person last 14 days History of Present Illness: 61-year-old female presents emergency room complaining of cough congestion decreased appetite and dizziness. She tested positive for COVID 2 days ago she had onset of symptoms 3 days ago. She has been started on Paxil of it. She presents today because she was short of breath and had monitored her oxygen sats at home and felt they were low MD complaint: known COVID positive Prior covid testing: yes, results known Prior testing date: 03/12/22 COVID 19 common symptoms: positive fever(s), chills, cough, non-productive cough, dyspnea and fatigue; negative throat pain, nasal congestion, nausea, vomiting or diarrhea COVID 19 other sytmptoms: negative chest pain or requiring oxygen Onset (ago): day(s) (3) Severity: mild Pertinent comorbid conditions: diabetes and hypertension Treatment prior to arrival: none COVID Results: SARS-CoV-2 Antigen (Rapid) Negative (Negative) 06/23/21 20:27 Nasal/Oral Coronavirus 2019 PCR Not detected 06/25/21 16:15 Review of Systems Const: Reports: fever(s), chills, fatigue and malaise ENMT: Denies: throat pain, ear or mastoid pain, nasal discharge or nasal congestion Card: Denies: chest pain, edema, dyspnea on exertion or orthopnea Resp: Reports: dyspnea and non-productive cough GI: Denies: abdominal pain, nausea, vomiting, hematemesis, coffee ground emesis, diarrhea, constipation, bloating, hematochezia or melena : Denies: flank pain, difficulty voiding, dysuria, urinary frequency or urinary urgency Skin/Breast: Denies: rash or pruritus PFSH ED PFSH: Medical History Anemia Bipolar affect, depressed Cardiac arrest with successful resuscitation Diabetes type 2, controlled History of myocardial infarction Hyperlipidemia associated with type 2 diabetes mellitus Hypothyroid Surgical History History of back surgery S/P carpal tunnel release S/P cervical disc replacement S/P coronary angiogram S/P hysterectomy S/P trigger finger release Social History Smoking and tobacco status: current every day smoker cigarettes Packs smoked per day: 0.5 Years cigarettes smoked: 42 Female Reproductive History: Date of last menstrual period: 07/11/15 Physical Exam Const: GENERAL APPEARANCE: cooperative and comfortable ORIENTATION/CONSCIOUSNESS: Yes awake, Yes oriented to person, Yes oriented to place and Yes oriented to time HENMT: COMMON NORMALS: normocephalic, atraumatic and hearing grossly normal bilaterally HEAD & SCALP: normocephalic and atraumatic Resp: COMMON NORMALS: normal respiratory effort, No retractions and No use of accessory muscles AUSCULTATION: wheezes Cardio: COMMON NORMALS: regular rate, regular rhythm and No murmurs present (Cardio) RATE: regular rate RHYTHM: regular rhythm GI: COMMON NORMALS: Soft to palpation and No hepatosplenomegaly present AUSCULTATION: Yes normoactive bowel sounds PALPATION: Yes Soft to palpation, No Tenderness to palpation present (GI), No Guarding due to palpation present (GI) and Yes No hepatosplenomegaly present Extremity: COMMON NORMALS: normal to inspection, capillary refill normal, no clubbing, cyanosis or edema, no calf tenderness and no pedal edema Neuro: SENSORIUM/ORIENTATION: Yes oriented to person, Yes oriented to place and Yes oriented to time Skin: COMMON NORMALS: no rashes or lesions noted GENERAL SKIN EXAM: no rashes or lesions noted Course Vital Signs: Vital signs: Vital Signs Temperature 99.2 F 03/15/22 10:40 Pulse Rate 93 03/15/22 10:40 Respiratory Rate 16 03/15/22 10:40 Blood Pressure 87/58 03/15/22 10:40 Pulse Oximetry 97 03/15/22 11:29 Oxygen Delivery Me thod 03/15/22 11:24 MDM - COVID Medical Decision Making Patient known COVID-positive she is already on pack Slo-Bid she passed her home oxygen test does not require oxygen. She can be discharged home monitor O2 sats reviewed how to monitor appropriately. Finished course of Pack Slo-Bid and follow-up with primary care return if has significant decrease in oxygen sat below 90% sustained. Medical Records I reviewed the patient's medical records. Lab Data I reviewed the patient's lab results. Radiology Impressions Chest X-Ray 03/15/22 10:55 IMPRESSION: 1. No acute cardiopulmonary finding. Laboratory Results POC Glucose 75 mg/dL (70-110) 03/15/22 10:56 SARS-CoV-2 Antigen (Rapid) Negative (Negative) 06/23/21 20:27 Nasal/Oral Coronavirus 2019 PCR Not detected 06/25/21 16:15 Discharge Plan Discharge Patient Disposition: Home Clinical Impression: COVID-19 Condition: Stable Prescriptions: No Action quetiapine 200 mg tablet 200 mg PO DAILY insulin lispro [Humalog KwikPen Insulin] SUBCUT BID Toujeo Max U-300 SoloStar 300 unit/mL (3 mL) insulin pen 30 unit SUBCUT DAILY levothyroxine 112 mcg tablet 112 mcg PO DAILY Qty: 90 3RF Rx Instructions: Take one tablet by mouth 30 minutes before breakfast or other medications. 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 metformin 1,000 mg Tablet 1,000 mg PO BID omega-3 fatty acids Capsule 1 cap PO DAILY rosuvastatin 40 mg Tablet 40 mg PO BEDTIME aspirin 81 mg Tablet 81 mg PO DAILY Super Keto 2 cap PO DAILY trazodone 100 mg Tablet 100 mg PO BEDTIME 30 Days Qty: 30 1RF bupropion HCl 300 mg Tablet Extended Release 24 Hr 300 mg PO QAM 30 Days Qty: 30 1RF duloxetine 30 mg Capsule,Delayed Release(Dr/Ec) 30 mg PO DAILY 30 Days Qty: 30 1RF Rx Instructions: TAKE WITH 60 MG duloxetine 60 mg Capsule,Delayed Release(Dr/Ec) 60 mg PO DAILY 30 Days Qty: 30 1RF Rx Instructions: TAKE WITH 30MG Discharge Orders: Discharge ED (Routine); Ordered 03/15/22 Ordered By: Toby Martinez Discharge Diet: Usual diet Discharge Activity: Limit activity as instructed Activity Restrictions/Additional Instructions: Avoid exertional activities. Expect that you will feel more short of breath with activity. When tested you did not require oxygen today. You can monitor your home oxygen with of finger pulse oximeter. Remember to leave the pulse oximeter in place for some time and have it establish a regular capture on the heartbeat before reading the oxygen saturation. If it is consistently below 90% return to the emergency room. 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
[2022-03-15 12:24] VITALS: BP 106/68; PULSE 80; RESP 14; O2SAT 90
== END 2022-03-15 12:27 | disposition home or self-care (01) ==
PROVIDERS: Emergency Provider Family Medicine
DX: U07.1 COVID-19 (principal); Z79.82 Long term (current) use of aspirin; Z79.84 Long term (current) use of oral hypoglycemic drugs; Z79.4 Long term (current) use of insulin; E11.9 Type 2 diabetes mellitus without complications; I25.2 Old myocardial infarction; E78.5 Hyperlipidemia, unspecified; F17.210 Nicotine dependence, cigarettes, uncomplicated
CPT/HCPCS: 36416; 71045; 82962; 94760; 99284; J7040

== ENCOUNTER → 2022-03-28 14:17 | Outpatient (BNVA) | payer MEDICARE, MEDICAID, SELFPAY | PROVIDERS: PCP Physician Assistant; Visit Provider Internal Medicine Cardiovascular Disease | DX: R94.31 Abnormal electrocardiogram [ECG] [EKG] (principal); I25.2 Old myocardial infarction; F17.210 Nicotine dependence, cigarettes, uncomplicated | CPT/HCPCS: 99213; 99214 ==

== ENCOUNTER 2022-07-11 12:59 | Emergency (ER) | payer MEDICARE, MEDICAID, SELFPAY ==
[2022-07-11 13:46] VITALS: BP 96/61; PULSE 95; RESP 15; TEMP 37.2; O2SAT 98; BMI 30.2
--- NOTE | 2022-07-11 16:25 | CTR_ITS ---
PROCEDURE INFORMATION: Exam: CT Abdomen And Pelvis With Contrast Exam date and time: 07/11/2022 6:10 PM Age: 62 years old Clinical indication: Abdominal pain; Prior surgery; Surgery date: 6+ months; Surgery type: Jaimie; Additional info: Left lower and right lower abdominal pain TECHNIQUE: Imaging protocol: Computed tomography of the abdomen and pelvis with contrast. Radiation optimization: All CT scans at this facility use at least one of these dose optimization techniques: automated exposure control; mA and/or kV adjustment per patient size (includes targeted exams where dose is matched to clinical indication); or iterative reconstruction. Contrast material: OMNIPAQUE 350; Contrast volume: 95 ml; Contrast route: INTRAVENOUS (IV); COMPARISON: CT abdomen pelvis w con* [id number] 06/23/2021 8:51 PM RADIATION DOSE METRICS: Total DLP (mGy-cm): 786 FINDINGS: Liver: Normal. No mass. Gallbladder and bile ducts: Cholecystectomy. Pancreas: Pancreas is atrophic. No evident ductal dilation. Spleen: Normal. No splenomegaly. Adrenal glands: Right adrenal nodule is stable. Kidneys and ureters: Scarring of right kidney unchanged. No hydronephrosis. Stomach and bowel: Fluid is seen through much of the small bowel and colon. No abnormal bowel distention to suggest obstruction. Appendix: No evidence of appendicitis. Intraperitoneal space: Unremarkable. No free air. No significant fluid collection. Vasculature: Vascular calcifications are noted. No abdominal aortic aneurysm. Lymph nodes: Unremarkable. No enlarged lymph nodes. Urinary bladder: Unremarkable as visualized. Reproductive: Hysterectomy. Bones/joints: No acute fracture. Soft tissues: Unremarkable. CT/CT abdomen pelvis w con* [id number] IMPRESSION: Bowel fluid can be correlated for infectious process or other etiology of secretory or osmotic diarrhea. Stable right adrenal nodule; additional follow-up is not necessary. Additional details as above.
--- NOTE | 2022-07-11 16:42 | ED_ITS ---
HPI - Abdominal Pain General: Chief Complaint: Abdominal Pain Stated Complaint: abd pain Time Seen by Provider: 07/11/22 15:57 History of Present Illness: 62-year-old female presents to the emergency room department chief complaint of abdominal pain that started early this morning pat ient reports she still has her appendix. Patient reports ongoing severe unrelenting pain noted to her diffuse lower abdomen she reports no prior abdominal surgeries she reports moderate nausea with the pain she does not recall having any flank pain or back pain she reports pain is rated at a 10 out of 10 pain scale. The patient does report having a known history of diabetes type 2 and hyperlipidemia. The patient does not report having any other associated symptoms she presents with her daughter for further assessment and management. Associated Symptoms: Reports nausea; Denies chills and fever(s) Related Data: Date of Last Menstrual Period: 07/11/15 Review of Systems General: Reports: 10 or more systems reviewed and unremarkable except in HPI and below Const: Denies: fever(s), chills or fatigue Eyes: Denies: change in vision or blurry vision Card: Denies: chest pain or palpitations Resp: Denies: dyspnea or productive cough GI: Reports: abdominal pain and nausea : Denies: flank pain Musc: Denies: extremity pain or extremity swelling Skin/Breast: Denies: rash or pruritus Neuro: Denies: headache(s) Psych: Denies: anxiety or depression Roberto/Lymph: Denies: easy bleeding All/Imm: Denies: urticaria, throat swelling or facial swelling PFSH ED PFSH: Medical History Anemia Bipolar affect, depressed Cardiac arrest with successful resuscitation Diabetes type 2, controlled History of myocardial infarction Hyperlipidemia associated with type 2 diabetes mellitus Hypothyroid Major depressive disorder, recurrent, in remission Major depressive disorder, recurrent, moderate Nicotine dependence, cigarettes, uncomplicated Post-traumatic stress disorder, chronic Psychiatric care Surgical History History of back surgery S/P carpal tunnel release S/P cervical disc replacement S/P coronary angiogram S/P hysterectomy S/P trigger finger release Social History Smoking and tobacco status: current every day smoker cigarettes Packs smoked per day: 0.5 Years cigarettes smoked: 42 Female Reproductive History: Date of last menstrual period: 07/11/15 Physical Exam Const: COMMON NORMALS: patient oriented x3 and healthy appearing; apparent distress (Patient appears in acute distress due to pain) HENMT: COMMON NORMALS: normocephalic and atraumatic HEAD & SCALP: normo cephalic and atraumatic Eye: COMMON NORMALS: Equal, round and reactive pupils present and EOMs intact bilaterally PUPIL: Yes Equal, round and reactive pupils present Neck/C-Spine: COMMON NORMALS: full ROM, supple and no JVD Lymph: LYMPHATIC: no lymphadenopathy noted Chest: COMMONS NORMALS: normal inspection of the chest and normal palpation of entire chest wall Resp: COMMON NORMALS: normal respiratory effort, No retractions and clear to auscultation bilaterally EFFORT & INSPECTION: Yes able to speak in complete sentences and Yes symmetric chest movement AUSCULTATION: clear to auscultation bilaterally Cardio: COMMON NORMALS: no JVD, regular rate and regular rhythm RATE: regular rate RHYTHM: regular rhythm GI: OTHER: Significant pain at the palpation noted to the right lower quadrant left lower quadrant abdomen with moderate guarding noted with rebound tenderness also appreciated no CVA tenderness noted : COMMON NORMALS: Yes no CVA tenderness BLADDER/KIDNEY EXAM: Yes no CVA tenderness Back/Pelvis: COMMON NORMALS: no CVA tenderness Extremity: COMMON NORMALS: normal to inspection and full ROM Neuro: COMMON NORMALS: patient oriented x3, CN's II-XII intact bilaterally, moves all extremities and no focal motor deficits Psych: COMMON NORMALS: mental status grossly normal, Normal thought process present, cooperative and normal affect THOUGHT PROCESS: Normal thought process present Skin: COMMON NORMALS: no rashes or lesions noted GENERAL SKIN EXAM: no rashes or lesions noted Course Vital Signs: Vital signs: Vital Signs Temperature 98.9 F 07/11/22 13:46 Pulse Rate 80 07/11/22 17:50 Respiratory Rate 17 07/11/22 16:59 Blood Pressure 132/68 07/11/22 18:37 Pulse Oximetry 95 07/11/22 18:37 Oxygen Delivery Me thod 07/11/22 18:37 MDM - Abdominal Pain Medical Decision Making I was notified by the family the patient was sent in here by [facility] outpatient clinic underlying concerns acute appendicitis amongst other forms of peritonitis are prominent we will continue to follow with IV lab work and appropriate imaging patient was provided pain and nausea medication for her associated symptoms. The patient was found to have both UTI as well as colitis she is started on additional antibiotics medication for both she was advised further follow-up with primary care doctor in 2 to 3 days in which she was advised to return the interim if any of her symptoms persist or worse. Lab Data 07/11/22 16:44 07/11/22 17:10 Labs/Radiology: Radiology Impressions Abdomen/Pelvis CT 07/11/22 16:25 IMPRESSION: Bowel fluid can be correlated for infectious process or other etiology of secretory or osmotic diarrhea. Stable right adrenal nodule; additional follow-up is not necessary. Additional details as above. Laboratory Results WBC 6.3 10^3/uL (4.0-10.0) 07/11/22 16:44 RBC 4.63 10^6/uL (4.1-5.3) 07/11/22 16:44 Hgb 14.5 g/dL (11.5-15.3) 07/11/22 16:44 Hct 43.8 % (37.0-47.0) 07/11/22 16:44 MCV 94.6 fl (81-99) 07/11/22 16:44 MCH 31.3 pg (28.0-34.0) 07/11/22 16:44 MCHC 33.1 g/dL (30.0-36.0) 07/11/22 16:44 RDW 13.2 % (12.1-15.1) 07/11/22 16:44 Plt Count 219 10^3/cmm (130-400) 07/11/22 16:44 MPV 11.5 fL (7.4-10.4) H 07/11/22 16:44 Neut % (Auto) 85.8 % 07/11/22 16:44 Lymph % (Auto) 8.8 % 07/11/22 16:44 Coleman % (Auto) 4.0 % 07/11/22 16:44 Eos % (Auto) 0.6 % 07/11/22 16:44 Baso % (Auto) 0.5 % 07/11/22 16:44 Neut # (Auto) 5.39 10^3/uL (1.8-7.7) 07/11/22 16:44 Lymph # (Auto) 0.6 10^3/uL (0.8-4.8) L 07/11/22 16:44 Coleman # (Auto) 0.3 10^3/uL (0.2-0.9) 07/11/22 16:44 Eos # (Auto) 0.0 10^3/uL (0.0-0.8) 07/11/22 16:44 Baso # (Auto) 0.0 10^3/uL (0.0-0.1) 07/11/22 16:44 Nucleated RBC % (auto) 0 % 07/11/22 16:44 Nucleated RBCs # 0.0 /100WBC 07/11/22 16:44 Sodium 137 mmol/L (136-145) 07/11/22 17:10 Potassium 3.8 mmol/L (3.5-5.1) 07/11/22 17:10 Chloride 103 mmol/L (98-107) 07/11/22 17:10 Carbon Dioxide 24 mmol/L (22-29) 07/11/22 17:10 Anion Gap 13.8 (5-19) 07/11/22 17:10 BUN 12 mg/dL (8-23) 07/11/22 17:10 Creatinine 0.8 mg/dL (0.5-0.9) 07/11/22 17:10 GFR Calculation 72.9 mL/min (90-130) L 07/11/22 17:10 Glucose 56 mg/dL (65-115) L 07/11/22 17:10 Calculated Osmolality 281 mOsm/kg (285-295) L 07/11/22 17:10 Lactate 0.7 mmol/L (0.5-2.2) 07/11/22 16:44 Calcium 8.7 mg/dL (8.5-10.5) 07/11/22 17:10 Total Bilirubin 0.5 mg/dL (0.15-1.2) 07/11/22 17:10 AST 25 U/L (0-32) 07/11/22 17:10 ALT 34 U/L (0-33) H 07/11/22 17:10 Alkaline Phosphatase 102 U/L (35-105) 07/11/22 17:10 C-Reactive Protein 11.7 mg/L (0.0-4.9) H 07/11/22 17:10 Total Protein 7.2 g/dL (6.6-8.7) 07/11/22 17:10 Albumin 4.3 g/dL (3.5-5.2) 07/11/22 17:10 Globulin 2.9 g/dL (1.3-4.6) 07/11/22 17:10 Lipase 11 U/L (13-60) L 07/11/22 17:10 Urine Color Yellow (Yellow) 07/11/22 17:30 Urine Appearance Hazy (CLEAR) A 07/11/22 17:30 Urine pH 5 (5-7) 07/11/22 17:30 Ur Specific [place] 1.020 (1.005-1.030) 07/11/22 17:30 Urine Protein Neg (Negative) 07/11/22 17:30 Urine Glucose (UA) 1+ (Normal) H 07/11/22 17:30 Urine Ketones Negative (Negative) 07/11/22 17:30 Urine Blood Neg (Negative) 07/11/22 17:30 Urine Nitrate Negative (Negative) 07/11/22 17:30 Urine Bilirubin Neg (Negative) 07/11/22 17:30 Urine Urobilinogen Norm mg/dL (Negative) 07/11/22 17:30 Ur Leukocyte Esterase 2+ (Negative) H 07/11/22 17:30 Urine RBC 0-4 /hpf (0-2) H 07/11/22 17:30 Urine WBC 40-55 /hpf (0-5) H 07/11/22 17:30 Ur Squamous Epith Cells 5-10 /hpf (0-5) H 07/11/22 17:30 Amorphous Sediment Not Reportable 07/11/22 17:30 Urine Bacteria Trace /hpf (NONE) 07/11/22 17:30 Discharge Plan Discharge Patient Disposition: Home Clinical Impression: UTI (urinary tract infection), Colitis Condition: Stable Prescriptions: New Cipro 500 mg tablet 500 mg PO Q12H 7 Days Qty: 14 0RF ondansetron HCl 4 mg tablet 4 mg PO Q6H PRN (Reason: nausea and vomiting) Qty: 20 0RF Imodium A-D 2 mg tablet 1 mg PO Q6H PRN (Reason: loose stool) Qty: 14 0RF Protonix 40 mg tablet,delayed release (DR/EC) 40 mg PO DAILY Qty: 7 0RF No Action insulin lispro [Humalog KwikPen Insulin] See Rx Instructions .ROUTE .COMPLEX Rx Instructions: subcutaneously as directed per sliding scale Toujeo Max U-300 SoloStar 300 unit/mL (3 mL) insulin pen 40 unit SUBCUT DAILY trazodone 100 mg tablet 100 mg PO BEDTIME 30 Days Qty: 30 1RF bupropion HCl [Wellbutrin XL] 150 mg tablet extended release 24 hr 150 mg PO QAM Qty: 30 1RF duloxetine 60 mg capsule,delayed release(DR/EC) 60 mg PO DAILY 30 Days Qty: 30 1RF levothyroxine 112 mcg tablet 112 mcg PO DAILY Qty: 90 3RF (DME) Dexcom G6 Director Ret[employer] Misc See Rx Instructions .Route Qty: 1 0RF Rx Instructions: Check BS continuously (DME) Dexcom G6 Sensor Device See Rx Instructions .Route Qty: 9 3RF Rx Instructions: Change every 10 days (DME) Dexcom G6 Transmitter Device See Rx Instructions .Route Qty: 3 3RF Rx Instructions: Change every 90 days. rosuvastatin 40 mg Tablet 40 mg PO DAILY Aspir-81 81 mg Tablet,Delayed Release (Dr/Ec) 81 mg PO DAILY Ventolin HFA 90 mcg/actuation Hfa Aerosol Inhaler 2 puff INHALATION QID PRN (Reason: Shortness Of Breath Or Wheezing) albuterol sulfate 90 mcg/actuation Hfa Aerosol Inhaler 2 puff INHALATION QID PRN (Reason: Shortness Of Breath Or Wheezing) Fish Oil 120 mg-180 mg- 60 mg-1,200 mg Capsule,Delayed Release(Dr/Ec) 1 cap PO DAILY quetiapine 200 mg tablet 200 mg PO QPM Discharge Orders: Discharge ED (Routine); Ordered 07/11/22 Ordered By: Davidson Sharp Referrals: Josie Parada PA [Primary Care Provider] - 4-7 days Discharge Diet: GI Soft Discharge Activity: Increase activity as tolerated Patient Instructions: Colitis (ED), Urinary Tract Infection - Women Activity Restrictions/Additional Instructions: Follow-up with your primary care doctor in 3 to 5 days, take medications as prescribed and please return in the interim if any of your symptoms persist or worse. 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
[2022-07-11 16:51] LABS: Basophils % 0.5 %; Eosinophils % 0.6 %; Hematocrit 43.8 % (37.0-47.0); Hemoglobin 14.5 g/dL (11.5-15.3); Lymphocytes # 0.6 10^3/uL (0.8-4.8); Lymphocytes % 8.8 %; Mean Corpuscular HGB Conc 33.1 g/dL (30.0-36.0); Mean Corpuscular Hemoglobin 31.3 pg (28.0-34.0); Mean Corpuscular Volume 94.6 fl (81-99); Mean Platelet Volume 11.5 fL (7.4-10.4); Monocytes # 0.3 10^3/uL (0.2-0.9); Neutrophils # 5.39 10^3/uL (1.8-7.7); Neutrophils % 85.8 %; Nucleated Red Blood Cells % 0 %; Platelet Count 219 10^3/cmm (130-400); Red Blood Count 4.63 10^6/uL (4.1-5.3); Red Cell Distribution Width 13.2 % (12.1-15.1); White Blood Count 6.3 10^3/uL (4.0-10.0)
[2022-07-11 16:59] VITALS: RESP 17; O2SAT 98
[2022-07-11] MEDS: ondansetron 2 mg/ML SDV 2 mL 4 MG IVP (16:59)
[2022-07-11] MEDS: morphine 4 mg/mL SDV 1 mL IVP (16:59)
[2022-07-11] MEDS: lactated ringers 1,000 ML 999 ML IV (17:06)
[2022-07-11 17:15] LABS: Lactate (Lactic Acid level) 0.7 mmol/L (0.5-2.2)
[2022-07-11 17:36] LABS: Add Urine Microscopic? YES; Bilirubin Urine Neg (Negative); Blood Urine Neg (Negative); Glucose Urine UA 1+ (Normal); Ketones Urine Negative (Negative); Leukocyte Esterase Urine 2+ (Negative); Nitrate Urine Negative (Negative); Protein Urine Neg (Negative); Urine Appearance Hazy (CLEAR); Urine Color Yellow (Yellow); Urobilinogen Urine Norm (Negative); pH Urine 5 (5-7)
[2022-07-11 17:38] LABS: Alanine Aminotransferase 34 U/L (0-33); Albumin Level 4.3 g/dL (3.5-5.2); Alkaline Phosphatase 102 U/L (35-105); Anion Gap 13.8 (5-19); Aspartate Amino Transferase 25 U/L (0-32); Blood Urea Nitrogen 12 mg/dL (8-23); C Reactive Protein 11.7 mg/L (0.0-4.9); Calcium 8.7 mg/dL (8.5-10.5); Carbon Dioxide 24 mmol/L (22-29); Chloride 103 mmol/L (98-107); Creatinine Clr Calc Pharmacy 69.9447; Globulin 2.9 g/dL (1.3-4.6); Glomerular Filtration Rate 72.9 mL/min (90-130); Glucose 56 mg/dL (65-115); Lipase 11 U/L (13-60); Osmolality Calculated 281 mOsm/kg (285-295); Potassium 3.8 mmol/L (3.5-5.1); Sodium 137 mmol/L (136-145); Total Bilirubin 0.5 mg/dL (0.15-1.2); Total Protein 7.2 g/dL (6.6-8.7)
[2022-07-11 17:40] LABS: RBC Urine 0-4 /hpf (0-2); WBC Urine 40-55 /hpf (0-5)
[2022-07-11 17:41] LABS: Add Urine Culture? Yes; Bacteria Urine TRACE /hpf
[2022-07-11 17:50] VITALS: BP 127/71; PULSE 80; O2SAT 95
[2022-07-11] MEDS: iohexol 350 mg/mL 500 mL Btl (per mL) IV (18:06)
[2022-07-11 18:37] VITALS: BP 132/68; O2SAT 95
[2022-07-11] MEDS: cefTRIAXone 1,000 MG in sodium chloride 0.9% (plus) 50 ML 100 MG IV (19:32)
== END 2022-07-11 20:24 | disposition home or self-care (01) ==
PROVIDERS: Emergency Provider Emergency Medicine; PCP Physician Assistant
DX: N39.0 Urinary tract infection, site not specified (principal); K52.9 Noninfective gastroenteritis and colitis, unspecified; Z79.82 Long term (current) use of aspirin; Z79.4 Long term (current) use of insulin; E11.9 Type 2 diabetes mellitus without complications; I25.2 Old myocardial infarction; E78.5 Hyperlipidemia, unspecified; F17.210 Nicotine dependence, cigarettes, uncomplicated
CPT/HCPCS: 36415; 74177; 80053; 81001; 83605; 83690; 85025; 86140; 87077; 87086; 96365; 96375; 99285; J0696; J2270; J2405; J7120; Q9967

== ENCOUNTER 2022-09-09 16:13 | Emergency (ER) | payer MEDICARE, MEDICAID, SELFPAY ==
[2022-09-09 16:19] VITALS: BP 99/72; PULSE 96; RESP 16; TEMP 36.4; O2SAT 96
[2022-09-09 19:38] LABS: Basophils % 0.5 %; Eosinophils # 0.1 10^3/uL (0.0-0.8); Eosinophils % 1.6 %; Hemoglobin 14.1 g/dL (11.5-15.3); Lymphocytes # 0.8 10^3/uL (0.8-4.8); Lymphocytes % 13.2 %; Mean Corpuscular HGB Conc 32.8 g/dL (30.0-36.0); Mean Corpuscular Hemoglobin 29.3 pg (28.0-34.0); Mean Corpuscular Volume 89.4 fl (81-99); Mean Platelet Volume 11.3 fL (7.4-10.4); Monocytes # 0.3 10^3/uL (0.2-0.9); Monocytes % 5.6 %; Neutrophils # 4.54 10^3/uL (1.8-7.7); Neutrophils % 78.9 %; Nucleated Red Blood Cells % 0 %; Platelet Count 182 10^3/cmm (130-400); Red Blood Count 4.81 10^6/uL (4.1-5.3); Red Cell Distribution Width 12.2 % (12.1-15.1); White Blood Count 5.8 10^3/uL (4.0-10.0)
[2022-09-09 19:57] LABS: Alanine Aminotransferase 51 U/L (0-33); Albumin Level 4.2 g/dL (3.5-5.2); Alkaline Phosphatase 130 U/L (35-105); Anion Gap 17.7 (5-19); Aspartate Amino Transferase 25 U/L (0-32); Blood Urea Nitrogen 17 mg/dL (8-23); Calcium 9.3 mg/dL (8.5-10.5); Carbon Dioxide 23 mmol/L (22-29); Chloride 99 mmol/L (98-107); Globulin 3.4 g/dL (1.3-4.6); Glomerular Filtration Rate 50.5 mL/min (90-130); Glucose 228 mg/dL (65-115); Lipase 8 U/L (13-60); Osmolality Calculated 291 mOsm/kg (285-295); Potassium 3.7 mmol/L (3.5-5.1); Sodium 136 mmol/L (136-145); Total Bilirubin 0.6 mg/dL (0.15-1.2); Total Protein 7.6 g/dL (6.6-8.7)
--- NOTE | 2022-09-09 20:03 | ED_ITS ---
HPI - Nausea/Vomiting/Diarrhea General: Chief complaint: Nausea/Vomiting/Diarrhea Stated complaint: abd pain, constipated Time Seen by Provider: 09/09/22 20:03 History of Present Illness: Ms. Beck is a 62-year-old lady with complex past medical history including apparent history of bowel obstruction started on lactulose presenting to the emergency department due to abdominal pain, nausea, diarrhea. She does report a significant history of constipation and subsequently was started on lactulose. For the past 5 days she has had significant watery profuse diarrhea associated with generalized malaise and nausea. She has diffuse abdominal cramping worse with movement and eating. Intensity symptoms is moderate to severe. Course has worsened. No other specific changes in health, exacerbating, or alleviating factors identified. Onset (ago): day(s) Description of vomiting: watery Description of diarrhea: watery Associated nausea: Yes Associated abdominal pain: Yes Location of pain: Diffuse Pain consistency: constant Quality: cramping and aching Exacerbating factors: eating and vomiting Relieving factors: none Associated symtoms: Reports anorexia, malaise, nausea and weakness; Denies dysuria Review of Systems General: Reports: 10 or more systems reviewed and unremarkable except in HPI and below Const: Reports: malaise GI: Reports: nausea : Denies: dysuria PFSH ED PFSH: Medical History Anemia Bipolar affect, depressed Cardiac arrest with successful resuscitation Diabetes type 2, controlled History of myocardial infarction Hyperlipidemia associated with type 2 diabetes mellitus Hypothyroid Major depressive disorder, recurrent, in remission Major depressive disorder, recurrent, moderate Nicotine dependence, cigarettes, uncomplicated Post-traumatic stress disorder, chronic Psychiatric care Surgical History History of back surgery S/P carpal tunnel release S/P cervical disc replacement S/P coronary angiogram S/P hysterectomy S/P trigger finger release Social History Smoking and tobacco status: current every day smoker cigarettes Packs smoked per day: 0.5 Years cigarettes smoked: 42 Female Reproductive History: Date of last menstrual period: 07/11/15 Physical Exam Const: COMMON NORMALS: alert GENERAL APPEARANCE: cooperative and well developed HENMT: COMMON NORMALS: normocephalic and atraumatic HEAD & SCALP: normocephalic and atraumatic Eye: COMMON NORMALS: conjunctivae normal CONJUNCTIVA: Yes conjunctivae normal SCLERA: sclerae normal Neck/C-Spine: COMMON NORMALS: supple GENERAL: Yes trachea midline Resp: COMMON NORMALS: clear to auscultation bilaterally EFFORT & INSPECTION: Yes able to speak in complete sentences AUSCULTATION: clear to auscultation bilaterally Cardio: COMMON NORMALS: regular rate and regular rhythm RATE: regular rate RHYTHM: regular rhythm GI: COMMON NORMALS: Soft to palpation PALPATION: Yes Soft to palpation, Yes Tenderness to palpation present (GI), No Guarding due to palpation present (GI) and No Rigid due to palpation Extremity: GENERAL: Yes normal exam except as noted and No edema Neuro: COMMON NORMALS: moves all extremities SENSORIUM/ORIENTATION: Yes alert and No Orientation impaired Psych: COMMON NORMALS: mental status grossly normal and Normal thought process present THOUGHT PROCESS: Normal thought process present Course Vital Signs: Vital signs: Vital Signs Temperature 97.6 F 09/09/22 16:19 Pulse Rate 84 09/10/22 00:38 Respiratory Rate 18 09/10/22 00:38 Blood Pressure 119/69 09/10/22 00:38 Pulse Oximetry 95 09/09/22 23:30 Oxygen Delivery Me thod 09/09/22 23:30 MDM - Nausea/Vomiting/Diarrhea Medical Decision Making 62-year-old lady presenting with diarrhea and abdominal pain in the context of prior outpatient management of concern for bowel obstruction. Exam as above. Abdominal tenderness without evidence of acute surgical abdomen. Patient is nontoxic in appearance. Labs with no significant hematologic abnormality. Metabolic panel with perhaps mild dehydration overall both appear fairly similar. There is squamous epithelial contamination of the urinalysis. Prior imaging was reviewed. CT with mild gastritis likely. Incidental findings discussed. Patient improved with analgesia, antiemetic, fluids. She is able to tolerate p.o. intake. Most likely etiology of patient symptoms is lactulose induced diarrhea and gastritis. I will modify her stool softener regimen. The results of ED evaluation were discussed with the patient including prescriptions and/or symptomatic cares (if applicable) including appropriate and responsible use, followup plan, and return precautions. The patient verbalized understanding and felt safe for discharge. Medical Records I reviewed the patient's medical records. Lab Data I reviewed the patient's lab results. 09/09/22 18:57 09/09/22 18:57 Radiology Impressions Abdomen/Pelvis CT 09/09/22 20:16 IMPRESSION: 1. No free air or bowel distention. 2. Possible thickened mucosa/wall in the distal stomach, see above discussion. 3. No evidence to suggest appendicitis, however a normal appendix is not definitely visible. 4. No diverticulitis. 5. Possible mild urinary bladder wall thickening, see above. 6. No hydronephrosis of either kidney. No visible ureteral calculus. 7. Small indeterminate lesion in the left kidney, possibly a complex cyst. See above discussion. 8. Other findings discussed above. Laboratory Results WBC 5.8 10^3/uL (4.0-10.0) 09/09/22 18:57 RBC 4.81 10^6/uL (4.1-5.3) 09/09/22 18:57 Hgb 14.1 g/dL (11.5-15.3) 09/09/22 18:57 Hct 43.0 % (37.0-47.0) 09/09/22 18:57 MCV 89.4 fl (81-99) 09/09/22 18:57 MCH 29.3 pg (28.0-34.0) 09/09/22 18:57 MCHC 32.8 g/dL (30.0-36.0) 09/09/22 18:57 RDW 12.2 % (12.1-15.1) 09/09/22 18:57 Plt Count 182 10^3/cmm (130-400) 09/09/22 18:57 MPV 11.3 fL (7.4-10.4) H 09/09/22 18:57 Neut % (Auto) 78.9 % 09/09/22 18:57 Lymph % (Auto) 13.2 % 09/09/22 18:57 [place] % (Auto) 5.6 % 09/09/22 18:57 Eos % (Auto) 1.6 % 09/09/22 18:57 Baso % (Auto) 0.5 % 09/09/22 18:57 Neut # (Auto) 4.54 10^3/uL (1.8-7.7) 09/09/22 18:57 Lymph # (Auto) 0.8 10^3/uL (0.8-4.8) 09/09/22 18:57 [place] # (Auto) 0.3 10^3/uL (0.2-0.9) 09/09/22 18:57 Eos # (Auto) 0.1 10^3/uL (0.0-0.8) 09/09/22 18:57 Baso # (Auto) 0.0 10^3/uL (0.0-0.1) 09/09/22 18:57 Nucleated RBC % (auto) 0 % 09/09/22 18:57 Nucleated RBCs # 0.0 /100WBC 09/09/22 18:57 Sodium 136 mmol/L (136-145) 09/09/22 18:57 Potassium 3.7 mmol/L (3.5-5.1) 09/09/22 18:57 Chloride 99 mmol/L (98-107) 09/09/22 18:57 Carbon Dioxide 23 mmol/L (22-29) 09/09/22 18:57 Anion Gap 17.7 (5-19) 09/09/22 18:57 BUN 17 mg/dL (8-23) 09/09/22 18:57 Creatinine 1.1 mg/dL (0.5-0.9) H 09/09/22 18:57 GFR Calculation 50.5 mL/min (90-130) L 09/09/22 18:57 Glucose 228 mg/dL (65-115) H 09/09/22 18:57 Calculated Osmolality 291 mOsm/kg (285-295) 09/09/22 18:57 Calcium 9.3 mg/dL (8.5-10.5) 09/09/22 18:57 Total Bilirubin 0.6 mg/dL (0.15-1.2) 09/09/22 18:57 AST 25 U/L (0-32) 09/09/22 18:57 ALT 51 U/L (0-33) H 09/09/22 18:57 Alkaline Phosphatase 130 U/L (35-105) H 09/09/22 18:57 Total Protein 7.6 g/dL (6.6-8.7) 09/09/22 18:57 Albumin 4.2 g/dL (3.5-5.2) 09/09/22 18:57 Globulin 3.4 g/dL (1.3-4.6) 09/09/22 18:57 Lipase 8 U/L (13-60) L 09/09/22 18:57 Urine Color Yellow (Yellow) 09/09/22 22:00 Urine Appearance Sl hazy (CLEAR) A 09/09/22 22:00 Urine pH 5 (5-7) 09/09/22 22:00 Ur Specific [place] 1.025 (1.005-1.030) 09/09/22 22:00 Urine Protein 1+ (Negative) H 09/09/22 22:00 Urine Glucose (UA) 2+ (Normal) H 09/09/22 22:00 Urine Ketones 1+ (Negative) H 09/09/22 22:00 Urine Blood Neg (Negative) 09/09/22 22:00 Urine Nitrate Negative (Negative) 09/09/22 22:00 Urine Bilirubin 1+ (Negative) H 09/09/22 22:00 Urine Urobilinogen Neg mg/dL (Negative) 09/09/22 22:00 Ur Leukocyte Esterase 1+ (Negative) H 09/09/22 22:00 Urine RBC 0-4 /hpf (0-2) H 09/09/22 22:00 Urine WBC 15-25 /hpf (0-5) H 09/09/22 22:00 Ur Squamous Epith Cells 10-15 /hpf (0-5) H 09/09/22 22:00 Amorphous Sediment Not Reportable 09/09/22 22:00 Urine Bacteria 2+ /hpf (NONE) H 09/09/22 22:00 Hyaline Casts 5-10 /lpf H 09/09/22 22:00 Urine Mucus 2+ /hpf 09/09/22 22:00 Discharge Plan Discharge Patient Disposition: Home Clinical Impression: Gastritis, Drug-induced diarrhea Condition: Stable Prescriptions: New ondansetron 4 mg tablet,disintegrating 4 mg PO Q8H PRN (Reason: nausea and vomiting) Qty: 15 0RF polyethylene glycol 3350 [Miralax] 17 gram/dose powder 17 g PO DAILY Qty: 510 0RF Rx Instructions: Adjust 1 to 4 times per day for multiple soft bowel movements per day No Action insulin lispro [Humalog KwikPen Insulin] See Rx Instructions .ROUTE .COMPLEX Rx Instructions: subcutaneously as directed per sliding scale Cynthiao Max U-300 SoloStar 300 unit/mL (3 mL) insulin pen 40 unit SUBCUT DAILY trazodone 100 mg tablet 100 mg PO BEDTIME 30 Days Qty: 30 1RF bupropion HCl [Wellbutrin XL] 150 mg tablet extended release 24 hr 150 mg PO QAM Qty: 30 1RF duloxetine 60 mg capsule,delayed release(DR/EC) 60 mg PO DAILY 30 Days Qty: 30 1RF levothyroxine 112 mcg tablet 112 mcg PO DAILY Qty: 90 3RF (DME) Dexcom G6 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 rosuvastatin 40 mg Tablet 40 mg PO DAILY aspirin [Aspir-81] 81 mg Tablet,Delayed Release (Dr/Ec) 81 mg PO DAILY albuterol sulfate [Ventolin HFA] 90 mcg/actuation Hfa Aerosol Inhaler 2 puff INHALATION QID PRN (Reason: Shortness Of Breath Or Wheezing) albuterol sulfate 90 mcg/actuation Hfa Aerosol Inhaler 2 puff INHALATION QID PRN (Reason: Shortness Of Breath Or Wheezing) Fish Oil 120 mg-180 mg- 60 mg-1,200 mg Capsule,Delayed Release(Dr/Ec) 1 cap PO DAILY quetiapine 200 mg tablet 200 mg PO QPM ondansetron HCl 4 mg tablet 4 mg PO Q6H PRN (Reason: nausea and vomiting) Qty: 20 0RF loperamide [Imodium A-D] 2 mg tablet 1 mg PO Q6H PRN (Reason: loose stool) Qty: 14 0RF pantoprazole [Protonix] 40 mg tablet,delayed release (DR/EC) 40 mg PO DAILY Qty: 7 0RF Discharge Orders: Discharge ED (Routine); Ordered 09/09/22 Ordered By: Favio Rush Referrals: Josie Parada PA [Primary Care Provider] - Discharge Diet: Advance as tolerated and Clear Liquid Discharge Activity: Increase activity as tolerated Patient Instructions: Gastritis (ED), Diet for Stomach Ulcers and Gastritis (ED), Abdominal Pain (ED), Opioid Safety Activity Restrictions/Additional Instructions: Thank you for visiting the emergency department. You were seen and evaluated for abdominal pain, nausea, and diarrhea. The exact cause of your symptoms is unclear though diarrhea is likely related to lactulose. You also have gastritis. As discussed we will plan to take you off the lactulose and switch to MiraLAX. Adjust the MiraLAX 1 capful between 1 and 4 times daily for multiple soft bowel movements per day. Please follow-up with your primary care provider. Return to the emergency department for uncontrolled symptoms or anything else that you are concerned about and feel needs emergency department evaluation. Coding Level of Care Code ED Tableau Report Developer for Bakari Lafleur
--- NOTE | 2022-09-09 20:16 | CTR_ITS ---
PROCEDURE INFORMATION: Exam: CT Abdomen And Pelvis With Contrast Exam date and time: 09/09/2022 10:01 PM Age: 62 years old Clinical indication: Abdominal pain; Generalized; Prior surgery; Surgery date: 6+ months; Surgery type: Jaiime, tubal; Additional info: Abd pain TECHNIQUE: Imaging protocol: Computed tomography of the abdomen and pelvis with contrast. Radiation optimization: All CT scans at this facility use at least one of these dose optimization techniques: automated exposure control; mA and/or kV adjustment per patient size (includes targeted exams where dose is matched to clinical indication); or iterative reconstruction. Contrast material: OMNI 350; Contrast volume: 100 ml; Contrast route: INTRAVENOUS (IV); COMPARISON: CT abdomen pelvis w con* [id number] 07/11/2022 6:10 PM RADIATION DOSE METRICS: Total DLP (mGy-cm): 769.05 FINDINGS: Lungs: The lung bases are clear. Liver: There is fatty infiltration of the liver. Gallbladder and bile ducts: Prior cholecystectomy, no significant biliary tree dilation. Pancreas: Unremarkable. Spleen: Unremarkable. Adrenal glands: Stable small right adrenal nodule. Kidneys and ureters: No hydronephrosis of either kidney. No visible ureteral calculus. Areas of chronic parenchymal scarring again seen involving the right kidney, not significantly changed. 9 mm possible complex cyst involving the lateral lower left kidney. This lesion is indeterminate, measuring somewhat greater than water attenuation. However, there has been no significant interval change since 07/11/2022, and also from an older exam of 06/23/2021. Confirmation of cystic nature with ultrasound or MRI would be useful to exclude a solid mass/neoplasm, if not already performed. The kidneys otherwise enhance homogeneously. No perinephric fluid. Stomach and bowel: Possibility of somewhat thickened mucosa/wall in the distal stomach. This is a nonspecific appearance, and could be transient on CT, but could also represent evidence for gastritis or peptic ulcer disease. Please correlate clinically. No significant bowel distention. There are no CT findings to strongly suggest diverticulitis. Appendix: The appendix is not identified with certainty, however no pericecal inflammatory changes are seen. Intraperitoneal space: No free intraperitoneal air, or ascites. Vasculature: Moderate aortic and iliac artery calcifications. No evidence for abdominal aortic aneurysm. Lymph nodes: No significant retroperitoneal adenopathy. Urinary bladder: Possibly some mild diffuse urinary bladder wall thickening. However, evaluation is is limited, as the bladder is almost empty. While nonspecific, this could indicate evidence for cystitis. Please correlate clinically. Reproductive: Apparent prior hysterectomy. No definite ovarian/adnexal cyst or mass by CT. Bones/joints: Moderate degenerative/arthritic changes in the lower lumbar and lower thoracic spine, similar to the prior exam. Soft tissues: No significant acute finding. CT/CT abdomen pelvis w con* [id number] IMPRESSION: 1. No free air or bowel distention. 2. Possible thickened mucosa/wall in the distal stomach, see above discussion. 3. No evidence to suggest appendicitis, however a normal appendix is not definitely visible. 4. No diverticulitis. 5. Possible mild urinary bladder wall thickening, see above. 6. No hydronephrosis of either kidney. No visible ureteral calculus. 7. Small indeterminate lesion in the left kidney, possibly a complex cyst. See above discussion. 8. Other findings discussed above.
[2022-09-09] MEDS: iohexol 350 mg/mL 500 mL Btl (per mL) IV (21:06)
[2022-09-09] MEDS: sodium chloride 0.9% 1,000 ML 999 ML IV (22:22)
[2022-09-09] MEDS: ondansetron 2 mg/ML SDV 2 mL 4 MG IVP (22:24)
[2022-09-09] MEDS: morphine 4 mg/mL SDV 1 mL IVP ×2 (22:24→23:44)
[2022-09-09 22:41] VITALS: BP 131/74; PULSE 85; RESP 18; O2SAT 98
[2022-09-09 23:30] VITALS: BP 144/119; PULSE 83; RESP 18; O2SAT 95
[2022-09-09 23:31] LABS: Protein Urine 1+ (Negative); Specific Gravity, Urine 1.025 (1.005-1.030); Urine Appearance SL Hazy (CLEAR); Urine Color Yellow (Yellow); pH Urine 5 (5-7)
[2022-09-09 23:32] LABS: Bilirubin Urine 1+ (Negative); Blood Urine Neg (Negative); Glucose Urine UA 2+ (Normal); Ketones Urine 1+ (Negative); Leukocyte Esterase Urine 1+ (Negative); Nitrate Urine Negative (Negative); Urobilinogen Urine Neg (Negative)
[2022-09-09 23:33] LABS: Add Urine Microscopic? YES
[2022-09-09 23:42] LABS: RBC Urine 0-4 /hpf (0-2)
[2022-09-09 23:43] LABS: Add Urine Culture? No; Bacteria Urine 2+ /hpf; Mucus Urine 2+ /hpf; WBC Urine 15-25 /hpf (0-5)
[2022-09-10 00:38] VITALS: BP 119/69; PULSE 84; RESP 18
== END 2022-09-10 00:37 | disposition home or self-care (01) ==
PROVIDERS: Emergency Provider Emergency Medicine; PCP Physician Assistant
DX: K52.1 Toxic gastroenteritis and colitis (principal); T47.3X5A Adverse effect of saline and osmotic laxatives, initial encounter; K29.70 Gastritis, unspecified, without bleeding; Z79.82 Long term (current) use of aspirin; Z79.4 Long term (current) use of insulin; E11.9 Type 2 diabetes mellitus without complications; E78.5 Hyperlipidemia, unspecified; F17.210 Nicotine dependence, cigarettes, uncomplicated
CPT/HCPCS: 36415; 74177; 80053; 81001; 83690; 85025; 96361; 96374; 96375; 96376; 99285; J2270; J2405; J7030; Q9967

== ENCOUNTER → 2022-09-14 12:10 | Day surgery (SDC) | payer MEDICARE, MEDICAID, SELFPAY ==
[2022-09-14 12:25] VITALS: BP 132/82; PULSE 85; RESP 18; TEMP 36.8; O2SAT 95
--- NOTE | 2022-09-14 15:34 | PC.NURSE ---
Pt complained of abd pain and rectal pain. Desired to stop the enema. Will continue the Miralax at home as prescribed by BRIAN kuhn from 09/09 visit.
== END ==
LOC: GILAB 12:11
PROVIDERS: PCP Physician Assistant; Visit Provider Physician Assistant
DX: K59.00 Constipation, unspecified (principal)
CPT/HCPCS: 45915; 99212

== ENCOUNTER 2022-12-25 12:30 | Outpatient (CLI) | payer MEDICARE, MEDICAID, SELFPAY ==
--- NOTE | 2022-12-25 12:39 | USCV_ITS ---
Licha Beck Age: 62 Gender: F : 1960 Exam Date: 12/25/2022 12:48 Ordering Phys: Josie Parada Technologist: [place] [facility] [place]: Peripheral Neuropathy RIGHT LEFT Brachial 138.00 mmHg Brachial mmHg Pressure (mmHg) Waveform Pressure (mmHg) Waveform 135.00 PATIENT TRANSPORT ORDERLY 147.00 127.00 DPA 129.00 0.98 Ankle/Brachial Index 1.07 86.00 Pre-Exercise Toe Pressure 101.00 0.62 Pre-Exercise Toe/Brachial Index 0.73 FINDINGS Resting VALERIE of 0.98 on the right and 1.00 on the left Resting TBI of 0.62 on the right and 0.16 on the left CONCLUSIONS 1. Normal resting ABIs with a borderline low resting TBI on the right side, suggesting mild peripheral artery disease 2. Normal resting VALERIE and TBI on the left side suggesting no significant obstruction Dr Teresa Amin MD [facility] (Electronically Signed) Final Date: 25 Dec 2022 21:44 S
== END 2022-12-25 12:31 | disposition home or self-care (01) ==
LOC: RAD 12:34
PROVIDERS: PCP Physician Assistant; Visit Provider Physician Assistant
DX: E11.51 Type 2 diabetes mellitus with diabetic peripheral angiopathy without gangrene (principal); M25.561 Pain in right knee; M25.562 Pain in left knee; E11.8 Type 2 diabetes mellitus with unspecified complications; I73.9 Peripheral vascular disease, unspecified; E11.69 Type 2 diabetes mellitus with other specified complication; E78.5 Hyperlipidemia, unspecified; M20.41 Other hammer toe(s) (acquired), right foot; M20.42 Other hammer toe(s) (acquired), left foot; M21.41 Flat foot [pes planus] (acquired), right foot; M21.42 Flat foot [pes planus] (acquired), left foot; Z79.4 Long term (current) use of insulin
CPT/HCPCS: 73560; 73565; 93922; 99203

== ENCOUNTER → 2023-01-22 08:53 | Outpatient (BNVA) | payer MEDICARE, MEDICAID, SELFPAY | PROVIDERS: PCP Physician Assistant; Visit Provider Internal Medicine | DX: E13.40 Other specified diabetes mellitus with diabetic neuropathy, unspecified (principal); E78.2 Mixed hyperlipidemia; E03.9 Hypothyroidism, unspecified; I25.119 Atherosclerotic heart disease of native coronary artery with unspecified angina pectoris; Z79.4 Long term (current) use of insulin; Z79.890 Hormone replacement therapy; Z79.84 Long term (current) use of oral hypoglycemic drugs | CPT/HCPCS: 99214 ==

== ENCOUNTER 2023-03-14 09:53 | Outpatient (CLI) | payer MEDICARE, MEDICAID, SELFPAY ==
--- NOTE | 2023-03-14 10:03 | MM_ITS ---
WS: [id number] BILATERAL SCREENING DIGITAL TOMOSYNTHESIS MAMMOGRAM WITH CAD HISTORY: SCREENING COMPARISON: 03/12/2022 and 02/02/2020 Bilateral CC and MLO views with tomosynthesis and synthetic mammography submitted. Computer aided det ection analyzed. Breast composition: There are scattered areas of fibroglandular density. No suspicious masses, microc alcifications or architectural distortion. MM/[place] [id number] IMPRESSION: BI-RADS: 1-Negative FOLLOW UP: 1 Year Follow-up
== END 2023-03-14 09:54 | disposition home or self-care (01) ==
LOC: RAD 09:56
PROVIDERS: PCP Physician Assistant; Visit Provider Physician Assistant
DX: Z12.31 Encounter for screening mammogram for malignant neoplasm of breast (principal)
CPT/HCPCS: 77063; 77067

== ENCOUNTER → 2023-03-26 09:04 | Outpatient (BNVA) | payer MEDICARE, MEDICAID, SELFPAY | PROVIDERS: PCP Physician Assistant; Visit Provider Podiatrist Foot & Ankle Surgery | DX: E11.69 Type 2 diabetes mellitus with other specified complication (principal); E78.5 Hyperlipidemia, unspecified; M20.41 Other hammer toe(s) (acquired), right foot; M20.42 Other hammer toe(s) (acquired), left foot; R26.81 Unsteadiness on feet; M21.42 Flat foot [pes planus] (acquired), left foot; M21.41 Flat foot [pes planus] (acquired), right foot; Z79.4 Long term (current) use of insulin | CPT/HCPCS: 99214 ==

== ENCOUNTER → 2023-03-27 13:46 | Outpatient (BNVA) | payer MEDICARE, MEDICAID, SELFPAY | PROVIDERS: PCP Physician Assistant; Visit Provider Internal Medicine Cardiovascular Disease | DX: R94.31 Abnormal electrocardiogram [ECG] [EKG] (principal); E78.2 Mixed hyperlipidemia; E11.9 Type 2 diabetes mellitus without complications; Z79.4 Long term (current) use of insulin; E03.9 Hypothyroidism, unspecified; F32.2 Major depressive disorder, single episode, severe without psychotic features; F17.210 Nicotine dependence, cigarettes, uncomplicated; I25.2 Old myocardial infarction | CPT/HCPCS: 99214 ==

== ENCOUNTER → 2023-03-29 09:09 | Outpatient (BNVA) | payer MEDICARE, MEDICAID, SELFPAY | PROVIDERS: PCP Physician Assistant; Visit Provider Internal Medicine | DX: E13.9 Other specified diabetes mellitus without complications (principal); E78.2 Mixed hyperlipidemia; E03.9 Hypothyroidism, unspecified; Z79.4 Long term (current) use of insulin; Z79.890 Hormone replacement therapy | CPT/HCPCS: 99214 ==

== ENCOUNTER → 2023-04-25 10:47 | Outpatient (BNVA) | payer MEDICARE, MEDICAID, SELFPAY | PROVIDERS: PCP Physician Assistant; Visit Provider Nurse Practitioner Family | DX: M79.642 Pain in left hand (principal) | CPT/HCPCS: 73130; 99213 ==

== ENCOUNTER → 2023-05-28 13:03 | Outpatient (BNVA) | payer OTHER, SELFPAY | PROVIDERS: PCP Physician Assistant; Visit Provider Nurse Practitioner | DX: F32.2 Major depressive disorder, single episode, severe without psychotic features (principal); Z79.899 Other long term (current) drug therapy | CPT/HCPCS: 80061; 83036 ==

== ENCOUNTER → 2023-06-17 09:55 | Outpatient (BNVA) | payer MEDICARE, MEDICAID, SELFPAY ==
[2023-06-04 16:27] VITALS: BP 119/74; BMI 34.3
== END ==
PROVIDERS: PCP Physician Assistant; Visit Provider Specialist
DX: M79.642 Pain in left hand
CPT/HCPCS: 73130; 99204

== ENCOUNTER → 2023-06-19 10:23 | Outpatient (BNVA) | payer MEDICARE, MEDICAID, SELFPAY ==
[2023-06-04 16:27] VITALS: BP 119/74; BMI 34.3
== END ==
PROVIDERS: PCP Physician Assistant; Visit Provider Nurse Practitioner
DX: R50.9 Fever, unspecified (principal); J00 Acute nasopharyngitis [common cold]
CPT/HCPCS: 87400; 87426; 87880

== ENCOUNTER 2023-07-16 07:51 | Outpatient (CLI) | payer MEDICARE, MEDICAID, SELFPAY ==
[2023-06-04 16:27] VITALS: BP 119/74; BMI 34.3
--- NOTE | 2023-07-16 07:15 | MR_ITS ---
WS: [id number] MRI LEFT HAND WITH AND WITHOUT CONTRAST. COMPARISON: Radiograph 06/17/2023 Multiplanar, multisequence imaging is performed with and without contrast. MultiHance 17 mL IV. No fractures or marrow edema. No displacement of the interphalangeal joints. There is a small amount of fluid surrounding the flexor digitorum superficialis and profundus tendons of the fourth finger. Increased fluid begins at the proximal phalanx and extends distally to near th e DIP joint. There is very slight separation of the tendon from the proximal phalanx indicating there may be minimal injury to the common digital tendon sheath. The A1 anderson appears intact. No tendon t ear is identified. There may be very minimal displacement of the tendon indicating an injury of the c ommon digital tendon sheath involving the proximal phalanx. Otherwise no abnormality. There are no areas of abnormal enhancement or enhancing mass. The fluid within the tendon sheath does enhance suggesting an inflammatory process. There is no abscess. IMPRESSION: 1. Increased fluid surrounding the flexor tendon sheath of the fourth finger. There is very slight en hancement of the fluid on the postcontrast images. This can be seen with infectious synovitis or infl ammatory synovitis or posttraumatic. No mass or abscess. 2. No tendon tear or marrow edema. 3. Very minimal displacement of the flexor tendon sheath from the proximal fourth phalanx. Minimal in jury of the common digital tendon sheath should be considered.
[2023-07-16] MEDS: gadobenate dimeglumine 20 mL vial IV (10:34)
== END 2023-07-16 07:52 | disposition home or self-care (01) ==
LOC: RAD 07:51
PROVIDERS: PCP Physician Assistant; Visit Provider Specialist
DX: M79.642 Pain in left hand (principal)
CPT/HCPCS: 73220; A9577

== ENCOUNTER → 2023-07-23 08:51 | Outpatient (BNVA) | payer MEDICARE, MEDICAID, SELFPAY ==
[2023-06-04 16:27] VITALS: BP 119/74; BMI 34.3
== END ==
PROVIDERS: PCP Physician Assistant; Visit Provider Podiatrist Foot & Ankle Surgery
DX: E11.69 Type 2 diabetes mellitus with other specified complication (principal); E78.5 Hyperlipidemia, unspecified; M20.41 Other hammer toe(s) (acquired), right foot; M20.42 Other hammer toe(s) (acquired), left foot; M21.40 Flat foot [pes planus] (acquired), unspecified foot; R26.81 Unsteadiness on feet; L84 Corns and callosities; Z79.4 Long term (current) use of insulin
CPT/HCPCS: 99213

== ENCOUNTER → 2023-07-24 10:41 | Outpatient (BNVA) | payer MEDICARE, MEDICAID, SELFPAY ==
[2023-06-04 16:27] VITALS: BP 119/74; BMI 34.3
== END ==
PROVIDERS: PCP Physician Assistant; Visit Provider Internal Medicine
DX: E13.9 Other specified diabetes mellitus without complications (principal); F32.2 Major depressive disorder, single episode, severe without psychotic features; E78.2 Mixed hyperlipidemia; E03.9 Hypothyroidism, unspecified; Z79.890 Hormone replacement therapy; Z79.4 Long term (current) use of insulin
CPT/HCPCS: 99214

== ENCOUNTER → 2023-08-05 11:32 | Outpatient (BNVA) | payer MEDICARE, MEDICAID, SELFPAY ==
[2023-06-04 16:27] VITALS: BP 119/74; BMI 34.3
== END ==
PROVIDERS: PCP Physician Assistant; Visit Provider Specialist
DX: M06.9 Rheumatoid arthritis, unspecified (principal); Z79.899 Other long term (current) drug therapy; M19.042 Primary osteoarthritis, left hand
CPT/HCPCS: 36415; 80053; 85651; 86140; 86160; 86162; 86200; 86235; 86255; 86376; 86431; 99213

== ENCOUNTER → 2023-09-02 10:12 | Outpatient (BNVA) | payer MEDICARE, MEDICAID, SELFPAY ==
[2023-06-04 16:27] VITALS: BP 119/74; BMI 34.3
== END ==
PROVIDERS: PCP Physician Assistant; Visit Provider Specialist
DX: M79.642 Pain in left hand (principal)
CPT/HCPCS: 99213

== ENCOUNTER → 2023-10-01 09:53 | Outpatient (BNVA) | payer MEDICARE, MEDICAID, SELFPAY ==
[2023-06-04 16:27] VITALS: BP 119/74; BMI 34.3
== END ==
PROVIDERS: PCP Physician Assistant; Visit Provider Internal Medicine Rheumatology
DX: Z79.899 Other long term (current) drug therapy (principal); M06.041 Rheumatoid arthritis without rheumatoid factor, right hand; M06.042 Rheumatoid arthritis without rheumatoid factor, left hand; M70.51 Other bursitis of knee, right knee; M70.52 Other bursitis of knee, left knee; Z71.85 Encounter for immunization safety counseling
CPT/HCPCS: 99214

== ENCOUNTER 2023-11-06 09:20 | Outpatient (CLI) | payer MEDICARE, MEDICAID, SELFPAY ==
[2023-06-04 16:27] VITALS: BP 119/74; BMI 34.3
[2023-11-06 10:10] LABS: Basophils # 0.1 10^3/uL (0.0-0.1); Basophils % 0.9 %; Eosinophils # 0.2 10^3/uL (0.0-0.8); Eosinophils % 2.8 %; Hematocrit 40.8 % (36-47); Lymphocytes # 1.5 10^3/uL (0.8-4.8); Lymphocytes % 19.4 %; Mean Corpuscular HGB Conc 33.6 g/dL (30-55); Mean Corpuscular Hemoglobin 30.8 pg (27-33); Mean Corpuscular Volume 91.7 fl (85-98); Mean Platelet Volume 10.7 fL (7.4-10.4); Monocytes # 0.3 10^3/uL (0.2-0.9); Monocytes % 4.1 %; Neutrophils # 5.66 10^3/uL (1.8-7.7); Neutrophils % 72.4 %; Nucleated Red Blood Cells % 0 %; Platelet Count 193 10^3/cmm (157-399); Red Blood Count 4.45 10^6/uL (3.85-5.65); Red Cell Distribution Width 13.4 % (12.1-15.1); White Blood Count 7.82 10^3/uL (3.29-11.43)
[2023-11-06 10:13] LABS: Erythrocyte Sedimentation Rate 17 mm/hr (0-15)
[2023-11-06 10:37] LABS: Estmated Average Glucose 240
[2023-11-06 10:38] LABS: Creatinine Urine, Random 52 mg/dL (28-217); Microalbum Creatinine Ratio Ur 19 mg/dL (0-20); Microalbumin Random Urine 1 ug/dL (0-20)
[2023-11-06 11:00] LABS: C Reactive Protein 14.4 mg/L (0.0-4.9); Cholesterol 156 mg/dL (0-200); Glomerular Filtration Rate 72.7 mL/min (90-130); Thyroid Stimulating Hormone 7.42 uIU/mL (0.27-4.20); Triglycerides 101 mg/dL (0-150)
[2023-11-06 11:36] LABS: Alanine Aminotransferase 25 U/L (0-33); Alkaline Phosphatase 156 U/L (35-105); Anion Gap 19.2 (5-19); Aspartate Amino Transferase 14 U/L (0-32); Blood Urea Nitrogen 15 mg/dL (8-23); Calcium 8.9 mg/dL (8.5-10.5); Carbon Dioxide 21 mmol/L (22-29); Chloride 100 mmol/L (98-107); Globulin 2.5 g/dL (1.3-4.6); Glomerular Filtration Rate 72.7 mL/min (90-130); Glucose 298 mg/dL (65-115); Osmolality Calculated 294 mOsm/kg (285-295); Potassium 4.2 mmol/L (3.5-5.1); Sodium 136 mmol/L (136-145); Total Bilirubin 0.5 mg/dL (0.15-1.2); Total Protein 6.5 g/dL (6.6-8.7)
[2023-11-06 11:48] LABS: Hepatitis B Core AB, Total Non-Reactive (Nonreactive); Hepatitis B Surface Antigen Non-Reactive (Nonreactive); Hepatitis C Virus Antibody Non-Reactive (Nonreactive)
[2023-11-06 12:35] LABS: Chol HDL Ratio 2.69 mg/dL (0.0-4.40); Free T4 Free Thyroxine 1.26 ng/dL (0.82-1.77); HDL Cholesterol 58 mg/dL (60-100); LDL Cholesterol Calculated 78 mg/dL (50-129); LDL HDL Ratio 1.34 RATIO (0.00-3.22)
[2023-11-08 12:55] LABS: Quantiferon Mitogen 8.07 IU/mL; Quantiferon Nil 0.02 IU/mL; Quantiferon Plus TB1 0.02 IU/mL; Quantiferon Plus TB2 0.02 IU/mL; Quantiferon TB Gold NEGATIVE (NEGATIVE)
== END 2023-11-06 09:21 | disposition home or self-care (01) ==
LOC: LAB 09:21
PROVIDERS: Internal Medicine Rheumatology; PCP Physician Assistant; Visit Provider Internal Medicine
DX: E11.69 Type 2 diabetes mellitus with other specified complication (principal); Z11.59 Encounter for screening for other viral diseases; Z11.1 Encounter for screening for respiratory tuberculosis; M19.90 Unspecified osteoarthritis, unspecified site; E78.5 Hyperlipidemia, unspecified; F32.2 Major depressive disorder, single episode, severe without psychotic features; Z79.899 Other long term (current) drug therapy
CPT/HCPCS: 36415; 80053; 80061; 82044; 82248; 82565; 83036; 84439; 84443; 85025; 85651; 86140; 86480; 86704; 86803; 87340

== ENCOUNTER → 2023-11-11 10:09 | Outpatient (BNVA) | payer MEDICARE, MEDICAID, SELFPAY ==
[2023-06-04 16:27] VITALS: BP 119/74; BMI 34.3
== END ==
PROVIDERS: PCP Physician Assistant; Visit Provider Internal Medicine
DX: E11.69 Type 2 diabetes mellitus with other specified complication (principal); E78.2 Mixed hyperlipidemia; E03.9 Hypothyroidism, unspecified; F32.2 Major depressive disorder, single episode, severe without psychotic features; Z79.4 Long term (current) use of insulin; Z79.890 Hormone replacement therapy
CPT/HCPCS: 99214

== ENCOUNTER → 2023-11-26 08:45 | Outpatient (BNVA) | payer MEDICARE, MEDICAID, SELFPAY ==
[2023-06-04 16:27] VITALS: BP 119/74; BMI 34.3
== END ==
PROVIDERS: PCP Physician Assistant; Visit Provider Podiatrist Foot & Ankle Surgery
DX: E11.69 Type 2 diabetes mellitus with other specified complication (principal); E78.5 Hyperlipidemia, unspecified; L60.3 Nail dystrophy; Z79.4 Long term (current) use of insulin
CPT/HCPCS: 11721